=== PATIENT | male | born 1955 | race Caucasian/White ===

== ENCOUNTER 2020-04-01 09:21 | Outpatient (CLI) | payer MEDICARE, SELFPAY ==
--- NOTE | ~2020-04-01 | CT_ITS ---
EXAMINATION: CT chest wo con DATE: 04/01/2020 09:51 INDICATION: Emphysema TECHNIQUE: Computed tomography (CT) of the chest was performed without intravenous contrast. The dose -length product was 87.07 mGy-cm. Automated exposure control and iterative reconstruction technique w ere employed. COMPARISON: CT dated 02/18/2019 and chest dated 11/05/2019 FINDINGS: No thoracic lymphadenopathy. No pleural or pericardial effusion. Heart size is normal. Ther e is atherosclerosis of the aorta. There is a benign fat-containing lesion tail of the pancreas. Ther e is emphysema. There is right lower lobe infiltrates which may represent atelectasis, scarring and/o r developing pneumonia. There is an irregular shaped mass like soft tissue in the superior segment le ft lower lobe measuring 3.2 x 2.6 x 2.6 cm. There are calcified granulomas. Mild thoracic spondylosis . IMPRESSION: 1. Soft tissue mass superior segment left lower lobe measuring 3.2 x 2.6 x 2.6 cm. This may be infect ious, although neoplasm is not excluded. Recommend either PET/CT scan or percutaneous biopsy. 2: Right lower lobe infiltrates, most likely atelectasis/scarring versus pneumonia. 3: Emphysema. Reviewed, dictated and finalized at location A. IMPRESSION: 1. Soft tissue mass superior segment left lower lobe measuring 3.2 x 2.6 x 2.6 cm. This may be infectious, although neoplasm is not excluded. Recommend either PET/CT scan or percutaneous biopsy. 2: Right lower lobe infiltrates, most likely atelectasis/scarring versus pneumo malgorzata. 3: Emphysema.
== END 2020-04-01 09:22 | disposition home or self-care (01) ==
PROVIDERS: PCP Family Medicine; Visit Provider Family Medicine
DX: R91.8 Other nonspecific abnormal finding of lung field (principal); J43.9 Emphysema, unspecified
CPT/HCPCS: 71250

== ENCOUNTER 2020-04-07 10:28 | Outpatient (CLI) | payer MEDICARE, SELFPAY ==
--- NOTE | ~2020-04-07 | PE_ITS ---
EXAMINATION: PET skull to mid thigh DATE: 04/07/2020 12:24 INDICATION: Lung mass TECHNIQUE: 10.4 mCi of 18-fluorodeoxyglucose (18-FDG) was administered i.v. Low dose computed tomogra phy (CT) images were acquired from the base of the brain to the proximal thighs for attenuation corre ction and anatomic localization. Positron emission tomography (PET) images were acquired after inject ion. Images including fused PET/CT images were reconstructed in axial, coronal, and sagittal planes. Automatic exposure control is employed as a dose reduction technique. COMPARISON: CT dated 04/01/2020 FINDINGS: Head/neck: There is mucosal thickening of the maxillary sinuses. No cervical lymphadenopathy. No hypermetabolic activity in the neck. Chest: No thoracic lymphadenopathy. The mass in the superior segment left lower lobe has decreased in size c ompared with prior examination when it measured 2.6 cm transverse x2.8 cm AP x1.9 cm craniocaudal now measuring 2.5 cm transverse x2.2 cm AP x1.9 cm craniocaudal with increased air bronchograms internal ly. Maximum SUV is 1.9 No significant effusion. There is emphysema. There is right middle and lower l obe atelectasis. There is calcified granuloma right upper lobe. Focal infiltrates of the right lower and middle lobe are not significantly changed, likely atelectasis or scarring. Abdomen/pelvis/proximal thighs: The liver, spleen, pancreas, adrenal glands are unremarkable. There are low-density masses in both ki dneys, most likely cysts. There is atherosclerosis of the aorta. Chronic diverticulosis without diver ticulitis. Normal appendix. Gallbladder is present. Nonobstructive bowel gas pattern. There is a 1.5 x 0.9 cm right UVJ stone with minimal hydronephrosis. There is mild uptake throughout the colon witho ut discrete mass, likely physiologic. Bones/Soft tissues: No hypermetabolic activity is identified in the bones or soft tissues. IMPRESSION: 1. Decreased size of soft tissue nodule left upper lobe superior segment with increased internal bron chograms and maximum SUV of 1.9, most likely infectious/inflammatory rather than malignant. Recommend follow-up CT in 2-3 months to assess for interval change. 2: Emphysema. 3: Focal linear infiltrates of the right middle and lower lobe, atelectasis/scarring. 4: 1.5 cm right UVJ stone. Reviewed, dictated and finalized at location A. IMPRESSION: 1. Decreased size of soft tissue nodule left upper lobe superior segment with i ncreased internal bronchograms and maximum SUV of 1.9, most likely infectious/i nflammatory rather than malignant. Recommend follow-up CT in 2-3 months to asse ss for interval change. 2: Emphysema. 3: Focal linear infiltrates of the right middle and lower lobe, atelectasis/sc arring. 4: 1.5 cm right UVJ stone.
[2020-04-07 11:03] LABS: Glucose Point of Care 109 (65-105)
== END 2020-04-07 10:29 | disposition home or self-care (01) ==
LOC: ANHIMG 10:31
PROVIDERS: PCP Family Medicine; Visit Provider Family Medicine
DX: R91.8 Other nonspecific abnormal finding of lung field (principal); J43.9 Emphysema, unspecified; N20.1 Calculus of ureter
CPT/HCPCS: 78815; A9552

== ENCOUNTER 2020-06-07 10:26 | Outpatient (CLI) | payer MEDICARE, SELFPAY ==
--- NOTE | ~2020-06-07 | XR_ITS ---
XR abdomen/kub 1V DATE: 06/07/2020 10:41 INDICATION: Right ureteral stone TECHNIQUE: AP projection, 2 views COMPARISON: 04/07/[address] chest abdomen pelvis for PET/CT FINDINGS: The psoas shadows are intact. No visceromegaly is evident. No significant abnormal calcific ation is identified. No evidence of bowel obstruction. There is mild dextro scoliosis and degenerative change of the lower thoracic and lumbar spine. IMPRESSION: nonspecific abdomen Reviewed, dictated and finalized at Location A. Reviewed, dictated and finalized at location B. IMPRESSION: nonspecific abdomen
== END 2020-06-07 10:27 | disposition home or self-care (01) ==
LOC: ANHIMG 10:31
PROVIDERS: PCP Family Medicine; Visit Provider Urology
DX: N20.1 Calculus of ureter (principal)
CPT/HCPCS: 74018

== ENCOUNTER 2020-07-12 09:29 | Outpatient (CLI) | payer MEDICARE, SELFPAY ==
--- NOTE | ~2020-07-12 | CT_ITS ---
EXAMINATION: CT chest w con EXAM DATE: 07/12/2020 10:02 INDICATION: Abnormal findings in lungs. Emphysema. TECHNIQUE: Spiral CT of the chest following intravenous injection of 75 mL Omnipaque 350. Axial, cor onal and sagittal images were reviewed. Coronal maximum intensity pixel images of chest reviewed. Jacqui silverman dose-length product (DLP) for this examination was 171.99 mGy-cm. The exposure was tailored accor ding to patient size (auto mA exposure control), and iterative reconstruction (ASIR) was used as josselyn tional dose reduction technique. 04/01/2020 FINDINGS: Previously seen spiculated masslike opacity in the superior segment of the left lower lobe now has minimal scarring persistent, has essentially resolved. Several other regions of scarring are present. There is moderate emphysema. No suspicious pulmonary opacities. There are no pleural or pe ricardial effusions. Tracheobronchial tree is patent. There is no mediastinal, hilar or axillary lymphadenopathy. There is no pneumothorax. Heart normal in size. No evidence of coronary arteri al calcification. Upper abdomen is unremarkable. There is mild thoracic spondylosis without osteob lastic or osteolytic lesions identified. IMPRESSION: 1. Regions of scarring, essentially resolved left lower lobe masslike opacity. 2. Moderate emphysema. Reviewed, dictated and finalized at location A.
[2020-07-12 09:55] LABS: Estimated Glomerular Filt Rate > 60
== END 2020-07-12 09:30 | disposition home or self-care (01) ==
PROVIDERS: PCP Family Medicine; Visit Provider Physician Assistant
DX: R91.8 Other nonspecific abnormal finding of lung field (principal); J43.9 Emphysema, unspecified
CPT/HCPCS: 36415; 71260; Q9967

== ENCOUNTER 2021-07-13 10:06 | Outpatient (CLI) | payer MEDICARE, SELFPAY ==
--- NOTE | ~2021-07-13 | XR_ITS ---
EXAMINATION: XR chest 2V DATE: 07/13/2021 10:21 INDICATION: Cough TECHNIQUE: PA and lateral views of the chest are obtained. COMPARISON: 11/05/2019 FINDINGS: The lungs are free of acute opacities. There is no pleural effusion or pneumothorax. The ca rdiomediastinal silhouette is normal. There is moderate thoracic spondylosis. IMPRESSION: 1. No acute cardiopulmonary abnormality. Reviewed, dictated and finalized at location B.
== END 2021-07-13 10:07 | disposition home or self-care (01) ==
LOC: ANHIMG 10:12
PROVIDERS: PCP Family Medicine; Visit Provider Physician Assistant
DX: R05 Cough (principal)
CPT/HCPCS: 71046

== ENCOUNTER 2021-07-26 13:36 | Outpatient (CLI) | payer MEDICARE, SELFPAY ==
--- NOTE | ~2021-07-26 | CT_ITS ---
EXAMINATION: CT lung screening DATE: 07/26/2021 13:59 INDICATION: Personal hx of tobacco dependence TECHNIQUE: Computed tomography (CT) of the chest was performed without intravenous contrast. Addition al 3D reconstructions utilizing coronal maximum intensity projection (MIP) were performed. Automated exposure control and iterative reconstruction technique were employed. The dose-length product was 92 .64 mGy-cm. COMPARISON: Chest CT dated 07/12/2020 FINDINGS: Moderate to severe emphysema. Continued improvement of a small spiculated region of scarring at the s ite of an earlier masslike opacity in the superior segment of the left lower lobe. No interval change in multiple <5 mm scattered calcified and noncalcified pulmonary nodules. There are however multiple new <4 mm pulmonary nodules with tree-in-bud pattern in the posterior inferior right upper lobe as w ell as in the right middle and lower lobes consistent with endobronchial spread of disease including MARCOS or other atypical pneumonia. No pulmonary edema or pleural effusion. Heart size is normal. No per icardial effusion. Thoracic aorta is normal in caliber with mild scattered atherosclerotic calcificat ion. No pathologically enlarged thoracic lymphadenopathy. Couple low-attenuation right renal cysts, t he larger at the mid kidney measuring 3.0 cm. Moderate thoracic spondylosis. IMPRESSION: 1. Lung-RADS category 2: Benign appearance or behavior. Continue annual screening with noncontrast lo w-dose chest CT in 12 months. The small new nodules are clustered in regions of the mid to lower righ t lung with tree-in-bud pattern suggesting an infectious etiology with differential including MARCOS or other atypical pneumonia. 2. Moderate to severe emphysema. Reviewed, dictated and finalized at location B. IMPRESSION: 1. Lung-RADS category 2: Benign appearance or behavior. Continue annual screeni ng with noncontrast low-dose chest CT in 12 months. The small new nodules are c lustered in regions of the mid to lower right lung with tree-in-bud pattern sug gesting an infectious etiology with differential including MARCOS or other atypica l pneumonia. 2. Moderate to severe emphysema.
== END 2021-07-26 13:37 | disposition home or self-care (01) ==
LOC: ANHIMG 13:37
PROVIDERS: PCP Family Medicine; Visit Provider Family Medicine
DX: Z12.2 Encounter for screening for malignant neoplasm of respiratory organs (principal); Z87.891 Personal history of nicotine dependence; J43.9 Emphysema, unspecified
CPT/HCPCS: 71271

== ENCOUNTER 2021-10-18 08:35 | Outpatient (CLI) | payer MEDICARE, SELFPAY ==
--- NOTE | ~2021-10-18 | CT_ITS ---
EXAMINATION: CT diagnostic chest wo con EXAM DATE: 10/18/2021 09:00 INDICATION: J18.9 - Pneumonia, unspecified organism. TECHNIQUE: Spiral CT of the chest without contrast. Axial, coronal and sagittal images of the chest were reviewed. Coronal maximum intensity pixel images of chest reviewed. The dose-length product ( DLP) for this examination was 156.04 mGy-cm. The exposure was tailored according to patient size (au to mA exposure control), and iterative reconstruction (ASIR) was used as additional dose reduction te chnique. Comparison is made to prior examination from 07/26/2021. FINDINGS: Some linear right basilar scarring. Moderate emphysema. No suspicious lung opacities or in terval change. There are no pleural or pericardial effusions. Tracheobronchial tree is patent. T here is no mediastinal, hilar or axillary lymphadenopathy. There is no pneumothorax. Heart normal in size. There is minimal coronary arterial calcification, arterial sclerosis. Possible poorly ca lcified cholelithiasis. Right renal lesions most likely cysts. There is thoracic spondylosis without osteoblastic or osteolytic lesions identified. IMPRESSION: 1. Small amount of right basilar postinfectious residua. 2. Moderate emphysema. Reviewed, dictated and finalized at location B. NG LINE BALER
== END 2021-10-18 08:36 | disposition home or self-care (01) ==
PROVIDERS: PCP Family Medicine; Visit Provider Family Medicine
DX: J18.9 Pneumonia, unspecified organism (principal); J43.9 Emphysema, unspecified
CPT/HCPCS: 71250

== ENCOUNTER 2021-10-21 10:22 | Emergency (ER) | payer MEDICARE, SELFPAY ==
--- NOTE | ~2021-10-21 | CT_ITS ---
EXAMINATION: CT brain wo con EXAM DATE: 10/21/2021 11:45 INDICATION: Weakness, dizziness . Recent diagnosis of myeloma. TECHNIQUE: Spiral CT of the head was performed without contrast. Axial, coronal and sagittal images were reviewed. The dose-length product (DLP) for this examination was 605.33 mGy-cm. The exposure w as tailored according to patient size, and iterative reconstruction (ASIR) was used as additional dos e reduction technique. Comparison is made to prior examination from 01/26/2016. FINDINGS: There is no acute intraparenchymal hemorrhage. No evidence of intraparenchymal brain mass lesion. No evidence of acute infarction. Please note that initial head CT has limited sensitivity f or small or acute infarctions. There is moderate size old left frontal lobe region of encephalomalac ia. Some extension into the subinsular cortex. This is an the location of a previously seen hemorrhag ic, which has resolved. There is mild periventricular and subcortical hypodensity, nonspecific but pr obably related to small vessel ischemic disease. There is mild prominence of the sulci and ventricl es related to cerebral atrophy. There is intracranial carotid arteriosclerosis. There are no extra -axial collections. There is no mass effect or midline shift. The orbits are unremarkable. Soft ti ssue is unremarkable. Mild ethmoid, left sphenoid and mild to moderate left maxillary sinus mucoperiosteal thickening. Mast oid air cells demonstrate trace right mastoid effusion. IMPRESSION: 1. 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 2. Chronic age related findings. 3. Some mucoperiosteal thickening, trace right mastoid effusion. Reviewed, dictated and finalized at location A. E MARKER [employer] ARMS IMPRESSION: 1. Moderate size left frontal lobe encephalomalacia, old hemorrhagic infarctio n. 2. Chronic age related findings. 3. Some mucoperiosteal thickening, trace right mastoid effusion.
[2021-10-21 10:22] VITALS: BP 119/81; PULSE 83; RESP 20; TEMP 36.6; O2SAT 98
--- NOTE | 2021-10-21 10:28 | ECG_ITS ---
Measurements Intervals [place] Rate: 82 P: 60 AK: 155 QRS: -29 QRSD: 82 T: 42 QT: 363 QTc: 424 Interpretive Statements SINUS RHYTHM INCOMPLETE RIGHT BUNDLE BRANCH BLOCK LOW QRS VOLTAGE IN LIMB LEADS BORDERLINE T WAVE ABNORMALITY- INFERIOR LEADS BASELINE ARTIFACT- I, III, AVR, AVL, V1-V2 BORDERLINE ECG Electronically Signed On 10-21-2021 11:17:30 SALES PERFORMANCE MANAGER by Cornelio Butler D.O.
--- NOTE | 2021-10-21 11:03 | ED.GENADULT ---
HPI - General Adult General Chief complaint: Nausea/Vomiting/Diarrhea Stated complaint: weakness Time Seen by Provider: 10/21/21 10:45 Source: patient and family Mode of arrival: ambulatory Limitations: no limitations History of Present Illness HPI narrative: Patient is a 65-year-old male complaining of generalized weakness, lightheaded, nausea and intermittent diarrhea for the past 2 weeks. Patient states that he has been feeling well for the past 2 weeks. Patient states that he saw his primary care doctor for this, had a CT scan of his chest ordered outpatient, to rule out pneumonia because he is prone to it according to the , no pneumonia seen on the CT scan. Patient denies any headache, speech or visual disturbance, focal weakness or numbness, unsteady gait, chest pain, shortness of breath, abdominal pain, nausea, vomiting, fever or chills. Patient states that he was recently diagnosed with myeloma, not on chemo therapy at this time. Related Data Allergies Allergy/AdvReac Type Severity Reaction Status Date / Time propoxyphene Allergy Unknown Hives Verified 10/21/21 10:30 Review of Systems Review of Systems: All systems reviewed & are unremarkable except as noted in HPI and below Constitutional: Constitutional: Denies body ache(s), Denies chills, Denies excessive sweating, Denies fatigue, Denies fever(s), Denies headache(s), Denies lethargy, Denies malaise and Denies weight loss Eyes: Eyes: Denies blurry vision, Denies change in vision and Denies loss of vision ENT: Denies dizziness, Denies ear discharge, Denies headache(s), Denies lip swelling, Denies epistaxis, Denies nasal congestion, Denies neck pain, Denies throat swelling and Denies tongue swelling Cardiovascular: Cardiovascular: Denies chest pain, Denies chest pain at rest, Denies chest pain with activity, Denies diaphoresis, Denies rapid heart rate, Denies edema, Denies irregular heart rhythm, Denies lightheadedness, Denies palpitations, Denies dyspnea and Denies dyspnea on exertion Respiratory: Respiratory: Denies chest congestion, Denies cough, Denies hemoptysis, Denies dyspnea and Denies dyspnea on exertion Gastrointestinal: Gastrointestinal: Denies abdominal pain, Denies melena, Denies hematochezia, Denies nausea, Denies vomiting and Denies hematemesis Musculoskeletal: Musculoskeletal: Denies abnormal gait, Denies deformity, Denies joint swelling, Denies limited range of motion, Denies neck pain and Denies numbness Neurologic: Denies Abnormal speech present, Denies abnormal gait, Denies confusion, Denies headache(s), Denies focal weakness, Denies loss of vision, Denies numbness, Denies Other visual disturbances and Denies Sensory deficit (Neuro) Psychiatric: Psychiatric: Denies confusion, Denies depression, Denies auditory hallucinations, Denies homicidal ideation and Denies suicidal ideation Endocrine: Endocrine: Denies cold intolerance, Denies excessive sweating, Denies fatigue, Denies heat intolerance and Denies palpitations Hematologic/Lymphatic: Hematologic/Lymphatic: Denies easy bleeding and Denies easy bruising Allergic/Immunologic: Allergic/Immunologic: Denies lip swelling, Denies throat swelling and Denies tongue swelling PMFSH Past Medical History Medical History CVA (cerebral vascular accident) Encounter for screening colonoscopy Hypertension Family History Family History Mother Aneurysm Social History Social History Smoking packs per day: 2 Smoking cigarettes per day: 40.0 Years smoked: 26 Smoking pack-years: 52.00 Smoking status: Former smoker Tobacco type: cigarettes and cigars Second hand tobacco smoke exposure: No Smoking end date: 11/05/19 Alcohol intake: never Substance use: current Substance use type: marijuana Gender identity (if verbalized by the patien
[2021-10-21] MEDS: LACTATED RINGERS 1,000 ML 999 ML IV CONT (11:17)
[2021-10-21 11:35] LABS: Basophils Percent Auto 0.4 % (0.2-1.2); Eosinophils Percent Auto 0.4 % (0-4.4); Hematocrit 43.6 % (42.0-52.0); Hemoglobin 14.8 g/dL (14.0-18.0); Immature Granulocyte Absolute 0.01 K/mm3 (0.00-0.031); Immature Granulocyte Percent A 0.4 % (0-0.5); Immature Platelet Fraction Pct 3.4 % (0.9-11.2); Lymphocytes Absolute Auto 0.61 K/mm3 (0.9-3.2); Lymphocytes Percent Auto 22.5 % (18.3-44.2); Mean Corpuscular HGB Conc 33.9 g/dl (32-36); Mean Corpuscular Hemoglobin 30.5 pg (26-34); Mean Corpuscular Volume 89.7 fl (80-100); Mean Platelet Volume 9.8 fl (7.4-10.4); Monocytes Absolute Auto 0.3 K/mm3 (0.1-0.6); Monocytes Percent Auto 11.4 % (2.6-8.5); Neutrophils Absolute Auto 1.8 K/mm3 (1.3-6.7); Neutrophils Percent Auto 64.9 % (45.5-73.1); Platelet Count Result 141 k/mm3 (150-375); Red Blood Count 4.86 M/mm3 (4.6-6.20); White Blood Count 2.7 K/mm3 (4.5-10.0)
[2021-10-21 11:47] LABS: Alanine Aminotransferase 18 U/L (4-50); Albumin Level 3.8 g/dL (3.5-5.1); Alkaline Phosphatase 86 U/L (38-126); Anion Gap 10 mmol/L (8-16); Aspartate Amino Transferase 25 U/L (17-59); Bilirubin,Total 0.4 mg/dL (0.2-1.3); Blood Urea Nitrogen 10 mg/dL (9-20); Calcium 8.3 mg/dL (8.4-10.2); Carbon Dioxide 23 mmol/L (22-30); Chloride 103 mmol/L (98-107); Estimated CRCL calculation 68 ml/min; Estimated Glomerular Filt Rate > 60; Glucose 94 mg/dL (65-110); Sodium 136 mmol/L (137-145)
[2021-10-21 11:48] LABS: Lactic Acid Reflex 1.5 mmol/L (0.7-2.1)
[2021-10-21 11:58] LABS: Troponin I < 0.012 ng/mL (0.000-0.034)
[2021-10-21 12:31] LABS: Add Urine Microscopic? YES; Appearance Urine Clear (Clear); Bilirubin Urine Negative (Negative); Blood Urine Negative (Negative); Color Urine Straw (Yellow); Glucose Urine UA Negative (Negative); Ketones Urine 1+ mg/dL (Negative); Leukocyte Esterase Ur Negative LEU/UL (Negative); Mucus Urine Rare /lpf; Nitrate Urine Negative (Negative); Protein Urine Negative (Negative); RBC Urine 0-2 /hpf (0-2); Urobilinogen Urine Negative mg/dL (<2.0); WBC Urine 0-3 /hpf
[2021-10-21 12:32] LABS: Specific Grav Ur 1.004 (1.001-1.035)
[2021-10-21 12:36] VITALS: BP 115/89; PULSE 70; RESP 18; O2SAT 96
[2021-10-21 14:53] VITALS: BP 104/74; PULSE 76; RESP 18; O2SAT 96
[2021-10-21 15:52] VITALS: BP 117/81; PULSE 79; RESP 18; O2SAT 95
== END 2021-10-21 15:54 | disposition home or self-care (01) ==
PROVIDERS: Emergency Provider Emergency Medicine; PCP Family Medicine
DX: R53.1 Weakness (principal); R42 Dizziness and giddiness; R19.7 Diarrhea, unspecified; I10 Essential (primary) hypertension; Z86.73 Personal history of transient ischemic attack (TIA), and cerebral infarction without residual deficits; Z87.891 Personal history of nicotine dependence; I45.10 Unspecified right bundle-branch block; R94.31 Abnormal electrocardiogram [ECG] [EKG]
CPT/HCPCS: 36415; 70450; 80053; 81001; 83605; 84484; 85025; 85055; 93005; 96360; 99284; J7120

== ENCOUNTER 2021-12-11 08:44 | Emergency (ER) | payer MEDICARE, SELFPAY ==
--- NOTE | 2021-12-11 08:46 | ED.URI ---
HPI - URI/Sore Throat General Chief Complaint: Upper Respiratory Infection Stated Complaint: Sinus Pain/Ear Pain Time Seen by Provider: 12/11/21 08:46 Source: patient and RN notes reviewed History of Present Illness HPI Narrative: Patient is a 66-year-old male who presents the urgent care with complaints of right ear pain/clogged and sinus pain. Patient states has been ongoing for approximately 2 weeks and he has been unable to get into his doctor. Patient has a history of bronchitis, COPD and pneumonia. Patient denies of any recent fevers. States that he has a productive cough with intermittent shortness of breath. Denies of any chest pain. Patient has been taking all the medications [id number] without any improvement . Patient does not take daily inhalers for his COPD and has not been referred to a surveillance systems engineer. No other acute complaints. No acute distress noted. Patient and spouse aware of the plan of care. Some parts of this dictation were generated by voice recognition software and may contain typographical and/or grammatical inaccuracies. Related Data Allergies Allergy/AdvReac Type Severity Reaction Status Date / Time propoxyphene Allergy Unknown Hives Verified 12/11/21 08:53 STERIODS AdvReac Nervousness Uncoded 12/11/21 08:53 Review of Systems Review of Systems: CONSTITUTIONAL: Denies fever, chills, or sweats. EYES: Denies visual changes, redness, or discharge. ENT: Reports rhinorrhea, sinus congestion/pain, right otalgia CARDIOVASCULAR: Denies chest pain, palpitations, or edema. RESPIRATORY: Reports of cough with intermittent dyspnea GASTROINTESTINAL: Denies abdominal pain, nausea, vomiting, or diarrhea. GENITOURINARY: Denies dysuria or hematuria. SKIN: Denies rash or itching. MUSCULOSKELETAL: Denies back pain, joint pain, or myalgia. NEUROLOGIC: Denies headache, numbness, or weakness. All other systems reviewed are negative, except as documented in HPI. [facility] Past Medical History Medical History CVA (cerebral vascular accident) Encounter for screening colonoscopy Hypertension Family History Family History Mother Aneurysm Social History Social History Smoking packs per day: 2 Smoking cigarettes per day: 40.0 Years smoked: 26 Smoking pack-years: 52.00 Smoking status: Former smoker Tobacco type: cigarettes and cigars Second hand tobacco smoke exposure: No Smoking end date: 11/05/19 Alcohol intake: never Substance use: current Substance use type: marijuana Gender identity (if verbalized by the patient): Male Spiritual care concerns: No Agree to blood products: Yes Comments At the time of my signature, I reviewed and agree with the nursing past medical, surgical, social, and family history. There is no relevant family history pertinent to the patient complaint. Exam Narrative: GENERAL: This is a well-nourished, well-developed patient, in no apparent distress. HEAD: normocephalic, atraumatic. EYES: PERRL. Sclera clear/white. Vision is grossly intact. EARS: External ears normal, right auditory canal clear and without drainage, unable to visualize right TM due to cerumen impaction, left TM normal without perforation. Hearing grossly intact. NOSE: External nose normal with no obvious nasal discharge, nares without redness, no rhinorrhea. THROAT: Mucous membranes moist, posterior pharynx clear. Moderate postnasal drainage NECK: Neck supple CARDIOVASCULAR: Regular rate and rhythm RESPIRATORY: Crackles throughout, diminished to right lower lobe SKIN: warm, intact with no suspicious lesions or rash, good texture and turgor. NEURO: awake, alert, and oriented to person, place and time. There were no obvious focal neurologic abnormalities. EXTREMITIES: No clubbing, cyanosis, or edema. Course Course Level of Care: Ex
[2021-12-11 08:50] VITALS: BP 123/88; PULSE 81; RESP 20; TEMP 37.1; O2SAT 99
== END 2021-12-11 09:10 | disposition home or self-care (01) ==
PROVIDERS: Emergency Provider Nurse Practitioner Family; PCP Family Medicine
DX: J32.9 Chronic sinusitis, unspecified (principal); J40 Bronchitis, not specified as acute or chronic; Z87.891 Personal history of nicotine dependence; Z86.73 Personal history of transient ischemic attack (TIA), and cerebral infarction without residual deficits; I10 Essential (primary) hypertension; J44.9 Chronic obstructive pulmonary disease, unspecified
CPT/HCPCS: 99213; G0463

== ENCOUNTER 2022-04-18 08:48 | Outpatient (CLI) | payer MEDICARE, SELFPAY ==
--- NOTE | ~2022-04-18 | XR_ITS ---
EXAMINATION: XR thoracic spine 2V DATE: 04/18/2022 09:06 INDICATION: Back pain TECHNIQUE: AP, lateral and lateral swimmer's views of the thoracic spine were obtained. COMPARISON: CT, 07/26/2021 FINDINGS: There is no fracture. Vertebral body alignment is normal. There is moderate loss of interve rtebral disc space height at multiple levels in the thoracic spine. The vertebral body heights are ma intained. Small degenerative osteophytes project from the anterior endplates of multiple vertebral vladimir dies. There is severe lower cervical spondylosis IMPRESSION: 1. Moderate thoracic spondylosis without acute findings or significant interval change. Reviewed, dictated and finalized at location A.
== END 2022-04-18 08:49 | disposition home or self-care (01) ==
PROVIDERS: PCP Family Medicine; Visit Provider Family Medicine
DX: M47.894 Other spondylosis, thoracic region (principal)
CPT/HCPCS: 72070

== ENCOUNTER → 2022-06-19 12:38 | Outpatient (CLI) | payer MEDICARE, SELFPAY ==
--- NOTE | ~2022-06-19 | XR_ITS ---
XR chest 2V DATE: 06/19/2022 13:14 INDICATION: Malignant melanoma of skin of the chest TECHNIQUE: 2 views COMPARISON: 06/19/2022 CT chest abdomen pelvis 07/13/2021 2 view chest FINDINGS: Moderate hyperinflation consistent with COPD. No pulmonary infiltrate or consolidation, ple ural effusion or pulmonary vascular congestion or pulmonary mass lesion is evident. Normal heart size. There is aortic unfolding. No hilar or mediastinal enlargement is evident. Osteopenia. IMPRESSION: Bilateral hyperinflation consistent with COPD No active cardiopulmonary disease or significant change since 07/13/2021 Reviewed, dictated and finalized at location B.
--- NOTE | ~2022-06-19 | CT_ITS ---
EXAMINATION: CT chest abdomen pelvis w con DATE: 06/19/2022 13:14 INDICATION: Malignant melanoma of skin of the chest removed 6 months ago TECHNIQUE: Computed tomography (CT) of the chest, abdomen, and pelvis was performed with 100 CC Omnip aque 350 intravenous contrast. Automated exposure control and iterative reconstruction technique were employed. Exam dose: 692.32 mGy-cm total exam DLP. COMPARISON: 10/18/2021 CT chest 07/12/2020 CT chest 04/01/2020 CT chest 02/18/2019 CT lung cancer screening examination FINDINGS: CHEST CT: Moderately prominent emphysematous changes of the lungs. There is discoid atelectasis and/or scarring in the middle and right lower lobes. Stable focal stellate opacity in the superior segment of the left lower lobe since 10/18/2021, likely residual scarring from prominent area of consolidation in this region noted on 02/18/2019. No significant new or developing pulmonary mass density is noted. Normal size and homogeneous enhancement of the thyroid gland. Normal heart size. No pericardial effus ion. No thoracic aortic aneurysm or dissection. There is aortic calcification of the thoracic aorta. No hilar or mediastinal or axillary mass lesion or lymphadenopathy. ABDOMEN/PELVIS CT: There is mild prominence of the intrahepatic and extra hepatic bile ducts, common bile duct measuring up to 11 mm. The very distal common bile duct is not seen. Recommend correlation with serum bilirubi n level. Consider MRCP for further evaluation. Several hepatic cysts are suggested, the largest measuring approximately 1 cm. Normal splenic size. The pancreatic duct measures up to 2.6 mm approximate diameter. No pancreatic mass lesion or calcific ation is evident. Approximately 9 x 11.5 mm right adrenal mass and 9.3 x 13.5 mm left adrenal mass. Differential diagno sis includes small adrenal adenomas, less likely adrenal metastases. 2.4 x 3.4 cm and 1.7 x 1.8 cm right upper pole renal cysts. 1.5 cm exophytic lower pole left renal cy st. No urinary tract calculus or hydroureteronephrosis. There is very prominent prostate enlargement, prominently impressing the base of the urinary bladder. There is moderate diffuse bladder wall thickening. No urinary tract calculus or hydroureteronephrosi s. Approximately 1 cm fusiform infrarenal abdominal aortic aneurysm. No intraperitoneal or retroperitoneal or pelvic mass lesion or adenopathy or ascites. Diverticulosis of left colon; no CT evidence of diverticulitis. Normal appendix. No bowel obstruction, bowel wall thickening, pneumatosis or intraperitoneal free air is detected. Small fat-containing umbilical hernia Small bilateral fat-containing inguinal hernias. 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 Severe degenerative disc disease at L5-S1. There is moderate degenerative disc disease of the remaini ng lumbar spine, with associated mild retrolisthesis at L4-5. Severe degenerative disc disease of the lower cervical spine and degenerative spurring of the thoraci c spine. No suspicious osteolytic or osteoblastic lesions are noted. IMPRESSION: Emphysema Bilateral pulmonary scarring Nonspecific dilatation of the intrahepatic and extra hepatic biliary tree and borderline prominence o f the pancreatic duct; common bile duct measures up to approximately 11 mm. Recommend correlation wit h serum bilirubin level. Consider MRCP. Bilateral adrenal masses; differential diagnosis includes adenomas and less likely metastases. These appear stable since 04/01/2020 and 02/18/2019, favoring benign adenomas. Bilateral renal cysts Prominent prostate enlargement Diverticulosis of left colon; no evidence of diverticulitis Normal appendix Bilateral L5 pars interarticularis defects with grade 2 anterolisthesis and severe degenerative disea se at L5-S1 Degenerative changes of cervical, th
[2022-06-19 13:01] LABS: Estimated Glomerular Filt Rate > 60
== END ==
PROVIDERS: PCP Family Medicine; Visit Provider Surgery
DX: C79.2 Secondary malignant neoplasm of skin (principal); J43.9 Emphysema, unspecified; R91.8 Other nonspecific abnormal finding of lung field; D35.01 Benign neoplasm of right adrenal gland; D35.02 Benign neoplasm of left adrenal gland; N40.0 Benign prostatic hyperplasia without lower urinary tract symptoms; K57.30 Diverticulosis of large intestine without perforation or abscess without bleeding; M50.30 Other cervical disc degeneration, unspecified cervical region; M51.34 Other intervertebral disc degeneration, thoracic region; M51.36 Other intervertebral disc degeneration, lumbar region
CPT/HCPCS: 71046; 71260; 74177; Q9967

== ENCOUNTER 2022-11-28 13:08 | Outpatient (CLI) | payer MEDICARE, SELFPAY ==
--- NOTE | ~2022-11-28 | XR_ITS ---
Clinical Indication: Cough PA and lateral views of the chest: Comparison: 06/19/2022 Findings: The lungs are clear, without evidence of focal consolidation or pleural effusion. Cardiome diastinal silhouette is within normal limits. Bones and soft tissues are unremarkable. Impression: Normal chest. Reviewed, dictated and finalized at location . H TENDER Impression: Normal chest.
== END 2022-11-28 13:09 | disposition home or self-care (01) ==
PROVIDERS: PCP Family Medicine; Visit Provider Physician Assistant
DX: R05.9 Cough, unspecified (principal)
CPT/HCPCS: 71046

== ENCOUNTER 2022-12-12 06:35 | Outpatient (CLI) | payer MEDICARE, SELFPAY ==
--- NOTE | ~2022-12-12 | CT_ITS ---
EXAMINATION: CT chest abdomen pelvis w con DATE: 12/12/2022 07:18 INDICATION: Metastatic melanoma of the skin of the chest TECHNIQUE: Transaxial computed tomographic images of the chest, abdomen, and pelvis were obtained aft er the administration of 100 cc of Omnipaque 350 intravenous contrast. The dose-length product (DLP) was 405.56 mGy-cm. Automated exposure control and iterative reconstruction technique were employed. COMPARISON: 06/19/2022 FINDINGS: CHEST CT: There is moderate emphysema. Scattered stable pulmonary nodules are present which measure up to 5 mm. There is chronic mild elevation of the right hemidiaphragm. The lungs are free of acute opacities. N o pleural effusion or pneumothorax. Calcified pulmonary nodules are consistent with old granulomatous disease. There is a chronic nodular opacity of the superior segment of the left lower lobe without s ignificant change. No pathologically enlarged thoracic lymph nodes are identified. The heart size is normal. Calcified coronary artery atherosclerosis is noted. ABDOMEN/PELVIS CT: Cysts of the liver measure up to 10 mm in the left hepatic lobe. The spleen and gallbladder are maria eugenia l. There are chronic and unchanged small fat attenuation lesions of the pancreas. A stable 13 mm mass of the left adrenal gland is consistent with an adenoma. There is a stable 11 mm mass of the right a drenal gland, also consistent with an adenoma. Cysts of the kidneys measure up to 3.8 cm on the right . No pathologically enlarged abdominal or pelvic lymph nodes are identified. There is no free intrape ritoneal gas or evidence of bowel obstruction. The appendix is normal. Intramural thrombus is noted i n the infrarenal abdominal aorta. There are bilateral L5 pars defects with grade 1 anterolisthesis of L5 on S1. IMPRESSION: 1. No evidence of metastatic disease. Reviewed, dictated and finalized at location B. ET DISPENSER CHANGER
[2022-12-12 07:08] LABS: Estimated Glomerular Filt Rate 55
== END 2022-12-12 06:36 | disposition home or self-care (01) ==
PROVIDERS: PCP Family Medicine; Visit Provider Surgery
DX: C43.9 Malignant melanoma of skin, unspecified (principal); C43.59 Malignant melanoma of other part of trunk
CPT/HCPCS: 71260; 74177; Q9967

== ENCOUNTER 2023-06-18 06:32 | Outpatient (CLI) | payer MEDICARE, SELFPAY ==
--- NOTE | ~2023-06-18 | CT_ITS ---
Clinical Indication: Metastatic melanoma CT Scan of the Chest, Abdomen, and Pelvis with Contrast: Technique: Contiguous sections were acquired throughout the chest, abdomen, and pelvis after intraven ous administration of 100 cc of Omnipaque 350. Dose reduction technique was used on this scan by poornima hernandez automated exposure control and iterative reconstruction technique. The dose-length product (DL P) was 415.43 mGy-cm. COMPARISON: 12/12/2022 Findings: There is no evidence of any significant mediastinal, hilar or axillary lymphadenopathy. The mediastin al soft tissues and vascular structures appear normal. There is no evidence of pleural or pericardial effusion. Moderate to advanced emphysema present. Stable subcentimeter left lung pulmonary nodules (axial image s 65, 105). There is mild right basilar atelectatic change. Subcentimeter presumed hepatic cysts are stable from prior exam. The spleen, gallbladder, pancreas, a nd kidneys are within normal limits. Bilateral 1 cm adrenal nodules are stable from prior exam. Stabl e mural thrombus in the infrarenal abdominal aorta. No lymphadenopathy. No bowel obstruction or bowel wall thickening. There is no evidence to suggest acute appendicitis. Urinary bladder is unremarkable. Prostate gland is enlarged. No ascites. Bilateral L5 pars interartic ularis defects are present, with 8 mm anterolisthesis of L5 over S1. Impression: No evidence for active malignancy or metastatic disease. Moderate to advanced emphysema. Stable bilateral 1 cm adrenal nodules. Bilateral L5 pars interarticularis defects, as detailed above. Reviewed, dictated and finalized at [facility]. Impression: No evidence for active malignancy or metastatic disease. Moderate to advanced emphysema. Stable bilateral 1 cm adrenal nodules. Bilateral L5 pars interarticularis defects, as detailed above.
[2023-06-18 07:22] LABS: Estimated Glomerular Filt Rate 60
== END 2023-06-18 06:33 | disposition home or self-care (01) ==
PROVIDERS: PCP Family Medicine; Visit Provider Surgery
DX: C43.9 Malignant melanoma of skin, unspecified (principal); C43.59 Malignant melanoma of other part of trunk; D35.01 Benign neoplasm of right adrenal gland; D35.02 Benign neoplasm of left adrenal gland; J43.9 Emphysema, unspecified
CPT/HCPCS: 71260; 74177; Q9967

== ENCOUNTER 2023-07-05 03:42 | Day surgery (SDC) | payer MEDICARE, SELFPAY ==
[2023-07-01 08:34] VITALS: BMI 23.3
--- NOTE | 2023-07-04 18:17 | PM.HPGS ---
History of Present Illness History of Present Illness Consent: Risks, benefits, and alternatives have been discussed and questions answered. Patient agrees to proceed with procedure. Chief complaint: GERD, neoplasm screening Narrative: Clifford Velasquez is a 67 year old male With chronic gastroesophageal reflux disease. He had been doing all right on omeprazole 20 mg a day but because of increasing symptoms and had been increased recently to 20 mg twice a day. He denies dysphagia. Occasionally will have some regurgitation at night. He is due for colon cancer screening, his last colonoscopy was 10 years ago, at another institution. Review of Systems Review of Systems: All systems reviewed & are unremarkable except as noted in HPI and below PMFSH Past Medical History Medical History CVA (cerebral vascular accident) Encounter for screening colonoscopy GERD (gastroesophageal reflux disease) Hypertension Family History Family History Mother Aneurysm Social History Social History Smoking packs per day: 2 Smoking cigarettes per day: 40.0 Years smoked: 26 Smoking pack-years: 52.00 Smoking status: Former smoker Tobacco type: cigars Second hand tobacco smoke exposure: No Smoking end date: 11/05/19 Alcohol intake: never Substance use: current Substance use type: marijuana Living arrangements: with family Occupation/Education: retired Gender identity (if verbalized by the patient): Male Sexual Orientation (if Verbalized by the Patient): Straight or Heterosexual Spiritual care concerns: No Agree to blood products: Yes Meds Home Medications and Allergies Home Medications Medication Instructions Recorded Confirmed Type cimetidine 400 mg tablet See Rx Instructions .Route 12/11/22 07/05/23 Rx .COMPLEX #200 tabs albuterol sulfate 90 mcg/actuation 2 puff inhalation QID PRN 02/04/23 07/05/23 Rx aerosol inhaler shortness of breath or wheezing #8 grams metoprolol succinate 25 mg See Rx Instructions .Route 02/25/23 07/05/23 Rx tablet,extended release 24 hr .COMPLEX #100 tabs amlodipine 10 mg tablet See Rx Instructions .Route 03/12/23 07/05/23 Rx .COMPLEX #100 tabs gabapentin 100 mg capsule See Rx Instructions .Route 03/12/23 07/05/23 Rx .COMPLEX #600 caps lisinopril 20 mg tablet See Rx Instructions .Route 03/12/23 07/05/23 Rx .COMPLEX #100 tabs trazodone 50 mg tablet See Rx Instructions .Route 03/12/23 07/05/23 Rx .COMPLEX #100 tabs fluticasone fur. 100 mcg-umeclid 1 inh inhalation DAILY #90 ea 03/13/23 07/05/23 Rx 62.5 mcg-vilant 25 mcg inhalat.powder (Trelegy Ellipta) atorvastatin 10 mg tablet See Rx Instructions .Route 05/22/23 07/05/23 Rx .COMPLEX #100 tabs omeprazole 20 mg capsule,delayed 20 mg PO BID 1 month #60 caps 05/28/23 07/05/23 Rx release Allergies Allergy/AdvReac Type Severity Reaction Status Date / Time propoxyphene Allergy Unknown Hives Verified 07/05/23 09:42 STERIODS AdvReac Nervousness Uncoded 07/05/23 09:42 Exam Const: General: alert Orientation/consciousness: patient oriented x3 Resp: Auscultation: clear to auscultation bilaterally Cardio: Rhythm: regular rhythm GI: GI Palp: Yes Soft to palpation and No Tenderness to palpation present (GI) Neuro: General: patient oriented x3 Assessment and Plan Assessment and plan (1) GERD (gastroesophageal reflux disease): Code(s): K21.9 - Gastro-esophageal reflux disease without esophagitis Status: Acute Assessment and Plan: EGD with possible biopsy or dilatation or cautery. (2) Encounter for screening colonoscopy: Code(s): Z12.11 - Encounter for screening for malignant neoplasm of colon Status: Acute Assessment and Plan: Colonoscopy with possible biopsy or polypectomy
[2023-07-05 09:36] VITALS: BP 113/76; PULSE 98; RESP 16; TEMP 37.3; O2SAT 92
[2023-07-05] MEDS: LACTATED RINGERS 1,000 ML 150 ML IV CONT (09:52)
--- NOTE | 2023-07-05 10:06 | WPDANESEPPF ---
Anes - Initial Pre Proc Eval Procedure: Operation Date: 07/05/23 10:30 Proposed Procedures p Esophagogastroduodenoscopy & Screening Colonoscopy - Vladislav Miller MD Date/Time: 07/05/23 10:06 Surgeon: Vladislav Miller MD Pre Op Diagnosis: GERD, neoplasm screening Patient Data Age: 67 Gender: M Height: 1.65 m Weight: 65.5 kg Last Vital Signs Temp 99.1 F 07/05/23 09:36 Pulse 98 07/05/23 09:36 Resp 16 07/05/23 09:36 BP 113/76 07/05/23 09:36 Pulse Ox 92 07/05/23 09:36 O2 Del Method Room Air 07/05/23 09:36 Allergies Allergy/AdvReac Type Severity Reaction Status Date / Time propoxyphene Allergy Unknown Hives Verified 07/05/23 09:42 STERIODS AdvReac Nervousness Uncoded 07/05/23 09:42 Home Medications Medication Instructions Recorded Confirmed Type cimetidine 400 mg tablet See Rx Instructions .Route 12/11/22 07/05/23 Rx .COMPLEX #200 tabs albuterol sulfate 90 mcg/actuation 2 puff inhalation QID PRN 02/04/23 07/05/23 Rx aerosol inhaler shortness of breath or wheezing #8 grams metoprolol succinate 25 mg See Rx Instructions .Route 02/25/23 07/05/23 Rx tablet,extended release 24 hr .COMPLEX #100 tabs amlodipine 10 mg tablet See Rx Instructions .Route 03/12/23 07/05/23 Rx .COMPLEX #100 tabs gabapentin 100 mg capsule See Rx Instructions .Route 03/12/23 07/05/23 Rx .COMPLEX #600 caps lisinopril 20 mg tablet See Rx Instructions .Route 03/12/23 07/05/23 Rx .COMPLEX #100 tabs trazodone 50 mg tablet See Rx Instructions .Route 03/12/23 07/05/23 Rx .COMPLEX #100 tabs fluticasone fur. 100 mcg-umeclid 1 inh inhalation DAILY #90 ea 03/13/23 07/05/23 Rx 62.5 mcg-vilant 25 mcg inhalat.powder (Trelegy Ellipta) atorvastatin 10 mg tablet See Rx Instructions .Route 05/22/23 07/05/23 Rx .COMPLEX #100 tabs omeprazole 20 mg capsule,delayed 20 mg PO BID 1 month #60 caps 05/28/23 07/05/23 Rx release Patient hx anesthesia problems: none Family hx anesthesia problems: none Results Review: All pre-operative results and documents have been reviewed as part of the pre-operative evaluation. [facility] Past Medical History Medical History CVA (cerebral vascular accident) Encounter for screening colonoscopy GERD (gastroesophageal reflux disease) Hypertension Family History Family History Mother Aneurysm Social History Social History Smoking packs per day: 2 Smoking cigarettes per day: 40.0 Years smoked: 26 Smoking pack-years: 52.00 Smoking status: Former smoker Tobacco type: cigars Second hand tobacco smoke exposure: No Smoking end date: 11/05/19 Alcohol intake: never Substance use: current Substance use type: marijuana Living arrangements: with family Occupation/Education: retired Gender identity (if verbalized by the patient): Male Sexual Orientation (if Verbalized by the Patient): Straight or Heterosexual Spiritual care concerns: No Agree to blood products: Yes Anes - Eval Final PreProcedure Day of Procedure 07/05/23 10:06 Patient weight: normal Heart: regular rate and rhythm Lungs: clear to auscultation Airway: Mallampati scale class II Neurological: alert and oriented Last oral intake: >/= 8 hours ASA classification: III Emergent: no Anesthetic plan: proceed Anesthesia type and monitoring: general GIVS and standard monitoring Results Review: All pre-operative results and documents have been reviewed as part of the pre-operative evaluation. Informed Consent: The patient's anesthetic plan and its attendant risks and benefits were discussed with the patient/family/POA. Questions were solicited and answers provided to the satisfaction of the patient/family/POA.
--- NOTE | 2023-07-05 10:30 | SUR.OPER ---
EGD ended at 1023. Colonoscopy began at 1030.
[2023-07-05 10:43] VITALS: BP 97/66; PULSE 80; RESP 20; O2SAT 96
[2023-07-05 10:53] VITALS: BP 103/70; PULSE 88; RESP 20; O2SAT 99
== END 2023-07-05 11:08 | disposition home or self-care (01) ==
PROVIDERS: PCP Family Medicine; Visit Provider Internal Medicine Gastroenterology
PROC: 0DJ08ZZ Inspection of Upper Intestinal Tract, Via Natural or Artificial Opening Endoscopic (ICD-10-PCS; CPT 43235; principal; 2023-07-05 10:30)
DX: Z12.11 Encounter for screening for malignant neoplasm of colon (principal); K57.30 Diverticulosis of large intestine without perforation or abscess without bleeding; D12.5 Benign neoplasm of sigmoid colon; K22.2 Esophageal obstruction; K44.9 Diaphragmatic hernia without obstruction or gangrene; K21.9 Gastro-esophageal reflux disease without esophagitis; I10 Essential (primary) hypertension; Z86.73 Personal history of transient ischemic attack (TIA), and cerebral infarction without residual deficits; Z79.51 Long term (current) use of inhaled steroids; Z87.891 Personal history of nicotine dependence; F12.90 Cannabis use, unspecified, uncomplicated
CPT/HCPCS: 45385; 43239; 88305; J2704; J7120

== ENCOUNTER → 2024-01-02 08:06 | Outpatient (CLI) | payer OTHER, SELFPAY ==
--- NOTE | ~2024-01-02 | CT_ITS ---
EXAMINATION: CT chest abdomen pelvis w con DATE: 01/02/2024 08:38 INDICATION: Metastatic melanoma TECHNIQUE: Computed tomography (CT) of the chest, abdomen, and pelvis was performed with 100 CC Omnip aque 350 intravenous contrast. Automated exposure control and iterative reconstruction technique were employed. Exam dose: 622.68 mGy-cm total exam DLP. COMPARISON: 06/18/2023 CT chest abdomen pelvis FINDINGS: CHEST CT: No axillary, hilar or mediastinal mass lesion or lymphadenopathy. Normal heart size. There is atherosclerotic calcification of the thoracic aorta but no thoracic aortic aneurysm. Coronar y artery calcification. No pericardial effusion. Mild left gynecomastia. Moderately severe emphysematous changes of the lungs are noted. Stable vague 5 mm nodular density in the base of the left lower lobe. Discoid atelectasis or more likely discoid scarring at the middle lobe and right lower lobe, also pre sent on 06/18/2023. ABDOMEN/PELVIS CT: There are arm multiple small hypoattenuating hepatic lesions, the largest 1 cm, likely hepatic cysts. No gallbladder wall thickening or pericholecystic fluid or fat stranding. The common bile duct measur es up to 9 mm diameter. Recommend correlation with serum bilirubin level. Pancreatic duct measures up to approximately 2.8 mm diameter. No pancreatic space-occupying mass lesion or calcification. Normal splenic size. Stable bilateral small probable adrenal adenomas. Bilateral renal cysts, measuring up to 4 cm in the right, 1.5 cm on the left. No urinary tract calcul us or hydroureteronephrosis. There is prostatomegaly. Approximately 3.2 cm infrarenal abdominal aortic aneurysm. There is calcification and ectasia of the common iliac arteries. No intraperitoneal or retroperitoneal or pelvic mass lesion or adenopathy or ascites. Diverticulosis of the sigmoid colon; no CT evidence of diverticulitis. No bowel obstruction, bowel wa ll thickening, pneumatosis or intraperitoneal free air. Normal diameter appendix. There is a small appendicolith but no surrounding inflammatory change. Bilateral fat-containing inguinal hernias and small fat-containing umbilical hernia. No suspicious osteolytic or osteoblastic lesions. Bilateral L5 pars interarticularis defects with grade 2 anterolisthesis and moderately severe degener ative disc disease at L5-S1. IMPRESSION: No significant change since 06/18/2023; no interval new or enlarging mass lesion or lymph adenopathy Reviewed, dictated and finalized at [facility]. Reviewed, dictated and finalized at location L. BED PRESS OPERATOR IMPRESSION: No significant change since 06/18/2023; no interval new or enlargin g mass lesion or lymphadenopathy
[2024-01-02 08:29] LABS: Estimated Glomerular Filt Rate 50
== END ==
PROVIDERS: PCP Family Medicine; Visit Provider Surgery
DX: C43.9 Malignant melanoma of skin, unspecified (principal); C43.59 Malignant melanoma of other part of trunk; K57.30 Diverticulosis of large intestine without perforation or abscess without bleeding; K40.20 Bilateral inguinal hernia, without obstruction or gangrene, not specified as recurrent; N28.1 Cyst of kidney, acquired
CPT/HCPCS: 71260; 74177; Q9967

== ENCOUNTER 2024-04-07 08:04 | Emergency (ER) | payer OTHER, SELFPAY ==
[2024-04-07 08:12] VITALS: BP 116/65; PULSE 71; RESP 20; TEMP 36.6; O2SAT 98
[2024-04-07 08:19] VITALS: BP 116/65; PULSE 71; RESP 20; TEMP 36.6; O2SAT 98
--- NOTE | 2024-04-07 08:48 | ED.EAR ---
HPI - Ear Problem General Chief complaint: Ear Stated complaint: Right Earache Source: patient Mode of arrival: ambulatory Limitations: no limitations History of Present Illness HPI Narrative: Patient presents for evaluation of right-sided ear pain. Symptom onset 0300 this morning. He indicates he has a history of cerumen impactions but this feels different. He reports pressure in the ear and some muffled hearing. Denies drainage from the ear, tinnitus, sore throat, or other infectious symptoms. He has not tried any therapies to assist with the symptoms. Related Data Home Medications Medication Instructions Recorded Confirmed fluticasone fur. 100 mcg-umeclid 2 inh inhalation DAILY 04/07/24 04/07/24 62.5 mcg-vilant 25 mcg inhalat.powder (Trelegy Ellipta) Allergies Allergy/AdvReac Type Severity Reaction Status Date / Time propoxyphene Allergy Unknown Hives Verified 04/07/24 08:14 STERIODS AdvReac Nervousness Uncoded 04/07/24 08:14 Review of Systems Review of Systems: CONSTITUTIONAL: Denies fever, chills, or sweats. EYES: Denies visual changes, redness, or discharge. ENT: Reports right-sided ear pain, pressure in the right ear, and muffled hearing. Denies rhinorrhea, congestion, or sore throat CARDIOVASCULAR: Denies chest pain, palpitations, or edema. RESPIRATORY: Denies cough or dyspnea. GASTROINTESTINAL: Denies abdominal pain, nausea, vomiting, or diarrhea. GENITOURINARY: Denies dysuria or hematuria. SKIN: Denies rash or itching. MUSCULOSKELETAL: Denies back pain, joint pain, or myalgia. NEUROLOGIC: Denies headache, numbness, dizziness, or weakness. PSYCHIATRIC: Denies anxiety or depression. [facility] Past Medical History Medical History (Updated 04/07/24 @ 08:51 by AHMET Hensley, MELISSA) CVA (cerebral vascular accident) Encounter for screening colonoscopy GERD (gastroesophageal reflux disease) Hx of adenomatous colonic polyps Hypertension Surgical History Surgical History No pertinent past surgical history Family History Family History Mother Aneurysm Social History Social History Smoking packs per day: 2 Smoking cigarettes per day: 40.0 Years smoked: 26 Smoking pack-years: 52.00 Smoking status: Former smoker Tobacco type: cigars Second hand tobacco smoke exposure: No Smoking end date: 11/05/19 Alcohol intake: never Substance use: current Substance use type: marijuana Living arrangements: with family Occupation/Education: retired Gender identity (if verbalized by the patient): Male Sexual Orientation (if Verbalized by the Patient): Straight or Heterosexual Spiritual care concerns: No Agree to blood products: Yes Exam Narrative: GENERAL: Well-appearing, well-nourished, and in no acute distress. HEAD: Normocephalic, atraumatic. EYES: PERRLA and EOMI. ENT: Nares clear, no rhinorrhea or epistaxis. Mucous membranes moist. Oropharynx without tonsillar hypertrophy exudate or other lesions. Unable to visualize the right tympanic membrane due to cerumen impaction. NECK: Supple. No adenopathy or masses. No carotid bruits or JVD CHEST: Clear to auscultation. No respiratory distress. No wheezes rales or rhonchi HEART: Regular rate and rhythm. No murmur heard. Normal peripheral pulses. ABDOMEN: Soft, nontender, nondistended, normal active bowel sounds. EXTREMITIES: Normal range of motion. No edema. SKIN: Warm, dry, no rash. NEURO: No focal deficits. Alert and oriented x3. PSYCH: Normal mood and affect. Course Course Emergency Course: This is a 68-year-old male who presented for evaluation of right-sided ear pain. He had a cerumen impaction on exam. I irrigated his ear and he has evidence of otitis media on exam. His eardrum is bulging. There is a small amount of
== END 2024-04-07 08:50 | disposition home or self-care (01) ==
PROVIDERS: Emergency Provider Nurse Practitioner; PCP Family Medicine
DX: H61.21 Impacted cerumen, right ear (principal); H66.91 Otitis media, unspecified, right ear; K21.9 Gastro-esophageal reflux disease without esophagitis; I10 Essential (primary) hypertension; Z86.73 Personal history of transient ischemic attack (TIA), and cerebral infarction without residual deficits; Z87.891 Personal history of nicotine dependence
CPT/HCPCS: 69209; 99213; G0463

== ENCOUNTER 2024-07-16 06:44 | Outpatient (CLI) | payer OTHER, SELFPAY ==
--- NOTE | ~2024-07-16 | XR_ITS ---
XR chest 2V Ordering provider: Lloyd Tesfaye PA-C History: 68 years Male with . Reevaluate PNA . Comparison: November 28, 2022 FINDINGS: MEDIASTINUM: The cardiac silhouette is not enlarged. Slightly prominent [place] LUNGS: No infiltrates, effusions or pneumothorax. Emphysematous changes of the lungs. Slightly promin ent markings in the lower lobes. OTHER: No free air under the diaphragm. Degenerative changes of the spine. IMPRESSION: No definite acute cardiopulmonary pathology. Reviewed, dictated and finalized at location A.
== END 2024-07-16 06:45 | disposition home or self-care (01) ==
PROVIDERS: PCP Family Medicine; Visit Provider Physician Assistant
DX: J18.9 Pneumonia, unspecified organism (principal)
CPT/HCPCS: 71046

== ENCOUNTER 2024-08-23 05:53 | Emergency (ER) | payer OTHER, SELFPAY ==
[2024-08-23] VITALS (33 sets, daily range): BP systolic 97–113; BP diastolic 63–80; PULSE 85–109; RESP 12–26; TEMP 36.8–37.5; O2SAT 91–98
--- NOTE | ~2024-08-23 | XR_ITS ---
EXAMINATION: XR chest 1V portable DATE: 08/23/2024 06:53 INDICATION: Shortness of breath. TECHNIQUE: A single frontal view of the chest was obtained on 2 radiographs. COMPARISON: Chest 2 views 07/16/2024, chest CT 01/02/2024 FINDINGS: There are lucencies in the lungs, consistent with emphysema. There are airspace opacities i n right mid and lower lung zones and left lower lung zone. No pleural effusion or pneumothorax. The h eart size is normal. IMPRESSION: 1. Worsened airspace opacities in right mid and lower lung zones and left lower lung zone, consistent with pneumonia. 2. Severe emphysema. Reviewed, dictated and finalized at location A.
--- NOTE | 2024-08-23 05:58 | ECG_ITS ---
Test Date: 2024-08-23 06:00:44 Measurements Intervals [place] Rate: 103 P: 5 ME: 144 QRS: -32 QRSD: 88 T: 56 QT: 304 QTc: 399 Interpretive Statements SINUS TACHYCARDIA LEFT AXIS DEVIATION BORDERLINE ST-T WAVE ABNORMALITY- DIFFUSE LEADS BASELINE ARTIFACT- I, II, III, AVR, AVF, V1, V4 BORDERLINE ECG No previous ECG available for comparison Electronically Signed On 08-23-2024 07:24:31 CDT by Cornelio Butler D.O.
[2024-08-23 06:23] LABS: Basophils Absolute Auto 0.1 K/mm3 (0.0-0.1); Basophils Percent Auto 0.4 % (0.2-1.2); Eosinophils Percent Auto 0.1 % (0-4.4); Hematocrit 44.4 % (42.0-52.0); Hemoglobin 15.1 g/dL (14.0-18.0); Immature Granulocyte Absolute 0.03 K/mm3 (0.00-0.031); Immature Granulocyte Percent A 0.2 % (0-0.5); Lymphocytes Absolute Auto 0.46 K/mm3 (0.9-3.2); Lymphocytes Percent Auto 3.4 % (18.3-44.2); Mean Corpuscular Hemoglobin 31.3 pg (26-34); Mean Corpuscular Volume 92.1 fl (80-100); Mean Platelet Volume 9.5 fl (7.4-10.4); Monocytes Absolute Auto 0.5 K/mm3 (0.1-0.6); Monocytes Percent Auto 3.7 % (2.6-8.5); Neutrophils Absolute Auto 12.3 K/mm3 (1.3-6.7); Neutrophils Percent Auto 92.2 % (45.5-73.1); Platelet Count Result 197 k/mm3 (150-375); Red Blood Count 4.82 M/mm3 (4.6-6.20); Red Cell Distribution Width 13.1 % (11.5-14.5); White Blood Count 13.3 K/mm3 (4.5-10.0)
[2024-08-23 06:32] LABS: Alanine Aminotransferase 19 U/L (6-50); Albumin Level 4.1 g/dL (3.5-5.1); Alkaline Phosphatase 64 U/L (38-126); Anion Gap 9 mmol/L (4-12); Aspartate Amino Transferase 24 U/L (17-59); Bilirubin,Total 0.8 mg/dL (0.2-1.3); Blood Urea Nitrogen 18 mg/dL (9-20); Carbon Dioxide 23 mmol/L (22-30); Chloride 105 mmol/L (98-107); Estimated CRCL calculation 48 ml/min; Estimated Glomerular Filt Rate > 60; Glucose 116 mg/dL (65-110); Potassium 3.6 mmol/L (3.4-5.0); Sodium 137 mmol/L (137-145)
[2024-08-23] MEDS: IPRATROPIUM 0.5 MG/ALBUTEROL SULFATE 2.5 MG AMPUL.NEB 3 ML 12 ML INHALATION (08:04)
[2024-08-23] MEDS: SODIUM CHLORIDE 0.9% IV 2,000 ML 999 ML IV CONT (08:19)
[2024-08-23] MEDS: AZITHROMYCIN 500 MG/NS 250 ML 500 MG/250 ML BAG 250 MG IVPB (10:23)
--- NOTE | 2024-08-23 11:35 | ED.GENADULT ---
HPI - General Adult General Chief complaint: Shortness of Breath/Dyspnea Stated complaint: DIFFICULTY IN BREATHING Time Seen by Provider: 08/23/24 07:08 History of Present Illness HPI narrative: This is a 68-year-old male with history of COPD emphysema presenting with difficulty breathing. Patient felt well yesterday but overnight he developed fever and chills. He says this feels similar to when he had pneumonia past. Last bout of pneumonia was 2 months ago with full recovery. Patient is denying chest pain, abdominal pain, nausea vomiting or diarrhea. No lower extremity edema. Related Data Allergies Allergy/AdvReac Type Severity Reaction Status Date / Time STERIODS AdvReac Nervousness Uncoded 08/23/24 06:04 [facility] Past Medical History Medical History AAA (abdominal aortic aneurysm) CVA (cerebral vascular accident) Encounter for screening colonoscopy GERD (gastroesophageal reflux disease) Hx of adenomatous colonic polyps Hypertension Surgical History Surgical History No pertinent past surgical history Family History Family History Mother Aneurysm Social History Social History Smoking packs per day: 2 Smoking cigarettes per day: 40.0 Years smoked: 26 Smoking pack-years: 52.00 Smoking status: Former smoker Tobacco type: cigars Second hand tobacco smoke exposure: No Smoking end date: 11/05/19 Alcohol intake: never Substance use: current Substance use type: marijuana Living arrangements: with family Occupation/Education: retired Gender identity (if verbalized by the patient): Male Sexual Orientation (if Verbalized by the Patient): Straight or Heterosexual Spiritual care concerns: No Agree to blood products: Yes Exam Narrative: APPEARANCE: No apparent distress. Head: atraumatic. EYES: EOMI, NOSE: Atraumatic NECK: Trachea midline RESPIRATORY: Normal respiratory rate, scattered rhonchi in the right lung, 92% on room air CARDIOVASCULAR: RRR, no peripheral edema ABDOMINAL: Non-distended soft nontender MUSCULOSKELETAl: No obvious deformities NEURO: Alert. Moving 4/4 extremities SKIN:: Warm, dry. Normal color PSYCHIATRIC: Normal affect Course Vital Signs Vital signs: Vital Signs Temperature 99.5 F 09/22/24 05:52 Pulse Rate 103 H 08/23/24 05:52 Respiratory Rate 20 08/23/24 05:52 Blood Pressure 103/63 08/23/24 05:52 Pulse Oximetry 95 08/23/24 05:52 Oxygen Delivery Nasal Cannula 08/23/24 05:52 Oxygen Flow Rate 4 08/23/24 05:52 Temperature 98.2 F 08/23/24 10:58 Pulse Rate 94 08/23/24 10:58 Respiratory Rate 19 08/23/24 10:58 Blood Pressure 103/68 08/23/24 10:58 Pulse Oximetry 92 08/23/24 10:58 Oxygen Delivery Nasal Cannula 08/23/24 05:59 Oxygen Flow Rate 4 08/23/24 05:59 Medical Decision Making MDM Narrative Medical decision making narrative: -Course: 5-year-old male history pneumonia and COPD presenting with flu-like symptoms and difficulty breathing. Chest x-ray showed pneumonia. White count 13.3. Patient was given a dose of IV antibiotics and fluid resuscitation. Heart rate improved. Blood pressures were low although review of EMR shows that he is chronically in this range. I recommended admission to the patient his and they have declined. I explained to the patient that he is high risk to progress to sepsis which could lead to his . He has verbalized his understanding and does not want to be admitted to hospital regardless. We ambulated him around the emergency department and he was able to walk with steady gait and did not desaturate. Patient will be discharged with appropriate antibiotics and has been given strict return precautions if his condition is not steadily improving. Primary care
== END 2024-08-23 12:06 | disposition home or self-care (01) ==
PROVIDERS: Emergency Medicine; Emergency Provider Emergency Medicine; PCP Family Medicine
DX: J18.9 Pneumonia, unspecified organism (principal); J43.9 Emphysema, unspecified; I10 Essential (primary) hypertension; K21.9 Gastro-esophageal reflux disease without esophagitis; Z86.73 Personal history of transient ischemic attack (TIA), and cerebral infarction without residual deficits; Z86.010 Personal history of colon polyps; Z87.891 Personal history of nicotine dependence; Z79.899 Other long term (current) drug therapy
CPT/HCPCS: 36415; 71045; 80053; 85025; 93005; 94640; 96365; 96366; 96367; 99284; J0456; J0696; J7030

== ENCOUNTER 2024-09-15 06:41 | Outpatient (CLI) | payer OTHER, SELFPAY ==
--- NOTE | ~2024-09-15 | XR_ITS ---
Clinical Indication: Pneumonia PA and lateral views of the chest: Comparison: 08/23/2024 Findings: There is mild residual haziness of the right midlung. Left lung clear. Probable COPD.. Car diomediastinal silhouette is within normal limits. Bones and soft tissues are unremarkable. Impression: Mild residual hazy airspace disease right midlung, compatible with improving/residual pneumonia. COPD. Reviewed, dictated and finalized at location M. Impression: Mild residual hazy airspace disease right midlung, compatible with improving/re sidual pneumonia. COPD.
== END 2024-09-15 06:42 | disposition home or self-care (01) ==
LOC: ANHIMG 06:44
PROVIDERS: PCP Family Medicine; Visit Provider Family Medicine
DX: J18.9 Pneumonia, unspecified organism (principal); J44.9 Chronic obstructive pulmonary disease, unspecified
CPT/HCPCS: 71046

== ENCOUNTER 2024-09-27 21:31 | Emergency (ER) | payer OTHER, SELFPAY ==
--- NOTE | ~2024-09-27 | CT_ITS ---
Clinical Indication: Hemoptysis CT Scan of the Chest with Contrast: Technique: Contiguous sections were acquired throughout the chest after intravenous administration of 100 cc of Omnipaque 350. Dose reduction technique was used on this scan by utilizing automated expos ure control and iterative reconstruction technique. The dose-length product (DLP) was 283.18 mGy-cm. COMPARISON: 01/02/2024 Findings: There is no evidence of any significant mediastinal, hilar or axillary lymphadenopathy. There is no f illing defect in the pulmonary arterial tree to suggest pulmonary embolus. There is no evidence of ao rtic dissection or aneurysm. There is no evidence of pleural or pericardial effusion. There is somewhat masslike consolidation at the medial right upper lobe measuring 4.1 x 3.1 cm in ext ent (axial image 32 for example). There is an additional 1.8 cm mildly irregular right upper lobe pul monary nodule (axial image 55). There are several additional irregular pulmonary opacities in the rig ht lung, largest measuring 1.2 cm in the right upper lobe (axial image 44), with additional subcentim eter right lung nodule present (axial images 46, 58, 80, 85). Left lung essentially clear. Moderate t o advanced emphysema present. Images through the upper abdomen demonstrates stable small bilateral adrenal nodules. Impression: No evidence of pulmonary embolus, aortic dissection, or aortic aneurysm. 4.1 x 3.1 cm masslike lesion at the medial right upper lobe, suspicious for neoplasm/bronchogenic car cinoma. Additional smaller irregular nodules in the right lung, as detailed above, suspicious for metastatic disease. Moderate to advanced emphysema. Reviewed, dictated and finalized at location . Impression: No evidence of pulmonary embolus, aortic dissection, or aortic aneurysm. 4.1 x 3.1 cm masslike lesion at the medial right upper lobe, suspicious for miah plasm/bronchogenic carcinoma. Additional smaller irregular nodules in the right lung, as detailed above, susp icious for metastatic disease. Moderate to advanced emphysema.
--- NOTE | ~2024-09-27 | XR_ITS ---
Clinical Indication: Shortness of breath PA and lateral views of the chest: Comparison: 09/15/2024 Findings: Probable focal haziness right mid lung. Left lung clear. Possible minimal right pleural eff usion. Cardiomediastinal silhouette is within normal limits. Bones and soft tissues are unremarkable. Impression: Focal haziness right midlung. Focal pneumonia is a consideration. Probable minimal right pleural effusion. Reviewed, dictated and finalized at location M. Impression: Focal haziness right midlung. Focal pneumonia is a consideration. Probable minimal right pleural effusion.
--- NOTE | 2024-09-27 21:34 | ECG_ITS ---
Test Date: 2024-09-27 21:43:49 Measurements Intervals [place] Rate: 81 P: 180 ID: 137 QRS: 207 QRSD: 92 T: 167 QT: 344 QTc: 399 Interpretive Statements ECTOPIC ATRIAL RHYTHM POSSIBLE RIGHT VENTRICULAR HYPERTROPHY [SOME/ALL OF: PROMINENT R IN V1, LATE TRANSITION, RAD, EMMA, SSS] ARTIFACT IN LEAD(S) AND BASELINE WANDER IN Limb leads Compared to ECG 08/23/2024 06:00:44 Ectopic atrial rhythm now present Sinus tachycardia no longer present Left-axis deviation no longer present Electronically Signed On 09-28-2024 10:58:17 CDT by Jerome Acevedo M.D.
[2024-09-27 21:41] VITALS: BP 111/79; PULSE 87; RESP 15; TEMP 37.1; O2SAT 96
[2024-09-27 21:53] VITALS: O2SAT 95
[2024-09-27 22:00] LABS: Basophils Absolute Auto 0.1 K/mm3 (0.0-0.1); Basophils Percent Auto 0.5 % (0.2-1.2); Eosinophils Absolute Auto 0.1 K/mm3 (0-0.3); Eosinophils Percent Auto 0.9 % (0-4.4); Hematocrit 39.5 % (42.0-52.0); Hemoglobin 13.6 g/dL (14.0-18.0); Immature Granulocyte Absolute 0.05 K/mm3 (0.00-0.031); Immature Granulocyte Percent A 0.4 % (0-0.5); Lymphocytes Absolute Auto 1.36 K/mm3 (0.9-3.2); Mean Corpuscular HGB Conc 34.4 g/dl (32-36); Mean Corpuscular Hemoglobin 31.5 pg (26-34); Mean Corpuscular Volume 91.4 fl (80-100); Mean Platelet Volume 9.2 fl (7.4-10.4); Monocytes Absolute Auto 0.8 K/mm3 (0.1-0.6); Neutrophils Absolute Auto 11.2 K/mm3 (1.3-6.7); Neutrophils Percent Auto 82.2 % (45.5-73.1); Platelet Count Result 254 k/mm3 (150-375); Red Blood Count 4.32 M/mm3 (4.6-6.20); Red Cell Distribution Width 12.9 % (11.5-14.5); White Blood Count 13.6 K/mm3 (4.5-10.0)
[2024-09-27 22:10] LABS: Alanine Aminotransferase 16 U/L (6-50); Albumin Level 3.9 g/dL (3.5-5.1); Alkaline Phosphatase 88 U/L (38-126); Anion Gap 9 mmol/L (4-12); Aspartate Amino Transferase 16 U/L (17-59); Bilirubin,Total 0.6 mg/dL (0.2-1.3); Blood Urea Nitrogen 16 mg/dL (9-20); Calcium 8.8 mg/dL (8.4-10.2); Carbon Dioxide 23 mmol/L (22-30); Chloride 106 mmol/L (98-107); Estimated CRCL calculation 58 ml/min; Estimated Glomerular Filt Rate > 60; Glucose 112 mg/dL (65-110); Potassium 3.7 mmol/L (3.4-5.0); Sodium 138 mmol/L (137-145)
--- NOTE | 2024-09-27 22:45 | ED.SOB ---
HPI - SOB/Dyspnea General Chief Complaint: Shortness of Breath/Dyspnea Stated Complaint: coughing up blood for 3 hours Time Seen by Provider: 09/27/24 22:10 Source: patient and family Mode of arrival: ambulatory Limitations: no limitations History of Present Illness HPI Narrative: patient presents with report of hemoptysis starting 3 hours prior to arrival. He was initially blood tinged bright red bloody sputum. He has a history of COPD symptoms and had previously had hemoptysis with pneumonia. He is complaining right-sided chest pain particularly when he coughs. denies any fever. No prior DVT or PE. He is not on anticoagulation. Patient states he has a chronic due to his COPD there has been no change in the nature of this other than the sputum tonight. Not on home O2. 3 previous episodes of pneumonia. He has had increased fatigue. Related Data Allergies Allergy/AdvReac Type Severity Reaction Status Date / Time STERIODS AdvReac Nervousness Uncoded 09/28/24 11:22 [facility] Past Medical History Medical History (Updated 09/28/24 @ 13:33 by Lilia Pak MD) AAA (abdominal aortic aneurysm) CVA (cerebral vascular accident) Emphysema/COPD Encounter for screening colonoscopy GERD (gastroesophageal reflux disease) History of skin cancer Hx of adenomatous colonic polyps Hypertension Surgical History Surgical History No pertinent past surgical history Family History Family History Mother Aneurysm Social History Social History Smoking packs per day: 2 Smoking cigarettes per day: 40.0 Years smoked: 26 Smoking pack-years: 52.00 Smoking status: Former smoker Tobacco type: cigars Second hand tobacco smoke exposure: No Smoking end date: 11/05/19 Alcohol intake: never Substance use: current Substance use type: marijuana Living arrangements: with family Occupation/Education: retired Gender identity (if verbalized by the patient): Male Sexual Orientation (if Verbalized by the Patient): Straight or Heterosexual Spiritual care concerns: No Agree to blood products: Yes Exam Narrative: GENERAL: Well-appearing, well-nourished, and in no acute distress. HEAD: Normocephalic, atraumatic. EYES: Non injected, non icteric ENT: Nares clear, no rhinorrhea or epistaxis. NECK: Supple. CHEST: Speaking in full sentences. No respiratory distress. lungs clear to auscultation bilaterally without appreciable wheezes crackles, or focal consolidation HEART: Regular rate and rhythm. ABDOMEN: Soft, nondistended. EXTREMITIES: Normal range of motion. No lower extremity edema. SKIN: Warm, dry, no rash. NEURO: No focal deficits. Alert and oriented x3. PSYCH: Normal mood and affect. Course Vital Signs Vital signs: Vital Signs Temperature 98.7 F 09/27/24 21:41 Pulse Rate 87 09/27/24 21:41 Respiratory Rate 15 09/27/24 21:41 Blood Pressure 111/79 09/27/24 21:41 Pulse Oximetry 96 09/27/24 21:41 Oxygen Delivery Room Air 09/27/24 21:41 Temperature 98.1 F 09/28/24 01:28 Pulse Rate 71 09/28/24 01:28 Respiratory Rate 17 09/28/24 01:28 Blood Pressure 111/78 09/28/24 01:28 Pulse Oximetry 95 09/28/24 01:28 Oxygen Delivery Room Air 09/28/24 01:07 Oxygen Flow Rate 1 09/28/24 00:07 MDM - SOB/Dyspnea MDM Narrative Medical decision making narrative: Patient presents with occasional hemoptysis of 3 hours duration. In the emergency department they are afebrile with vital signs within normal limits. Leukocytosis and normocytic anemia. The anemia is new from previous. Patient did show me on tissue where he has some scant blood. While going to CT scan, the tech did notice that he had some bloody sputum which I did see. After that, no recurrence of hemoptysis. Patient was briefly hypoxic ranging from 91-94% on room air in for this he was placed on 1 L nasal cannula. He was then trialed off of this and maintain his saturations at 94%. Patient re-evaluated at bedside and lungs remain clear to auscultation. I did notify patient and his about the findings on the CT scan in regards to the lung mass that is concerning for lung cancer. They note that he had an x-ray a few weeks ago and there has been something mentioned but was felt that was related to a prior pneumonia. Patient states he has a follow-up appointment with Dr. Cintron his primary care physician in 2 weeks although his will call to see if there is possibility of an earlier appointment to further manage /monitor/work up the CT findings. 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 Differential Diagnosis Differential diagnosis: Likely acute exacerbation of chronic obstructive airways disease, community acquired pneumonia, pulmonary embolism and other ( bronchitis, coagulopathy, malignancy, ACS, pulmonary infarct) Lab Data Attestation: I reviewed the patient's lab results. 09/27/24 21:53 09/27/24 21:53 Labs: Lab Results 09/27/24 09/28/24 Range/Units 21:53 00:20 WBC 13.6 H (4.5-10.0) K/mm3 RBC 4.32 L (4.6-6.20) M/mm3 Hgb 13.6 L (14.0-18.0) g/dL Hct 39.5 L (42.0-52.0) % MCV 91.4 (80-100) fl MCH 31.5 (26-34) pg MCHC 34.4 (32-36) g/dl RDW 12.9 (11.5-14.5) % Plt Count 254 (150-375) k/mm3 MPV 9.2 (7.4-10.4) fl Immature Gran % (Auto) 0.4 (0-0.5) % Neut % (Auto) 82.2 H (45.5-73.1) % Lymph % (Auto) 10.0 L (18.3-44.2) % [place] % (Auto) 6.0 (2.6-8.5) % Eos % (Auto) 0.9 (0-4.4) % Baso % (Auto) 0.5 (0.2-1.2) % Lymph # (Auto) 1.36 (0.9-3.2) K/mm3 [place] # (Auto) 0.8 H (0.1-0.6) K/mm3 Eos # (Auto) 0.1 (0-0.3) K/mm3 Baso # (Auto) 0.1 (0.0-0.1) K/mm3 Abs Immat Gran (auto) 0.05 H (0.00-0.031) K/mm3 Absolute Neuts (auto) 11.2 H (1.3-6.7) K/mm3 Absolute Nucleated RBC 0.000 (0.0-0.012) K/mm3 Nucleated RBC % 0.0 (0.0-0.2) % PT 13.4 (11.1-14.7) Seconds INR 1.0 APTT 33.3 (22.3-36.8) Seconds Sodium 138 (137-145) mmol/L Potassium 3.7 (3.4-5.0) mmol/L Chloride 106 (98-107) mmol/L Carbon Dioxide 23 (22-30) mmol/L Anion Gap 9 (4-12) mmol/L BUN 16 (9-20) mg/dL Creatinine 0.90 (0.7-1.3) mg/dL Estim Creat Clear Calc 58 ml/min Estimated GFR > 60 (59 - ) Glucose 112 H (65-110) mg/dL Calcium 8.8 (8.4-10.2) mg/dL Total Bilirubin 0.6 (0.2-1.3) mg/dL AST 16 L (17-59) U/L ALT 16 (6-50) U/L Alkaline Phosphatase 88 (38-126) U/L Troponin I < 0.012 (0.000-0.034) ng/mL Total Protein 7.0 (6.3-8.2) g/dL Albumin 3.9 (3.5-5.1) g/dL Influenza A (RT-PCR) Negative (Negative) Influenza B (RT-PCR) Negative (Negative) RSV (RT-PCR) Negative (Negative) SARS-CoV-2 RNA (RT-PCR) Negative (Negative) Imaging Data Attestation: I personally reviewed and interpreted this imaging study as follows: My impression: Mild haziness at the periphery however no focal consolidation or loss of costophrenic angle on my independent interpretation of CXR. Radiologist's impression: Stat Rad CTA Chest: No pulmonary embolism. Severe centrilobular emphysema. right apical lung mass measures 4.0 x 2.7 cm, concerning for lung cancer. Additional spiculated nodules in the right upper lobe, measure 1.5 cm and 0.6 cm. These are concerning for metastasis. Hepatic steatosis. Right renal cyst measures 3.8 cm Impressions Chest X-Ray 09/28/24 06:03 Impression: Focal haziness right midlung. Focal pneumonia is a consideration. Probable minimal right pleural effusion. Chest CTA 09/28/24 06:04 Impression: No evidence of pulmonary embolus, aortic dissection, or aortic aneurysm. 4.1 x 3.1 cm masslike lesion at the medial right upper lobe, suspicious for neoplasm/bronchogenic carcinoma. Additional smaller irregular nodules in the right lung, as detailed above, suspicious for metastatic disease. Moderate to advanced emphysema. ECG Data EKG #1: Attestation: I personally reviewed and interpreted this ECG as follows: ECG completion date: 09/27/24 ECG completion time: 21:43 Prior ECG tracings: available for review (08/23/24 ) Interpretation: pre populated EKG algorithm suggests ectopic atrial rhythm however there are P-waves that precede QRS complexes and QRS complexes that follow P-waves thus this does appear to be a sinus rhythm at a ventricular rate of 81 beats per minute. [place] interval 137. QRS 92. QT/ QTC 344/381. Good R-wave progression across the precordial leads. Questionable T-wave inversion in lead 2 although the tracing is poor. otherwise upright in normal in contiguous leads 3 and AVF. Strange morphology of complex in V3 (new from previous). Discharge Plan Discharge Clinical Impression: Hemoptysis, Leukocytosis, Normocytic anemia, Mass of upper lobe of right lung, Hepatic steatosis, Renal cyst, right Patient Disposition: Home, Self-Care Condition: Stable Instructions: Antibiotic Form, Acute Bronchitis (ED), Coughing Up Blood (Hemoptysis) (ED), Leukocytosis (ED), Non-Alcoholic Fatty Liver Disease (ED), Anemia (ED), Pulmonary Nodules (ED), Kidney Cyst (ED) Additional Instructions: As we discussed, your CT scan showed : right apical lung mass measures 4.0 x 2.7 cm, concerning for lung cancer. Additional spiculated nodules in the right upper lobe, measure 1.5 cm and 0.6 cm. These are concerning for metastasis. Hepatic steatosis. Right renal cyst measures 3.8 cm Keep your follow up appointment with Dr Cintron (or see about earlier appointment) for continued work-up/management. return to the emergency department with any new or worsening symptoms. Prescriptions: No Action amoxicillin-pot clavulanate 875-125 mg tablet 1 tablet PO Q12H Qty: 20 0RF doxycycline hyclate 100 mg capsule 100 mg PO DAILY Qty: 20 0RF albuterol sulfate 90 mcg/actuation HFA aerosol inhaler 2 puff INHALATION QID PRN (Reason: shortness of breath or wheezing) Qty: 8 2RF omeprazole 20 mg capsule,delayed release(DR/EC) 20 mg PO BID 90 Days Qty: 180 3RF gabapentin 100 mg capsule See Rx Instructions .ROUTE .COMPLEX Qty: 600 2RF Dose Instruction: TAKE 2 CAPSULES BY MOUTH 3 TIMES DAILY Rx Instructions: TAKE 2 CAPSULES BY MOUTH 3 TIMES DAILY Trelegy Ellipta 100-62.5-25 mcg blister with device 1 inh inhalation DAILY Qty: 30 5RF metoprolol succinate 25 mg tablet extended release 24 hr See Rx Instructions .ROUTE .COMPLEX Qty: 100 2RF Dose Instruction: TAKE ONE-HALF TABLET BY MOUTH TWICE DAILY Rx Instructions: TAKE ONE-HALF TABLET BY MOUTH TWICE DAILY atorvastatin 10 mg tablet See Rx Instructions .ROUTE .COMPLEX Qty: 100 2RF Dose Instruction: TAKE 1 TABLET BY MOUTH AT BEDTIME Rx Instructions: TAKE 1 TABLET BY MOUTH AT BEDTIME trazodone 50 mg tablet See Rx Instructions .ROUTE .COMPLEX Qty: 100 2RF Dose Instruction: TAKE 1 TABLET BY MOUTH AT BEDTIME Rx Instructions: TAKE 1 TABLET BY MOUTH AT BEDTIME amlodipine 10 mg tablet See Rx Instructions .ROUTE .COMPLEX Qty: 100 2RF Dose Instruction: TAKE 1 TABLET BY MOUTH DAILY Rx Instructions: TAKE 1 TABLET BY MOUTH DAILY lisinopril 20 mg tablet See Rx Instructions .ROUTE .COMPLEX Qty: 100 2RF Dose Instruction: TAKE 1 TABLET BY MOUTH DAILY Rx Instructions: TAKE 1 TABLET BY MOUTH DAILY cimetidine 400 mg tablet See Rx Instructions .ROUTE .COMPLEX Qty: 200 2RF Dose Instruction: TAKE 1 TABLET BY MOUTH TWICE DAILY Rx Instructions: TAKE 1 TABLET BY MOUTH TWICE DAILY Follow-up/Referrals: Pritesh Cintron MD [Primary Care Provider] - Stand Alone Forms: Work/School Release IP Time of Disposition: 01:26
[2024-09-27 23:00] VITALS: BP 104/80; PULSE 80; RESP 18; TEMP 36.8; O2SAT 93
[2024-09-28 00:07] VITALS: O2SAT 91
[2024-09-28 00:10] LABS: Prothrombin Time 13.4 Seconds (11.1-14.7)
[2024-09-28 00:11] LABS: Partial Thromboplastin Time 33.3 Seconds (22.3-36.8)
[2024-09-28 00:16] LABS: Troponin I < 0.012 ng/mL (0.000-0.034)
[2024-09-28 01:04] LABS: Influenza A QL RT-PCR Negative (Negative); Influenza B QL RT-PCR Negative (Negative); RSV RNA, RT-PCR Negative (Negative); SARS-CoV-2 RNA PCR Negative (Negative)
--- NOTE | 2024-09-28 01:07 | PC.NURSE ---
Per Dr Pak, trial off O2
[2024-09-28 01:28] VITALS: BP 111/78; PULSE 71; RESP 17; TEMP 36.7; O2SAT 95
== END 2024-09-28 01:41 | disposition home or self-care (01) ==
PROVIDERS: Emergency Provider Student in an Organized Health Care Education/Training Program; PCP Family Medicine
DX: R04.2 Hemoptysis (principal); D72.829 Elevated white blood cell count, unspecified; D64.9 Anemia, unspecified; R91.8 Other nonspecific abnormal finding of lung field; K76.0 Fatty (change of) liver, not elsewhere classified; N28.1 Cyst of kidney, acquired; K21.9 Gastro-esophageal reflux disease without esophagitis; I10 Essential (primary) hypertension; Z87.891 Personal history of nicotine dependence; Z20.822 Contact with and (suspected) exposure to COVID-19
CPT/HCPCS: 36415; 71046; 71275; 80053; 84484; 85025; 85610; 85730; 87637; 93005; 99284; Q9967

== ENCOUNTER 2024-10-01 08:37 | Observation (INO) | payer OTHER, SELFPAY ==
[2024-10-01] VITALS (12 sets, daily range): BP systolic 100–120; BP diastolic 58–70; PULSE 90–105; RESP 18–27; TEMP 36.4–37.7; O2SAT 90–99; BMI 24.0
--- NOTE | ~2024-10-01 | XR_ITS ---
EXAMINATION: XR chest 2V DATE: 10/01/2024 09:53 INDICATION: Fever. Hemoptysis. TECHNIQUE: Frontal and lateral views of the chest were obtained. COMPARISON: Chest 2 views 09/27/2024, chest CT 09/27/2024, 01/02/2024 FINDINGS: There are lucencies in the lungs, consistent with emphysema. Again seen is eventration of r ight hemidiaphragm. There is mild atelectasis in right lower lung zone. Again seen are patchy airspac e opacities in right upper lobe. No pleural effusion or pneumothorax. The heart size is normal. IMPRESSION: 1. Worsened patchy airspace opacities in right lung upper lobe, consistent with pneumonia. 2. Emphysema. Reviewed, dictated and finalized at location []
--- NOTE | 2024-10-01 09:35 | PC.NURSE ---
Pt provided with urinal for urine sample.
[2024-10-01 09:38] LABS: Basophils Absolute Auto 0.1 K/mm3 (0.0-0.1); Basophils Percent Auto 0.3 % (0.2-1.2); Eosinophils Percent Auto 0.1 % (0-4.4); Hematocrit 37.9 % (42.0-52.0); Hemoglobin 12.8 g/dL (14.0-18.0); Immature Granulocyte Absolute 0.05 K/mm3 (0.00-0.031); Immature Granulocyte Percent A 0.3 % (0-0.5); Lymphocytes Absolute Auto 0.66 K/mm3 (0.9-3.2); Lymphocytes Percent Auto 4.5 % (18.3-44.2); Mean Corpuscular HGB Conc 33.8 g/dl (32-36); Mean Corpuscular Hemoglobin 31.1 pg (26-34); Mean Corpuscular Volume 92.2 fl (80-100); Mean Platelet Volume 9.2 fl (7.4-10.4); Monocytes Absolute Auto 1.2 K/mm3 (0.1-0.6); Monocytes Percent Auto 8.3 % (2.6-8.5); Neutrophils Absolute Auto 12.8 K/mm3 (1.3-6.7); Neutrophils Percent Auto 86.5 % (45.5-73.1); Platelet Count Result 327 k/mm3 (150-375); Red Blood Count 4.11 M/mm3 (4.6-6.20); Red Cell Distribution Width 13.2 % (11.5-14.5); White Blood Count 14.8 K/mm3 (4.5-10.0)
[2024-10-01 09:49] LABS: Alanine Aminotransferase 25 U/L (6-50); Albumin Level 3.5 g/dL (3.5-5.1); Alkaline Phosphatase 122 U/L (38-126); Anion Gap 6 mmol/L (4-12); Aspartate Amino Transferase 24 U/L (17-59); Blood Urea Nitrogen 20 mg/dL (9-20); Calcium 8.7 mg/dL (8.4-10.2); Carbon Dioxide 29 mmol/L (22-30); Chloride 104 mmol/L (98-107); Estimated CRCL calculation 58 ml/min; Estimated Glomerular Filt Rate > 60; Glucose 125 mg/dL (65-110); Potassium 3.7 mmol/L (3.4-5.0); Sodium 139 mmol/L (137-145)
[2024-10-01 09:50] LABS: Add Urine Microscopic? YES; Appearance Urine Clear (Clear); Bacteria Urine None Seen /hpf; Bilirubin Urine Negative (Negative); Blood Urine Negative (Negative); Color Urine Dark Yellow (Yellow); Glucose Urine UA Negative (Negative); Ketones Urine Trace mg/dL (Negative); Leukocyte Esterase Ur Trace LEU/UL (Negative); Nitrate Urine Negative (Negative); Non Pathogenic Casts 0-2; Protein Urine 2+ mg/dL (Negative); RBC Urine 0-2 /hpf (0-2); Specific Grav Ur 1.033 (1.001-1.035); Squamous Epithelial Cell Urine None Seen /hpf (Few); WBC Urine 0-5 /hpf (0-3); pH Urine 5.5 (5.0-9.0)
[2024-10-01 10:23] LABS: Influenza A QL RT-PCR Negative (Negative); Influenza B QL RT-PCR Negative (Negative); RSV RNA, RT-PCR Negative (Negative); SARS-CoV-2 RNA PCR Negative (Negative)
--- NOTE | 2024-10-01 10:23 | ED.FEVER ---
HPI - Fever General Chief Complaint: Fever <Kacey Baker PA-C - Last Filed: 10/02/24 09:50> Stated Complaint: BRONCHITIS,CHILLS,FEVER <LU Zavala Last Filed: 10/02/24 09:50> Time Seen by Provider: 10/01/24 09:11 <LU Zavala Last Filed: 10/02/24 09:50> Source: patient <LU Zavala Last Filed: 10/02/24 09:50> Mode of arrival: ambulatory <LU Zavala Last Filed: 10/02/24 09:50> Limitations: no limitations <LU Zavala Last Filed: 10/02/24 09:50> History of Present Illness HPI Narrative: This is a 68-year-old male that presents to the emergency department for fever. Reports he has been struggling with cold symptoms over the last week. Reporting cough, congestion, shortness of breath. He was evaluated in the ER. Found to have a new lung mass. He is getting scheduled for a biopsy of this. Today he spiked a fever to 101. Presents for further evaluation. Reports he has had blood tinged sputum. <LU Zavala Last Filed: 10/02/24 09:50> Related Data Home Medications: Home Medications Medication Instructions Recorded Confirmed amlodipine 10 mg tablet 10 mg PO 0600 10/01/24 10/01/24 atorvastatin 10 mg tablet 10 mg PO HS 10/01/24 10/01/24 cimetidine 400 mg tablet 400 mg PO 0600,1800 10/01/24 10/01/24 fluticasone fur. 100 mcg-umeclid 1 inh inhalation 1030 10/01/24 10/01/24 62.5 mcg-vilant 25 mcg inhalat.powder (Trelegy Ellipta) gabapentin 100 mg capsule 200 mg PO 06,1400,1800 10/01/24 10/01/24 lisinopril 20 mg tablet 20 mg PO 1800 10/01/24 10/01/24 metoprolol succinate 25 mg 12.5 mg PO 0600,1800 10/01/24 10/01/24 tablet,extended release 24 hr trazodone 50 mg tablet 50 mg PO HS 10/01/24 10/01/24 <Kacey Baker PA-C - Last Filed: 10/02/24 09:50> Allergies/Adverse Reactions: Allergies Allergy/AdvReac Type Severity Reaction Status Date / Time STERIODS AdvReac Nervousness Uncoded 10/01/24 13:12 <Kacey Baker PA-C - Last Filed: 10/02/24 09:50> Review of Systems Review of Systems: CONSTITUTIONAL: Reports fever ENT: Reports congestion CARDIOVASCULAR: Denies chest pain or edema. RESPIRATORY: Reports cough and dyspnea. <Kacey Baker PA-C - Last Filed: 10/02/24 09:50> All systems reviewed & are unremarkable except as noted in HPI and below <Kacey Baker PA-C - Last Filed: 10/02/24 09:50> [facility] Past Medical History Medical History: Medical History (Updated 10/02/24 @ 09:50 by Kacey Baker PA-C) AAA (abdominal aortic aneurysm) CVA (cerebral vascular accident) Emphysema/COPD Encounter for screening colonoscopy GERD (gastroesophageal reflux disease) History of skin cancer Hx of adenomatous colonic polyps Hypertension <Kacey Baker PA-C - Last Filed: 10/02/24 09:50> Surgical History Surgical History: Surgical History No pertinent past surgical history <Kacey Baker PA-C - Last Filed: 10/02/24 09:50> Family History Family History: Family History Mother Aneurysm <Kacey Baker PA-C - Last Filed: 10/02/24 09:50> Social History Social History: Social History Smoking packs per day: 2 Smoking cigarettes per day: 40.0 Years smoked: 26 Smoking pack-years: 52.00 Smoking status: Former smoker Tobacco type: cigarettes and cigars Second hand tobacco smoke exposure: No Smoking end date: 11/05/16 Alcohol intake: never Substance use: never Substance use type: marijuana Do You Feel Safe in your Home?: Yes Lack of Transportation: No Lack of Food: Never True Current Housing: I Have Housing Concerned About Future Housing: Decline to Answer Difficulty Paying Gas/Electric Bills: Decline to Answer Difficulty Paying for Meds: Decline to Answer Currently Unemployed: Decline to Answer Education: High School Diploma/GED Difficulty w/ Childcare or Family Care: Decline to Answer Living arrangements: with family Occupation/Education: retired Gender identity (if verbalized by the patient): Male Sexual Orientation (if Verbalized by the Patient): Straight or Heterosexual Spiritual care concerns: No Agree to blood products: Yes <Kacey Baker PA-C - Last Filed: 10/02/24 09:50> Exam Narrative: GENERAL: Elderly, well-nourished, and in no acute distress. HEAD: Normocephalic, atraumatic. EYES: EOMI. ENT: Nares clear, no rhinorrhea or epistaxis. Mucous membranes moist. Oropharynx without tonsillar hypertrophy exudate or other lesions. Bilateral TMs pearly joshi non-bulging NECK: Supple. No adenopathy or masses. CHEST: No respiratory distress. Rales in the right upper lobe. No wheezes or rhonchi HEART: Regular rate and rhythm. No murmur heard. Normal peripheral pulses. EXTREMITIES: Normal range of motion. No edema. SKIN: Warm, dry, no rash. NEURO: No focal deficits. Alert and oriented x3. PSYCH: Normal mood and affect <Kacey Baker PA-C - Last Filed: 10/02/24 09:50> Course SENIOR AIR DIRECTOR/PA Physician Supervision patient and family updated on his workup and recommendation for admission <LU Zavala Last Filed: 10/02/24 09:50> Consultations Consultation #1: Spoke with Dr. Duenas about patient and workup would like interventional radiology about patient getting a potential biopsy of mass while inpatient <Kacey Baker PA-C - Last Filed: 10/02/24 09:50> Date: 10/01/24 <LU Zavala Last Filed: 10/02/24 09:50> Consultation #2: Dr. Irene recommends treatment of pneumonia. Potential biopsy if the lesion is persistent after 2-4 weeks post pneumonia treatment <Kacey Baker PA-C - Last Filed: 10/02/24 09:50> Date: 10/01/24 <Kacey Baker PA-C - Last Filed: 10/02/24 09:50> Vital Signs Vital signs: Vital Signs Temperature 99.8 F H 10/01/24 08:47 Pulse Rate 103 H 10/01/24 08:47 Respiratory Rate 20 10/01/24 08:47 Blood Pressure 104/65 10/01/24 08:47 Pulse Oximetry 92 10/01/24 08:47 Oxygen Delivery Room Air 10/01/24 08:47 Temperature 97.7 F 10/03/24 08:00 Pulse Rate 91 10/03/24 08:00 Respiratory Rate 18 10/03/24 08:00 Blood Pressure 112/76 10/03/24 08:00 Pulse Oximetry 94 10/03/24 08:00 Oxygen Delivery Room Air 10/03/24 08:00 <Kacey Baker PA-C - Last Filed: 10/02/24 09:50> Vital Signs Temperature 99.8 F H 10/01/24 08:47 Pulse Rate 103 H 10/01/24 08:47 Respiratory Rate 20 10/01/24 08:47 Blood Pressure 104/65 10/01/24 08:47 Pulse Oximetry 92 10/01/24 08:47 Oxygen Delivery Room Air 10/01/24 08:47 Temperature 97.7 F 10/03/24 08:00 Pulse Rate 91 10/03/24 08:00 Respiratory Rate 18 10/03/24 08:00 Blood Pressure 112/76 10/03/24 08:00 Pulse Oximetry 94 10/03/24 08:00 Oxygen Delivery Room Air 10/03/24 08:00 <Abelino Hyatt MD - Last Filed: 10/04/24 17:52> MDM - Fever MDM Narrative Medical decision making narrative: patient presents the emergency department for a fever today. He is afebrile in the ER and nontoxic appearing. Oxygen saturation has remained stable in the low 90s. He does have history of COPD. CBC with leukocytosis to 14.8. Metabolic panel without concerning findings. Chest x-ray does have findings that are concerning for pneumonia. Patient recently had a lung mass discovered. Is awaiting further evaluation of this. Spoke with Dr. Duenas about patient and workup would like interventional radiology about patient getting a potential biopsy of mass while inpatient. Dr. Irene recommends treatment of pneumonia. Potential biopsy if the lesion is persistent after 2-4 weeks post pneumonia treatment <Kacey Baker PA-C - Last Filed: 10/02/24 09:50> Differential Diagnosis Differential diagnosis: Likely cellulitis, fever of unknown origin, gastroenteritis, community acquired pneumonia, viral infection, sepsis and influenza <Kacey Baker PA-C - Last Filed: 10/02/24 09:50> Medical Records Medical records narrative: For this patient encounter, I reviewed the SENIOR AIR DIRECTOR or PA documentation, treatment plan, and medical decision making; and I had [id number] time with this patient. <Abelino Hyatt MD - Last Filed: 10/04/24 17:52> Lab Data Attestation: I reviewed the patient's lab results. <Kacey Baker PA-C - Last Filed: 10/02/24 09:50> Result diagrams: 10/03/24 07:42 10/03/24 07:42 <Kacey Baker PA-C - Last Filed: 10/02/24 09:50> Labs: Lab Results 10/01/24 10/01/24 Range/Units 09:31 09:40 WBC 14.8 H (4.5-10.0) K/mm3 RBC 4.11 L (4.6-6.20) M/mm3 Hgb 12.8 L (14.0-18.0) g/dL Hct 37.9 L (42.0-52.0) % MCV 92.2 (80-100) fl MCH 31.1 (26-34) pg MCHC 33.8 (32-36) g/dl RDW 13.2 (11.5-14.5) % Plt Count 327 (150-375) k/mm3 MPV 9.2 (7.4-10.4) fl Immature Gran % (Auto) 0.3 (0-0.5) % Neut % (Auto) 86.5 H (45.5-73.1) % Lymph % (Auto) 4.5 L (18.3-44.2) % Wilson % (Auto) 8.3 (2.6-8.5) % Eos % (Auto) 0.1 (0-4.4) % Baso % (Auto) 0.3 (0.2-1.2) % Lymph # (Auto) 0.66 L (0.9-3.2) K/mm3 Wilson # (Auto) 1.2 H (0.1-0.6) K/mm3 Eos # (Auto) 0.0 (0-0.3) K/mm3 Baso # (Auto) 0.1 (0.0-0.1) K/mm3 Abs Immat Gran (auto) 0.05 H (0.00-0.031) K/mm3 Absolute Neuts (auto) 12.8 H (1.3-6.7) K/mm3 Absolute Nucleated RBC 0.000 (0.0-0.012) K/mm3 Nucleated RBC % 0.0 (0.0-0.2) % PT 14.8 H (11.1-14.7) Seconds INR 1.1 APTT 34.0 (22.3-36.8) Seconds Sodium 139 (137-145) mmol/L Potassium 3.7 (3.4-5.0) mmol/L Chloride 104 (98-107) mmol/L Carbon Dioxide 29 (22-30) mmol/L Anion Gap 6 (4-12) mmol/L BUN 20 (9-20) mg/dL Creatinine 0.90 (0.7-1.3) mg/dL Estim Creat Clear Calc 58 ml/min Estimated GFR > 60 (59 - ) Glucose 125 H (65-110) mg/dL Lactic Acid 1.0 (0.7-2.0) mmol/L Calcium 8.7 (8.4-10.2) mg/dL Total Bilirubin 1.0 (0.2-1.3) mg/dL AST 24 (17-59) U/L ALT 25 (6-50) U/L Alkaline Phosphatase 122 (38-126) U/L C-Reactive Protein 30.9 H (<1.0) mg/dL Total Protein 7.0 (6.3-8.2) g/dL Albumin 3.5 (3.5-5.1) g/dL Urine Color Dark yellow (Yellow) Urine Appearance Clear (Clear) Urine pH 5.5 (5.0-9.0) Ur Specific [place] 1.033 (1.001-1.035) Urine Protein 2+ H (Negative) mg/dL Urine Glucose (UA) Negative (Negative) mg/dL Urine Ketones Trace H (Negative) mg/dL Ur Blood (Man) Negative (Negative) Urine Nitrate Negative (Negative) Urine Bilirubin Negative (Negative) Urine Urobilinogen 1.0 (<2.0) mg/dL Leukocyte Esterase Rfl Trace H (Negative) REJI/UL Urine RBC 0-2 (0-2) /hpf Urine WBC 0-5 (0-3) /hpf Ur Squamous Epith Cells None seen (Few) /hpf Urine Bacteria None seen /hpf Urine Casts 0-2 Influenza A (RT-PCR) Negative (Negative) Influenza B (RT-PCR) Negative (Negative) RSV (RT-PCR) Negative (Negative) SARS-CoV-2 RNA (RT-PCR) Negative (Negative) <Kacey Baker PA-C - Last Filed: 10/02/24 09:50> Lab Results 10/01/24 10/01/24 Range/Units 09:31 09:40 WBC 14.8 H (4.5-10.0) K/mm3 RBC 4.11 L (4.6-6.20) M/mm3 Hgb 12.8 L (14.0-18.0) g/dL Hct 37.9 L (42.0-52.0) % MCV 92.2 (80-100) fl MCH 31.1 (26-34) pg MCHC 33.8 (32-36) g/dl RDW 13.2 (11.5-14.5) % Plt Count 327 (150-375) k/mm3 MPV 9.2 (7.4-10.4) fl Immature Gran % (Auto) 0.3 (0-0.5) % Neut % (Auto) 86.5 H (45.5-73.1) % Lymph % (Auto) 4.5 L (18.3-44.2) % Wilson % (Auto) 8.3 (2.6-8.5) % Eos % (Auto) 0.1 (0-4.4) % Baso % (Auto) 0.3 (0.2-1.2) % Lymph # (Auto) 0.66 L (0.9-3.2) K/mm3 Wilson # (Auto) 1.2 H (0.1-0.6) K/mm3 Eos # (Auto) 0.0 (0-0.3) K/mm3 Baso # (Auto) 0.1 (0.0-0.1) K/mm3 Abs Immat Gran (auto) 0.05 H (0.00-0.031) K/mm3 Absolute Neuts (auto) 12.8 H (1.3-6.7) K/mm3 Absolute Nucleated RBC 0.000 (0.0-0.012) K/mm3 Nucleated RBC % 0.0 (0.0-0.2) % PT 14.8 H (11.1-14.7) Seconds INR 1.1 APTT 34.0 (22.3-36.8) Seconds Sodium 139 (137-145) mmol/L Potassium 3.7 (3.4-5.0) mmol/L Chloride 104 (98-107) mmol/L Carbon Dioxide 29 (22-30) mmol/L Anion Gap 6 (4-12) mmol/L BUN 20 (9-20) mg/dL Creatinine 0.90 (0.7-1.3) mg/dL Estim Creat Clear Calc 58 ml/min Estimated GFR > 60 (59 - ) Glucose 125 H (65-110) mg/dL Lactic Acid 1.0 (0.7-2.0) mmol/L Calcium 8.7 (8.4-10.2) mg/dL Total Bilirubin 1.0 (0.2-1.3) mg/dL AST 24 (17-59) U/L ALT 25 (6-50) U/L Alkaline Phosphatase 122 (38-126) U/L C-Reactive Protein 30.9 H (<1.0) mg/dL Total Protein 7.0 (6.3-8.2) g/dL Albumin 3.5 (3.5-5.1) g/dL Urine Color Dark yellow (Yellow) Urine Appearance Clear (Clear) Urine pH 5.5 (5.0-9.0) Ur Specific [place] 1.033 (1.001-1.035) Urine Protein 2+ H (Negative) mg/dL Urine Glucose (UA) Negative (Negative) mg/dL Urine Ketones Trace H (Negative) mg/dL Ur Blood (Man) Negative (Negative) Urine Nitrate Negative (Negative) Urine Bilirubin Negative (Negative) Urine Urobilinogen 1.0 (<2.0) mg/dL Leukocyte Esterase Rfl Trace H (Negative) REJI/UL Urine RBC 0-2 (0-2) /hpf Urine WBC 0-5 (0-3) /hpf Ur Squamous Epith Cells None seen (Few) /hpf Urine Bacteria None seen /hpf Urine Casts 0-2 Influenza A (RT-PCR) Negative (Negative) Influenza B (RT-PCR) Negative (Negative) RSV (RT-PCR) Negative (Negative) SARS-CoV-2 RNA (RT-PCR) Negative (Negative) <Abelino Hyatt MD - Last Filed: 10/04/24 17:52> Imaging Data Radiologist's impression: ITS Impressions Chest X-Ray 10/01/24 10:12 IMPRESSION: 1. Worsened patchy airspace opacities in right lung upper lobe, consistent with pneumonia. 2. Emphysema. <Kacey Baker PA-C - Last Filed: 10/02/24 09:50> Critical Care Time Critical Care Time Critical Care Time: No <Kacey Baker PA-C - Last Filed: 10/02/24 09:50> Discharge Plan Discharge Clinical Impression: Pneumonia Qualifiers: Pneumonia type: due to unspecified organism Laterality: right Lung location: upper lobe of lung Qualified Code(s): J18.9 - Pneumonia, unspecified organism <Kacey Baker PA-C - Last Filed: 10/02/24 09:50> Patient Disposition: Still a Patient <Kacey Baker PA-C - Last Filed: 10/02/24 09:50> Condition: Improved <Kacey Baker PA-C - Last Filed: 10/02/24 09:50>
[2024-10-01 10:40] LABS: CRP 30.9 mg/dL (<1.0)
[2024-10-01] MEDS: ACETAMINOPHEN 500 MG TABLET 1000 MG PO (10:42)
[2024-10-01] MEDS: AZITHROMYCIN 500 MG/NS 250 ML 500 MG/250 ML BAG 250 MG IVPB (11:15)
[2024-10-01 12:13] LABS: INR 1.1; Prothrombin Time 14.8 Seconds (11.1-14.7)
--- NOTE | 2024-10-01 12:34 | PC.NURSE ---
pt declines Trelegy at this time
--- NOTE | 2024-10-01 12:50 | PC.NURSE ---
This patient, Clifford Velasquez, was admitted to 3 [facility] Surg Room 321-. Patient/family oriented to hospital policies and general routines including ID bracelet, bed and alarms, visiting hours, pain management, procedures, bathroom and other care routines, personal items, smoking policy, room service/diet, and visiting hours. Information on how to activate the Rapid Response Team has been discussed. Patient/Family are encouraged to report perceived risks to care and to ask questions if they do not understand what they are told or what they should do.
--- NOTE | 2024-10-01 14:16 | P.HP_ITS ---
H&P: HPI History of Present Illness Date/Time: 10/01/24 14:16 Chief Complaint: SOB and fever Narrative: 68-year-old male past medical history of hypertension, hyperlipidemia, cerebral aneurysm status post rupture with intracranial hemorrhage, infrarenal abdominal aortic aneurysm 3.2 cm, COPD, melanoma who presented to ED on account of confusion and shortness of breath. Patient reported he has a chronic shortness of breath from COPD, presented to the ER 5 days ago with worsening symptoms attending was evaluated and CT chest showed right upper lobe mass for the patient was scheduled for outpatient biopsy. However patient returned to the ER yesterday due to fever and the temperature was around 1.7, and right-sided chest pain that is worse with deep breath. Otherwise denies any vomiting no abdominal pain no diarrhea or dysuria no focal symptoms. Vital signs: Admission temperature 99.8?, pulse rate 103, respiratory 20.. Labs notable for WBC 14.8, flu RSV and COVID negative. Chest x-ray showed worsening patchy airspace opacities in the right lung upper lobe consistent with pneumonia. Review of Systems Review of Systems: All systems reviewed and negative except as noted in the history above. [facility] Past Medical History Medical History (Updated 09/29/24 @ 00:00 by Pierce Rosales) AAA (abdominal aortic aneurysm) CVA (cerebral vascular accident) Emphysema/COPD Encounter for screening colonoscopy GERD (gastroesophageal reflux disease) History of skin cancer Hx of adenomatous colonic polyps Hypertension Surgical History Surgical History No pertinent past surgical history Family History Family History Mother Aneurysm Social History Social History Smoking packs per day: 2 Smoking cigarettes per day: 40.0 Years smoked: 26 Smoking pack-years: 52.00 Smoking status: Former smoker Tobacco type: cigarettes and cigars Second hand tobacco smoke exposure: No Smoking end date: 11/05/16 Alcohol intake: never Substance use: never Substance use type: marijuana Do You Feel Safe in your Home?: Yes Lack of Transportation: No Lack of Food: Never True Current Housing: I Have Housing Concerned About Future Housing: Decline to Answer Difficulty Paying Gas/Electric Bills: Decline to Answer Difficulty Paying for Meds: Decline to Answer Currently Unemployed: Decline to Answer Education: High School Diploma/GED Difficulty w/ Childcare or Family Care: Decline to Answer Living arrangements: with family Occupation/Education: retired Gender identity (if verbalized by the patient): Male Sexual Orientation (if Verbalized by the Patient): Straight or Heterosexual Spiritual care concerns: No Agree to blood products: Yes Meds Home Medications and Allergies Home Medications Medication Instructions Recorded Confirmed Type albuterol sulfate 90 mcg/actuation 2 puff inhalation QID PRN 12/13/23 10/01/24 Rx aerosol inhaler shortness of breath or wheezing #8 grams omeprazole 20 mg capsule,delayed 20 mg PO BID 90 days #180 caps 01/13/24 10/01/24 Rx release amlodipine 10 mg tablet 10 mg PO 0600 10/01/24 10/01/24 History atorvastatin 10 mg tablet 10 mg PO HS 10/01/24 10/01/24 History cimetidine 400 mg tablet 400 mg PO 0600,1800 10/01/24 10/01/24 History fluticasone fur. 100 mcg-umeclid 1 inh inhalation 1030 10/01/24 10/01/24 History 62.5 mcg-vilant 25 mcg inhalat.powder (Trelegy Ellipta) gabapentin 100 mg capsule 200 mg PO 06,1400,1800 10/01/24 10/01/24 History lisinopril 20 mg tablet 20 mg PO 1800 10/01/24 10/01/24 History metoprolol succinate 25 mg 12.5 mg PO 0600,1800 10/01/24 10/01/24 History tablet,extended release 24 hr trazodone 50 mg tablet 50 mg PO HS 10/01/24 10/01/24 History Allergies Allergy/AdvReac Type Severity Reaction Status Date / Time STERIODS AdvReac Nervousness Uncoded 10/01/24 13:12 Vital Signs Vital Signs - 24 hr 10/01/24 08:47 10/01/24 09:34 10/01/24 10:46 Temperature 99.8 F H Pulse Rate 103 H 105 H 98 Respiratory Rate 20 20 20 Blood Pressure 104/65 100/70 120/68 Pulse Oximetry 92 94 95 Oxygen Delivery Room Air 10/01/24 10:47 10/01/24 11:12 10/01/24 11:12 Temperature 98.7 F 98.7 F Pulse Rate Respiratory Rate 20 Blood Pressure Pulse Oximetry 95 Oxygen Delivery 10/01/24 11:01 10/01/24 11:46 10/01/24 12:00 Temperature 97.6 F Pulse Rate 105 H 96 90 Respiratory Rate 27 H 26 H 18 Blood Pressure 114/67 107/64 109/59 L Pulse Oximetry 99 94 95 Oxygen Delivery Exam Narrative: General: alert and comfortable Eyes: EOMI, PERRLA ENNT External ears normal, Neck is supple, no masses, Respiratory systems: Clear to auscultation Cardiovascular S1, S2, normal rhythm, no murmur, rub, or gallop; no thrill or palpable murmurs on palpation. Gastrointestinal: soft, non-tender, and non-distended abdomen with no masses; BS present Skin: no rash, lesions, ulcerations, subcutaneous nodules or induration Musculoskeletal: no abnormality and no tenderness, normal ROM Neurologic: Alert and oriented x3, non focal Mental Status Exam: normal affect H&P: Results Labs Labs: Short CBC 10/01/24 Range/Units 09:31 WBC 14.8 H (4.5-10.0) K/mm3 Hgb 12.8 L (14.0-18.0) g/dL Hct 37.9 L (42.0-52.0) % Plt Count 327 (150-375) k/mm3 BMP 10/01/24 09:31 Sodium 139 Potassium 3.7 Chloride 104 Carbon Dioxide 29 BUN 20 Creatinine 0.90 Glucose 125 H Calcium 8.7 Liver Function 10/01/24 Range/Units 09:31 Total Bilirubin 1.0 (0.2-1.3) mg/dL AST 24 (17-59) U/L ALT 25 (6-50) U/L Alkaline Phosphatase 122 (38-126) U/L Albumin 3.5 (3.5-5.1) g/dL Urine 10/01/24 Range/Units 09:40 Urine Color Dark yellow (Yellow) Urine Appearance Clear (Clear) Urine pH 5.5 (5.0-9.0) Ur Specific [place] 1.033 (1.001-1.035) Urine Protein 2+ H (Negative) mg/dL Urine Glucose (UA) Negative (Negative) mg/dL Assessment and Plan Assessment and plan (1) Community acquired pneumonia: Qualifiers: Laterality: right Lung location: middle lobe of lung Qualified Code(s): J18.9 - Pneumonia, unspecified organism Code(s): J18.9 - Pneumonia, unspecified organism Status: Acute Assessment and Plan: Pneumonia, Gram-positive versus g negative Chest x-ray showed a worsening right upper lobe pneumonia. CT scan from 28 showed a masslike lesion right bundle. Blood culture pending continue Rocephin and doxycycline. Discussed with radiology and plan is to treat pneumonia 1st and then repeat imaging and following skin flaps persist patient will need biopsy of the time. Hypertension Titrate medication on clinical course. Hyperlipidemia Continue home medications. AAA Demadex 3.2 cm Monitor. History of melanoma. History of cerebral aneurysm status post rupture intracerebral. DVT prophylaxis subQ Lovenox Patient is DNR Surrogate decision maker is Marcia pete. Hospitalist [facility] Advance Care Plan I have confirmed that the patient's Advanced Care Plan is present, code status is documented, or surrogate decision maker is listed in patient medical record.: Yes Medication Reconciliation I have utilized all available resources to obtain, update and review the patients current medications (includes all prescriptions, OTC, herbals, cannabis, and nutritional supplements).: Yes
[2024-10-01] MEDS: cefTRIAXone 2 GM/NS 100 ML 2 GM/100 ML BAG IVPB (14:30)
[2024-10-01] MEDS: SODIUM CHLORIDE 0.9% IV 1,000 ML 75 ML IV CONT (14:30)
[2024-10-01] MEDS: DOXYCYCLINE 100 MG/NS 100 ML 100 MG/100 ML BAG IVPB (16:14)
[2024-10-01] MEDS: HYDROcodone/acetaminophen (*CRX) 5-325 MG TABLET 1 TAB PO (18:18)
[2024-10-01] MEDS: METOPROLOL SUCCINATE EXT REL 12.5 MG TABCR PO (21:04)
[2024-10-01] MEDS: ATORVASTATIN 10 MG TABLET PO (21:05)
[2024-10-01] MEDS: GABAPENTIN 100 MG CAPSULE 200 MG PO (21:05)
[2024-10-01] MEDS: traZODone HCL 50 MG TABLET PO (21:05)
[2024-10-01] MEDS: PANTOPRAZOLE 40 MG TABLET PO (21:05)
[2024-10-01] MEDS: FAMOTIDINE 20 MG TABLET PO (21:05)
[2024-10-02] VITALS (9 sets, daily range): BP systolic 96–112; BP diastolic 59–67; PULSE 80–103; RESP 15–26; TEMP 36.2–39.3; O2SAT 90–92
[2024-10-02] MEDS: ACETAMINOPHEN 325 MG TABLET 650 MG PO ×4 (02:55→23:15)
[2024-10-02] MEDS: DOXYCYCLINE 100 MG/NS 100 ML 100 MG/100 ML BAG IVPB ×2 (02:55→14:28)
[2024-10-02] MEDS: FAMOTIDINE 20 MG TABLET PO ×2 (06:09→16:55)
[2024-10-02] MEDS: METOPROLOL SUCCINATE EXT REL 12.5 MG TABCR PO ×2 (06:09→16:54)
[2024-10-02] MEDS: HYDROcodone/acetaminophen (*CRX) 5-325 MG TABLET 1 TAB PO (06:09)
[2024-10-02] MEDS: GABAPENTIN 100 MG CAPSULE 200 MG PO ×3 (06:09→16:54)
[2024-10-02 06:54] LABS: Basophils Absolute Auto 0.1 K/mm3 (0.0-0.1); Basophils Percent Auto 0.7 % (0.2-1.2); Eosinophils Percent Auto 0.4 % (0-4.4); Hematocrit 34.5 % (42.0-52.0); Hemoglobin 11.7 g/dL (14.0-18.0); Immature Granulocyte Absolute 0.08 K/mm3 (0.00-0.031); Immature Granulocyte Percent A 0.7 % (0-0.5); Lymphocytes Absolute Auto 1.19 K/mm3 (0.9-3.2); Lymphocytes Percent Auto 10.6 % (18.3-44.2); Mean Corpuscular HGB Conc 33.9 g/dl (32-36); Mean Corpuscular Hemoglobin 31.5 pg (26-34); Mean Platelet Volume 9.1 fl (7.4-10.4); Monocytes Absolute Auto 1.5 K/mm3 (0.1-0.6); Monocytes Percent Auto 13.1 % (2.6-8.5); Neutrophils Absolute Auto 8.3 K/mm3 (1.3-6.7); Neutrophils Percent Auto 74.5 % (45.5-73.1); Platelet Count Result 295 k/mm3 (150-375); Red Blood Count 3.71 M/mm3 (4.6-6.20); Red Cell Distribution Width 13.3 % (11.5-14.5); White Blood Count 11.2 K/mm3 (4.5-10.0)
[2024-10-02 07:13] LABS: Lactic Acid Reflex 0.7 mmol/L (0.7-2.0)
[2024-10-02 07:14] LABS: Alanine Aminotransferase 23 U/L (6-50); Albumin Level 2.8 g/dL (3.5-5.1); Alkaline Phosphatase 114 U/L (38-126); Anion Gap 7 mmol/L (4-12); Aspartate Amino Transferase 22 U/L (17-59); Bilirubin,Total 0.7 mg/dL (0.2-1.3); Blood Urea Nitrogen 18 mg/dL (9-20); Calcium 8.1 mg/dL (8.4-10.2); Carbon Dioxide 24 mmol/L (22-30); Chloride 105 mmol/L (98-107); Estimated CRCL calculation 58 ml/min; Estimated Glomerular Filt Rate > 60; Glucose 94 mg/dL (65-110); Potassium 3.6 mmol/L (3.4-5.0); Sodium 136 mmol/L (137-145)
[2024-10-02] MEDS: SODIUM CHLORIDE 0.9% IV 1,000 ML 75 ML IV CONT ×2 (07:51→23:15)
[2024-10-02] MEDS: PANTOPRAZOLE 40 MG TABLET PO ×2 (09:19→16:54)
[2024-10-02] MEDS: cefTRIAXone 2 GM/NS 100 ML 2 GM/100 ML BAG IVPB (11:19)
--- NOTE | 2024-10-02 16:32 | P.PNIM_ITS ---
Progress Note: A&P Assessment and Plan (1) Community acquired pneumonia: Qualifiers: Laterality: right Lung location: middle lobe of lung Qualified Code(s): J18.9 - Pneumonia, unspecified organism Code(s): J18.9 - Pneumonia, unspecified organism Status: Acute Assessment and Plan: Pneumonia, Gram-positive versus g negative Chest x-ray showed a worsening right upper lobe pneumonia. CT scan from showed a masslike lesion right bundle. Blood culture pending continue Rocephin and doxycycline. Discussed with radiology and plan is to treat pneumonia 1st and then repeat imaging and following skin flaps persist patient will need biopsy of the time. Monitor one more day Hypertension Titrate medication on clinical course. Hyperlipidemia Continue home medications. AAA Demadex 3.2 cm Monitor. History of melanoma. History of cerebral aneurysm status post rupture intracerebral. DVT prophylaxis subQ Lovenox Patient is DNR Surrogate decision maker is Marcia pete. Subjective Date/time seen: 10/02/24 16:32 Interval history: Comfortable at bedside monitor one more night Review of Systems Review of Systems: All systems reviewed and negative except as noted in the history above. Exam Narrative: General: alert and comfortable Eyes: EOMI, PERRLA ENNT External ears normal, Neck is supple, no masses, Respiratory systems: Clear to auscultation Cardiovascular S1, S2, normal rhythm, no murmur, rub, or gallop; no thrill or palpable murmurs on palpation. Gastrointestinal: soft, non-tender, and non-distended abdomen with no masses; BS present Skin: no rash, lesions, ulcerations, subcutaneous nodules or induration Musculoskeletal: no abnormality and no tenderness, normal ROM Neurologic: Alert and oriented x3, non focal Mental Status Exam: normal affect Objective Data Vital Signs Vital Signs: Vital Signs - 24 hr 10/01/24 20:00 10/01/24 21:04 10/02/24 00:00 Temperature 99.1 F 102.7 F H Pulse Rate 103 H 103 H 103 H Respiratory Rate 24 H 26 H Blood Pressure 111/65 111/61 Pulse Oximetry 90 90 Oxygen Delivery 10/02/24 06:09 10/02/24 04:00 10/02/24 08:00 Temperature 97.6 F 97.4 F L Pulse Rate 93 93 80 Respiratory Rate 24 H 15 Blood Pressure 103/59 L 104/67 Pulse Oximetry 91 90 Oxygen Delivery 10/02/24 08:00 10/02/24 12:00 10/02/24 16:00 Temperature 97.1 F L 99.5 F Pulse Rate 91 89 Respiratory Rate 15 16 Blood Pressure 96/65 L 102/61 Pulse Oximetry 92 91 Oxygen Delivery Room Air Intake/Output Intake/Output: Intake & Output 09/29/24 09/30/24 10/01/24 10/02/24 23:59 23:59 23:59 23:59 Intake Total 1240 2009 Output Total 500 Balance 1240 1510 Meds/Results Medications: Active Medications Generic Name Dose Route Start Last Admin Trade Name Freq PRN Reason Stop Dose Admin Acetaminophen 650 mg 10/02/24 00:15 10/02/24 09:19 Acetaminophen 325 Mg Tablet PO 650 mg Q6H PRN Administration Mild Pain (1-3) or Fever Hydrocodone Bitart/Acetaminophen 1 tab 10/01/24 17:49 10/02/24 06:09 Hydrocodone/Acetaminophen (*Crx) 5-325 Mg Tablet PO 1 tab Q6H PRN Administration Pain Rated 4-6 Albuterol 2 puff 10/01/24 20:02 Albuterol Sulfate (*Sp) Aerosol 1 Puff INHALATION QID PRN shortness of breath or wheezing Atorvastatin Calcium 10 mg 10/01/24 21:00 10/01/24 21:05 Atorvastatin 10 Mg Tablet PO 10 mg HS SIVA Administration Famotidine 20 mg 10/01/24 20:15 10/02/24 06:09 Famotidine 20 Mg Tablet PO 20 mg 0600,1800 SIVA Administration Fluticasone/Umeclidinium/Vilanterol 1 puff 10/01/24 10:15 10/02/24 09:13 Fluticasone/Umeclidin/Vilanter 100-62.5-25 Mcg Ellipta INHALATION Not Given DAILYRT SIVA Gabapentin 200 mg 10/01/24 20:15 10/02/24 14:27 Gabapentin 100 Mg Capsule PO 200 mg 0600,1400,1800 SIVA Administration Ceftriaxone Sodium 2 gm in 100 mls @ 200 mls/hr 10/01/24 11:00 10/02/24 11:19 Rocephin 2 Gm/Ns 100 Ml IVPB 200 mls/hr Q24H SIVA Administration Doxycycline Hyclate 100 mg in 100 mls @ 100 mls/hr 10/01/24 15:00 10/02/24 14:28 Vibramycin 100 Mg/Ns 100 Ml IVPB 100 mls/hr Q12H SIVA Administration Sodium Chloride 1,000 mls @ 75 mls/hr 10/01/24 14:20 10/02/24 07:51 Normal Saline Iv IV CONT 75 mls/hr .[id number] SIVA Administration Metoprolol Succinate 12.5 mg 10/01/24 20:15 10/02/24 06:09 Metoprolol Succinate Ext Rel 12.5 Mg Tabcr PO 12.5 mg 0600,1800 SIVA Administration Pantoprazole Sodium 40 mg 10/01/24 20:15 10/02/24 09:19 Pantoprazole 40 Mg Tablet PO 40 mg BID SIVA Administration Trazodone HCl 50 mg 10/01/24 21:00 10/01/24 21:05 Trazodone Hcl 50 Mg Tablet PO 50 mg HS SIVA Administration Radiology Results: ITS Impressions Chest X-Ray 10/01/24 10:12 IMPRESSION: 1. Worsened patchy airspace opacities in right lung upper lobe, consistent with pneumonia. 2. Emphysema. Labs Labs: Laboratory Results - last 24 hr 10/02/24 06:47 WBC 11.2 H RBC 3.71 L Hgb 11.7 L Hct 34.5 L MCV 93.0 MCH 31.5 MCHC 33.9 RDW 13.3 Plt Count 295 MPV 9.1 Immature Gran % (Auto) 0.7 H Neut % (Auto) 74.5 H Lymph % (Auto) 10.6 L Stephenson % (Auto) 13.1 H Eos % (Auto) 0.4 Baso % (Auto) 0.7 Lymph # (Auto) 1.19 Stephenson # (Auto) 1.5 H Eos # (Auto) 0.0 Baso # (Auto) 0.1 Abs Immat Gran (auto) 0.08 H Absolute Neuts (auto) 8.3 H Absolute Nucleated RBC 0.000 Nucleated RBC % 0.0 Sodium 136 L Potassium 3.6 Chloride 105 Carbon Dioxide 24 Anion Gap 7 BUN 18 Creatinine 0.90 Estim Creat Clear Calc 58 Estimated GFR > 60 Glucose 94 Lactic Acid 0.7 Calcium 8.1 L Magnesium 2.0 Total Bilirubin 0.7 AST 22 ALT 23 Alkaline Phosphatase 114 Total Protein 6.0 L Albumin 2.8 L
--- NOTE | 2024-10-02 16:47 | PCRCNOTE ---
Window of time for administration has passed. See next scheduled administration.
[2024-10-02] MEDS: ATORVASTATIN 10 MG TABLET PO (20:47)
[2024-10-02] MEDS: traZODone HCL 50 MG TABLET PO (20:48)
[2024-10-03] MEDS: DOXYCYCLINE 100 MG/NS 100 ML 100 MG/100 ML BAG IVPB (03:00)
[2024-10-03 06:00] VITALS: BP 126/75; PULSE 89; RESP 20; TEMP 36.6; O2SAT 95
[2024-10-03 06:23] VITALS: PULSE 87
[2024-10-03] MEDS: GABAPENTIN 100 MG CAPSULE 200 MG PO (06:23)
[2024-10-03] MEDS: FAMOTIDINE 20 MG TABLET PO (06:23)
[2024-10-03] MEDS: METOPROLOL SUCCINATE EXT REL 12.5 MG TABCR PO (06:23)
[2024-10-03 08:00] VITALS: BP 112/76; PULSE 91; RESP 18; TEMP 36.5; O2SAT 94
[2024-10-03 08:13] LABS: Basophils Percent Auto 0.4 % (0.2-1.2); Eosinophils Absolute Auto 0.1 K/mm3 (0-0.3); Hematocrit 37.3 % (42.0-52.0); Hemoglobin 12.5 g/dL (14.0-18.0); Immature Granulocyte Absolute 0.09 K/mm3 (0.00-0.031); Immature Granulocyte Percent A 0.9 % (0-0.5); Lymphocytes Absolute Auto 0.87 K/mm3 (0.9-3.2); Lymphocytes Percent Auto 8.9 % (18.3-44.2); Mean Corpuscular HGB Conc 33.5 g/dl (32-36); Mean Corpuscular Hemoglobin 31.3 pg (26-34); Mean Corpuscular Volume 93.3 fl (80-100); Mean Platelet Volume 9.4 fl (7.4-10.4); Monocytes Percent Auto 9.8 % (2.6-8.5); Neutrophils Absolute Auto 7.7 K/mm3 (1.3-6.7); Platelet Count Result 369 k/mm3 (150-375); Red Cell Distribution Width 13.3 % (11.5-14.5); White Blood Count 9.8 K/mm3 (4.5-10.0)
[2024-10-03 08:26] LABS: Alanine Aminotransferase 29 U/L (6-50); Albumin Level 3.1 g/dL (3.5-5.1); Alkaline Phosphatase 148 U/L (38-126); Anion Gap 11 mmol/L (4-12); Aspartate Amino Transferase 26 U/L (17-59); Bilirubin,Total 0.6 mg/dL (0.2-1.3); Blood Urea Nitrogen 13 mg/dL (9-20); Calcium 8.6 mg/dL (8.4-10.2); Carbon Dioxide 24 mmol/L (22-30); Chloride 105 mmol/L (98-107); Estimated CRCL calculation 74 ml/min; Estimated Glomerular Filt Rate > 60; Glucose 100 mg/dL (65-110); Potassium 3.7 mmol/L (3.4-5.0); Sodium 140 mmol/L (137-145)
[2024-10-03] MEDS: PANTOPRAZOLE 40 MG TABLET PO (09:00)
[2024-10-03] MEDS: FLUTICASONE/UMECLIDIN/VILANTER 100-62.5-25 MCG ELLIPTA 1 PUFF INHALATION (10:06)
--- NOTE | 2024-10-03 10:50 | PM.DS ---
DS: Admitting Diagnosis Discharge Date 10/03/24 Admitting Diagnosis FEver and SOB DS: Discharge Diagnosis Discharge Diagnosis (1) Pneumonia: Qualifiers: Laterality: right Lung location: upper lobe of lung Pneumonia type: due to unspecified organism Qualified Code(s): J18.9 - Pneumonia, unspecified organism Code(s): J18.9 - Pneumonia, unspecified organism Status: Acute DS: Summary Hospital Course Hospital Course: 68-year-old male past medical history of hypertension, hyperlipidemia, cerebral aneurysm status post rupture with intracranial hemorrhage, infrarenal abdominal aortic aneurysm 3.2 cm, COPD, melanoma who presented to ED on account of confusion and shortness of breath. Patient reported he has a chronic shortness of breath from COPD, presented to the ER 5 days ago with worsening symptoms attending was evaluated and CT chest showed right upper lobe mass for the patient was scheduled for outpatient biopsy. However patient returned to the ER yesterday due to fever and the temperature was around 1.7, and right-sided chest pain that is worse with deep breath. Otherwise denies any vomiting no abdominal pain no diarrhea or dysuria no focal symptoms. Vital signs: Admission temperature 99.8?, pulse rate 103, respiratory 20.. Labs notable for WBC 14.8, flu RSV and COVID negative. Chest x-ray showed worsening patchy airspace opacities in the right lung upper lobe consistent with pneumonia. Patient completed 3 days of Rocephin and Doxycycline, no fever since the day of admission, leukocytosis resolved and patient has markedly improved. cultures still negative. Discharged on one more week of Cefdinir and Doxycycline. Discussed wtih patient to follow up with PCP in 3-5 days and also in 2-4 weeks, and if Lung is persistnet at the time then biopsy will be obtained. Assessment and Plan (1) Community acquired pneumonia: Qualifiers: Laterality: right Lung location: middle lobe of lung Qualified Code(s): J18.9 - Pneumonia, unspecified organism Code(s): J18.9 - Pneumonia, unspecified organism Status: Acute Assessment and Plan: Pneumonia, Gram-positive versus g negative Chest x-ray showed a worsening right upper lobe pneumonia. CT scan from 28 showed a masslike lesion right bundle. Blood culture pending continue Rocephin and doxycycline. Discussed with radiology and plan is to treat pneumonia 1st and then repeat imaging and following skin flaps persist patient will need biopsy of the time. Monitor one more day Hypertension Titrate medication on clinical course. Hyperlipidemia Continue home medications. AAA Demadex 3.2 cm Monitor. History of melanoma. History of cerebral aneurysm status post rupture intracerebral. Time Spent with Patient Time attestation: Total time spent providing and/or coordinating discharge services: DS: Data Data Completed and Pending Labs on day of discharge: Labs from last 24 hours 10/03/24 07:42 WBC 9.8 RBC 4.00 L Hgb 12.5 L Hct 37.3 L MCV 93.3 MCH 31.3 MCHC 33.5 RDW 13.3 Plt Count 369 MPV 9.4 Immature Gran % (Auto) 0.9 H Neut % (Auto) 79.0 H Lymph % (Auto) 8.9 L [place] % (Auto) 9.8 H Eos % (Auto) 1.0 Baso % (Auto) 0.4 Lymph # (Auto) 0.87 L [place] # (Auto) 1.0 H Eos # (Auto) 0.1 Baso # (Auto) 0.0 Abs Immat Gran (auto) 0.09 H Absolute Neuts (auto) 7.7 H Absolute Nucleated RBC 0.000 Nucleated RBC % 0.0 Sodium 140 Potassium 3.7 Chloride 105 Carbon Dioxide 24 Anion Gap 11 BUN 13 D Creatinine 0.70 Estim Creat Clear Calc 74 Estimated GFR > 60 Glucose 100 Calcium 8.6 Magnesium 2.0 Total Bilirubin 0.6 AST 26 ALT 29 Alkaline Phosphatase 148 H Total Protein 6.0 L Albumin 3.1 L Preliminary micro results at discharge 10/01/24 10:37 Blood Culture - Preliminary Blood 10/01/24 10:44 Blood Culture - Preliminary Blood Discharge Plan Discharge Attending physician on discharge: Stephan Duenas Discharging Clinician: Stephan Duenas Anticipated Discharge Date/Time: 10/03/24 10:47 Patient Disposition: Home, Self-Care Activity: as tolerated Diet: as tolerated Patient Instructions: Antibiotic Form Stand Alone Forms: General Discharge Information Follow-up/Referrals: Pritesh Cintron MD [Primary Care Provider] - (F/u with PCP in 3-5 days ) Discharge Medications: New doxycycline hyclate 100 mg capsule 100 mg PO BID 8 Days Qty: 16 0RF cefdinir 300 mg capsule 300 mg PO Q12H 8 Days Qty: 16 0RF Continued trazodone 50 mg tablet 50 mg PO HS atorvastatin 10 mg tablet 10 mg PO HS cimetidine 400 mg tablet 400 mg PO 0600,1800 lisinopril 20 mg tablet 20 mg PO 1800 amlodipine 10 mg tablet 10 mg PO 0600 gabapentin 100 mg capsule 200 mg PO 06,1400,1800 metoprolol succinate 25 mg tablet extended release 24 hr 12.5 mg PO 0600,1800 Trelegy Ellipta 100-62.5-25 mcg blister with device 1 inh inhalation 1030 albuterol sulfate 90 mcg/actuation HFA aerosol inhaler 2 puff INHALATION QID PRN (Reason: shortness of breath or wheezing) Qty: 8 2RF omeprazole 20 mg capsule,delayed release(DR/EC) 20 mg PO BID 90 Days Qty: 180 3RF Date of admission: 10/01/24 11:48 Primary Care Provider: Pritesh Cintron Admitting Provider: Stephan Duenas Attending physician on admission: Stephan Duenas Condition: Improved
== END 2024-10-03 11:55 | disposition home or self-care (01) ==
LOC: ANHED 09:48 → ANH3MEDSUR 12:28
PROVIDERS: Admitting Provider Internal Medicine; Emergency Provider Physician Assistant; PCP Family Medicine; Visit Provider Internal Medicine
DX: J18.9 Pneumonia, unspecified organism (principal); J44.0 Chronic obstructive pulmonary disease with (acute) lower respiratory infection; J43.9 Emphysema, unspecified; R91.8 Other nonspecific abnormal finding of lung field; K21.9 Gastro-esophageal reflux disease without esophagitis; I10 Essential (primary) hypertension; E78.5 Hyperlipidemia, unspecified; I71.43 Infrarenal abdominal aortic aneurysm, without rupture; Z20.822 Contact with and (suspected) exposure to COVID-19; Z79.51 Long term (current) use of inhaled steroids; Z79.899 Other long term (current) drug therapy; Z85.820 Personal history of malignant melanoma of skin; Z86.0101 Personal history of adenomatous and serrated colon polyps; Z87.891 Personal history of nicotine dependence; Z86.73 Personal history of transient ischemic attack (TIA), and cerebral infarction without residual deficits; Z86.79 Personal history of other diseases of the circulatory system
CPT/HCPCS: 36415; 71046; 80053; 81001; 83605; 83735; 85025; 85610; 85730; 86140; 87040; 87637; 94640; 96361; 96365; 96366; 96367; 96376; 99285; A9270; G0378; J0456; J0696; J7030

== ENCOUNTER 2024-11-30 12:29 | Outpatient (CLI) | payer OTHER, SELFPAY ==
--- NOTE | ~2024-11-30 | CT_ITS ---
Clinical Indication: Nonspecific abnormal finding of lung field CT Scan of the Chest with Contrast: Technique: Contiguous sections were acquired throughout the chest after intravenous administration of 100 cc of Omnipaque 350. Dose reduction technique was used on this scan by utilizing automated expos ure control and iterative reconstruction technique. The dose-length product (DLP) was 323.65 mGy-cm. COMPARISON: 09/27/2024 Findings: There is no evidence of any significant mediastinal, hilar or axillary lymphadenopathy. There is no f illing defect in the pulmonary arterial tree to suggest pulmonary embolus. There is no evidence of ao rtic dissection or aneurysm. There is no evidence of pleural or pericardial effusion. There is advanced emphysema. Associated medial right upper lobe/apical pulmonary nodule/mass is signi ficantly decreased and less confluent, but there is more extensive surrounding groundglass and patchy consolidation the right upper lobe. Findings suggest postradiation change with significant response to therapy. Additional nodules seen previously, largest measuring 1.2 cm, are also markedly improved, and probably included in the radiation field. There is patchy consolidation at the right lower lobe, increased from prior exam, suggestive of atelectasis and/or pneumonia. Left lung remains essentially clear. Images through the upper abdomen reveal stable bilateral adrenal nodules. Impression: Findings compatible with marked interval response to therapy, with associated postradiation change in the right upper lobe. The 2 dominant pulmonary nodules from prior exam are markedly improved, and ad ditional subcentimeter nodules seen on prior exam are also essentially resolved. Increased patchy consolidation right lower lobe, suggestive of atelectasis and/or pneumonia. Follow-u p exam advised. Emphysema. Stable small bilateral adrenal nodules. Reviewed, dictated and finalized at location . 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 The 2 dominant pulmonary nodules f rom prior exam are markedly improved, and additional subcentimeter nodules seen on prior exam are also essentially resolved. Increased patchy consolidation right lower lobe, suggestive of atelectasis and/ or pneumonia. Follow-up exam advised. Emphysema. Stable small bilateral adrenal nodules.
[2024-11-30 12:54] LABS: Estimated Glomerular Filt Rate 50
== END 2024-11-30 12:30 | disposition home or self-care (01) ==
PROVIDERS: PCP Family Medicine; Visit Provider Family Medicine
DX: R91.8 Other nonspecific abnormal finding of lung field (principal); J43.9 Emphysema, unspecified; E27.8 Other specified disorders of adrenal gland
CPT/HCPCS: 71275; Q9967

== ENCOUNTER 2025-01-19 08:04 | Emergency (ER) | payer OTHER, SELFPAY ==
--- OUTSIDE RECORDS SUMMARY | 2025-01-19 08:08 | XMS_ITS | Patient Health Summary ---
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,non-owned Affiliates and Associated Physician Practices is amultiple site organization consisting of ambulatory clinics and hospital sitesin [place], [place], [place] and [place]. This disclosure is being madepursuant to the Care Everywhere program and may not contain all information available regarding this patient. Last updated 18.[facility] Allergies * Propoxyphene N-Apap(hives) * Tramadol(Other) -Low Criticality Medications * Be aware that medications may not be up to date on this document. Alwaysverify current medications with the patient. * amLODIPine (NORVASC) 10 MG tablet(Started 07/28/2021) * atorvastatin (LIPITOR) 10 MG tablet(Started 09/29/2021) Take 2 (two) tablets by mouth at bedtime * gabapentin (NEURONTIN) 100 MG capsule(Started 07/28/2021) Take 1 (one) capsule by mouth 3 times daily * lisinopril (PRINIVIL; ZESTRIL) 20 MG tablet(Started 07/28/2021) Take 1 (one) tablet by mouth at bedtime * omeprazole (PRILOSEC) 20 MG capsule(Started 10/13/2021) * traZODone (DESYREL) 50 MG tablet(Started 07/28/2021) * metoprolol succinate XL 24hr (TOPROL XL) 25 MG tablet(Started 07/28/2021) * Trelegy Ellipta 100-62.5-25 MCG/ACT(Started 05/21/2023) * albuterol HFA (Proventil; Ventolin; Proair) 108 (90 Base) MCG/ACT inhaler (Started 02/04/2023) INHALE 2 PUFFS 4 TIMES DAILY NEEDED FOR SHORTNESS OF BREATH OR WHEEZING Active Problems Problem Noted Date Diagnosed Date Malignant melanoma of skin of chest 10/30/2021 Cancer Staging:Clinical:Stage Unknown(cTX, cN0, cM0) - Unsigned Pathologic stage from 05/24/2022:Stage Unknown(pTX, pN0, cM0) - Signed by Jose Car MD on 05/24/2022 Immunizations * INFLUENZA VACCINE, TRIV. (AFLURIA, FLUZONE TRIVALENT; 6MO+) (IIV3)(Given 10/25/2009) * Covid Pfizer primary monovalent 12+ yr 0.3mL Purple cap(Given 11/06/2021, 02/20/2021, 01/30/2021) * INFLUENZA A C6P9-22 VACCINE(Given 10/25/2009) * INFLUENZA VACCINE(Given 09/01/2022, 09/01/2021) Social History Tobacco Use Types Packs/Day Years Used Date Smoking Tobacco: Former Cigarettes S tarted: 01/2016 Smokeless Tobacco: Never Tobacco Cessation:Counseling Given: Not Answered Comments:smoke cigars Alcohol Use Standard Drinks/Week Comments No 0 (1 standard drink = 0.6 oz pur e alcohol) AUDIT-C Answer Date Recorded Q1: How often do you have a drink containing alc ohol? Never 2021 Q2: How many drinks containi ng alcohol do you have on a typical day when you are drinking? 1 or 2 2021 Q3: How often do you have six or more drinks on one occasion? Never 2021 Sex and Gender Information Value Date Recorded Sex Assigned at Not on file Gender Identity Not on file Sexual Orientation Not on file Last Filed Vital Signs Vital Sign Reading Time Taken Comments Blood Pressure 97/63 01/06/2025 9:58 AM PATTERN STAMPER Pulse 70 01/06/2025 9:58 AM PATTERN STAMPER Temperature 36.6 C (97.8 F) 01/06/2025 9:58 AM PATTERN STAMPER Respiratory Rate 18 01/06/2025 9:58 AM PATTERN STAMPER Oxygen Saturation 92% 01/06/2025 9:58 AM PATTERN STAMPER Inhaled Oxygen Concentration - - Weight 68 kg (150 lb) 01/06/2025 9:58 AM PATTERN STAMPER Height 165.1 cm (5' 5 ) 01/06/2025 9:58 AM PATTERN STAMPER Body Mass Index 24.96 01/06/2025 9:58 AM PATTERN STAMPER Procedures * LAB RESULTS ORDER(Performed 01/02/2024) * DERMATOPATHOLOGY(Performed 05/14/2023) * LAB RESULTS ORDER(Performed 12/12/2022) * DERMATOPATHOLOGY(Performed 11/13/2022) * IMAGING/RADIOLOGY/XRAY RESULTS ORDER(Performed 06/20/2022) * CARDIAC EKG ORDER(Performed 02/26/2022) * PATHOLOGY TISSUE(Performed 2021) Performed for Malignant melanoma of skin of chest (HCC) * LARYNGEAL MASK AIRWAY(Performed 2021) * EXCISION MASS OR TUMOR CHEST(Performed 2021) Performed for Malignant melanoma of skin of chest (HCC) * [place] SENTINEL LYMPH NODE BX PROC PERFORM(Performed 2021) Performed for Malignant melanoma of skin of chest (HCC) * NM LYMPHOSCINTIGRAPHY(Performed 2021) Performed for Metastatic melanoma (HCC), Malignant melanoma of skin of chest (HCC) * PET CT WHOLE BODY(Performed 11/09/2021) Performed for Metastatic melanoma (HCC), Malignant melanoma of skin of chest (HCC) * EKG 12-LEAD(Performed 11/09/2021) Performed for Metastatic melanoma (HCC), Malignant melanoma of skin of chest (HCC) * XR CHEST 2VW(Performed 11/09/2021) Performed for Metastatic melanoma (HCC), Malignant melanoma of skin of chest (HCC) * COMPREHENSIVE METABOLIC PANEL(Performed 11/09/2021) Performed for Metastatic melanoma (HCC), Malignant melanoma of skin of chest (HCC) * CBC W AUTO DIFFERENTIAL(Performed 11/09/2021) Performed for Metastatic melanoma (HCC), Malignant melanoma of skin of chest (HCC) * GLUCOSE SCREEN - POCT (IP) SLH(Performed 11/09/2021) * DERMATOPATHOLOGY(Performed 10/09/2021) * ECHO LONG TRANSESOPHAGEAL(Performed 11/02/2014) * COMPREHENSIVE METABOLIC PANEL(Performed 10/26/2014) * ERYTHROCYTE SEDIMENTATION RATE(Performed 10/26/2014) * RPR(Performed 10/26/2014) * HEPATITIS SCREEN ACUTE(Performed 10/26/2014) * HIV-1 HIV-2 ANTIGEN/ANTIBODY(Performed 10/26/2014) * C-REACTIVE PROTEIN(Performed 10/26/2014) * PTT [facility](Performed 10/26/2014) * PT-INR SLH(Performed 10/26/2014) * URINALYSIS W/MICROSCOPIC NO CULTURE(Performed 10/26/2014) * CBC W AUTO DIFFERENTIAL(Performed 10/26/2014) * CULTURE BLOOD(Performed 10/26/2014) * CBC W AUTO DIFFERENTIAL(Performed 10/26/2014) * IR CAROTID CEREBRAL ANGIOGRAM(Performed 10/06/2014) * IR CAROTID CEREBRAL ANGIOGRAM(Performed 10/06/2014) * COMPREHENSIVE METABOLIC PANEL(Performed 10/06/2014) * PTT SL[facility](Performed 10/06/2014) * PT-INR [facility](Performed 10/06/2014) * CBC W AUTO DIFFERENTIAL(Performed 10/06/2014) * CBC W AUTO DIFFERENTIAL(Performed 10/06/2014) * PROSTATE SPECIFIC ANTIGEN SCREEN(Performed 10/25/2009) Performed for Onychomycosis, Hypercholesteremia, Costochondritis, Prostate Disease * LIPID PROFILE W TCHOL/HDL(Performed 10/25/2009) Performed for Onychomycosis, Hypercholesteremia, Costochondritis, Prostate Disease * COMPREHENSIVE METABOLIC PANEL(Performed 10/25/2009) Performed for Onychomycosis, Hypercholesteremia, Costochondritis, Prostate Disease * CBC W AUTO DIFFERENTIAL(Performed 10/25/2009) Performed for Onychomycosis, Hypercholesteremia, Costochondritis, Prostate Disease Results * LAB RESULTS ORDER (01/02/2024) Only the most recent of2 resultswithin the time period is included. 01/02/2024 Narrative 01/02/2024 Ordered by an unspecified provider. Scanned Document LAB - THERAPEUTIC DR DALEY MONITORING ORDERABLES * DERMATOPATHOLOGY (05/14/2023 12:00 AM CDT) Only the most recent of3 resultswithin the time period is included. Case Report Dermatopathology Report Case: [id number] Authorizing Provider: Lee Kovacs MD Collected: 05/14/2023 12:00 AM Ordering Location: [facility] Derm[facility] Lab Received: 05/14/2023 03:43 PM Pathologist: Jaqueline Hinds MD Specimen: Skin, right mid castrejon 1:00 PM CDT DERMATOPATHOLOGY LABORATORY Final Diagnosis Specimen A. SKIN, right mid castrejon: DERMATOFIBROMA (D23.9) 1:00 PM CDT DERMATOPATHOLOGY LABORATORY Clinical History [facility] Path#[id number] 1:00 PM CDT DERMATOPATHOLOGY LABORATORY Gross Description Specimen A: Received is one formalin filled container labeled with the patient's name and designated right mid castrejon. The specimen consists of a shave biopsy measuring 5x4x1 mm. Jar 0. 1:00 PM CDT DERMATOPATHOLOGY LABORATORY Microscopic Description Specimen A. SKIN, right mid castrejon: There is epidermal hyperplasia. Within the dermis, there are fibrohistiocytic cells in haphazard array among coarse collagen bundles. 1:00 PM CDT DERMATOPATHOLOGY LABORATORY Disclaimer An external and internal positive and negative controls are appropriate for the histochemical, immunohistochemical and immunofluorescence stain(s) in this case (if any), except where stated explicitly. The performance characteristics of the stain(s) cited in this report were developed and its performance characteristic determined by the Dermatopathology Laboratory at [facility], directed by Dr. Yandel Soriano. These tests need not be, and therefore are not, approved by the [place] Food and Drug Administration. The tests are used for clinical purposes. Billing Codes Specimen Charges Stain Charges 99882 1 1:00 PM CDT DERMATOPATHOLOGY LABORATORY Embedded Images 1:00 PM CDT DERMATOPATHOLOGY LABORATORY Pathology/Cytolog y TISSUE SPECIMEN FROM SKIN / Unknown 05/14/2023 05/14/2023 3:43 PM CDT Lee Kovacs MD LAB - PATHOLOGY/CYTO LOGY ORDERABLES DERMATOPATHOLOGY LABORATORY [facility] - Department of Dermatology [place] [id number] [facility], [address]rd Floor [address] [phone] * IMAGING RADIOLOGY XRAY RESULTS ORDER (06/20/2022) Anatomical Region Laterality Modality Other 06/20/2022 Narrative 06/20/2022 Ordered by an unspecified provider. Scanned Document IMAGING * CARDIAC EKG ORDER (02/26/2022 2:13 PM CDT) Narrative 02/26/2022 2:13 PM CDT Ordered by an unspecified provider. Scanned Document CARDIAC SERVICES ORD ERABLES * PATHOLOGY TISSUE (2021 10:40 AM PATTERN STAMPER) Case Report Surgical Pathology Report Case: [id number] Authorizing Provider: Jose Car MD Collected: 2021 10:40 AM Ordering Location: [facility] Received: 2021 01:13 PM Pathologist: Marcia Simmons MD Specimens: A) - Saxon Lymph Node, right axilla sentinel lymph node, stitch in hot spot B) - Skin, Mid chest melanoma, stitch 12 o'clock C) - Margin, Mid chest melanoma, medial margin D) - Margin, Mid chest melanoma, lateral margin 11/16/2021 4:00 PM PATTERN STAMPER [facility] PATHOLOGY LAB Final Diagnosis Skin, mid chest, melanoma, stitch at 12:00, oriented wide re-excision (B): - Scar; negative for residual melanoma - Full thickness actinic keratosis 0.2 mm from 9:00 margin Skin, mid chest, melanoma, medial margin, excision (C): - No pathologic diagnosis Skin, mid chest, melanoma, lateral margin, excision (D): - No pathologic diagnosis Lymph node, right axilla, sentinel, stitch in hot spot, biopsy (A): - No pathologic diagnosis (one node) 11/16/2021 4:00 PM PATTERN STAMPER [facility] PATHOLOGY LAB Microscopic Description and Comment The mid chest stitch at 12:00 oriented re-excision is free of melanoma and has a scar. Full-thickness epidermal atypia is seen 0.2 mm from the 9:00 margin (B8); this is shown to be squamous in origin (actinic keratosis) by positive high molecular weight keratin stain and negative MART1/Melan-A and HMB-45 stains. Controls stained appropriately. The right axillary sentinel lymph node is free of melanoma on the 3 H and E levels and the MART1/Melan-A and HMB-45 stains per block (A1-A4, H and E levels; A1-A3, immunostains). Controls stained appropriately. 11/16/2021 4:00 PM [facility]3] PATHOLOGY LAB Clinical History 66 year old man, no prior biopsy-confirmed melanoma, had a mid-chest pigmented lesion present for years, previously treated by cryoablation. It recurred and increased in size, and a biopsy ([id number], 10/09/2021) showed malignant melanoma, presumed metastatic due to the lack of epidermal involvement; its Breslow thickness was 1 mm. 11/16/2021 4:00 PM [facility]3] PATHOLOGY LAB Gross Description The requisition and specimens are identified with patient's name and date of . Received in formalin, specimen A right axillary sentine+l lymph node, stitch in hot spot consists of a single fragment of yellow-woods, lobulated soft tissue measuring 3.0 x 2.5 x 0.5 cm. One possible lymph node measuring 2.0 x 1.5 x 0.4 cm is identified, trisected and entirely submitted in cassettes A1-A3, remaining soft tissue submitted in cassette A4. Received in formalin, specimen B mid chest melanoma,+ stitch at 12:00 consists of a single, oriented, ovoid, blue tattooed skin with stitch at 12:00, measuring 2.4 x 2.4, excised to a depth of 1.0 cm. The specimen is inked as follows: 12-3-6: Blue; 6-9-12 o'clock: Green and deep margin: Black The specimen is entirely submitted as follows: B1: 12:00 tip B2: 6:00 tip B3-B8: Specimen sequentially submitted from 12-6 o'clock Received in formalin, specimen C mid chest melanoma, +medial margin consists of a single triangular fragment of light woods skin measuring 2.0 x 1.2 cm, excised to a depth of 1.0 cm. Functional Director section is submitted in cassette C1. Received in formalin, specimen D mid chest melanoma,+lateral margin consists of a single triangular fragment of light woods skin measuring 3.5 x 1.5, excised to a depth of 0.5 cm. Functional Director section is submitted in cassette D1. AR 11/16/2021 4:00 PM [facility]3] PATHOLOGY LAB Disclaimer The performance characteristics of all immunohistochemical and indirect immunofluorescence stains (if any) cited in this report were determined by the Histopathology Laboratory of [facility]. Some of these tests were developed by our own laboratory and have not been cleared or approved by the [place] Food and Drug Administration. The FDA does not require this test to go through premarket FDA review. These tests are used for clinical purposes. They should not be regarded as investigational or for research. This laboratory is certified under the Clinical Laboratory Improvement Amendments (CLIA) as qualified to perform high complexity clinical laboratory testing. This case has been personally reviewed and interpreted by the attending (teaching) pathologist. 11/16/2021 4:00 PM [facility]3] PATHOLOGY LAB Embedded Images 11/16/2021 4:00 PM [facility]3] PATHOLOGY LAB Lymph Node Dissection SPECIMEN FROM SENTINEL LYMPH NODE / Unknown 2021 10:40 AM PATTERN STAMPER 2021 1:13 PM PATTERN STAMPER Comment:Pre-op diagnosis: METASTATIC MELANOMA OF RIGHT MID CHEST Biopsy, Excision TISSUE SPECIMEN FROM SKIN / Unknown 2021 11:03 AM PATTERN STAMPER 2021 1:13 PM PATTERN STAMPER Comment:Pre-op diagnosis: METASTATIC MELANOMA OF RIGHT MID CHEST Biopsy, Excision (Margin) 2021 11:03 AM PATTERN STAMPER 2021 1:13 PM PATTERN STAMPER Comment:Pre-op diagnosis: METASTATIC MELANOMA OF RIGHT MID CHEST Biopsy, Excision (Margin) 2021 11:03 AM PATTERN STAMPER 2021 1:13 PM PATTERN STAMPER Comment:Pre-op diagnosis: METASTATIC MELANOMA OF RIGHT MID CHEST Jose Car MD LAB - PATHOLOGY/CYTO LOGY ORDERABLES [facility] PATHOLOGY LAB [address] [place] [id number] [place] [address] * LARYNGEAL MASK AIRWAY (2021 10:38 AM PATTERN STAMPER) Narrative Avni Duggan MD - 2021 10:38 AM PATTERN STAMPER Avni Duggan MD 2021 10:39 AM LMA Placement Procedure/LDA Note: Patient Location: OR. LMA Insertion Date/Time: 2021 10:21 AM Procedure: LMA. Pretreatment: 100% O2 Induction: standard IV Patient position: sniffing. Mask Ventilation: easy Type: LMA Size: 4 Number of Attempts: 1. Placement verified by: bilateral breath sounds, chest auscultation and CO2 monitor Dentition unchanged? Yes Procedure Start Time: 2021 10:21 AM. Staff Section Anesthesia Provider: Masha Mayo DO Provider #1: Avni Duggan MD, Performed the procedure. Masha Mayo DO GENERAL ANESTHESIA ORDERABLES * NM LYMPHOSCINTIGRAPHY (2021 8:53 AM PATTERN STAMPER) Anatomical Region Laterality Modality Nuclear Medicine 2021 8:42 AM PATTERN STAMPER Impressions 2021 2:21 PM PATTERN STAMPER IMPRESSION: Saxon lymph node identification and marking in the right axilla. This report was approved by Lev Wiggins on 2021 11:48 AM . I, Dr. THAIS EGAN M.D. have personally reviewed and interpreted this examination/study. This report was electronically signed by THAIS EGAN M.D. on 2021 2:21 PM . Narrative 2021 2:21 PM PATTERN STAMPER PROCEDURE: Lymphoscintigraphy - Saxon lymph node detection. HISTORY: 66-year-old male with recently diagnosed metastatic melanoma, first found as a dermal lesion in the right mid chest. COMPARISON: No similar prior. Correlation is made with PET/CT from 11/09/2021. TECHNIQUE: A total dose of 0.995 mCi Tc-99m tilmanocept (Lymph[employer] Data) injected intradermally in the right chest. Planar dynamic images of chest/pelvis were obtained. Patient's BMI 23.11 kg/m2. FINDINGS: A total dose of 0.995 mCi Tc 99-m tilmanocept (Lymphoseek) was given by 4 separate intradermal injections around the original lesion by Jose Terrell MD. Dr. Egan was there for the nesbitt portion of the procedure. Planar dynamic images of chest initially shows a faint trail of activity leading towards right axilla. Subsequently, a sentinel node is localized in the region of the right axilla. No evidence of sentinel lymph node contralaterally. The sentinel lymph node was marked on the skin based on anterior and posterior projection. Procedure Note Thais Egan MD - 2021 PROCEDURE: Lymphoscintigraphy - Saxon lymph node detection. HISTORY: 66-year-old male with recently diagnosed metastatic melanoma, first found as a dermal lesion in the right mid chest. COMPARISON: No similar prior. Correlation is made with PET/CT from 11/09/2021. TECHNIQUE: A total dose of 0.995 mCi Tc-99m tilmanocept (Lymphoseek) injected intradermally in the right chest. Planar dynamic images of chest/pelvis were obtained. Patient's BMI 23.11 kg/m2. FINDINGS: A total dose of 0.995 mCi Tc 99-m tilmanocept (Lymphoseek) was given by4 separate intradermal injections around the original lesion by Jose Terrell MD. Dr. Egan was there for the nesbitt portion of the procedure. Planar dynamic images of chest initially shows a faint trail of activity leading towards right axilla. Subsequently, a sentinel node islocalized in the region of the right axilla. No evidence of sentinel lymph node contralaterally. The sentinel lymph node was marked on the skin based on anterior and posterior projection. IMPRESSION: Saxon lymph node identification and marking in the right axilla. This report was approved by Lev Wiggins on 2021 11:48 AM . I, Dr. THAIS EGAN M.D. have personally reviewed and interpreted this examination/study. This report was electronically signed by THAIS EGAN M.D. on2021 2:21 PM . Jose Car MD NM ORDERABLES * PET CT WHOLE BODY (11/09/2021 8:44 AM PATTERN STAMPER) Anatomical Region Laterality Modality Positron Emissio n Tomography (PET) 11/09/2021 9:41 AM PATTERN STAMPER Addenda Addendum by Sade Hart DO on 2021 3:01 PM PATTERN STAMPER ORIGINAL REPORT Procedure: PET/CT Study. Referring Physician: Jose Car MD. HISTORY: 65-year-old male with recently diagnosed metastatic melanoma, first found as a dermal lesion in the right mid chest. Evaluate for initial treatment strategy. Patient's BMI 23.18 kg/m2. TECHNIQUE: 6.33 mCi of F-18 FDG was injected intravenously in the right antecubital fossa. PET/CT images were acquired from top of the head to the feet after approximately 60 minutes post-injection with the CT being low-dose, non-contrast. No separate report for the CT was generated as it was of non-diagnostic quality and was used for anatomic localization and attenuation correction only. Blood glucose level at the time of injection was 104 mg/dL. COMPARISON: No prior study is available for comparison. FINDINGS: For reference, SUV max of liver is 2.5. Head and neck: A hypodense and hypometabolic lesion in the left frontal lobe is a sequela of prior injury. There is otherwise physiological FDG activity throughout the brain parenchyma. No hypermetabolic or enlarged cervical lymph node is identified. Mucosal polyps is seen in both maxillary sinuses. A right thyroid nodule has an SUV max of 5.1. Chest: The heart size is normal. No pericardial effusion is present. There is atherosclerosis of the coronary arteries and aorta. Emphysematous changes are noted in the lungs. Multiple subcentimeter pulmonary nodules are seen throughout the right lung, too small to characterize. A groundglass nodule in the left lower lung measures 9 mm and has an SUV max of 0.71, likely benign. Atelectasis is noted in the right lower lobe. The lungs are otherwise clear focal consolidation. There is no pleural effusion or pneumothorax. No suspicious hypermetabolic pulmonary nodule is identified. A left subpectoral lymph node measures 1.1 cm in short axis and has an SUV max of 3.1. A left axillary lymph node measures 0.6 cm in short axis and has an SUV max of 3.1. Multiple smaller, hypermetabolic left axillary lymph nodes are present. No hypermetabolic or enlarged mediastinal or supraclavicular lymphadenopathy is seen. Abdomen and pelvis: A right adrenal nodule measures 1.2 cm and has an SUV max of 3.5. There is also a left adrenal nodule with an SUV max of 2.6, likely benign. Cysts are seen in both kidneys. Within the limitations of a noncontrast examination, the liver, gallbladder, spleen, and pancreas are unremarkable. A small splenule is noted adjacent to the spleen. There is normal FDG activity throughout the small and large bowel. No free air or free fluid is identified within the abdomen. The abdominal aorta and major branches are atherosclerotic. There is no hypermetabolic or enlarged abdominal or pelvic lymphadenopathy. A right hydrocele is present. Musculoskeletal: No suspicious lytic or blastic lesions are identified. No abnormal FDG uptake is seen within the osseous structures. Multilevel degenerative changes throughout the spinal column are identified. IMPRESSION: 1.Multiple hypermetabolic left axillary and left subpectoral lymph nodes, suspicious for metastatic disease. 2.A 1.2 cm moderately FDG avid right adrenal nodule is concerning for metastatic disease. 3.FDG avid right thyroid nodule can be followed up with thyroid ultrasound. Dictated by Triny Morris MD (resident caregiver). This report was approved by Triny Morris on 11/09/2021 3:38 PM . I, Dr. SADE HART D.O. have personally reviewed and interpreted this examination/study. This report was electronically signed by SADE HART D.O. on 11/09/2021 4:13 PM . ADDENDUM #1 Addendum was made based on confirming left-sided shoulder injection for Covid vaccination at 11/06/2021 prior to PET/CT on 11/09/2021. IMPRESSION: FDG activity activity within left axillary/subpectoral lymph nodes differential diagnosis can be related to recent Covid vaccination or metastatic disease. This report was approved by Lev Wiggins on 2021 2:[address] SADE Alexandra D.O. have personally reviewed and interpreted this examination/study. This report was electronically signed by SADE HART D.O. on 2021 2:57 PM . Impressions 11/09/2021 4:13 PM PATTERN STAMPER IMPRESSION: 1.Multiple hypermetabolic left axillary and left subpectoral lymph nodes, suspicious for metastatic disease. 2.A 1.2 cm moderately FDG avid right adrenal nodule is concerning for metastatic disease. 3.FDG avid right thyroid nodule can be followed up with thyroid ultrasound. Dictated by Triny Morris MD (resident caregiver). This report was approved by Triny Morris on 11/09/2021 3:[address] SADE Alexandra D.O. have personally reviewed and interpreted this examination/study. This report was electronically signed by SADE HART D.O. on 11/09/2021 4:13 PM . Narrative 11/09/2021 4:13 PM PATTERN STAMPER Procedure: PET/CT Study. Referring Physician: Jose Car MD. HISTORY: 65-year-old male with recently diagnosed metastatic melanoma, first found as a dermal lesion in the right mid chest. Evaluate for initial treatment strategy. Patient's BMI 23.18 kg/m2. TECHNIQUE: 6.33 mCi of F-18 FDG was injected intravenously in the right antecubital fossa. PET/CT images were acquired from top of the head to the feet after approximately 60 minutes post-injection with the CT being low-dose, non-contrast. No separate report for the CT was generated as it was of non-diagnostic quality and was used for anatomic localization and attenuation correction only. Blood glucose level at the time of injection was 104 mg/dL. COMPARISON: No prior study is available for comparison. FINDINGS: For reference, SUV max of liver is 2.5. Head and neck: A hypodense and hypometabolic lesion in the left frontal lobe is a sequela of prior injury. There is otherwise physiological FDG activity throughout the brain parenchyma. No hypermetabolic or enlarged cervical lymph node is identified. Mucosal polyps is seen in both maxillary sinuses. A right thyroid nodule has an SUV max of 5.1. Chest: The heart size is normal. No pericardial effusion is present. There is atherosclerosis of the coronary arteries and aorta. Emphysematous changes are noted in the lungs. Multiple subcentimeter pulmonary nodules are seen throughout the right lung, too small to characterize. A groundglass nodule in the left lower lung measures 9 mm and has an SUV max of 0.71, likely benign. Atelectasis is noted in the right lower lobe. The lungs are otherwise clear focal consolidation. There is no pleural effusion or pneumothorax. No suspicious hypermetabolic pulmonary nodule is identified. A left subpectoral lymph node measures 1.1 cm in short axis and has an SUV max of 3.1. A left axillary lymph node measures 0.6 cm in short axis and has an SUV max of 3.1. Multiple smaller, hypermetabolic left axillary lymph nodes are present. No hypermetabolic or enlarged mediastinal or supraclavicular lymphadenopathy is seen. Abdomen and pelvis: A right adrenal nodule measures 1.2 cm and has an SUV max of 3.5. There is also a left adrenal nodule with an SUV max of 2.6, likely benign. Cysts are seen in both kidneys. Within the limitations of a noncontrast examination, the liver, gallbladder, spleen, and pancreas are unremarkable. A small splenule is noted adjacent to the spleen. There is normal FDG activity throughout the small and large bowel. No free air or free fluid is identified within the abdomen. The abdominal aorta and major branches are atherosclerotic. There is no hypermetabolic or enlarged abdominal or pelvic lymphadenopathy. A right hydrocele is present. Musculoskeletal: No suspicious lytic or blastic lesions are identified. No abnormal FDG uptake is seen within the osseous structures. Multilevel degenerative changes throughout the spinal column are identified. Procedure Note Sade Hart, DO - 11/09/2021 Procedure: PET/CT Study. Referring Physician: Jose Car MD. HISTORY: 65-year-old male with recently diagnosed metastatic melanoma, first found as a dermal lesion in the right mid chest. Evaluate for initial treatment strategy. Patient's BMI 23.18 kg/m2. TECHNIQUE: 6.33 mCi of F-18 FDG was injected intravenously in the right antecubital fossa. PET/CT images were acquired from top of the head tothe feet after approximately 60 minutes post-injection with the CT being low-dose, non-contrast. No separate report for the CT was generated asit was of non-diagnostic quality and was used for anatomic localization and attenuation correction only. Blood glucose level at the time ofinjection was 104 mg/dL. COMPARISON: No prior study is available for comparison. FINDINGS: For reference, SUV max of liver is 2.5. Head and neck: A hypodense and hypometabolic lesion in the left frontal lobe is asequela of prior injury. There is otherwise physiological FDG activitythroughout the brain parenchyma. No hypermetabolic or enlarged cervical lymph node is identified. Mucosal polyps is seen in both maxillary sinuses. A right thyroid nodule has an SUV max of 5.1. Chest: The heart size is normal. No pericardial effusion is present. There is atherosclerosis of the coronary arteries and aorta. Emphysematous changes are noted in the lungs. Multiple subcentimeter pulmonary nodules are seen throughout the right lung, too small to characterize. A groundglass nodule in the left lower lung measures 9 mm and has an SUV max of 0.71, likely benign. Atelectasis is noted in the right lower lobe. The lungs are otherwise clear focal consolidation. There is no pleural effusion or pneumothorax. No suspicious hypermetabolic pulmonary nodule is identified. A left subpectoral lymph node measures 1.1 cm in short axis and has anSUV max of 3.1. A left axillary lymph node measures 0.6 cm in short axis and has an SUV max of 3.1. Multiple smaller, hypermetabolic left axillary lymph nodes are present. No hypermetabolic or enlarged mediastinal or supraclavicular lymphadenopathy is seen. Abdomen and pelvis: A right adrenal nodule measures 1.2 cm and has an SUV max of 3.5. There is also a left adrenal nodule with an SUV max of 2.6, likelybenign. Cysts are seen in both kidneys. Within the limitations of a noncontrast examination, the liver, gallbladder, spleen, and pancreas are unremarkable. A small splenule is noted adjacent to the spleen. There is normal FDG activity throughout the small and large bowel. No free air or free fluid is identified within the abdomen. Theabdominal aorta and major branches are atherosclerotic. There is no hypermetabolic or enlarged abdominal or pelvic lymphadenopathy. A right hydrocele is present. Musculoskeletal: No suspicious lytic or blastic lesions are identified. No abnormal FDG uptake is seen within the osseous structures. Multilevel degenerative changes throughout the spinal column are identified. IMPRESSION: 1.Multiple hypermetabolic left axillary and left subpectoral lymphnodes, suspicious for metastatic disease. 2.A 1.2 cm moderately FDG avid right adrenal nodule is concerning for metastatic disease. 3.FDG avid right thyroid nodule can be followed up with thyroidultrasound. Dictated by Triny Morris MD (resident caregiver). This report was approved by Triny Morris on 11/09/2021 3:38 PM . I, Dr. SADE HART D.O. have personally reviewed and interpreted this examination/study. This report was electronically signed by SADE HART D.O. on11/09/2021 4:13 PM . Jose Car MD NM ORDERABLES * EKG 12-LEAD (11/09/2021 8:32 AM PATTERN STAMPER) Ventricular Rate 64 BPM [facility] Atrial Rate 64 BPM [facility] P-R Interval 124 ms [facility] QRS Duration ms 78 ms [facility] Q-T Interval ms 402 ms [facility] QTC Calculation (Bezet) 414 ms [facility] Calculated P [place] 84 degrees [facility] Calculated R [place] -15 degrees [facility] Calculated T [place] 44 degrees [facility] Interpretation EKG NORMAL SINUS RHYTHM LOW VOLTAGE QRS CANNOT RULE OUT ANTERIOR INFARCT , AGE UNDETERMINED ABNORMAL ECG NO PREVIOUS ECGS AVAILABLE Confirmed by Satish Ibarra ([id number]) on 2021 8:05:16 AM [facility] MUSE 11/09/2021 8:32 AM PATTERN STAMPER 2021 8:05 AM PATTERN STAMPER Jose Car MD ECG ORDERABLES [facility] MUSE * XR CHEST 2VW (11/09/2021 8:30 AM PATTERN STAMPER) Anatomical Region Laterality Modality Chest Radiographic Ana ging 11/09/2021 9:14 AM PATTERN STAMPER Impressions 11/09/2021 5:03 PM PATTERN STAMPER IMPRESSION: No acute pulmonary process. Report drafted by Quincy Villegas MD (Tack Puller Machine). Dr. Madison Alexandra M.D. have personally reviewed and interpreted this examination/study. This report was electronically signed by Madison GARCIA M.D. on 11/09/2021 5:03 PM . Narrative 11/09/2021 5:03 PM PATTERN STAMPER EXAMINATION: XR CHEST 2VW, 11/09/2021 8:30 AM HISTORY: C79.9: Metastatic melanoma C43.59: Malignant melanoma of skin of chest COMPARISON: Same day PET/CT FINDINGS: There is no focal consolidation, pleural effusion, or pneumothorax. The cardiomediastinal silhouette is normal. The visible bony thorax is intact. Procedure Note Juliane Garcia MD - 11/10/2021 EXAMINATION: XR CHEST 2VW, 11/09/2021 8:30 AM HISTORY: C79.9: Metastatic melanoma C43.59: Malignant melanoma of skin of chest COMPARISON: Same day PET/CT FINDINGS: There is no focal consolidation, pleural effusion, or pneumothorax. The cardiomediastinal silhouette is normal. The visible bony thorax isintact. IMPRESSION: No acute pulmonary process. Report drafted by Quincy Villegas MD (Tack Puller Machine). Dr. Madison Alexandra M.D. have personally reviewed and interpretedthis examination/study. This report was electronically signed by Madison GARCIA M.D. on 11/09/2021 5:03 PM . Jose Car MD DIAGNOSTIC IMAGING O RDERABLES * CBC WITH DIFFERENTIAL (11/09/2021 7:10 AM PATTERN STAMPER) Only the most recent of6 resultswithin the time period is included. WBC 5.5 3.5 - 10.5 10 3/uL 11/09/2021 7:34 AM [facility] RBC 4.57 4.30 - 5.70 10 6/uL 11/09/2021 7:34 AM PATTERN STAMPER [facility] Hemoglobin 13.7 12.0 - 17.6 g/dL 11/09/2021 7:34 AM [facility] Hematocrit 41.1 35.2 - 51.7 % 11/09/2021 7:34 AM [facility] MCV 89.9 80.7 - 98.3 fL 11/09/2021 7:34 AM [facility] MCH 30.0 26.7 - 34.0 pg 11/09/2021 7:34 AM [facility] MCHC 33.3 30.8 - 35.9 g/dL 11/09/2021 7:34 AM [facility] Platelet Count 229 150 - 400 10 3/uL 11/09/2021 7:34 AM [facility] RDW-SD 44.9 36.0 - 50.0 fL 11/09/2021 7:34 AM [facility] RDW-CV 13.6 11.2 - 14.8 % 11/09/2021 7:34 AM [facility] MPV 9.5 9.4 - 12.9 fL 11/09/2021 7:34 AM [facility] nRBC Absolute 0.00 0 10 3/uL 11/09/2021 7:34 AM [facility] nRBC Auto 0.0 0 /100 WBC 11/09/2021 7:34 AM [facility] Neutrophils % 57.6 35.0 - 70.0 % 11/09/2021 7:34 AM [facility] Lymphocytes % 24.4 20.0 - 43.0 % 11/09/2021 7:34 AM [facility] Monocytes % 12.1 5.0 - 13.0 % 11/09/2021 7:34 AM [facility] Eosinophils % 4.3 0.0 - 6.0 % 11/09/2021 7:34 AM [facility] Basophil % 0.9 0.0 - 2.0 % 11/09/2021 7:34 AM [facility] Neutrophils Absolute 3.2 1.6 - 7.0 10 3/uL 11/09/2021 7:34 AM [facility] Lymphocyte Absolute 1.4 1.1 - 3.9 10 3/uL 11/09/2021 7:34 AM [facility] Monocytes Absolute 0.67 0.26 - 1.07 10 3/uL 11/09/2021 7:34 AM [facility] Eosinophils Absolute 0.24 0.00 - 0.47 10 3/uL 11/09/2021 7:34 AM [facility] Basophils Absolute 0.05 0.00 - 0.08 10 3/uL 11/09/2021 7:34 AM [facility] Immature Granulocytes % 0.7 0.0 - 1.0 % 11/09/2021 7:34 AM [facility] Immature Granulocytes Absolute 0.04 11/09/2021 7:34 AM [facility] Blood BLOOD SPECIMEN / Unknown Lab Venipuncture / Unknown 11/09/2021 7:10 AM PATTERN STAMPER 11/09/2021 7:20 AM [facility] Jose Car MD LAB - HEMATOLOGY ORD ERABLES [facility] [address] [place] [address], [facility] [phone] * (ABNORMAL) COMPREHENSIVE METABOLIC PANEL (11/09/2021 7:10 AM [facility]) Only the most recent of4 resultswithin the time period is included. BUN 14 7 - 26 mg/dL 11/09/2021 7:44 AM [facility] Creatinine 1.17(H) 0.71 - 1.16 mg/dL 11/09/2021 7:44 AM [facility] Sodium 141 136 - 145 mmol/L 11/09/2021 7:44 AM [facility] Potassium 3.6 3.5 - 4.5 mmol/L 11/09/2021 7:44 AM [facility] Chloride 108(H) 98 - 107 mmol/L 11/09/2021 7:44 AM [facility] CO2 25 22 - 29 mmol/L 11/09/2021 7:44 AM [facility] Glucose 96 70 - 115 mg/dL 11/09/2021 7:44 AM [facility] Calcium 9.0 8.4 - 10.2 mg/dL 11/09/2021 7:44 AM [facility] Protein Total 6.1 6.0 - 8.3 g/dL 11/09/2021 7:44 AM [facility] Albumin 3.5 3.4 - 5.0 g/dL 11/09/2021 7:44 AM [facility] Bilirubin Total 0.5 0.2 - 1.2 mg/dL 11/09/2021 7:44 AM [facility] Alkaline Phosphatase 73 40 - 150 U/L 11/09/2021 7:44 AM [facility] ALT 23 5 - 55 U/L 11/09/2021 7:44 AM [facility] AST 18 5 - 34 U/L 11/09/2021 7:44 AM [facility] Anion Gap 12 8 - 18 11/09/2021 7:44 AM [facility] BUN/Creatinine Ratio 12 7 - 23 11/09/2021 7:44 AM [facility] Osmolality Calculated 292 270 - 300 mOsm/kg 11/09/2021 7:44 AM [facility] Albumin/Globulin Ratio 1.3 1.1 - 2.3 11/09/2021 7:44 AM [facility] eGFR by CKD-EPI 64(L) >=90 mL/min/1.7 3 m2 11/09/2021 7:44 AM [facility] Blood BLOOD SPECIMEN / Unknown Lab Venipuncture / Unknown 11/09/2021 7:10 AM PATTERN STAMPER 11/09/2021 7:21 AM PATTERN STAMPER Jose Car MD LAB - CHEMISTRY ORDE KAMILAH [facility] [address] [place] [address], [facility] [phone] * GLUCOSE SCREEN - POCT (IP) [facility] (11/09/2021 7:06 AM PATTERN STAMPER) Glucose WB/POC 104 70 - 115 mg/dL [facility] POCT TESTING Blood BLOOD SPECIMEN / Unknown 11/09/2021 7:06 AM PATTERN STAMPER Jose Car MD LAB - POINT OF CARE ORDERABLES [facility] POCT TESTING [address] [place] [address], [facility] [phone] * ECHO LONG TRANSESOPHAGEAL (11/02/2014 12:00 AM PATTERN STAMPER) Anatomical Region Laterality Modality Other 11/02/2014 Steven Cheek MD ECHOCARDIOGRAPHY RAD IANT * PTT [facility] (10/26/2014 10:47 AM PATTERN STAMPER) Only the most recent of2 resultswithin the time period is included. APTT 30.4 23.0 - 38.4 Seconds [facility] Comment:Suggested therapeuti c range for full dose I.V. heparin therapy for venous thromboembolism is 66.0-91.0 seconds. Blood specimen (specimen) BLOOD SPECIMEN / Unknown 10/26/2014 10:47 AM PATTERN STAMPER 10/26/2014 11:50 AM PATTERN STAMPER Narrative [facility] - 10/26/2014 12:50 PM PATTERN STAMPER Is patient on Heparin, Argatroban or Dabigatran?->N Steven Cheek MD LAB - COAGULATION OR DERABLES [facility] [address] [place] [address] * (ABNORMAL) PT-INR [facility] (10/26/2014 10:47 AM PATTERN STAMPER) Only the most recent of2 resultswithin the time period is included. PT 11.7(L) 12.1 - 14.8 Seconds [facility] INR 0.9 See Comment [facility] Comment: Suggested therapeutic range for low-intensity coumadin therapy for venous thromboembolism prophylaxis is an INR of 2.0-3.0. For high risk patients (Mitral Valve Prosthesis, Atrial Fibrillation, history of TIA/stroke), suggested prophylactic therapeutic range is an INR of 2.5-3.5. Blood specimen (specimen) BLOOD SPECIMEN / Unknown 10/26/2014 10:47 AM PATTERN STAMPER 10/26/2014 11:50 AM PATTERN STAMPER Narrative [facility] - 10/26/2014 12:50 PM PATTERN STAMPER Is patient on Heparin, Argatroban or Dabigatran?->N Steven Cheek MD LAB - COAGULATION OR DERABLES [address] [phone] * HIV-1 HIV-2 ANTIGEN/ANTIBODY (10/26/2014 10:47 AM PATTERN STAMPER) HIV Antigen/Antibod y 1 & 2 Non-reacti ve Non-react chance [facility] Comment: Neither HIV-1 p24 Antigen nor HIV-1/HIV-2 Antibodies are detected. Blood specimen (specimen) BLOOD SPECIMEN / Unknown 10/26/2014 10:47 AM PATTERN STAMPER 10/26/2014 11:50 AM PATTERN STAMPER Steven Cheek MD LAB - HEMATOLOGY ORD ERABLES Performing Organization Address [facility] Co de Phone Number [address] [phone] * (ABNORMAL) URINALYSIS W/MICROSCOPIC NO CULTURE (10/26/2014 10:47 AM PATTERN STAMPER) Color UA Yellow Straw, Yellow, Colorless, Light Yellow [facility] Clarity UA Clear Clear [facility] Specific Friend UA 1.015 1.001 - 1.030 [facility] pH UA 7.0 5.0 - 8.0 [facility] Protein UA Negative <=20 mg/dL [facility] Glucose UA Negative Negative mg/dL [facility] Ketone UA Negative Negative mg/dL [facility] Bilirubin UA Negative Negative mg/dL [facility] Blood UA Negative Negative [facility] Nitrite UA Negative Negative [facility] Leukocyte Esterase Negative Negative [facility] Urobilinogen UA <2.0 <2.0 mg/dL [facility] RBC UA 3 0 - 8 /HPF [facility] WBC UA <1 0 - 2 /HPF [facility] Mucus UA Rare(A) None /LPF [facility] Urine specimen (specimen) URINE SPECIMEN OBTAINED BY CLEAN CATCH PROCEDURE / Unknown 10/26/2014 10:47 AM PATTERN STAMPER 10/26/2014 11:50 AM PATTERN STAMPER Steven Cheek MD LAB - URINALYSIS ORD ERABLES Performing Organization Address [facility] Co de Phone Number [address] [phone] * RPR (10/26/2014 10:47 AM PATTERN STAMPER) RPR Non-reacti ve Non-reacti ve [facility] Blood specimen (specimen) BLOOD SPECIMEN / Unknown 10/26/2014 10:47 AM PATTERN STAMPER 10/26/2014 11:50 AM PATTERN STAMPER Steven Cheek MD LAB - CHEMISTRY ORDPham TRIANA Performing Organization Address [facility] Phone Number [address] [phone] * C-REACTIVE PROTEIN (10/26/2014 10:47 AM PATTERN STAMPER) C-Reactive Protein <0.5 <=0.5 mg/dL [facility] Blood specimen (specimen) BLOOD SPECIMEN / Unknown 10/26/2014 10:47 AM PATTERN STAMPER 10/26/2014 11:50 AM PATTERN STAMPER Steven Cheek MD LAB - CHEMISTRY ANIVAL TRIANA Performing Organization Address [facility] Co de Phone Number [address] [phone] * CULTURE BLOOD (10/26/2014 10:47 AM PATTERN STAMPER) Culture Blood No Growth at 5 days [facility] Blood specimen (specimen) BLOOD SPECIMEN / Unknown 10/26/2014 10:47 AM PATTERN STAMPER 10/26/2014 11:50 AM PATTERN STAMPER Narrative [facility] - 10/31/2014 12:00 PM PATTERN STAMPER Specimen Type->Blood Steven Cheek MD LAB - MICROBIOLOGY O RDERABLES Performing Organization Address [facility]/ZIP Co de Phone Number [address] [phone] * ERYTHROCYTE SEDIMENTATION RATE (10/26/2014 10:47 AM PATTERN STAMPER) Erythrocyte Sedimentation Rate Westergren 0 0 - 10 MM/HR [facility] Blood specimen (specimen) BLOOD SPECIMEN / Unknown 10/26/2014 10:47 AM PATTERN STAMPER 10/26/2014 11:50 AM PATTERN STAMPER Steven Cheek MD LAB - HEMATOLOGY ORD ERABLES Performing Organization Address City/State/[facility] Co de Phone Number [address] [phone] * HEPATITIS SCREEN ACUTE (10/26/2014 10:47 AM PATTERN STAMPER) Pathologist [facility] Hepatitis A Virus Antibody IgM Non-react [facility] Hepatitis B Virus Surface Antigen Non-react [facility] Hepatitis B Core Virus Antibody IgM Non-react [facility] Hepatitis C Antibody Non-react [facility] Comment: Hepatitis C Antibody screen indicates no serologic evidence of past or current infection with Hepatitis C Virus. Patients with unexplained liver disease who are immunocompromised or suspected of having acute Hepatitis C infection may benefit from Nucleic Acid Test (TUTU) for Hepatitis C Viral RNA to confirm Hepatitis C status. Blood specimen (specimen) BLOOD SPECIMEN / Unknown 10/26/2014 10:47 AM PATTERN STAMPER 10/26/2014 11:50 AM PATTERN STAMPER Steven Cheek MD LAB - CHEMISTRY ORDE KAMILAH Performing Organization Address City/State/[facility] Co de Phone Number [address] [phone] * IR CAROTID CEREBRAL ANGIOGRAM (10/06/2014 8:35 AM PATTERN STAMPER) Only the most recent of2 resultswithin the time period is included. 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 This report was electronically signed by MICHEL REESE M.D. on 10/06/2014 10:03 AM . Narrative 10/06/2014 10:03 AM PATTERN STAMPER Procedure: Cerebral angiogram 10/06/2014 Comparison study: None History: The patient is a 58-year-old man with a history of aneurysms in the family and recent worsening headache. He underwent an MRI scan that revealed possible cranial aneurysms and is here for further evaluation of these abnormalities. Stud Driver: Twyla Reese Vessels: Bilateral internal carotid artery angiograms: Cerebral Bilateral common carotid artery angiograms: Cervical Left vertebral artery angiogram: Cerebral 3-D angiogram of the left internal carotid artery with reconstruction separate workstation Right femoral artery angiogram 6 Gambian Angio-Seal deployment within the right femoral artery Anesthesia: Local anesthesia with conscious sedation Procedural detail: The risks, benefits, alternatives of procedure discussed in detail the patient's family. After this discussion written consent was provided. The patient brought to the biplane angiography suite where he underwent prep and drape procedures. A 6 Gambian sheath was placed in the right femoral artery and a 5 [place]ian [employer] 2 catheter was navigated into the aortic arch. The catheter was used to select the left subclavian artery followed by the left vertebral artery and a cerebral angiograms obtained. The catheter was returned to the arch used to select the left common carotid artery and a cervical angiogram was obtained. The catheter was advanced into the left internal carotid artery and a cerebral angiograms obtained. 3-D angiograms obtained and post processed at a separate workstation. The catheter was returned to the arch and used to select the brachiocephalic artery followed by the right common carotid artery and a cervical angiograms obtained. The catheter was advanced into the right internal carotid artery and a cerebral echograms obtained. The right femoral artery angiograms obtained through the sheath. All catheters and sheaths removed from the arterial system. Hemostasis was achieved using a 6 [place]ian Angio-Seal closure device. No stasis was immediate in the closure procedure. The right dorsalis pedis pulse was palpable in the closure procedure. The patient tolerated procedure without immediate complications. He was returned to the recovery area and hemodynamically stable condition neurologically unchanged. Estimated blood loss was less than 20 mL. A total of 90 mL of Omnipaque 300 contrast and 7.9 minutes of fluoroscopic time were utilized the study. Findings: There is good arterial, capillary, and venous opacification of all angiographic runs. The left vertebral artery angiogram reveals a V3, V4, and vertebrobasilar junction that are normal in course and caliber. The basilar artery itself is ectatic. The major vessels cerebellum and posterior cerebral arteries are normal in course and caliber. The left common carotid artery angiogram reveals a carotid bifurcation is free of hemodynamically significant stenosis or atherosclerotic disease. The left internal carotid artery angiogram reveals a normal course and caliber the intracranial internal carotid artery and anterior cerebral artery. The left middle cerebral artery gives rise to an M3 segment fusiform aneurysm. This 6.2 x 4.7 mm. The right common carotid artery angiogram reveals a carotid bifurcation is hemodynamically significant atherosclerotic disease or muscular dysplasia. Right internal carotid artery angiogram reveals intracranial internal carotid artery with a infundibulum arising from posterior carotid wall. There is a mild fusiform dilation of the supraclinoid segment. The middle cerebral artery and anterior cerebral arteries are normal in course and caliber. The right femoral artery angiogram reveals a puncture site above the femoral artery bifurcation. Procedure Note Michel Reese MD - 03/01/2018 Procedure: Cerebral angiogram 10/06/2014 Comparison study: None History: The patient is a 58-year-old man with a history of aneurysms inthe family and recent worsening headache. He underwent an MRI scan thatrevealed possible cranial aneurysms and is here for further evaluation ofthese abnormalities. Stud Driver: Twyla Reese Vessels: Bilateral internal carotid artery angiograms: Cerebral Bilateral common carotid artery angiograms: Cervical Left vertebral artery angiogram: Cerebral 3-D angiogram of the left internal carotid artery with reconstructionseparate workstation Right femoral artery angiogram 6 [place]ian Angio-Seal deployment within the right femoral artery Anesthesia: Local anesthesia with conscious sedation Procedural detail: The risks, benefits, alternatives of procedurediscussed in detail the patient's family. After this discussion writtenconsent was provided. The patient brought to the biplane angiography suitewhere he underwent prep and drape procedures. A 6 Gambian sheath was placed in the right femoral artery and a5 Gambian Crocker 2 catheter was navigated into the aortic arch. Thecatheter was used to select the left subclavian artery followed by theleft vertebral artery and a cerebral angiograms obtained. The catheter was returned to the arch used to selectthe left common carotid artery and a cervical angiogram was obtained. Thecatheter was advanced into the left internal carotid artery and a cerebralangiograms obtained. 3-D angiograms obtained and post processed at a separate workstation. Thecatheter was returned to the arch and used to select the brachiocephalicartery followed by the right common carotid artery and a cervicalangiograms obtained. The catheter was advanced into the right internal carotid artery and a cerebral echogramsobtained. The right femoral artery angiograms obtained through theea. All catheters and sheaths removed from the arterial system. Hemostasis wasachieved using a 6 Gambian Angio-Seal closure device. No stasis wasimmediate in the closure procedure. The right dorsalis pedis pulse waspalpable in the closure procedure. The patient tolerated procedure without immediate complications. He wasreturned to the recovery area and hemodynamically stable conditionneurologically unchanged. Estimated blood loss was less than 20 mL. A total of 90 mL of Omnipaque 300 contrast and 7.9 minutes of fluoroscopictime were utilized the study. Findings: There is good arterial, capillary, and venous opacification of allangiographic runs. The left vertebral artery angiogram reveals a V3, V4, and vertebrobasilarjunction that are normal in course and caliber. The basilar artery itselfis ectatic. The major vessels cerebellum and posterior cerebral arteriesare normal in course and caliber. The left common carotid artery angiogram reveals a carotid bifurcation isfree of hemodynamically significant stenosis or atherosclerotic disease. The left internal carotid artery angiogram reveals a normal course andcaliber the intracranial internal carotid artery and anterior cerebralartery. The left middle cerebral artery gives rise to an M3 segmentfusiform aneurysm. This 6.2 x 4.7 mm. The right common carotid artery angiogram reveals a carotid bifurcation ishemodynamically significant atherosclerotic disease or musculardysplasia. Right internal carotid artery angiogram reveals intracranial internalcarotid artery with a infundibulum arising from posterior carotid wall.There is a mild fusiform dilation of the supraclinoid segment. The middlecerebral artery and anterior cerebral arteries are normal in course and caliber. The right femoral artery angiogram reveals a puncture site above thefemoral artery bifurcation. 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 This report was electronically signed by MICHEL REESE M.D. on10/06/2014 10:03 AM . Historical Provider MD ROTHMAN ORDERABLES * (ABNORMAL) LIPID PROFILE W TCHOL/HDL (PO REF LAB) (10/25/2009 3:03 PM PATTERN STAMPER) Cholesterol 156 100 - 199 mg/dL [facility] ACCOUNT BILL Triglycerides 190(H) 0 - 149 mg/dL [facility] ACCOUNT BILL HDL Cholesterol 31(L) >39 mg/dL [facility] ACCOUNT BILL Comment: According to ATP-III Guidelines, HDL-C >59 mg/dL is considered a negative risk factor for CHD. VLDL Calculated 38 5 - 40 mg/dL [facility] ACCOUNT BILL LDL Calculated 87 0 - 99 mg/dL [facility] ACCOUNT BILL Cholesterol/HDL Ratio 5.0 0.0 - 5.0 ratio units [facility] ACCOUNT BILL BLOOD SPECIMEN / Unknown 10/25/2009 3:03 PM PATTERN STAMPER 10/25/2009 9:27 PM PATTERN STAMPER Narrative Resulting Agency [facility] [address] [facility] [phone] Avni Montez DO LAB - CHEMISTRY ORD ERABLES [facility] ACCOUNT BILL * PROSTATE SPECIFIC ANTIGEN SCREEN (10/25/2009 3:03 PM PATTERN STAMPER) PSA 0.3 0.0 - 4.0 ng/mL [facility] ACCOUNT BILL Comment: Adi ECLIA methodology. . According to the [place] [employer], Serum PSA should decrease and remain at undetectable levels after radical prostatectomy. The AUA defines biochemical recurrence as an initial PSA value 0.2 ng/mL or greater followed by a subsequent confirmatory PSA value 0.2 ng/mL or greater. Values obtained with different assay methods or kits cannot be used interchangeably. Results cannot be interpreted as absolute evidence of the presence or absence of malignant disease. BLOOD SPECIMEN / Unknown 10/25/2009 3:03 PM PATTERN STAMPER 10/25/2009 9:27 PM PATTERN STAMPER Narrative Resulting Agency [facility] [address] [facility] [phone] Avni A Montez DO LAB - CHEMISTRY ORD ERABLES [facility] ACCOUNT BILL Care Teams Semiconductor Wafers Saw Operator Relationship Specialty Start Date End Date Pritesh Cintron MD [address] [place] [address] PCP - General 06/16/19
--- OUTSIDE RECORDS SUMMARY | 2025-01-19 08:08 | XMS_ITS | Clinical Summary ---
Author Organization [email or web address] Address [address] [place] [address] Care Team Providers Care Pediatric Sports Medicine Specialist Name Role Phone Pritesh Cintron MD Primary Care Provider [phone] Source Comments [email or web address],non-owned Affiliates and Associated Physician Practices is amultiple site organization consisting of ambulatory clinics and hospital sitesin [place], [place], [place] and [place]. This disclosure is being madepursuant to the Care Everywhere program and may not contain all information available regarding this patient. Last updated 18.[email or web address] Allergies Active Allergy Reactions Criticality Noted Date Comments Propoxyphene N-Apap 10/25/2009 hives Tramadol Other Low 08/31/2014 sweats Medications * Be aware that medications may not be up to date on this document. Alwaysverify current medications with the patient. Medication Sig Dispensed Refills Start Date End Date Status amLODIPine (NORVASC) 10 MG tablet 07/28/2021 Active atorvastatin (LIPITOR) 10 MG tablet Take 2 (two) tablets by mouth at bedtime 09/29/2021 Active gabapentin (NEURONTIN) 100 MG capsule Take 1 (one) capsule by mouth 3 times daily 07/28/2021 Active lisinopril (PRINIVIL; ZESTRIL) 20 MG tablet Take 1 (one) tablet by mouth at bedtime 07/28/2021 Active omeprazole (PRILOSEC) 20 MG capsule 10/13/2021 Active traZODone (DESYREL) 50 MG tablet 07/28/2021 Active metoprolol succinate XL 24hr (TOPROL XL) 25 MG tablet 07/28/2021 Active Trelegy Ellipta 100-62.5-25 MCG/ACT 05/21/2023 Activ e albuterol HFA (Proventil; Ventolin; Proair) 108 (90 Base) MCG/ACT inhaler INHALE 2 PUFFS 4 TIMES DAILY NEEDED FOR SHORTNESS OF BREATH OR WHEEZING 02/04/2023 Active Active Problems Problem Noted Date Diagnosed Date Malignant melanoma of skin of chest 10/30/2021 Cancer Staging:Clinical:Stage Unknown(cTX, cN0, cM0) - Unsigned Pathologic stage from 05/24/2022:Stage Unknown(pTX, pN0, cM0) - Signed by Jose Car MD on 05/24/2022 Encounters Date Type Department Care Team Description 01/06/2025 10:00 AM AUTOBODY TECHNICIAN Office Visit [facility] - General Surgery [address] [place] [phone] Jose Car MD Metastatic melanoma (HCC) (Primary Dx); Malignant melanoma of skin of chest (HCC) 01/06/2025 Travel from Last 3 Months Immunizations Name Administration Dates Next Due INFLUENZA VACCINE, TRIV. (AF LURIA, FLUZONE TRIVALENT; 6MO+) (IIV3) 10/25/2009 Covid Ravel Law primary monoval ent 12+ yr 0.3mL Purple cap 11/06/2021,02/20/2021,01/30/2021 INFLUENZA A L1I6-60 VACCINE 10/25/2009 INFLUENZA VACCINE 09/01/2022,09/01/2021 Social History Tobacco Use Types Packs/Day Years [...] Comments Blood Pressure 97/63 01/06/2025 9:58 AM AUTOBODY TECHNICIAN Pulse 70 01/06/2025 9:58 AM AUTOBODY TECHNICIAN Temperature 36.6 C (97.8 F) 01/06/2025 9:58 AM AUTOBODY TECHNICIAN Respiratory Rate 18 01/06/2025 9:58 AM AUTOBODY TECHNICIAN Oxygen Saturation 92% 01/06/2025 9:58 AM AUTOBODY TECHNICIAN Inhaled Oxygen Concentration - - Weight 68 kg (150 lb) 01/06/2025 9:58 AM AUTOBODY TECHNICIAN Height 165.1 cm (5' 5 ) 01/06/2025 9:58 AM AUTOBODY TECHNICIAN Body Mass Index 24.96 01/06/2025 9:58 AM AUTOBODY TECHNICIAN Plan of Treatment Upcoming Encounters Date Type Department Care Team (Late st Contact Info) Description 01/12/2026 9:30 AM AUTOBODY TECHNICIAN Office Visit [facility] - General Surgery [address] [place] [phone] Jose Car MD [address] [facility] [address] [place] [address] Health Maintenance Due Date Last Done Comments COLOGUARD (AGES 45-75) - COLON CA SCREENING 1955 COLON MONITORING 1955 COLONOSCOPY - COLON CA SCREENING 1955 CT COLONOGRAPHY - COLON CA SCREENING 1955 Colorectal Cancer Screening 1955 FIT - COLON CA SCREENING 1955 FLEX SIG - COLON CA SCREENING 1955 DTAP/TDAP/TD VACCINES (1 - Tdap) 1972 PNEUMOCOCCAL VACCINE 50+ (1 of 1 - PCV) 2003 ZOSTER VACCINE (1 of 2) 2003 AAA SCREENING 2018 COVID-19 VACCINE ( - season) 2024 11/06/2021, 02/20/2021, 01/30/2021 INFLUENZA VACCINE (#1) 2024 , 09/01/2021, 10/02/2016, Additional history exists DEPRESSION SCREENING 12/02/2024 MEDICARE AWV CALENDAR YEAR 2024 Respiratory Syncytial Virus (RSV) Vaccine Pt: or over 60 yrs (1 - 1-dose 75+ series) 2028 HEPATITIS C SCREENING Completed 10/26/2014 HEPATITIS B VACCINE Aged Out No longe r eligible based on patient's age to complete this topic HIB VACCINE Aged Out No longer eligi ble based on patient's age to complete this topic HPV VACCINE Aged Out No longer eligi ble based on patient's age to complete this topic MENINGOCOCCAL (Group B) VACCINE Aged Out No longer eligible based on patient's age to complete this topic MENINGOCOCCAL VACCINE Aged Out No arturo fletcher eligible based on patient's age to complete this topic Procedures Procedure Name Priority Date/Time Associated Diagnosis Comments HEPATITIS SCREEN ACUTE Routine 10/26/2014 10:47 AM AUTOBODY TECHNICIAN from Last 3 Months or Most Recently Relevant to Health Maintenance Results * HEPATITIS SCREEN ACUTE (10/26/2014 10:47 AM AUTOBODY TECHNICIAN) Hepatitis A Virus Antibody IgM Non-react [facility] Hepatitis B Virus Surface Antigen Non-react [facility] Hepatitis B Core Virus Antibody IgM Non-react [facility] Hepatitis C Antibody Non-react [facility] Comment: Hepatitis C Antibody screen indicates no serologic evidence of past or current infection with Hepatitis C Virus. Patients with unexplained liver disease who are immunocompromised or suspected of having acute Hepatitis C infection may benefit from Nucleic Acid Test (TUTU) for Hepatitis C Viral RNA to confirm Hepatitis C status. Blood specimen (specimen) BLOOD SPECIMEN / Unknown 10/26/2014 10:47 AM AUTOBODY TECHNICIAN 10/26/2014 11:50 AM AUTOBODY TECHNICIAN Steven Cheek MD LAB - CHEMISTRY ANIVAL Cooney Organization Address City/State/ZIP Co de Phone Number [facility] [address] [phone] from Last 3 Months or Most Recently Relevant to Health Maintenance Care Teams Pediatric Sports Medicine Specialist Relationship Specialty Start Date End Date Pritesh Cintron MD [address] [place], [place] [phone] PCP - General 06/16/19
--- OUTSIDE RECORDS SUMMARY | 2025-01-19 08:08 | XMS_ITS ---
Author Organization [facility] Address [address] [facility] [address] [place] [address] Care Team Providers Care Food Service Specialist Name Role Phone Pritesh Cintron MD Primary Care Provider [phone] Active Problems Problem Noted Date Diagnosed Date Malignant melanoma of skin of chest 10/30/2021 Cancer Staging:Clinical:Stage Unknown(cTX, cN0, cM0) - Unsigned Pathologic stage from 05/24/2022:Stage Unknown(pTX, pN0, cM0) - Signed by Jose Car MD on 05/24/2022 Current Oncology Plans No current plan information found. Past Plans No past plan information found. Radiation Treatments * No radiation treatments are documented for this patient in [facility]. Treatments may have been administered in another system. Lifetime Dose Tracking * Chemical Lifetime Dose Automatic Entry Manual Entr y Dose Length Product 509.4 mGy-cm 509.4 mGy-cm 0 mGy-cm
--- OUTSIDE RECORDS SUMMARY | 2025-01-19 08:08 | XMS_ITS | Referral Summary ---
Author Organization [facility] Address [address] [place] [address] Care Team Providers Care Instructor Nurse Name Role Phone Pritesh Cintron MD Primary Care Provider [phone] Source Comments [facility],non-owned Affiliates and Associated Physician Practices is amultiple site organization consisting of ambulatory clinics and hospital sitesin [place], [place], [place] and [place]. This disclosure is being madepursuant to the Care Everywhere program and may not contain all information available regarding this patient. Last updated 18.[facility] Encounters Date Type Department Care Team Description 01/06/2025 Travel 01/06/2025 10:00 AM SPORTS ANNOUNCER Office Visit [facility] - General Surgery [address] [place] [phone] Jose Car MD Metastatic melanoma (HCC) (Primary Dx); Malignant melanoma of skin of chest (HCC) from Last 3 Months Allergies Active Allergy Reactions Criticality Noted Date [...] by Jose Car MD on 05/24/2022 Immunizations Name Administration Dates Next Due INFLUENZA VACCINE, TRIV. (AF LURIA, FLUZONE TRIVALENT; 6MO+) (IIV3) 10/25/2009 CovQianrui Clothes primary monoval ent 12+ yr 0.3mL Purple cap 11/06/2021,02/20/2021,01/30/2021 INFLUENZA A H3V0-69 VACCINE 10/25/2009 INFLUENZA VACCINE 09/01/2022,09/01/2021 Social History [...] Comments Blood Pressure 97/63 01/06/2025 9:58 AM SPORTS ANNOUNCER Pulse 70 01/06/2025 9:58 AM SPORTS ANNOUNCER Temperature 36.6 C (97.8 F) 01/06/2025 9:58 AM SPORTS ANNOUNCER Respiratory Rate 18 01/06/2025 9:58 AM SPORTS ANNOUNCER Oxygen Saturation 92% 01/06/2025 9:58 AM SPORTS ANNOUNCER Inhaled Oxygen Concentration - - Weight 68 kg (150 lb) 01/06/2025 9:58 AM SPORTS ANNOUNCER Height 165.1 cm (5' 5 ) 01/06/2025 9:58 AM SPORTS ANNOUNCER Body Mass Index 24.96 01/06/2025 9:58 AM SPORTS ANNOUNCER Functional Status Functional Status Response Date of Assess ment Is person deaf or have serious hearing difficult y? No 2021 Is person blind or have serious difficulty seein g? No 2021 Does person have serious dif ficulty walking/climbing stairs? No 2021 Does person have difficulty dressing/bathing? No 2021 Does person have difficulty doing errands alone? No 2021 Cognitive Status Response Date of Assessm ent Does person have difficulty concentrating/remembering/making decisions? No 2021 Plan of Treatment Upcoming Encounters Date Type Department Care Team (Late st Contact Info) Description 01/12/2026 9:30 AM SPORTS ANNOUNCER Office Visit [facility] - General Surgery [address] [place] [phone] Jose Car MD [address] [facility] [address] [place] [id number] Procedures Procedure Name Priority Date/Time Associated Diagnosis Comments HEPATITIS SCREEN ACUTE Routine 10/26/2014 10:47 AM SPORTS ANNOUNCER from Last 3 Months or Most Recently Relevant to Health Maintenance Results * HEPATITIS SCREEN ACUTE (10/26/2014 10:47 AM SPORTS ANNOUNCER) [facility]atitis [facility] Antibody [facility][note 2] Hepatitis B Virus Surface Antigen Non-react [facility] Hepatitis B Core Virus Antibody IgM Non-react chance [facility] Comment: Hepatitis C Antibody screen indicates no serologic evidence of past or current infection with Hepatitis C Virus. Patients with unexplained liver disease who are immunocompromised or suspected of having acute Hepatitis C infection may benefit from Nucleic Acid Test (TUTU) for Hepatitis C Viral RNA to confirm Hepatitis C status. Blood specimen (specimen) BLOOD SPECIMEN / Unknown 10/26/2014 10:47 AM SPORTS ANNOUNCER 10/26/2014 11:50 AM SPORTS ANNOUNCER Steven Cheek MD LAB - CHEMISTRY ANIVAL TRIANA [address] [phone] from Last 3 Months or Most Recently Relevant to Health Maintenance Care Teams Instructor Nurse Relationship Specialty Start Date End Date Pritesh Cintron MD [address] [place] [address] PCP - General 06/16/19
--- OUTSIDE RECORDS SUMMARY | 2025-01-19 08:08 | XMS_ITS ---
Author Organization [facility] Address [address] [facility] [address] [place], [place] [phone] Care Team Providers Care Placement Officer Name Role Phone Angelo Montez Primary Care Provider Billy Farnsworth Unavailable [phone] Jose Arellano Unavailable Unavailable Migration, Provider Unavailable Unavailable Allergies Allergen (clinical drug ingredient) Drug/Non Drug Allergy documented on EMR Reaction Allergy Type Onset Date Status DARVOCET (uncoded) hives Allergy A ctive REASON FOR VISIT Multum To Medispan Conversion Encounter Encounters Encounter Location Date Provider Diagnosis [facility] [address] [facility] [address] [place], [place] [phone] 2024 Provider Migration Plan Of Treatment No Information Progress Notes * Clifford JENKINS EDOB:[birth year] (69 yo M)Acc No.[id number] Patient: Clifford KAMARA Provider: Yonas Fregoso :1955 A ge:69 Y S ex:Male Date:2024 Address:[address] [place], [place] [phone] Pcp:Angelo Montez Subjective: * Chief Complaints: * 1 . Multum To Medispan Conversion Encounter. * Medical History: * Allergies: D ARVOCET: hives. Objective: * Vitals: * Physical Examination: Assessment: Plan: * Treatment: * * Electronic signature of Prov ider Migration on 01/19/2025 at 08:08 AM TECHNICAL ILLUSTRATOR Sign off status: Pending * Provider: Yonas Fregoso Date: 01/15/2024 Generated for Ghada frederick/Ashlyn/Cyndyitting on: 0 01/19/2025 08:08 AM TECHNICAL ILLUSTRATOR
--- OUTSIDE RECORDS SUMMARY | 2025-01-19 08:08 | XMS_ITS | Encounter Summary ---
Author Organization [facility] Address [address] [place] [place] [address] Care Team Providers Care Harmonica Maker Name Role Phone Pritesh Cintron MD Primary Care Provider [phone] Encounter Details Date Type Department Care Team (Late st Contact Info) Description 2022 Lab Requisition [facility] Care DermPath Lab [address] [facility] [place] [address] Lee Kovacs MD [address] [place] [address] Social History Tobacco Use Types Packs/Day Years Used Date Smoking Tobacco: Former Cigarettes S tarted: 01/2016 Smokeless Tobacco: Never Comments:smoke cigars Alcohol Use Standard Drinks/Week Comments [...] on file Sexual Orientation Not on file documented as of this encounter Functional Status Functional Status Response Date of [...] person have difficulty concentrating/remembering/making decisions? No 2021 documented as of this encounter Plan of Treatment Upcoming Encounters Date Type Department Care Team (Late st Contact Info) Description 01/12/2026 9:30 AM SPECIAL EDUCATION SUPERINTENDENT Office Visit [facility] - General Surgery [address] [place] [phone] Jose Car MD [address] [facility] [address] [place] [phone] documented as of this encounter Procedures Procedure Name Priority Date/Time Associated Diagnosis Comments DERMATOPATHOLOGY Routine 11/13/2022 12:0 0 AM SPECIAL EDUCATION SUPERINTENDENT documented in this encounter Results * DERMATOPATHOLOGY (11/13/2022 12:00 AM SPECIAL EDUCATION SUPERINTENDENT) Case Report Dermatopathology Report Case: [id number] Authorizing Provider: Lee Kovacs MD Collected: 11/13/2022 12:00 AM Ordering Location: [facility] Lab Received: 2022 06:17 AM Pathologist: Jaqueline Hinds MD Specimen: Skin, right chest 2 3:14 PM SPECIAL EDUCATION SUPERINTENDENT DERMATOPATHOLOGY LABORATORY Final Diagnosis Specimen A. SKIN, right chest: BENIGN VERRUCOUS KERATOSIS, INFLAMED (L82.1) POST-INFLAMMATORY PIGMENT ALTERATION (L81.9) 2 3:14 PM SPECIAL EDUCATION SUPERINTENDENT DERMATOPATHOLOGY LABORATORY Clinical History SK vs. MM vs. Scar Path: [id number] 2 3:14 PM SPECIAL EDUCATION SUPERINTENDENT DERMATOPATHOLOGY LABORATORY Gross Description Specimen A: Received is one formalin filled container labeled with the patient's name and designated right chest. The specimen consists of a shave biopsy measuring 5x4x4 mm. Jar 0. 2 3:14 PM SPECIAL EDUCATION SUPERINTENDENT DERMATOPATHOLOGY LABORATORY Microscopic Description Specimen A. SKIN, right chest: Sections show hyperkeratosis, papillomatosis, hypergranulosis, and acanthosis. Inflammatory cells are present within the dermis. These histological findings can be seen in a verruca vulgaris or a seborrheic keratosis. Sections show abundant melanin within melanophages around the superficial vascular plexus. 2 3:14 PM SPECIAL EDUCATION SUPERINTENDENT DERMATOPATHOLOGY LABORATORY Disclaimer An external and internal positive and negative controls are appropriate for the histochemical, immunohistochemical and immunofluorescence stain(s) in this case (if any), except where stated explicitly. The performance characteristics of the stain(s) cited in this report were developed and its performance characteristic determined by the Dermatopathology Laboratory at [facility], directed by Dr. Yandel Soriano. These tests need not be, and therefore are not, approved by the [place] Food and Drug Administration. The tests are used for clinical purposes. Billing Codes Specimen Charges Stain Charges 05647 1 2 3:14 PM SPECIAL EDUCATION SUPERINTENDENT DERMATOPATHOLOGY LABORATORY Embedded Images 2 3:14 PM SPECIAL EDUCATION SUPERINTENDENT DERMATOPATHOLOGY LABORATORY Pathology/Cytolog y TISSUE SPECIMEN FROM SKIN / Unknown 11/13/2022 2022 6:17 AM SPECIAL EDUCATION SUPERINTENDENT Lee Kovacs MD LAB - PATHOLOGY/CYTO LOGY ORDERABLES DERMATOPATHOLOGY LABORATORY [facility] - Department of Dermatology [facility] Medicine [address] [place] [address], [address] [phone] documented in this encounter Visit Diagnoses Not on filedocumented in this encounter Care Teams Harmonica Maker Relationship Specialty Start Date End Date Pritesh Cintron MD [address] [place] [address] PCP - General 06/16/19 documented as of this encounter
--- OUTSIDE RECORDS SUMMARY | 2025-01-19 08:08 | XMS_ITS | Encounter Summary ---
Author Organization [facility] Address [address] [place] [address] Care Team Providers Care Engineering Drafter Name Role Phone Pritesh Cintron MD Primary Care Provider [phone] Reason for Referral * Radiology Services (Urgent) - Open Specialty Diagnoses / Procedures Referred By Contac t Referred To Contact Diagnoses Malignant melanoma of skin of chest (HCC) Metastatic melanoma (HCC) Procedures CT Abdomen Pelvis W Contrast Jose Car MD [address] [place] [address] Referral ID Status Reason Start Date Expiration Date Visits Re quested Visits Authorized [id number] Open 01/18/2025 01/18/2026 1 1 CTION PSYCHIATRIST Reason for Visit * Reason Comments Establish Care * Consult, Test & Treat (Routine) - Authorized Specialty Diagnoses / Procedures Referred By Contac t Referred To Contact General Surgery / Surgery-General Diagnoses Secondary malignant neoplasm of unspecified site (HCC) Procedures LA UNLISTED E/M SERVICE Pritesh Cintron MD [address] [address] [address] [place] [address] Jose aCr MD [address] [facility] [address] [place] [address] Referral ID Status Reason Start Date Expiration Date V isits Requested Visits Authorized [id number] Authorized 12/03/2024 03/03/2025 3 3 Encounter Details Date Type Department Care Team (Late st Contact Info) Description 01/06/2025 10:00 AM ADDICTION PSYCHIATRIST Office Visit [facility] - General Surgery [address] [place] [address] Jose Car MD [address] [facility] [address] [place] [address] Metastatic melanoma (HCC) (Primary Dx); Malignant melanoma of skin of chest (HCC) Social History Tobacco Use Types Packs/Day Years [...] on file documented as of this encounter Last Filed Vital Signs Vital Sign Reading Time Taken Comments Blood Pressure 97/63 01/06/2025 9:58 AM ADDICTION PSYCHIATRIST Pulse 70 01/06/2025 9:58 AM ADDICTION PSYCHIATRIST Temperature 36.6 C (97.8 F) 01/06/2025 9:58 AM ADDICTION PSYCHIATRIST Respiratory Rate 18 01/06/2025 9:58 AM ADDICTION PSYCHIATRIST Oxygen Saturation 92% 01/06/2025 9:58 AM ADDICTION PSYCHIATRIST Inhaled Oxygen Concentration - - Weight 68 kg (150 lb) 01/06/2025 9:58 AM ADDICTION PSYCHIATRIST Height 165.1 cm (5' 5 ) 01/06/2025 9:58 AM ADDICTION PSYCHIATRIST Body Mass Index 24.96 01/06/2025 9:58 AM ADDICTION PSYCHIATRIST documented in this encounter Functional Status Functional Status Response [...] No 2021 documented as of this encounter Progress Notes * Jose Car MD - 01/06/2025 10:56 AM CST Stage IV melanoma of mid chest for 36 months Complaint: Patient here for surveillance follow up of stage IV melanoma. No new cancer-related constitutional complaint since last visit. History of Present Illness: Patient underwent wide excision and sentinel node dissection for right mid melanoma from unknown primary 36 months ago. Patient denied any complaints or hospitalizations since last visit. No new lesion noted on self exam. Recent evaluation with cleaning matron revealed no major malignant lesion. Medication: Reviewed. Current Outpatient Medications on File Prior to Visit Medication Sig Dispense Refill albuterol HFA (Proventil; Ventolin; Proair) 108 (90 Base) MCG/ACT inhaler INHALE 2 PUFFS 4 TIMES DAILY NEEDED FOR SHORTNESS OF BREATH OR WHEEZING amLODIPine (NORVASC) 10 MG tablet atorvastatin (LIPITOR) 10 MG tablet Take 2 (two) tablets by mouth at bedtime gabapentin (NEURONTIN) 100 MG capsule Take 1 (one) capsule by mouth 3 times daily lisinopril (PRINIVIL; ZESTRIL) 20 MG tablet Take 1 (one) tablet by mouth at bedtime metoprolol succinate XL 24hr (TOPROL XL) 25 MG tablet omeprazole (PRILOSEC) 20 MG capsule traZODone (DESYREL) 50 MG tablet Trelegy Ellipta 100-62.5-25 MCG/ACT No current facility-administered medications on file prior to visit. REVIEW OF SYSTEMS: Skin: negative with no recent rashes Eyes: negative with no complaints of dry irritated eyes Ears/Nose/Throat: negative with no mouth dryness or sores Respiratory: negative without cough, dyspnea, or pleuritic pain Cardiovascular: negative without exertional chest pain, palpitations, or edema Gastrointestinal: negative without ulcers, bleeding, or frequent reflux Genitourinary: negative without dysuria, frequency, or nocturia Musculoskeletal: negative, without swollen painful joints, myalgias or weakness Neurologic: negative, with a stable gait and no numbness or tingling of the hands or feet Psychiatric: negative Hematologic/Lymphatic/Immunologic: negative, with no history of anemia or DVT Endocrine: negative with no hypothyroid symptoms Physical Exam: Blood pressure 97/63, pulse 70, temperature 97.8 ??F (36.6 ??C), temperature source Temporal, resp.rate 18, height 1.651 m (5' 5 ), weight 68 kg (150 lb), SpO2 92%. HEENT: Head is normocephalic and atraumatic. Pupils are equal, round, and reactive to light and accommodation. Extraocular movements are intact. No intraoral lesions are noted. Neck: Supple. Trachea is midline. No thyromegaly noted. Lungs: Clear to auscultation and percussion. Heart: Regular rate and rhythm. Abdomen: Soft, nontender, and nondistended. No organomegaly noted. Extremities: Full range of motion in all four extremities. Lymph Nodes: No apparent adenopathy noted at bilateral cervical, supraclavicular, axillary, inguinal or popliteal region. Skin: No suspicious lesions noted. Impression: No Clinical Evidence of Melanoma Recurrence Plan: 1. CT of abdomen and pelvis 2. Encourage close skin surveillance with Dermatology 3. Return in 12 months CTION PSYCHIATRIST documented in this encounter Miscellaneous Notes * Addendum Note - Cari Cook RN - 01/18/2025 10:11 AM CSTAddended by: CARI COOK on: 01/18/2025 10:11 AM Modules accepted: Orders CTION PSYCHIATRIST documented in this encounter Plan of Treatment Upcoming Encounters Date Type Department Care Team (Late st Contact Info) Description 01/12/2026 9:30 AM ADDICTION PSYCHIATRIST Office Visit [facility] - General Surgery [address] [place] [phone] Jose Car MD [facility] [address] Scheduled Orders Name Type Priority Associated Diagnoses Orde r Schedule CT Abdomen Pelvis W Contrast [facility] [place] Malignant melanoma of skin of chest (HCC) Metastatic melanoma (HCC) 1 Occurrences starting 01/18/2025 until 01/18/2026 documented as of this encounter Visit Diagnoses Diagnosis Metastatic melanoma (HCC)- Primary Melanoma of skin, site unspecified Malignant melanoma of skin of chest (HCC) documented in this encounter Care Teams Engineering Drafter Relationship Specialty Start Date End Date Pritesh Cintron MD [address] [place] [address] PCP - General 06/16/19 documented as of this encounter
--- OUTSIDE RECORDS SUMMARY | 2025-01-19 08:08 | XMS_ITS | Encounter Summary ---
Author Organization [facility] Address [address] [facility] [place] [address] Care Team Providers Care Weeder Name Role Phone Pritesh Cintron MD Primary Care Provider [phone] Encounter Details Date Type Department Care Team ([facility] Contact Info) Description 10/11/[address] [facility] Care DermPath Lab [address] [facility] [place] [phone] Lee Kovacs MD [address] [place] [address] Social History Tobacco Use Types Packs/Day Years Used Date Smoking Tobacco: Every Day Comments:smoke cigars Alcohol Use Standard Drinks/Week Comments No 0 (1 standard drink = 0.6 oz pur e alcohol) Sex and Gender Information Value Date Recorded Sex Assigned at Not on file Gender Identity Not on file Sexual Orientation Not on file documented as of this encounter Plan of Treatment Upcoming Encounters Date Type Department Care Team (Late Contact Info) Description 01/12/2026 9:30 AM CERTIFIED PROSTHETIST/ORTHOTIST Office Visit [facility] - General Surgery [address] [place] [phone] Jose Car MD [address] [facility] [address] [place] [address] documented as of this encounter Procedures Procedure Name Priority Date/Time Associated Diagnosis Comments DERMATOPATHOLOGY Routine 10/09/2021 3:33 AM CERTIFIED PROSTHETIST/ORTHOTIST documented in this encounter Results * DERMATOPATHOLOGY (10/09/2021 3:33 AM [facility]) Case Report Dermatopathology Report Case: [id number] Authorizing Provider: Lee Kovacs MD Collected: 10/09/2021 03:33 AM Ordering Location: [facility] DermPath Lab Received: 10/11/2021 06:42 AM Pathologist: Ben Soriano MD Specimen: Skin, right mid chest 4:27 PM [facility] DERMATOPATHOLOGY LABORATORY Final Diagnosis Specimen A. SKIN, right mid chest: MALIGNANT MELANOMA, METASTATIC (C80.0) (see microscopic description and comment) 4:27 PM [facility] DERMATOPATHOLOGY LABORATORY Clinical History Nevus vs BCCA. Path# [id number] 4:27 PM [facility] DERMATOPATHOLOGY LABORATORY Gross Description Specimen A: Received is one formalin filled container labeled with the patient's name and designated right mid chest. The specimen consists of a shave biopsy measuring [id number]. Jar 0. 4:27 PM [facility] DERMATOPATHOLOGY LABORATORY Microscopic Description Specimen A. SKIN, right mid chest: In the dermis there is a nodule of tumor cells with large epithelioid and spindled cytology, hyperchromatic nuclei and rare mitoses. There are focal areas where the tumor cells are forming nests. There is no connection to the overlying epidermis in the sections examined. The tumor cells are reactive with MART-1/Melan A and non reactive with CD68. COMMENT: The lack of epidermal connection favors a metastatic melanoma. However, if this is a primary lesion that ulcerated and reepithelialized the Breslow thickness would be 1mm. This nodule is broadly present at the base of the specimen. 4:27 PM [facility] DERMATOPATHOLOGY LABORATORY Disclaimer An external and internal positive and negative controls are appropriate for the histochemical, immunohistochemical and immunofluorescence stain(s) in this case (if any), except where stated explicitly. The performance characteristics of the stain(s) cited in this report were developed and its performance characteristic determined by the Dermatopathology Laboratory at [facility], directed by Dr. Yandel Soriano. These tests need not be, and therefore are not, approved by the [place] Food and Drug Administration. The tests are used for clinical purposes. Billing Codes Specimen Charges Stain Charges 29128 1 27742 12779 1 1 1 4:27 PM CERTIFIED PROSTHETIST/ORTHOTIST DERMATOPATHOLOGY LABORATORY Embedded Images 1 4:27 PM CERTIFIED PROSTHETIST/ORTHOTIST DERMATOPATHOLOGY LABORATORY Pathology/Cytolo gy TISSUE SPECIMEN FROM SKIN / Unknown 10/09/2021 3:33 AM CERTIFIED PROSTHETIST/ORTHOTIST 10/11/2021 6:42 AM CERTIFIED PROSTHETIST/ORTHOTIST Lee Kovacs MD LAB - PATHOLOGY/CYTO LOGY ORDERABLES DERMATOPATHOLOGY LABORATORY [facility] - Department of Dermatology [facility] [address] [place] [address], [address] [phone] documented in this encounter Visit Diagnoses Not on filedocumented in this encounter Care Teams Weeder Relationship Specialty Start Date End Date Pritesh Cintron MD [address] [place] [address] PCP - General 06/16/19 documented as of this encounter
--- OUTSIDE RECORDS SUMMARY | 2025-01-19 08:08 | XMS_ITS | Patient Health Record ---
Author Organization [facility] Address [address] [facility] [address] [place], [place] [phone] Care Team Providers Care Manager Business Information Name Role Phone Angelo Montez Primary Care Provider Billy Farnsworth Unavailable [phone] Jose Arellano Unavailable Unavailable Migration, Provider Unavailable Unavailable Allergies Allergen (clinical drug ingredient) Drug/Non Drug Allergy documented on EMR Reaction Allergy Type Onset Date Status DARVOCET (uncoded) hives Allergy A ctive Reason For Referral No Information Problems Problem Type SNOMED Code ICD Code Onset Dates Problem Status W/U Status Risk Notes Problem Vasomotor rhinitis (0942943) 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 Problem Tobacco use (468867145) TOBACCO USE DISORDER (305.1) Active confirmed Problem Neoplasm of digestive system (097955685) 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 Encounters Encounter Location Date Provider Diagnosis [facility] [address] [facility] [address] [place], [place] [phone] 2024 Provider Migration Plan Of Treatment No Information Insurance Providers Payer Name Payer Address Payer Phone Subscriber Number Group Number Insured Name Patient Relationship to Insured Coverage Start Date Coverage End Date [facility] [address] [address] [place] [address] [id number] Clifford Velasquez Self - patient is the insured Medical (General) History Medical History History ICD Code Pertinent Medical History:: Vision changes, Nose problems, Migraine headaches, Surgical History Surgery Date(Month/Year) lasix surgery deviated septum excision lesion palate
--- OUTSIDE RECORDS SUMMARY | 2025-01-19 08:08 | XMS_ITS | Clinical Summary ---
Author Organization [facility] Address [address] [place] [address] Phone Care Team Providers Care Composite Technician Name Role Phone Pritesh Cintron MD Primary Care Provider Allergies Active Allergy Reactions Criticality Noted Date Comments Propoxyphene Rash Medium 06/01/2019 Medications amLODIPine (NORVASC) 10 MG Tablet Take 10 mg by mouth daily. 9 Active metoprolol Succinate (TOPROL-XL) 25 MG TABLET SR 24 HR Take 12.5 mg by mouth 2 times daily. 9 Active gabapentin (NEURONTIN) 100 MG Capsule Take 100 mg by mouth 3 times daily. 9 Active atorvastatin (LIPITOR) 10 MG Tablet Take 10 mg by mouth daily. 9 Active lisinopril (PRINIVIL, ZESTRIL) 20 MG Tablet Take 20 mg by mouth daily. 9 Active traZODone (DESYREL) 50 MG Tablet Take 50 mg by mouth nightly. 9 Active Bismuth 262 MG Chewable Tablet Take 3 tablets four times a day for 10 days 120 Tab 9 Active metroNIDAZOLE (FLAGYL) 250 MG Tablet Take 1.5 tablets four times a day for 10 days 60 Tab 9 Active Additional Information Patient not taking.Reported on 07/02/2019 doxycycline hyclate (VIBRAMYCIN) 100 MG Capsule Take 1 tablet 2 times a day for 10 days 20 Cap 9 Active Additional Information Patient not taking.Reported on 07/28/2019 famotidine (PEPCID) 20 MG Tablet Take 20 mg by mouth 2 times daily. Active omeprazole (PRILOSEC) 20 MG CAPSULE DELAYED RELEASE Take 1 Cap by mouth every morning (before breakfast). 60 Cap 6 0 Active Family History Medical History Relation Name Comments No Known Problems Father Aneurysm Mother brain Asthma Mother Chronic Obstructive Pulmonary Disease Mother Relation Name Status Comments Father Mother Social History Tobacco Use Types Packs/Day Years Used Date Smoking Tobacco: Former Cigarettes 0 06/01/1981 - 06/01/2016 Cigars Smokeless Tobacco: Never Comments:cigarettes and ciga rs--8-10 cigars a day for 10 years; cigarettes 2ppd for 30 years Alcohol Use Standard Drinks/Week Comments Never 0 (1 standard drink = 0.6 oz pur e alcohol) AUDIT-C Answer Date Recorded Frequency of Alcohol Consumption Never 06/01/2019 Average Number of Drinks Not on file 019 Frequency of Binge Drinking Not on file 12/2018 PHQ-2 Answer Date Recorded PHQ-2 Score 0 07/29/2019 Sex and Gender Information Value Date Recorded Sex Assigned at Not on file Legal Sex Male 12:25 AM CDT Gender Identity Not on file Sexual Orientation Not on file 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 Industry 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 Start Date Job End 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 Not on file Not on file Last Filed Vital Signs Vital Sign Reading Time Taken Comments Blood Pressure 108/79 07/28/2019 9:24 AM CDT Pulse 60 07/28/2019 9:24 AM CDT Temperature 36 C (96.8 F) 07/28/2019 9:24 AM CDT Respiratory Rate 18 07/28/2019 9:24 AM CDT Oxygen Saturation 94% 07/28/2019 9:24 AM CDT Inhaled Oxygen Concentration - - Weight 63.5 kg (140 lb) 07/02/2019 3:00 PM CDT Height 165.1 cm (5' 5 ) 07/02/2019 3:00 PM CDT Body Mass Index 23.3 07/02/2019 3:00 PM CDT Plan of Treatment Health Maintenance Due Date Last Done Comments Hepatitis C Virus (HCV) Screening 1955 Colonoscopy 1998 Colorectal Cancer Screening 1998 Cologuard 2003 Immunochemical Fecal Occult Blood 2003 Zoster Immunization (2 of 3) 02/09/2014 12/15/2013 Pneumococcal Immunization (50+ years) (2 of 2 - PCV) 03/06/2020 03/06/2019, 04/01/2013 Influenza Immunization (#1) 08/02/202408/04, 09/15/2017, 10/01/2016, Additional history exists SARS-COV-2 Immunization ( season) 2024 11/06/2021, 02/20/2021, 01/30/2021 Respiratory Syncytial Virus (RSV) Immunization (Adult) (1 - 1-dose 75+ series) 2028 DTaP/Tdap/Td Immunization Discontinued 04/01/2013 TdaP Immunization Completed 04/01/2013 Pneumococcal Immunization Combined Discontinued 03/06/2019, 04/01/2013 Hepatitis B Immunization Aged Out No longer eligible based on patient's age to complete this topic Meningococcal Immunization (ACWY) Aged Out No longer eligible based on patient's age to complete this topic Rotavirus Immunization Aged Out No lo nger eligible based on patient's age to complete this topic Insurance MEDICARE C HU[employer] Care Teams Composite Technician Relationship Specialty Start Date End Date Pritesh Cintron MD [address] [place] [address] PCP - General Family Medicine 02/20/16
--- OUTSIDE RECORDS SUMMARY | 2025-01-19 08:09 | XMS_ITS | Encounter Summary ---
Author Organization [facility] Address [address] [place] [address] Care Team Providers Care Gi Tech Name Role Phone Pritesh Cintron MD Primary Care Provider Encounter Details Date Type Department Care Team (Late st Contact Info) Description 05/14/2023 Lab Requisition [facility] - DermPath Lab [address] [facility] [place] [place] [address] Lee Kovacs MD [address] [place] [place] [address] Social History Tobacco Use Types Packs/Day Years [...] st Contact Info) Description 01/12/2026 9:30 AM ELECTRICAL ELECTRONICS ENGINEERS Office Visit [facility] - General Surgery [address] [place] [phone] Jose Car MD [address] [facility] [address] [place] [address] documented as of this encounter Procedures Procedure Name Priority Date/Time Associated Diagnosis Comments DERMATOPATHOLOGY Routine 05/14/2023 12:0 0 AM CDT documented in this encounter Results * DERMATOPATHOLOGY (05/14/2023 12:00 AM CDT) Case Report Dermatopathology Report Case: [id number] Authorizing Provider: Lee Kovacs MD Collected: 05/14/2023 12:00 AM Ordering Location: [facility] DermPath Lab Received: 05/14/2023 03:43 PM Pathologist: Jaqueline Hinds MD Specimen: Skin, right mid castrejon 1:00 PM CDT DERMATOPATHOLOGY LABORATORY Final Diagnosis Specimen A. SKIN, right mid castrejon: DERMATOFIBROMA (D23.9) 3 1:00 PM CDT DERMATOPATHOLOGY LABORATORY [id number] 3 1:00 PM CDT DERMATOPATHOLOGY LABORATORY Gross Description [...] in haphazard array among coarse collagen bundles. 3 1:00 PM CDT DERMATOPATHOLOGY LABORATORY Disclaimer An external and internal positive and negative controls are appropriate for the histochemical, immunohistochemical and immunofluorescence stain(s) in this case (if any), except where stated explicitly. The performance characteristics of the stain(s) cited in this report were developed and its performance characteristic determined by the Dermatopathology Laboratory at [facility], directed by Dr. Yandel Soriano. These tests need not be, and therefore are not, approved by the [place] Food and Drug Administration. The tests are used for clinical purposes. Billing Codes Specimen Charges Stain Charges 39064 1 3 1:00 PM CDT DERMATOPATHOLOGY LABORATORY Embedded Images 3 1:00 PM CDT DERMATOPATHOLOGY LABORATORY Pathology/Cytolog y TISSUE SPECIMEN FROM SKIN / Unknown 05/14/2023 05/14/2023 3:43 PM CDT Lee Kovacs MD LAB - PATHOLOGY/CYTO LOGY ORDERABLES DERMATOPATHOLOGY LABORATORY [facility] - Department of Dermatology [address], [address] [phone] documented in this encounter Visit Diagnoses Not on filedocumented in this encounter Care Teams Gi Tech Relationship Specialty Start Date End Date Pritesh Cintron MD [address] [place] [address] PCP - General 06/16/19 documented as of this encounter
[2025-01-19 08:10] VITALS: BP 110/72; PULSE 65; RESP 20; TEMP 36.6; O2SAT 98
--- NOTE | 2025-01-19 08:10 | ED_ITS ---
HPI - General Adult General Chief complaint: Chest Pain Stated complaint: Right side rib pain Time Seen by Provider: 01/19/25 08:15 Source: patient, RN notes reviewed and old records reviewed Mode of arrival: ambulatory Limitations: no limitations History of Present Illness HPI narrative: 69-year-old male presents to the [facility] with right intermittent lateral rib/abdominal pain since Saturday, 4 days. States that he moved a refrigerator looking for a pill he dropped and shortly after the pain started. Pain is not constant. States he had pain last night took some ibuprofen and the pain went away. Patient denies any pain currently, Unable to reproduce pain with palpation Onset (ago): day(s) (4) Treatments prior to arrival: NSAID and other (Tylenol) Related Data Home Medications ?Medication ?Instructions ?Recorded ?Confirmed ?Last Taken ?Type amlodipine 10 mg tablet 10 mg PO 0600 10/01/24 11/02/24 10/01/24 08:00 History atorvastatin 10 mg tablet 10 mg PO HS 10/01/24 11/02/24 09/30/24 21:00 History gabapentin 100 mg capsule 200 mg PO 06,1400,1800 10/01/24 11/02/24 10/01/24 06:0 0 History lisinopril 20 mg tablet 20 mg PO 1800 10/01/24 11/02/24 09/30/24 18:00 History metoprolol succinate 25 mg 12.5 mg PO 0600,1800 10/01/24 11/02/24 10/01/24 06:00 History tablet,extended release 24 hr trazodone 50 mg tablet 50 mg PO HS 10/01/24 11/02/24 09/30/24 21:00 History Allergies Allergy/AdvReac Type Severity Reaction Status Date / Time No Known Allergies Allergy Verified 01/19/25 08:17 Review of Systems Review of Systems: All systems reviewed & are unremarkable except as noted in HPI and below Constitutional: Constitutional: Reports no additional constitutional complaints ENT: Reports system reviewed and no additional complaints, except as documented Cardiovascular: Cardiovascular: Reports no additional cardiovascular c omplaints, Denies chest pain and Denies dyspnea Respiratory: Respiratory: Reports no additional respiratory complaints, Denies chest congestion, Denies cough and Denies dyspnea Musculoskeletal: Musculoskeletal: Reports as per HPI Integumentary/Breasts: Skin/Breast: Reports system reviewed and no additional complaints, except as docu [facility] Past Medical History Medical History Emphysema/COPD History of skin cancer AAA (abdominal aortic aneurysm) Hx of adenomatous colonic polyps GERD (gastroesophageal reflux disease) Encounter for screening colonoscopy CVA (cerebral vascular accident) Hypertension Surgical History Surgical History No pertinent past surgical history Family History Family History Mother Aneurysm Social History Social History Smoking packs per day: 2 Smoking cigarettes per day: 40.0 Years smoked: 26 Smoking pack-years: 52.00 Smoking status: Former smoker Tobacco type: cigarettes and cigars Second hand tobacco smoke exposure: No Smoking end date: 11/05/16 Alcohol intake: never Substance use: never Substance use type: marijuana Do You Feel Safe in your Home?: Yes Lack of Transportation: No Lack of Food: Never True Current Housing: I Have Housing Concerned About Future Housing: Decline to Answer Difficulty Paying Gas/Electric Bills: Decline to Answer Difficulty Paying for Meds: Decline to Answer Currently Unemployed: Decline to Answer Education: High School Diploma/GED Difficulty w/ Childcare or Family Care: Decline to Answer Living arrangements: with family Occupation/Education: retired Gender identity (if verbalized by the patient): Male Sexual Orientation (if Verbalized by the Patient): Straight or Heterosexual Spiritual care concerns: No Agree to blood products: Yes Comments At the time of my signature, I reviewed and agree with the nursing past medical, surgical, social, and family history. There is no relevant family history pertinent to the patient complaint. Exam Const: General: cooperative, healthy appearing, comfortable, no acute distress, well developed, alert and well nourished Nutritional Appearance: well nourished Orientation/consciousness: patient oriented x3 Limitations: no limitations HENMT: Head: normal to inspection Eyes: General: appearance normal, both eyes and all related structures Alignment and Position: alignment normal Neck: Neck: normal visual inspection, full ROM, no lymphadenopathy and no meningeal signs Chest: Chest palpation & inspection: normal inspection of the chest Resp: Effort & Inspection: normal respiratory effort and able to speak in complete sentences Auscultation: clear to auscultation bilaterally, no pararescue craftsman ckles, no rales, no rhonchi, no wheezes and diminished lung sounds bilateral in the lower lung painting Cardio: Rate: regular rate GI: Inspection: normal to inspection, no abdominal wall ecchymosis, distended, no incisions, obesity, no scars and no visible herniation GI Palp: No abdominal tenderness, No Tenderness to palpation present (GI) and No Guarding due to palpation present (GI) : General: Yes no CVA tenderness Back/Spine/Pelvis: Back: No back tenderness Skin: General skin exam: normal color and no rashes or lesions noted Neuro: General: patient oriented x3, gait normal, moves all extremities and no meningeal signs Cognition (Neuro): normal cognition Speech: normal speech Gait exam (Neuro): Normal gait present Extrem: General: normal to inspection, full ROM, capillary refill normal and normal gait Psych: Appearance: grossly normal and well kempt Mental Status: mental status grossly normal Speech and movement: Normal speech and movement present and Clear speech present Affect: normal affect Attitude: cooperative Course Course Level of Care: Express Care Visit Vital Signs Vital signs: Vital Signs Temperature 97.8 F 01/19/25 08:10 Pulse Rate 65 01/19/25 08:10 Respiratory Rate 20 01/19/25 08:10 Blood Pressure 110/72 01/19/25 08:10 Pulse Oximetry 98 01/19/25 08:10 Oxygen Delivery Room Air 01/19/25 08:10 Temperature 97.8 F 01/19/25 08:10 Pulse Rate 65 01/19/25 08:10 Respiratory Rate 20 01/19/25 08:10 Blood Pressure 110/72 01/19/25 08:10 Pulse Oximetry 98 01/19/25 08:10 Oxygen Delivery Room Air 01/19/25 08:10 Reviewed Medical Decision Making MDM Narrative Medical decision making narrative: Patient sitting in exam room. Nontoxic, vitals stable. Patient in no acute distress Patient presents for for days of intermittent lower lateral right rib pain, radiating into the abdomen at times. Currently no pain. Patient had requested x-ray, Discussed that xrays can see broken bones. Patient reports that he is supposed to be scheduled for CT scan by his primary both of the chest abdomen and pelvis. States he has not had 1 yet. Discussed that we are unable to order a CT scan.\ Again patient with no current pain, unable to reproduce pain with palpation. Encouraged patient to continue treatment, suspect possible muscle strain. Discharge instructions reviewed with patient, as well as provided in writing per nursing staff. The instructions also include specific and strict return/GO TO THE ER as well as f/u information. All questions have been answered, and the patient deny any further questions with discharge and discharge plan. Some parts of this dictation were generated by voice recognition software and may contain typographical and/or grammatical inaccuracies. Differential Diagnosis Differential Diagnosis: Muscle strain, acute abdomen Medical Records Medical records reviewed: Yes I reviewed the external patient's medical records. Vital Signs Vital Signs: Vital Signs Temperature 97.8 F 01/19/25 08:10 Pulse Rate 65 01/19/25 08:10 Respiratory Rate 20 01/19/25 08:10 Blood Pressure 110/72 01/19/25 08:10 Pulse Oximetry 98 01/19/25 08:10 Oxygen Delivery Room Air 01/19/25 08:10 Temperature 97.8 F 01/19/25 08:10 Pulse Rate 65 01/19/25 08:10 Respiratory Rate 20 01/19/25 08:10 Blood Pressure 110/72 01/19/25 08:10 Pulse Oximetry 98 01/19/25 08:10 Oxygen Delivery Room Air 01/19/25 08:10 Reviewed Lab Data Lab results reviewed: Yes I reviewed the patient's lab results. Labs: Reviewed Critical Care Time Critical Care Time Critical Care Time: No Discharge Plan Discharge Clinical Impression: Muscle strain Patient Disposition: Home, Self-Care Condition: Stable Instructions: Antibiotic Form, Muscle Strain (ED) Additional Instructions: Continue taking Motrin and Tylenol as needed. Continue using warm moist heat as needed Follow-up with primary care provider For new or worsening symptoms go directly to the emergency room Patient Language: Tongan Prescriptions: No Action trazodone 50 mg tablet 50 mg PO HS atorvastatin 10 mg tablet 10 mg PO HS lisinopril 20 mg tablet 20 mg PO 1800 amlodipine 10 mg tablet 10 mg PO 0600 gabapentin 100 mg capsule 200 mg PO 06,1400,1800 metoprolol succinate 25 mg tablet extended release 24 hr 12.5 mg PO 0600,1800 albuterol sulfate 90 mcg/actuation HFA aerosol inhaler 2 puff INHALATION QID PRN (Reason: shortness of breath or wheezing) Qty: 8 2RF Trelegy Ellipta 100-62.5-25 mcg blister with device 1 inh inhalation ONCE Qty: 180 2RF omeprazole 20 mg capsule,delayed release(DR/EC) 20 mg PO BID 90 Days Qty: 180 2RF cimetidine 400 mg tablet 400 mg PO BID 90 Days Qty: 180 2RF Follow-up/Referrals: Pritesh Cintron MD [Primary Care Provider] - 1 Week ([facility] care follow up ) Time of Disposition: 08:28
== END 2025-01-19 08:30 | disposition home or self-care (01) ==
PROVIDERS: Emergency Provider Nurse Practitioner; PCP Family Medicine
DX: S29.011A Strain of muscle and tendon of front wall of thorax, initial encounter (principal); S39.011A Strain of muscle, fascia and tendon of abdomen, initial encounter; X50.0XXA Overexertion from strenuous movement or load, initial encounter; Z87.891 Personal history of nicotine dependence; J44.9 Chronic obstructive pulmonary disease, unspecified; K21.9 Gastro-esophageal reflux disease without esophagitis; I10 Essential (primary) hypertension; Z86.73 Personal history of transient ischemic attack (TIA), and cerebral infarction without residual deficits; Z85.828 Personal history of other malignant neoplasm of skin
CPT/HCPCS: 99212; G0463

== ENCOUNTER 2025-01-20 13:37 | Outpatient (CLI) | payer OTHER, SELFPAY ==
--- NOTE | ~2025-01-20 | CT_ITS ---
EXAMINATION: CT abdomen pelvis w con DATE: 01/20/2025 14:07 INDICATION: Malignant melanoma of skin. TECHNIQUE: Computed tomography (CT) of the abdomen and pelvis was performed with 100 mL Omnipaque 350 intravenous contrast. Automated exposure control and iterative reconstruction technique were employe d. The dose-length product was 423.25 mGy-cm. COMPARISON: CT abdomen and pelvis 01/02/2024, 06/19/22, chest CT 11/30/2024 FINDINGS: The visualized portions of the lung bases demonstrate emphysema and mild bronchiectasis. Th ere are groundglass opacities in right middle lobe and right lower lobe and airspace opacities in rig ht lower lobe. There is a stable 6 mm nodule in left lower lobe, likely benign. No pleural effusion. The heart size is normal. No pericardial effusion. There are cysts in the liver measuring up to 9 mm. The gallbladder, spleen, and pancreas are normal. There are masses in the adrenal glands measuring u p to 14 mm on the left without change from 06/19/22, likely adenomas. There are cysts in the kidneys m easuring up to 4.7 cm on the right. There is a 3.5 cm fusiform infrarenal aortic aneurysm. The prosta te is moderately enlarged. There are bilateral inguinal hernias containing fat. There are no dilated loops of bowel. The appendix is normal. There are no pathologically enlarged lymph nodes. There is no free intraperitoneal fluid. There are chronic bilateral L5 pars defects. There is 7 mm anterolisthes is of L5 on S1. There is severe lumbar spondylosis. IMPRESSION: 1. No evidence of metastatic disease. 2. Right middle lobe and right lower lobe lung disease, consistent with mild pneumonia with improveme nt from 11/30/2024. Reviewed, dictated and finalized at location A. TATION OPERATOR APPRENTICE IMPRESSION: 1. No evidence of metastatic disease. 2. Right middle lobe and right lower lobe lung disease, consistent with mild pn eumonia with improvement from 11/30/2024.
--- OUTSIDE RECORDS SUMMARY | 2025-01-20 13:44 | XMS_ITS | Referral Summary ---
Author Organization [facility] Address [address] [place] [address] Care Team Providers Care Roundhouse Worker Name Role Phone Pritesh Cintron MD Primary Care Provider [phone] Source Comments [facility],non-owned Affiliates and Associated Physician Practices is amultiple site organization consisting of ambulatory clinics and hospital sitesin [place], [place], [place] and [place]. This disclosure is being madepursuant to the Care Everywhere program and may not contain all information available regarding this patient. Last updated 18.[facility] Encounters Date Type Department Care Team Description 01/06/2025 Travel 01/06/2025 10:00 AM SENIOR CLIMATE ADVISOR Office Visit [facility] - General Surgery [address] [place] [phone] Jose Car MD Metastatic melanoma (HCC) (Primary [...] (AF LURIA, FLUZONE TRIVALENT; 6MO+) (IIV3) 10/25/2009 CovNovalere FP primary monoval ent 12+ yr 0.3mL Purple cap 11/06/2021,02/20/2021,01/30/2021 INFLUENZA A [id number] VACCINE 10/25/2009 INFLUENZA VACCINE 09/01/2022,09/01/2021 Social History [...] Comments Blood Pressure 97/63 01/06/2025 9:58 AM SENIOR CLIMATE ADVISOR Pulse 70 01/06/2025 9:58 AM SENIOR CLIMATE ADVISOR Temperature 36.6 C (97.8 F) 01/06/2025 9:58 AM SENIOR CLIMATE ADVISOR Respiratory Rate 18 01/06/2025 9:58 AM SENIOR CLIMATE ADVISOR Oxygen Saturation 92% 01/06/2025 9:58 AM SENIOR CLIMATE ADVISOR Inhaled Oxygen Concentration - - Weight 68 kg (150 lb) 01/06/2025 9:58 AM SENIOR CLIMATE ADVISOR Height 165.1 cm (5' 5 ) 01/06/2025 9:58 AM SENIOR CLIMATE ADVISOR Body Mass Index 24.96 01/06/2025 9:58 AM SENIOR CLIMATE ADVISOR Functional Status Functional Status Response Date of [...] st Contact Info) Description 01/12/2026 9:30 AM SENIOR CLIMATE ADVISOR Office Visit [facility] - General Surgery [address] [place] [phone] Jose Car MD [address] [facility] [address] [place] [id number] Procedures Procedure Name Priority Date/Time Associated Diagnosis Comments HEPATITIS SCREEN ACUTE Routine 10/26/2014 10:47 AM SENIOR CLIMATE ADVISOR from Last 3 Months or Most Recently Relevant to Health Maintenance Results * HEPATITIS SCREEN ACUTE (10/26/2014 10:47 AM SENIOR CLIMATE ADVISOR) Hepatitis A Virus Antibody IgM [facility] Hepatitis B Virus Surface Antigen Non-react [facility] Hepatitis B Core Virus Antibody IgM Non-react chance [facility] Hepatitis C Antibody [facility] Comment: Hepatitis C Antibody screen indicates no serologic evidence of past or current infection with Hepatitis C Virus. Patients with unexplained liver disease who are immunocompromised or suspected of having acute Hepatitis C infection may benefit from Nucleic Acid Test (TUTU) for Hepatitis C Viral RNA to confirm Hepatitis C status. Blood specimen (specimen) BLOOD SPECIMEN / Unknown 10/26/2014 10:47 AM SENIOR CLIMATE ADVISOR 10/26/2014 11:50 AM SENIOR CLIMATE ADVISOR Steven Cheek MD LAB - CHEMISTRY [facility] [address] [phone] from Last 3 Months or Most Recently Relevant to Health Maintenance Care Teams Roundhouse Worker Relationship Specialty Start Date End Date Pritesh Cintron MD [address] [place] [address] PCP - General 06/16/19
--- OUTSIDE RECORDS SUMMARY | 2025-01-20 13:45 | XMS_ITS ---
Author Organization [facility] Address [address] [facility] [place] [address] Care Team Providers Care Air Tester Name Role Phone Pritesh Cintron MD Primary Care Provider [phone] Active Problems Problem Noted Date Diagnosed Date Malignant melanoma of skin of chest 10/30/2021 Cancer Staging:Clinical:Stage Unknown(cTX, cN0, cM0) - Unsigned Pathologic stage from 05/24/2022:Stage Unknown(pTX, pN0, cM0) - Signed by Jose Car MD on 05/24/2022 Current Oncology Plans No current plan information found. Past Plans No past plan information found. Radiation Treatments * No radiation treatments are documented for this patient in [facility]. Treatments may have been administered in another system. Lifetime Dose Tracking * Chemical Lifetime Dose Automatic Entry Manual Entr y Dose Length Product 509.4 mGy-cm 509.4 mGy-cm 0 mGy-cm
--- OUTSIDE RECORDS SUMMARY | 2025-01-20 13:45 | XMS_ITS | Encounter Summary ---
Author Organization [facility] Address [address] [place] [address] Care Team Providers Care Occupational Therapy Manager Name Role Phone Pritesh Cintron MD Primary Care Provider Encounter Details Date Type Department Care Team (Late st Contact Info) Description 2022 Lab Requisition [facility] Care DermPath Lab [address] [facility], [place] [address] Lee Kovacs MD [address] [place] [address] Social History Tobacco Use Types Packs/Day Years [...] st Contact Info) Description 01/12/2026 9:30 AM MERCHANDISE BUYER Office Visit [facility] - General Surgery [address] [place] [phone] Jose Car MD [address] [facility] [address] [place] [phone] documented as of this encounter Procedures Procedure Name Priority Date/Time Associated Diagnosis Comments DERMATOPATHOLOGY Routine 11/13/2022 12:0 0 AM MERCHANDISE BUYER documented in this encounter Results * DERMATOPATHOLOGY (11/13/2022 12:00 AM MERCHANDISE BUYER) Case Report Dermatopathology Report Case: [id number] Authorizing Provider: Lee Kovacs MD Collected: 11/13/2022 12:00 AM Ordering Location: [facility] DermPath Lab Received: 2022 06:17 AM Pathologist: Jaqueline Hinds MD Specimen: Skin, right chest 2 3:14 PM MERCHANDISE BUYER DERMATOPATHOLOGY LABORATORY Final Diagnosis Specimen A. SKIN, right chest: BENIGN VERRUCOUS KERATOSIS, INFLAMED (L82.1) POST-INFLAMMATORY PIGMENT ALTERATION (L81.9) 2 3:14 PM MERCHANDISE BUYER DERMATOPATHOLOGY LABORATORY Clinical History SK vs. MM vs. Scar Path: [id number] 2 3:14 PM MERCHANDISE BUYER DERMATOPATHOLOGY LABORATORY Gross Description Specimen A: Received is one formalin filled container labeled with the patient's name and designated right chest. The specimen consists of a shave biopsy measuring 5x4x4 mm. Jar 0. 2 3:14 PM MERCHANDISE BUYER DERMATOPATHOLOGY LABORATORY Microscopic Description Specimen A. SKIN, right chest: Sections show hyperkeratosis, papillomatosis, hypergranulosis, and acanthosis. Inflammatory cells are present within the dermis. These histological findings can be seen in a verruca vulgaris or a seborrheic keratosis. Sections show abundant melanin within melanophages around the superficial vascular plexus. 2 3:14 PM MERCHANDISE BUYER DERMATOPATHOLOGY LABORATORY Disclaimer An external and internal positive and negative controls are appropriate for the histochemical, immunohistochemical and immunofluorescence stain(s) in this case (if any), except where stated explicitly. The performance characteristics of the stain(s) cited in this report were developed and its performance characteristic determined by the Dermatopathology Laboratory at [facility], directed by Dr. Yandel Soriano. These tests need not be, and therefore are not, approved by the [place] Food and Drug Administration. The tests are used for clinical purposes. Billing Codes Specimen Charges Stain Charges 70912 1 2 3:14 PM MERCHANDISE BUYER DERMATOPATHOLOGY LABORATORY Embedded Images 2 3:14 PM MERCHANDISE BUYER DERMATOPATHOLOGY LABORATORY Pathology/Cytolog y TISSUE SPECIMEN FROM SKIN / Unknown 11/13/2022 2022 6:17 AM MERCHANDISE BUYER Lee Kovacs MD LAB - PATHOLOGY/CYTO LOGY ORDERABLES DERMATOPATHOLOGY LABORATORY [facility] - Department of Dermatology [facility] Medicine [address] [place] [address], [address] [phone] documented in this encounter Visit Diagnoses Not on filedocumented in this encounter Care Teams Occupational Therapy Manager Relationship Specialty Start Date End Date Pritesh Cintron MD [address] [place] [address] PCP - General 06/16/19 documented as of this encounter
--- OUTSIDE RECORDS SUMMARY | 2025-01-20 13:45 | XMS_ITS | Encounter Summary ---
Author Organization [facility] Address [address] [facility] [place] [address] Care Team Providers Care Audio Visual Equipment Rental Clerk Name Role Phone Pritesh Cintron MD Primary Care Provider [phone] Encounter Details Date Type Department Care Team (Late st Contact Info) Description 05/14/2023 Lab Requisition [facility] - DermPath Lab [address] [facility] [place] [address] Lee Kovacs MD [address] [place] [address] Social History Tobacco Use Types Packs/Day Years [...] st Contact Info) Description 01/12/2026 9:30 AM ASSOCIATE PROFESSOR OF SOCIOLOGY Office Visit [facility] - General Surgery [address] [place] [phone] Jose Car MD [address] [facility] [address] [place] [address] documented as of this encounter Procedures Procedure Name Priority Date/Time Associated Diagnosis Comments DERMATOPATHOLOGY Routine 05/14/2023 12:0 0 AM CDT documented in this encounter Results * DERMATOPATHOLOGY (05/14/2023 12:00 AM CDT) Case Report Dermatopathology Report Case: [id number] Authorizing Provider: Lee Kovacs MD Collected: 05/14/2023 12:00 AM Ordering Location: [facility] DermPath Lab Received: 05/14/2023 03:43 PM Pathologist: Jaqueline Hinds MD Specimen: Skin, right mid castrejon 1:00 PM CDT DERMATOPATHOLOGY LABORATORY Final Diagnosis Specimen A. SKIN, right mid castrejon: DERMATOFIBROMA (D23.9) 3 1:00 PM CDT DERMATOPATHOLOGY LABORATORY [id number] 3 1:00 PM CDT DERMATOPATHOLOGY LABORATORY Gross [...] characteristic determined by the Dermatopathology Laboratory at [facility], directed by Dr. Yandel Soriano. These tests need not be, and therefore are not, approved by the [place] Food and Drug Administration. The tests are used for clinical purposes. Billing Codes Specimen Charges Stain Charges 41470 1 3 1:00 PM CDT DERMATOPATHOLOGY LABORATORY Embedded Images 3 1:00 PM CDT DERMATOPATHOLOGY LABORATORY Pathology/Cytolog y TISSUE SPECIMEN FROM SKIN / Unknown 05/14/2023 05/14/2023 3:43 PM CDT Lee Kovacs MD LAB - PATHOLOGY/CYTO LOGY ORDERABLES DERMATOPATHOLOGY LABORATORY [facility] - Department of Dermatology [address], [address] [phone] documented in this encounter Visit Diagnoses Not on filedocumented in this encounter Care Teams Audio Visual Equipment Rental Clerk Relationship Specialty Start Date End Date Pritesh Cintron MD [address] [place] [address] PCP - General 06/16/19 documented as of this encounter
--- OUTSIDE RECORDS SUMMARY | 2025-01-20 13:45 | XMS_ITS | Patient Health Summary ---
Author Organization [facility] Address [address] [place] [address] Care Team Providers Care Diamond Sizer [employer] Sorter Name Role Phone Pritesh Cintron MD Primary Care Provider [phone] Note from [facility] [place]non-owned Affiliates and Associated Physician Practices is amultiple site organization consisting of ambulatory clinics and hospital sitesin [place], [place], [place] and [place]. This disclosure is being madepursuant to the Care Everywhere program and may not contain all information available regarding this patient. Last updated 18.[facility] Allergies * Propoxyphene N-Apap(hives) * [...] cap(Given 11/06/2021, 02/20/2021, 01/30/2021) * INFLUENZA A N1P9-24 VACCINE(Given 10/25/2009) * INFLUENZA VACCINE(Given 09/01/2022, 09/01/2021) [...] Comments Blood Pressure 97/63 01/06/2025 9:58 AM ELECTRICIAN APPRENTICE Pulse 70 01/06/2025 9:58 AM ELECTRICIAN APPRENTICE Temperature 36.6 C (97.8 F) 01/06/2025 9:58 AM ELECTRICIAN APPRENTICE Respiratory Rate 18 01/06/2025 9:58 AM ELECTRICIAN APPRENTICE Oxygen Saturation 92% 01/06/2025 9:58 AM ELECTRICIAN APPRENTICE Inhaled Oxygen Concentration - - Weight 68 kg (150 lb) 01/06/2025 9:58 AM ELECTRICIAN APPRENTICE Height 165.1 cm (5' 5 ) 01/06/2025 9:58 AM ELECTRICIAN APPRENTICE Body Mass Index 24.96 01/06/2025 9:58 AM ELECTRICIAN APPRENTICE Procedures * LAB RESULTS ORDER(Performed 01/02/2024) * DERMATOPATHOLOGY(Performed 05/14/2023) * LAB RESULTS ORDER(Performed 12/12/2022) * DERMATOPATHOLOGY(Performed 11/13/2022) * IMAGING/RADIOLOGY/XRAY RESULTS ORDER(Performed 06/20/2022) * CARDIAC EKG ORDER(Performed 02/26/2022) * PATHOLOGY TISSUE(Performed 2021) Performed for Malignant melanoma of skin of chest (HCC) * LARYNGEAL MASK AIRWAY(Performed 2021) * EXCISION MASS OR TUMOR CHEST(Performed 2021) Performed for Malignant melanoma of skin of chest (HCC) * CT SENTINEL LYMPH NODE BX PROC PERFORM(Performed 2021) [...] is included. Case Report Dermatopathology Report Case: [id number] Authorizing Provider: Lee Kovacs MD Collected: 05/14/2023 12:00 AM Ordering Location: [facility] DermPath Lab Received: 05/14/2023 03:43 PM Pathologist: Jaqueline Hinds MD Specimen: Skin, right mid castrejon 1:00 PM CDT DERMATOPATHOLOGY LABORATORY Final Diagnosis Specimen A. SKIN, right mid castrejon: DERMATOFIBROMA (D23.9) 1:00 PM CDT DERMATOPATHOLOGY LABORATORY Clinical History [facility] Path#[id number] 1:00 PM CDT DERMATOPATHOLOGY LABORATORY Gross Description [...] characteristic determined by the Dermatopathology Laboratory at [facility], directed by Dr. Yandel Soriano. These tests need not be, and therefore are not, approved by the [place] Food and Drug Administration. The tests are used for clinical purposes. Billing Codes Specimen Charges Stain Charges 47919 1 1:00 PM CDT DERMATOPATHOLOGY LABORATORY Embedded Images 1:00 PM CDT DERMATOPATHOLOGY LABORATORY Pathology/Cytolog y TISSUE SPECIMEN FROM SKIN / Unknown 05/14/2023 05/14/2023 3:43 PM CDT Lee Kovacs MD LAB - PATHOLOGY/CYTO LOGY ORDERABLES DERMATOPATHOLOGY LABORATORY [facility] - Department of Dermatology [place] [address] [facility], [address]rd Floor [address] [phone] * IMAGING RADIOLOGY XRAY RESULTS ORDER (06/20/2022) Anatomical Region Laterality Modality Other 06/20/2022 Narrative 06/20/2022 Ordered by an unspecified provider. Scanned Document IMAGING * CARDIAC EKG ORDER (02/26/2022 2:13 PM CDT) Narrative 02/26/2022 2:13 PM CDT Ordered by an unspecified provider. Scanned Document CARDIAC SERVICES ORD ERABLES * PATHOLOGY TISSUE (2021 10:40 AM ELECTRICIAN APPRENTICE) Case Report Surgical Pathology Report Case: [id number] Authorizing Provider: Jose Car MD Collected: 2021 10:40 AM Ordering Location: [facility] OP Received: 2021 01:13 PM Pathologist: Marcia Simmons MD Specimens: A) - Clinton Lymph Node, right axilla sentinel lymph node, stitch in hot spot B) - Skin, Mid chest melanoma, stitch 12 o'clock C) - Margin, Mid chest melanoma, medial margin D) - Margin, Mid chest melanoma, lateral margin 11/16/2021 4:00 PM ELECTRICIAN APPRENTICE [facility] PATH[facility] Final Diagnosis Skin, mid chest, [...] pathologic diagnosis (one node) 11/16/2021 4:00 PM ELECTRICIAN APPRENTICE [facility] Microscopic Description and Comment The [...] immunostains). Controls stained appropriately. 11/16/2021 4:00 PM [facility] PATH[facility] Clinical History 66 year old man, no prior biopsy-confirmed melanoma, had a mid-chest pigmented lesion present for years, previously treated by cryoablation. It recurred and increased in size, and a biopsy ([id number], 10/09/2021) showed malignant melanoma, presumed metastatic due to the lack of epidermal involvement; its Breslow thickness was 1 mm. 11/16/2021 4:00 PM [facility] PATH[facility] Gross Description The requisition and [...] excised to a depth of 1.0 cm. Drivers License Examiner section is submitted in cassette C1. Received in formalin, specimen D mid chest melanoma,+lateral margin consists of a single triangular fragment of light woods skin measuring 3.5 x 1.5, excised to a depth of 0.5 cm. Drivers License Examiner section is submitted in cassette D1. AR 11/16/2021 4:00 PM [facility] PATH[facility] LAB Disclaimer The performance characteristics of all immunohistochemical and indirect immunofluorescence stains (if any) cited in this report were determined by the Histopathology Laboratory of [facility]. Some of these tests were developed by [...] the attending (teaching) pathologist. 11/16/2021 4:00 PM [facility] PATH[facility] LAB Embedded Images 11/16/2021 4:00 PM [facility] PATH[facility] Lymph Node Dissection SPECIMEN FROM SENTINEL LYMPH NODE / Unknown 2021 10:40 AM ELECTRICIAN APPRENTICE 2021 1:13 PM ELECTRICIAN APPRENTICE Comment:Pre-op diagnosis: METASTATIC MELANOMA OF RIGHT MID CHEST Biopsy, Excision TISSUE SPECIMEN FROM SKIN / Unknown 2021 11:03 AM ELECTRICIAN APPRENTICE 2021 1:13 PM ELECTRICIAN APPRENTICE Comment:Pre-op diagnosis: METASTATIC MELANOMA OF RIGHT MID CHEST Biopsy, Excision (Margin) 2021 11:03 AM ELECTRICIAN APPRENTICE 2021 1:13 PM ELECTRICIAN APPRENTICE Comment:Pre-op diagnosis: METASTATIC MELANOMA OF RIGHT MID CHEST Biopsy, Excision (Margin) 2021 11:03 AM ELECTRICIAN APPRENTICE 2021 1:13 PM ELECTRICIAN APPRENTICE Comment:Pre-op diagnosis: METASTATIC MELANOMA OF RIGHT MID CHEST Jose Car MD LAB - PATHOLOGY/CYTO LOGY ORDERABLES [facility] [address] [place] [id number] [place] [address] * LARYNGEAL MASK AIRWAY (2021 10:38 AM ELECTRICIAN APPRENTICE) Narrative Avni Duggan MD - 2021 10:38 AM ELECTRICIAN APPRENTICE Avni Duggan MD 2021 10:39 AM LMA [...] ORDERABLES * NM LYMPHOSCINTIGRAPHY (2021 8:53 AM ELECTRICIAN APPRENTICE) Anatomical Region Laterality Modality Nuclear Medicine 2021 8:42 AM ELECTRICIAN APPRENTICE Impressions 2021 2:21 PM ELECTRICIAN APPRENTICE IMPRESSION: Clinton lymph node identification and marking in the right axilla. This report was approved by Lev Wiggins on 2021 11:48 AM . I, Dr. THAIS EGAN M.D. have personally reviewed and interpreted this examination/study. This report was electronically signed by THAIS EGAN M.D. on 2021 2:21 PM . Narrative 2021 2:21 PM ELECTRICIAN APPRENTICE PROCEDURE: Lymphoscintigraphy - Clinton lymph node detection. HISTORY: 66-year-old male with recently diagnosed metastatic melanoma, first found as a dermal lesion in the right mid chest. COMPARISON: No similar prior. Correlation is made with PET/CT from 11/09/2021. TECHNIQUE: A total dose of 0.995 mCi Tc-99m tilmanocept (LymphCima Nano[employer]) injected intradermally in the right chest. Planar [...] Egan MD - 2021 PROCEDURE: Lymphoscintigraphy - Clinton lymph node detection. HISTORY: 66-year-old male with [...] based on anterior and posterior projection. IMPRESSION: Clinton lymph node identification and marking in the right axilla. This report was approved by Lev Wiggins on 2021 11:48 AM . I, Dr. THAIS EGAN M.D. have personally reviewed and interpreted this examination/study. This report was electronically signed by THAIS EGAN M.D. on2021 2:21 PM . Jose Car MD NM ORDERABLES * PET CT WHOLE BODY (11/09/2021 8:44 AM ELECTRICIAN APPRENTICE) Anatomical Region Laterality Modality Positron Emissio n Tomography (PET) 11/09/2021 9:41 AM ELECTRICIAN APPRENTICE Addenda Addendum by Sade Hart DO on 2021 3:01 PM ELECTRICIAN APPRENTICE ORIGINAL REPORT Procedure: PET/CT Study. Referring Physician: [...] thyroid ultrasound. Dictated by Triny Morris MD (senior vice president and chief information officer). This report was approved by Triny Morris [...] 2:57 PM . Impressions 11/09/2021 4:13 PM ELECTRICIAN APPRENTICE IMPRESSION: 1.Multiple hypermetabolic left axillary and left subpectoral lymph nodes, suspicious for metastatic disease. 2.A 1.2 cm moderately FDG avid right adrenal nodule is concerning for metastatic disease. 3.FDG avid right thyroid nodule can be followed up with thyroid ultrasound. Dictated by Triny Morris MD (senior vice president and chief information officer). This report was approved by Triny Morris on 11/09/2021 3:[address] SADE Alexandra D.O. have personally reviewed and interpreted this examination/study. This report was electronically signed by SADE HART D.O. on 11/09/2021 4:13 PM . Narrative 11/09/2021 4:13 PM ELECTRICIAN APPRENTICE Procedure: PET/CT Study. Referring Physician: Jose Car [...] with thyroidultrasound. Dictated by Triny Morris MD (senior vice president and chief information officer). This report was approved by Triny Morris on 11/09/2021 3:38 PM . I, Dr. SADE HART D.O. have personally reviewed and interpreted this examination/study. This report was electronically signed by SADE HART D.O. on11/09/2021 4:13 PM . Jose Car MD NM ORDERABLES * EKG 12-LEAD (11/09/2021 8:32 AM ELECTRICIAN APPRENTICE) Ventricular Rate 64 BPM [facility] Atrial Rate 64 BPM [facility] P-R Interval 124 ms [facility] QRS Duration ms 78 ms [facility] Q-T Interval ms 402 ms [facility] QTC Calculation (Bezet) 414 ms [facility] MUSE Calculated P Vista 84 degrees [facility] MUSE Calculated R Vista -15 degrees [facility] Calculated T Vista 44 degrees [facility] MUSE Interpretation EKG NORMAL SINUS RHYTHM LOW VOLTAGE QRS CANNOT RULE OUT ANTERIOR INFARCT , AGE UNDETERMINED ABNORMAL ECG NO PREVIOUS ECGS AVAILABLE Confirmed by Satish Ibarra ([id number]) on 2021 8:05:16 AM [facility] MUSE 11/09/2021 8:32 AM ELECTRICIAN APPRENTICE 2021 8:05 AM ELECTRICIAN APPRENTICE Jose Car MD ECG ORDERABLES [facility] MUSE * XR CHEST 2VW (11/09/2021 8:30 AM ELECTRICIAN APPRENTICE) Anatomical Region Laterality Modality Chest Radiographic Ana ging 11/09/2021 9:14 AM ELECTRICIAN APPRENTICE Impressions 11/09/2021 5:03 PM ELECTRICIAN APPRENTICE IMPRESSION: No acute pulmonary process. Report drafted by Quincy Villegas MD (Combat Control Manager). Dr. [place] Alexandra M.D. have personally reviewed and interpreted this examination/study. This report was electronically signed by Madison GARCIA M.D. on 11/09/2021 5:03 PM . Narrative 11/09/2021 5:03 PM ELECTRICIAN APPRENTICE EXAMINATION: XR CHEST 2VW, 11/09/2021 8:30 AM [...] process. Report drafted by Quincy Villegas MD (Combat Control Manager). Dr. Madison Alexandra M.D. have personally reviewed and interpretedthis examination/study. This report was electronically signed by Madison GARCIA M.D. on 11/09/2021 5:03 PM . Jose Car MD DIAGNOSTIC IMAGING O RDERABLES * CBC WITH DIFFERENTIAL (11/09/2021 7:10 AM ELECTRICIAN APPRENTICE) Only the most recent of6 resultswithin the time period is included. WBC 5.5 3.5 - 10.5 10 3/uL 11/09/2021 7:34 AM [facility] RBC 4.57 4.30 - 5.70 10 6/uL 11/09/2021 7:34 AM ELECTRICIAN APPRENTICE [facility] Hemoglobin 13.7 12.0 - 17.6 g/dL 11/09/2021 7:34 AM ELECTRICIAN APPRENTICE [facility] Hemat[facility]rit 41.1 35.2 - 51.7 % 11/09/2021 7:34 AM [facility] MCV 89.9 80.7 - 98.3 fL 11/09/2021 7:34 AM [facility] MCH 30.0 26.7 - 34.0 pg 11/09/2021 7:34 AM [facility] MCHC 33.3 30.8 - 35.9 g/dL 11/09/2021 7:34 AM [facility] Platelet Count 229 150 - 400 10 3/uL 11/09/2021 7:34 AM [facility] RDW-SD 44.9 36.0 - 50.0 fL 11/09/2021 7:34 AM [facility] RDW-CV 13.6 11.2 - 14.8 % 11/09/2021 7:34 AM [facility] MPV 9.5 9.4 - 12.9 fL 11/09/2021 7:34 AM [facility] nRBC Absolute 0.00 0 10 3/uL 11/09/2021 7:34 AM [facility] nRBC Auto 0.0 0 /100 WBC 11/09/2021 7:34 AM [facility] Neutrophils % 57.6 35.0 - 70.0 % 11/09/2021 7:34 AM [facility] Lymphocytes % 24.4 20.0 - 43.0 % 11/09/2021 7:34 AM [facility] Monocytes % 12.1 5.0 - 13.0 % 11/09/2021 7:34 AM [facility] Eosinophils % 4.3 0.0 - 6.0 % 11/09/2021 7:34 AM [facility] Basophil % 0.9 0.0 - 2.0 % 11/09/2021 7:34 AM [facility] Neutrophils Absolute 3.2 1.6 - 7.0 10 3/uL 11/09/2021 7:34 AM [facility] Lymphocyte Absolute 1.4 1.1 - 3.9 10 3/uL 11/09/2021 7:34 AM [facility] Monocytes Absolute 0.67 0.26 - 1.07 10 3/uL 11/09/2021 7:34 AM [facility] Eosinophils Absolute 0.24 0.00 - 0.47 10 3/uL 11/09/2021 7:34 AM [facility] Basophils Absolute 0.05 0.00 - 0.08 10 3/uL 11/09/2021 7:34 AM [facility] Immature Granulocytes % 0.7 0.0 - 1.0 % 11/09/2021 7:34 AM [facility] Immature Granulocytes Absolute 0.04 11/09/2021 7:34 AM [facility] Blood BLOOD SPECIMEN / Unknown Lab Venipuncture / Unknown 11/09/2021 7:10 AM ELECTRICIAN APPRENTICE 11/09/2021 7:20 AM [facility] Jose Car MD LAB - HEMATOLOGY ORD ERABLES [facility] [address] [place] [address], [facility] [phone] * (ABNORMAL) COMPREHENSIVE METABOLIC PANEL (11/09/2021 7:10 AM [facility]) Only the most recent of4 resultswithin the time period is included. BUN 14 7 - 26 mg/dL 11/09/2021 7:44 AM [facility] Creatinine 1.17(H) 0.71 - 1.16 mg/dL 11/09/2021 7:44 AM [facility] Sodium 141 136 - 145 mmol/L 11/09/2021 7:44 AM [facility] Potassium 3.6 3.5 - 4.5 mmol/L 11/09/2021 7:44 AM [facility] Chloride 108(H) 98 - 107 mmol/L 11/09/2021 7:44 AM [facility] CO2 25 22 - 29 mmol/L 11/09/2021 7:44 AM [facility] Glucose 96 70 - 115 mg/dL 11/09/2021 7:44 AM [facility] Calcium 9.0 8.4 - 10.2 mg/dL 11/09/2021 7:44 AM [facility] Protein Total 6.1 6.0 - 8.3 g/dL 11/09/2021 7:44 AM [facility] Albumin 3.5 3.4 - 5.0 g/dL 11/09/2021 7:44 AM [facility] Bilirubin Total 0.5 0.2 - 1.2 mg/dL 11/09/2021 7:44 AM [facility] Alkaline Phosphatase 73 40 - 150 U/L 11/09/2021 7:44 AM [facility] ALT 23 5 - 55 U/L 11/09/2021 7:44 AM [facility] AST 18 5 - 34 U/L 11/09/2021 7:44 AM [facility] Anion Gap 12 8 - 18 11/09/2021 7:44 AM [facility] BUN/Creatinine Ratio 12 7 - 23 11/09/2021 7:44 AM [facility] Osmolality Calculated 292 270 - 300 mOsm/kg 11/09/2021 7:44 AM [facility] Albumin/Globulin Ratio 1.3 1.1 - 2.3 11/09/2021 7:44 AM [facility] eGFR by CKD-EPI 64(L) >=90 mL/min/1.7 3 m2 11/09/2021 7:44 AM [facility] Blood BLOOD SPECIMEN / Unknown Lab Venipuncture / Unknown 11/09/2021 7:10 AM ELECTRICIAN APPRENTICE 11/09/2021 7:21 AM ELECTRICIAN APPRENTICE Jose Car MD LAB - CHEMISTRY ORDE KAMILAH [facility] [address] [place] [address], [facility] [phone] * GLUCOSE SCREEN - POCT (IP) [facility] (11/09/2021 7:06 AM ELECTRICIAN APPRENTICE) Glucose WB/POC 104 70 - 115 mg/dL [facility] POCT TESTING Blood BLOOD SPECIMEN / Unknown 11/09/2021 7:06 AM ELECTRICIAN APPRENTICE Jose Car MD LAB - POINT OF CARE ORDERABLES [facility] POCT TESTING [address] [place] [address], [facility] [phone] * ECHO LONG TRANSESOPHAGEAL (11/02/2014 12:00 AM ELECTRICIAN APPRENTICE) Anatomical Region Laterality Modality Other 11/02/2014 Steven Cheek MD ECHOCARDIOGRAPHY RAD IANT * PTT [facility] (10/26/2014 10:47 AM ELECTRICIAN APPRENTICE) Only the most recent of2 resultswithin the time period is included. APTT 30.4 23.0 - 38.4 Seconds [facility] Comment:Suggested therapeuti c range for full dose I.V. heparin therapy for venous thromboembolism is 66.0-91.0 seconds. Blood specimen (specimen) BLOOD SPECIMEN / Unknown 10/26/2014 10:47 AM ELECTRICIAN APPRENTICE 10/26/2014 11:50 AM ELECTRICIAN APPRENTICE Narrative [facility] - 10/26/2014 12:50 PM ELECTRICIAN APPRENTICE Is patient on Heparin, Argatroban or Dabigatran?->N Steven Cheek MD LAB - COAGULATION OR DERABLES [facility] [address] [place] [address] * (ABNORMAL) PT-INR [facility] (10/26/2014 10:47 AM ELECTRICIAN APPRENTICE) Only the most recent of2 resultswithin the time period is included. PT 11.7(L) 12.1 - 14.8 Seconds [facility] INR 0.9 See Comment [facility] Comment: Suggested therapeutic range for low-intensity coumadin therapy for venous thromboembolism prophylaxis is an INR of 2.0-3.0. For high risk patients (Mitral Valve Prosthesis, Atrial Fibrillation, history of TIA/stroke), suggested prophylactic therapeutic range is an INR of 2.5-3.5. Blood specimen (specimen) BLOOD SPECIMEN / Unknown 10/26/2014 10:47 AM ELECTRICIAN APPRENTICE 10/26/2014 11:50 AM ELECTRICIAN APPRENTICE Narrative [facility] - 10/26/2014 12:50 PM ELECTRICIAN APPRENTICE Is patient on Heparin, Argatroban or Dabigatran?->N Steven Cheek MD LAB - COAGULATION OR DERABLES [address] [phone] * HIV-1 HIV-2 ANTIGEN/ANTIBODY (10/26/2014 10:47 AM ELECTRICIAN APPRENTICE) HIV Antigen/Antibod y 1 & 2 Non-reacti ve Non-react chance [facility] Comment: Neither HIV-1 p24 Antigen nor HIV-1/HIV-2 Antibodies are detected. Blood specimen (specimen) BLOOD SPECIMEN / Unknown 10/26/2014 10:47 AM ELECTRICIAN APPRENTICE 10/26/2014 11:50 AM ELECTRICIAN APPRENTICE Steven Cheek MD LAB - HEMATOLOGY ORD ERABLES Performing Organization Address [facility] Co de Phone Number [address] [phone] * (ABNORMAL) URINALYSIS W/MICROSCOPIC NO CULTURE (10/26/2014 10:47 AM ELECTRICIAN APPRENTICE) Color UA Yellow Straw, Yellow, Colorless, Light Yellow [facility] Clarity UA Clear Clear [facility] Specific Rheems UA 1.015 1.001 - 1.030 [facility] pH UA 7.0 5.0 - 8.0 [facility] Protein UA Negative <=20 mg/dL [facility] Glucose UA Negative Negative mg/dL [facility] Ketone UA Negative Negative mg/dL [facility] Bilirubin UA Negative Negative mg/dL [facility] Blood UA Negative Negative [facility] Nitrite UA Negative Negative [facility] Leukocyte Esterase Negative Negative [facility] Urobilinogen UA <2.0 <2.0 mg/dL [facility] RBC UA 3 0 - 8 /HPF [facility] WBC UA <1 0 - 2 /HPF [facility] Mucus UA Rare(A) None /LPF [facility] Urine specimen (specimen) URINE SPECIMEN OBTAINED BY CLEAN CATCH PROCEDURE / Unknown 10/26/2014 10:47 AM ELECTRICIAN APPRENTICE 10/26/2014 11:50 AM ELECTRICIAN APPRENTICE Steven Cheek MD LAB - URINALYSIS ORD ERABLES Performing Organization Address [facility] Co de Phone Number [address] [phone] * RPR (10/26/2014 10:47 AM ELECTRICIAN APPRENTICE) RPR Non-reacti ve Non-reacti ve [facility] Blood specimen (specimen) BLOOD SPECIMEN / Unknown 10/26/2014 10:47 AM ELECTRICIAN APPRENTICE 10/26/2014 11:50 AM ELECTRICIAN APPRENTICE Steven Cheek MD LAB - CHEMISTRY ORDPham TRIANA Performing Organization Address [facility] Phone Number [address] [phone] * C-REACTIVE PROTEIN (10/26/2014 10:47 AM ELECTRICIAN APPRENTICE) C-Reactive Protein <0.5 <=0.5 mg/dL [facility] Blood specimen (specimen) BLOOD SPECIMEN / Unknown 10/26/2014 10:47 AM ELECTRICIAN APPRENTICE 10/26/2014 11:50 AM ELECTRICIAN APPRENTICE Steven Cheek MD LAB - CHEMISTRY ANIVAL TRIANA Performing Organization Address [facility] Co de Phone Number [address] [phone] * CULTURE BLOOD (10/26/2014 10:47 AM ELECTRICIAN APPRENTICE) Culture Blood No Growth at 5 days [facility] Blood specimen (specimen) BLOOD SPECIMEN / Unknown 10/26/2014 10:47 AM ELECTRICIAN APPRENTICE 10/26/2014 11:50 AM ELECTRICIAN APPRENTICE Narrative [facility] - 10/31/2014 12:00 PM ELECTRICIAN APPRENTICE Specimen Type->Blood Steven Cheek MD LAB - MICROBIOLOGY O RDERABLES Performing Organization Address [facility]/ZIP Co de Phone Number [address] [phone] * ERYTHROCYTE SEDIMENTATION RATE (10/26/2014 10:47 AM ELECTRICIAN APPRENTICE) Erythrocyte Sedimentation Rate Westergren 0 0 - 10 MM/HR [facility] Blood specimen (specimen) BLOOD SPECIMEN / Unknown 10/26/2014 10:47 AM ELECTRICIAN APPRENTICE 10/26/2014 11:50 AM ELECTRICIAN APPRENTICE Steven Cheek MD LAB - HEMATOLOGY ORD ERABLES Performing Organization Address City/State/[facility] Co de Phone Number [address] [phone] * HEPATITIS SCREEN ACUTE (10/26/2014 10:47 AM ELECTRICIAN APPRENTICE) Pathologist [facility] Hepatitis A Virus Antibody IgM Non-react [facility] Hepatitis B Virus Surface Antigen Non-react [facility] Hepatitis B Core Virus Antibody IgM Non-react [facility] Hepatitis C Antibody Non-react [facility] Comment: Hepatitis C Antibody screen indicates no serologic evidence of past or current infection with Hepatitis C Virus. Patients with unexplained liver disease who are immunocompromised or suspected of having acute Hepatitis C infection may benefit from Nucleic Acid Test (TUTU) for Hepatitis C Viral RNA to confirm Hepatitis C status. Blood specimen (specimen) BLOOD SPECIMEN / Unknown 10/26/2014 10:47 AM ELECTRICIAN APPRENTICE 10/26/2014 11:50 AM ELECTRICIAN APPRENTICE Steven Cheek MD LAB - CHEMISTRY ORDE KAMILAH Performing Organization Address City/State/[facility] Co de Phone Number [address] [phone] * IR CAROTID CEREBRAL ANGIOGRAM (10/06/2014 8:35 AM ELECTRICIAN APPRENTICE) Only the most recent of2 resultswithin the time period is included. 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 This report was electronically signed by MICHEL REESE M.D. on 10/06/2014 10:03 AM . Narrative 10/06/2014 10:03 AM ELECTRICIAN APPRENTICE Procedure: Cerebral angiogram 10/06/2014 Comparison study: None History: The patient is a 58-year-old man with a history of aneurysms in the family and recent worsening headache. He underwent an MRI scan that revealed possible cranial aneurysms and is here for further evaluation of these abnormalities. Certified Medical Transcriptionist: Twyla Reese Vessels: Bilateral internal carotid artery angiograms: Cerebral Bilateral common carotid artery angiograms: Cervical Left vertebral artery angiogram: Cerebral 3-D angiogram of the left internal carotid artery with reconstruction separate workstation Right femoral artery angiogram 6 Somali Angio-Seal deployment within the right femoral artery Anesthesia: Local anesthesia with conscious sedation Procedural detail: The risks, benefits, alternatives of procedure discussed in detail the patient's family. After this discussion written consent was provided. The patient brought to the biplane angiography suite where he underwent prep and drape procedures. A 6 Somali sheath was placed in the right femoral artery and a 5 Somali Definicare 2 catheter was navigated into the aortic [...] system. Hemostasis was achieved using a 6 Somali Angio-Seal closure device. No stasis was immediate [...] is here for further evaluation ofthese abnormalities. Certified Medical Transcriptionist: Twyla Reese Vessels: Bilateral internal carotid artery angiograms: Cerebral Bilateral common carotid artery angiograms: Cervical Left vertebral artery angiogram: Cerebral 3-D angiogram of the left internal carotid artery with reconstructionseparate workstation Right femoral artery angiogram 6 Somali Angio-Seal deployment within the right femoral artery Anesthesia: Local anesthesia with conscious sedation Procedural detail: The risks, benefits, alternatives of procedurediscussed in detail the patient's family. After this discussion writtenconsent was provided. The patient brought to the biplane angiography suitewhere he underwent prep and drape procedures. A 6 Somali sheath was placed in the right femoral artery and a5 Somali Crocker 2 catheter was navigated into the [...] arterial system. Hemostasis wasachieved using a 6 Somali Angio-Seal closure device. No stasis wasimmediate in [...] TCHOL/HDL (PO REF LAB) (10/25/2009 3:03 PM ELECTRICIAN APPRENTICE) Cholesterol 156 100 - 199 mg/dL [facility] [...] BLOOD SPECIMEN / Unknown 10/25/2009 3:03 PM ELECTRICIAN APPRENTICE 10/25/2009 9:27 PM ELECTRICIAN APPRENTICE Narrative Resulting Agency [facility] [address] [facility] [phone] Avni Montez DO LAB - CHEMISTRY ORD ERABLES [facility] ACCOUNT BILL * PROSTATE SPECIFIC ANTIGEN SCREEN (10/25/2009 3:03 PM ELECTRICIAN APPRENTICE) PSA 0.3 0.0 - 4.0 ng/mL [facility] ACCOUNT BILL Comment: Adi ECLIA methodology. . According to the [place] [employer], Serum PSA should decrease and [...] BLOOD SPECIMEN / Unknown 10/25/2009 3:03 PM ELECTRICIAN APPRENTICE 10/25/2009 9:27 PM ELECTRICIAN APPRENTICE Narrative Resulting Agency [facility] [address] [facility] [phone] Avni A Montez DO LAB - CHEMISTRY ORD ERABLES [facility] ACCOUNT BILL Care Teams Diamond Sizer And Sorter Relationship Specialty Start Date End Date Pritesh Cintron MD [address] [place] [address] PCP - General 06/16/19
--- OUTSIDE RECORDS SUMMARY | 2025-01-20 13:45 | XMS_ITS | Encounter Summary ---
Author Organization [facility] Address [address] [place] [address] Care Team Providers Care Teradata Architect Name Role Phone Pritesh Cintron MD Primary Care Provider [phone] Encounter Details Date Type Department Care Team ([facility] Contact Info) Description 10/11/2021 Lab Requisition [facility] Care DermPath Lab [address] [place] [phone] Lee Kovacs MD [address] [place] [address] Social History Tobacco Use Types Packs/Day Years [...] (Late Contact Info) Description 01/12/2026 9:30 AM BAKERY WORKER CONVEYOR LINE Office Visit [facility] Surgery [address] [place] [phone] Jose Car MD [address] [facility] [address] [place] [address] documented as of this encounter Procedures Procedure Name Priority Date/Time Associated Diagnosis Comments DERMATOPATHOLOGY Routine 10/09/2021 3:33 AM BAKERY WORKER CONVEYOR LINE documented in this encounter Results * DERMATOPATHOLOGY (10/09/2021 3:33 AM [facility]) Case Report Dermatopathology Report Case: [id number] Authorizing Provider: Lee Kovacs MD Collected: 10/09/2021 03:33 AM Ordering Location: [facility] DermPath Lab Received: 10/11/2021 06:42 AM Pathologist: Ben Soriano MD Specimen: Skin, right mid chest 4:27 PM [facility] DERMATOPATHOLOGY LABORATORY Final Diagnosis Specimen A. SKIN, right mid chest: MALIGNANT MELANOMA, METASTATIC (C80.0) (see microscopic description and comment) 4:27 PM [facility] DERMATOPATHOLOGY LABORATORY Clinical History Nevus vs BCCA. Path# [id number] 4:27 PM [facility] DERMATOPATHOLOGY LABORATORY Gross Description Specimen A: Received is one formalin filled container labeled with the patient's name and designated right mid chest. The specimen consists of a shave biopsy measuring [id number]. Jar 0. 4:27 PM [facility] DERMATOPATHOLOGY LABORATORY Microscopic Description Specimen A. SKIN, [...] the base of the specimen. 4:27 PM [facility] DERMATOPATHOLOGY LABORATORY Disclaimer An external and internal positive and negative controls are appropriate for the histochemical, immunohistochemical and immunofluorescence stain(s) in this case (if any), except where stated explicitly. The performance characteristics of the stain(s) cited in this report were developed and its performance characteristic determined by the Dermatopathology Laboratory at [facility], directed by Dr. Yandel Soriano. These tests need not be, and therefore are not, approved by the [place] Food and Drug Administration. The tests are used for clinical purposes. Billing Codes Specimen Charges Stain Charges 95223 1 79998 95111 1 1 1 4:27 PM BAKERY WORKER CONVEYOR LINE DERMATOPATHOLOGY LABORATORY Embedded Images 1 4:27 PM BAKERY WORKER CONVEYOR LINE DERMATOPATHOLOGY LABORATORY Pathology/Cytolo gy TISSUE SPECIMEN FROM SKIN / Unknown 10/09/2021 3:33 AM BAKERY WORKER CONVEYOR LINE 10/11/2021 6:42 AM BAKERY WORKER CONVEYOR LINE Lee Kovacs MD LAB - PATHOLOGY/CYTO LOGY ORDERABLES DERMATOPATHOLOGY LABORATORY [facility] - Department of Dermatology [facility] Medicine [address] [place] [address], [address] [phone] documented in this encounter Visit Diagnoses Not on filedocumented in this encounter Care Teams Teradata Architect Relationship Specialty Start Date End Date Pritesh Cintron MD [address] [place] [address] PCP - General 06/16/19 documented as of this encounter
--- OUTSIDE RECORDS SUMMARY | 2025-01-20 13:45 | XMS_ITS | Clinical Summary ---
Author Organization [facility] Address [address] [place] [address] Care Team Providers Care Diamond Powder Mixer Name Role Phone Pritesh Cintron MD Primary Care Provider [phone] Source Comments [facility],non-owned Affiliates and Associated Physician Practices is amultiple site organization consisting of ambulatory clinics and hospital sitesin [place], [place], [place] and [place]. This disclosure is being madepursuant to the Care Everywhere program and may not contain all information available regarding this patient. Last updated 18.[facility] Allergies Active Allergy Reactions Criticality Noted Date [...] Department Care Team Description 01/06/2025 10:00 AM PRODUCT SUPPORT TECHNICIAN Office Visit [facility] - General Surgery [address] [place] [phone] Jose Car MD Metastatic melanoma (HCC) (Primary Dx); Malignant melanoma of skin of chest (HCC) 01/06/2025 Travel from Last 3 Months Immunizations Name Administration Dates Next Due INFLUENZA VACCINE, TRIV. (AF LURIA, FLUZONE TRIVALENT; 6MO+) (IIV3) 10/25/2009 Covid Sgnam primary monoval ent 12+ yr 0.3mL Purple cap 11/06/2021,02/20/2021,01/30/2021 INFLUENZA A [id number] VACCINE 10/25/2009 INFLUENZA VACCINE 09/01/2022,09/01/2021 Social History [...] Comments Blood Pressure 97/63 01/06/2025 9:58 AM PRODUCT SUPPORT TECHNICIAN Pulse 70 01/06/2025 9:58 AM PRODUCT SUPPORT TECHNICIAN Temperature 36.6 C (97.8 F) 01/06/2025 9:58 AM PRODUCT SUPPORT TECHNICIAN Respiratory Rate 18 01/06/2025 9:58 AM PRODUCT SUPPORT TECHNICIAN Oxygen Saturation 92% 01/06/2025 9:58 AM PRODUCT SUPPORT TECHNICIAN Inhaled Oxygen Concentration - - Weight 68 kg (150 lb) 01/06/2025 9:58 AM PRODUCT SUPPORT TECHNICIAN Height 165.1 cm (5' 5 ) 01/06/2025 9:58 AM PRODUCT SUPPORT TECHNICIAN Body Mass Index 24.96 01/06/2025 9:58 AM PRODUCT SUPPORT TECHNICIAN Plan of Treatment Upcoming Encounters Date Type Department Care Team (Late st Contact Info) Description 01/12/2026 9:30 AM PRODUCT SUPPORT TECHNICIAN Office Visit [facility] - General Surgery [address] [place] [phone] Jose Car MD [address] [facility] [address] [place] [address] Health Maintenance Due Date Last Done Comments [...] HEPATITIS SCREEN ACUTE Routine 10/26/2014 10:47 AM PRODUCT SUPPORT TECHNICIAN from Last 3 Months or Most Recently Relevant to Health Maintenance Results * HEPATITIS SCREEN ACUTE (10/26/2014 10:47 AM PRODUCT SUPPORT TECHNICIAN) Hepatitis A Virus Antibody IgM Non-react [facility] Hepatitis B Virus Surface Antigen Non-react [facility] Hepatitis B Core Virus Antibody IgM Non-react [facility] Hepatitis C Antibody Non-react [facility] Comment: Hepatitis C Antibody screen indicates no serologic evidence of past or current infection with Hepatitis C Virus. Patients with unexplained liver disease who are immunocompromised or suspected of having acute Hepatitis C infection may benefit from Nucleic Acid Test (TUTU) for Hepatitis C Viral RNA to confirm Hepatitis C status. Blood specimen (specimen) BLOOD SPECIMEN / Unknown 10/26/2014 10:47 AM PRODUCT SUPPORT TECHNICIAN 10/26/2014 11:50 AM PRODUCT SUPPORT TECHNICIAN Steven Cheek MD LAB - CHEMISTRY ANIVAL Cooney Organization Address City/State/ZIP Co de Phone Number [facility] [address] [phone] from Last 3 Months or Most Recently Relevant to Health Maintenance Care Teams Diamond Powder Mixer Relationship Specialty Start Date End Date Pritesh Cintron MD [address] [place], [place] [phone] PCP - General 06/16/19
--- OUTSIDE RECORDS SUMMARY | 2025-01-20 13:45 | XMS_ITS | Clinical Summary ---
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
[2025-01-20 14:00] LABS: Estimated Glomerular Filt Rate 54
== END 2025-01-20 13:38 | disposition home or self-care (01) ==
LOC: ANHIMG 13:41
PROVIDERS: PCP Family Medicine; Visit Provider Surgery
DX: C43.59 Malignant melanoma of other part of trunk (principal); C43.9 Malignant melanoma of skin, unspecified; J94.8 Other specified pleural conditions
CPT/HCPCS: 74177; Q9967

== ENCOUNTER 2025-07-17 04:02 | Inpatient (IN) | payer OTHER, SELFPAY ==
[2025-07-17] VITALS (26 sets, daily range): BP systolic 97–120; BP diastolic 55–64; PULSE 63–110; RESP 17–29; TEMP 36.6–38.9; O2SAT 90–96; BMI 26.4
--- NOTE | ~2025-07-17 | XR_ITS ---
EXAMINATION: XR chest 2V DATE: 07/17/2025 04:52 INDICATION: Pneumonia TECHNIQUE: frontal view of the chest was obtained. COMPARISON: Chest radiograph dated 10/01/[address] dated 11/30/2024 FINDINGS: Eventration of the right hemidiaphragm. Increased lucency in the upper lungs consistent with emphysem a better appreciated on prior CT. Airspace opacities throughout the right lung, decreased activity pa ramediastinal upper lung zone and lateral midlung zone consistent with improvement of chronic pneumon ia. There are new patchy right middle lobar airspace opacities in the anterior right lower lung zone which could represent more acute pneumonia or atelectasis. No pulmonary edema or pleural effusion. He art size is normal. IMPRESSION: 1. New right middle lobar opacities which could represent atelectasis or pneumonia. 2. Significant decrease in mild residual opacities in the right upper and right mid lung zones consis tent with resolving sequela of chronic pneumonia. Reviewed, dictated and finalized at location A. IMPRESSION: 1. New right middle lobar opacities which could represent atelectasis or pneumo malgorzata. 2. Significant decrease in mild residual opacities in the right upper and right mid lung zones consistent with resolving sequela of chronic pneumonia.
--- OUTSIDE RECORDS SUMMARY | 2025-07-17 04:04 | XMS_ITS | Encounter Summary ---
Author Organization [facility] Address [address] [facility] [place] [address] Care Team Providers Care Bulker Name Role Phone Pritesh Cintron MD Primary Care Provider [phone] Encounter Details Date Type Department Care Team (Late Contact Info) Description 10/11/2021 Lab Requisition [facility] Care DermPath Lab [address] [place] [phone] Lee Kovacs MD [address] [place] [address] Social History Tobacco Use Types Packs/Day Years Used Date Smoking Tobacco: Every Day Comments:smoke cigars Alcohol Use Standard Drinks/Week Comments No 0 (1 standard drink = 0.6 oz pur e alcohol) Sex and Gender Information Value Date Recorded Sex Assigned at Not on file Legal Sex Male 4:28 AM DAY CARE PROVIDER Gender Identity Not on file Sexual Orientation Not on file documented as of this encounter Plan of Treatment Upcoming Encounters Date Type Department Care Team (Late Contact Info) Description 01/12/2026 9:30 AM DAY CARE PROVIDER Office Visit [facility] - General Surgery [address] [place] [address] Jose Car MD [address] [facility] [address] [place] [address] documented as of this encounter Procedures Procedure Name Priority Date/Time Associated Diagnosis Comments DERMATOPATHOLOGY Routine 10/09/2021 3:33 AM DAY CARE PROVIDER documented in this encounter Results * DERMATOPATHOLOGY (10/09/2021 3:33 AM DAY CARE PROVIDER) Case Report Dermatopathology Report Case: [id number] Authorizing Provider: Lee Kovacs MD Collected: 10/09/2021 03:33 AM Ordering Location: [facility] DermPath Lab Received: 10/11/2021 06:42 AM Pathologist: Ben Soriano MD Specimen: Skin, right mid chest 4:27 PM [facility] DERMATOPATHOLOGY LABORATORY Final Diagnosis Specimen A. SKIN, right mid chest: MALIGNANT MELANOMA, METASTATIC (C80.0) (see microscopic description and comment) 4:27 PM [facility] DERMATOPATHOLOGY LABORATORY at [address]27 DAY CARE PROVIDER Clinical History Nevus vs BCCA. Path# [id number] 4:27 PM [facility] DERMATOPATHOLOGY LABORATORY Gross Description Specimen A: Received is one formalin filled container labeled with the patient's name and designated right mid chest. The specimen consists of a shave biopsy measuring [id number]. Jar 0. 4:27 PM [facility] DERMATOPATHOLOGY LABORATORY Microscopic Description Specimen [...] the base of the specimen. 4:27 PM [facility] DERMATOPATHOLOGY LABORATORY Disclaimer An external and internal positive and negative controls are appropriate for the histochemical, immunohistochemical and immunofluorescence stain(s) in this case (if any), except where stated explicitly. The performance characteristics of the stain(s) cited in this report were developed and its performance characteristic determined by the Dermatopathology Laboratory at [facility], directed by Dr. Yandel Soriano. These tests need not be, and therefore are not, approved by the [place] Food and Drug Administration. The tests are used for clinical purposes. Billing Codes Specimen Charges Stain Charges 89343 1 [id number] [id number] 1 1 1 4:27 PM DAY CARE PROVIDER DERMATOPATHOLOGY LABORATORY Embedded Images 4:27 PM DAY CARE PROVIDER DERMATOPATHOLOGY LABORATORY Pathology/Cytolo gy TISSUE SPECIMEN FROM SKIN / Unknown 10/09/2021 3:33 AM DAY CARE PROVIDER 10/11/2021 6:42 AM DAY CARE PROVIDER us Lee Kovacs MD LAB - PATHOLOGY/CYTOLOGY ORDER JUSTO Final Result DERMATOPATHOLOGY LABORATORY [facility] - Department of Dermatology [facility] Medicine [address] [place] [address], [address] [phone] documented in this encounter Visit Diagnoses Not on filedocumented in this encounter Care Teams Bulker Relationship Specialty Start Date End Date Pritesh Cintron MD [address] [place] [address] PCP - General 06/16/19 documented as of this encounter
--- OUTSIDE RECORDS SUMMARY | 2025-07-17 04:04 | XMS_ITS | Clinical Summary ---
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 Not on [...] 3:00 PM CDT Height 165.1 cm (5' 5) 07/02/2019 3:00 PM CDT Body Mass Index 23.3 07/02/2019 3:00 PM CDT Plan of Treatment Health Maintenance Due Date Last Done Comments Hepatitis C Virus (HCV) Screening 1955 Cologuard 1998 Colonoscopy 1998 Colorectal Cancer Screening 1998 Immunochemical Fecal Occult Blood 1998 Zoster Immunization (2 of 3) 02/09/2014 12/15/2013 Pneumococcal Immunization (50+ years) (2 of 2 - PCV) 03/06/2020 03/06/2019, 04/01/2013 SARS-COV-2 Immunization (4 - season) 2024 11/06/2021, 02/20/2021, 01/30/2021 Influenza Immunization (#1) 08/02/202508/04, 09/15/2017, 10/01/2016, Additional history exists Respiratory Syncytial Virus (RSV) Immunization (Adult) (1 - 1-dose 75+ series) 2028 DTaP/Tdap/Td Immunization Discontinued 04/01/2013 TdaP Immunization Completed 04/01/2013 Pneumococcal Immunization Combined Discontinued 03/06/2019, 04/01/2013 Hepatitis B Immunization Aged Out No longer eligible based on patient's age to complete this topic Human Papillomavirus (HPV) Immunization Aged Out No longer eligible based on patient's age to complete this topic Meningococcal Immunization (ACWY) Aged Out No longer eligible based on patient's age to complete this topic Rotavirus Immunization Aged Out No lo nger eligible based on patient's age to complete this topic Insurance MEDICARE C HUMANA Care Teams Supervisor Cereal Relationship Specialty Start Date End Date Pritesh Cintron MD [address] [place] [address] PCP - General Family Medicine 02/20/16
--- OUTSIDE RECORDS SUMMARY | 2025-07-17 04:04 | XMS_ITS | Clinical Summary ---
Author Organization [facility] Address [address] [place] [address] Care Team Providers Care Milieu Therapist Name Role Phone Pritesh Cintron MD Primary Care Provider [phone] Source Comments [facility],non-owned Affiliates and Associated Physician Practices is amultiple site organization consisting of ambulatory clinics and hospital sitesin [place], [place], [place] and [place]. This disclosure is being madepursuant to the Care Everywhere program and may not contain all information available regarding this patient. Last updated 18.[facility] Allergies Active Allergy Reactions Criticality Noted Date Comments Propoxyphene N-Apap 10/25/2009 hives Tramadol Other Low 08/31/2014 sweats Medications * Be aware that medications may not be up to date on this document. Alwaysverify current medications with the patient. amLODIPine (NORVASC) 10 MG tablet 1 Active atorvastatin (LIPITOR) 10 MG tablet Take 2 (two) tablets by mouth at bedtime 1 Active gabapentin (NEURONTIN) 100 MG capsule Take 1 (one) capsule by mouth 3 times daily 1 Active lisinopril (PRINIVIL; ZESTRIL) 20 MG tablet Take 1 (one) tablet by mouth at bedtime 1 Active omeprazole (PRILOSEC) 20 MG capsule 1 Active traZODone (DESYREL) 50 MG tablet 1 Active metoprolol succinate XL 24hr (TOPROL XL) 25 MG tablet 1 Active Trelegy Ellipta 100-62.5-25 MCG/ACT 3 Active albuterol HFA (Proventil; Ventolin; Proair) 108 (90 Base) MCG/ACT inhaler INHALE 2 PUFFS 4 TIMES DAILY NEEDED FOR SHORTNESS OF BREATH OR WHEEZING 3 Active Active Problems Problem Noted Date Diagnosed Date Malignant melanoma of skin of chest 10/30/2021 Cancer Staging:Clinical:Stage Unknown(cTX, cN0, cM0) - Unsigned Pathologic stage from 05/24/2022:Stage Unknown(pTX, pN0, cM0) - Signed by Jose Car MD on 05/24/2022 Immunizations Immunization Administration Dates Next Due INFLUENZA VACCINE, TRIV. (AF LURIA, FLUZONE TRIVALENT; 6MO+) (IIV3) 10/25/2009 Covid viVood primary monoval ent 12+ yr 0.3mL Purple cap 11/06/2021,02/20/2021,01/30/2021 INFLUENZA A I7P6-53 VACCINE 10/25/2009 INFLUENZA VACCINE 09/01/2022,09/01/2021 Social History [...] on file Legal Sex Male 4:28 AM SCHEDULING MANAGER Gender Identity Not on file Sexual Orientation Not on file Last Filed Vital Signs Vital Sign Reading Time Taken Comments Blood Pressure 97/63 01/06/2025 9:58 AM SCHEDULING MANAGER Pulse 70 01/06/2025 9:58 AM SCHEDULING MANAGER Temperature 36.6 C (97.8 F) 01/06/2025 9:58 AM SCHEDULING MANAGER Respiratory Rate 18 01/06/2025 9:58 AM SCHEDULING MANAGER Oxygen Saturation 92% 01/06/2025 9:58 AM SCHEDULING MANAGER Inhaled Oxygen Concentration - - Weight 68 kg (150 lb) 01/06/2025 9:58 AM SCHEDULING MANAGER Height 165.1 cm (5' 5) 01/06/2025 9:58 AM SCHEDULING MANAGER Body Mass Index 24.96 01/06/2025 9:58 AM SCHEDULING MANAGER Plan of Treatment Upcoming Encounters Date Type Department Care Team (Late st Contact Info) Description 01/12/2026 9:30 AM SCHEDULING MANAGER Office Visit [facility] - General Surgery [address] [place] [phone] Jose Car MD [address] [facility] [address] [place] [address] Health Maintenance Due Date Last Done Comments COLOGUARD (AGES 45-75) - COLON CA SCREENING 1955 COLON MONITORING 1953 COLONOSCOPY - COLON CA SCREENING 1953 CT COLONOGRAPHY - COLON CA SCREENING 1953 Colorectal Cancer Screening 1953 FIT - COLON CA SCREENING 1953 FLEX SIG - COLON CA SCREENING 1953 MEDICARE AWV 12 MONTHS 1953 DTAP/TDAP/TD VACCINES (1 - Tdap) 1972 PNEUMOCOCCAL VACCINE 50+ (1 of 1 - PCV) 2003 ZOSTER VACCINE (1 of 2) 2003 AAA SCREENING 2018 COVID-19 VACCINE ( season) 2024 11/06/2021, 02/20/2021, 01/30/2021 DEPRESSION SCREENING 12/02/2024 INFLUENZA VACCINE (#1) 2025 2, 09/01/2021, 10/02/2016, Additional history exists Respiratory Syncytial Virus (RSV) Vaccine Pt: or [...] complete this topic MENINGOCOCCAL (Group B) VACCINE SHARED DECISION-MAKING Aged Out No longer eligible based on patient's age to complete this topic MENINGOCOCCAL GROUPS A/C/Y/W VACCINE Aged Out No longer eligible based on patient's age to complete this topic Procedures Procedure Name Priority Date/Time Associated Diagnosis Comments HEPATITIS SCREEN ACUTE Routine 10/26/2014 10:47 AM SCHEDULING MANAGER from Last 3 Months or Most Recently Relevant to Health Maintenance Results * HEPATITIS SCREEN ACUTE (10/26/2014 10:47 AM SCHEDULING MANAGER) Hepatitis A Virus Antibody IgM Non-react [facility] Hepatitis B Virus Surface Antigen Non-react [facility] Hepatitis B Core Virus Antibody IgM Non-react [facility] Hepatitis C Antibody Non-react [facility] Comment: Hepatitis C Antibody screen indicates no serologic evidence of past or current infection with Hepatitis C Virus. Patients with unexplained liver disease who are immunocompromised or suspected of having acute Hepatitis C infection may benefit from Nucleic Acid Test (TUTU) for Hepatitis C Viral RNA to confirm Hepatitis C status. Blood specimen (specimen) BLOOD SPECIMEN / Unknown 10/26/2014 10:47 AM SCHEDULING MANAGER 10/26/2014 11:50 AM SCHEDULING MANAGER Steven Cheek MD LAB - CHEMISTRY ORDERABLES F inal Result [address] [phone] from Last 3 Months or Most Recently Relevant to Health Maintenance Insurance [facility] [employer] * Guarantor: CLIFFORD JENKINS Account Type Relation to Patient Date of Phone Billing Address Personal/Family [address] [place] [phone] * Guarantor: CLIFFORD JENKINS Account Type Relation to Patient Date of Phone Billing Address Personal/Family [address] [place] [phone] Care Teams Milieu Therapist Relationship Specialty Start Date End Date Pritesh Cintron MD [address] [place] [address] PCP - General 06/16/19
--- OUTSIDE RECORDS SUMMARY | 2025-07-17 04:04 | XMS_ITS | Encounter Summary ---
Author Organization [facility] Address [address] [facility] [place] [address] Care Team Providers Care Engraver Apprentice Decorative Name Role Phone Pritesh Cintron MD Primary Care Provider [phone] Encounter Details Date Type Department Care Team (Late st Contact Info) Description 2022 Lab Requisition [facility] Care DermPath Lab [address] [facility] [place] [address] Lee Kovacs MD [address] [place] [address] Social History Tobacco Use Types Packs/Day Years [...] on file Legal Sex Male 4:28 AM TELEMARKETING AGENT Gender Identity Not on file Sexual Orientation Not on file documented as of this encounter Functional Status * Is person deaf or have serious hearing difficulty? Answer Date of Assessment Author No 2021 12:57 PM TELEMARKETING AGENT Ann Yang RN * Is person blind or have serious difficulty seeing? Answer Date of Assessment Author No 2021 12:57 PM Ann Mosqueda RN * Does person have serious difficulty walking/climbing stairs? Answer Date of Assessment Author No 2021 12:57 PM Ann Mosqueda RN * Does person have difficulty dressing/bathing? Answer Date of Assessment Author No 2021 12:57 PM Ann Mosqueda RN * Does person have difficulty doing errands alone? Answer Date of Assessment Author No 2021 12:57 PM Ann Mosqueda RN documented as of this encounter Mental Status * Does person have difficulty concentrating/remembering/making decisions? Answer Entry Date Author No 2021 12:57 PM Ann Mosqueda RN documented in this encounter Plan of Treatment Upcoming Encounters Date Type Department Care Team (Late st Contact Info) Description 01/12/2026 9:30 AM TELEMARKETING AGENT Office Visit [facility] - General Surgery [address] [place] [phone] Jose Car MD [address] [facility] [address] [place] [address] documented as of this encounter Procedures Procedure Name Priority Date/Time Associated Diagnosis Comments DERMATOPATHOLOGY Routine 11/13/2022 12:0 0 AM TELEMARKETING AGENT documented in this encounter Results * DERMATOPATHOLOGY (11/13/2022 12:00 AM TELEMARKETING AGENT) Case Report Dermatopathology Report Case: [id number] Authorizing Provider: Lee Kovacs MD Collected: 11/13/2022 12:00 AM Ordering Location: [facility] DermPath Lab Received: 2022 06:17 AM Pathologist: Jaqueline Hinds MD Specimen: Skin, right chest 2 3:14 PM TELEMARKETING AGENT DERMATOPATHOLOGY LABORATORY Final Diagnosis Specimen A. SKIN, right chest: BENIGN VERRUCOUS KERATOSIS, INFLAMED (L82.1) POST-INFLAMMATORY PIGMENT ALTERATION (L81.9) 2 3:14 PM TELEMARKETING AGENT DERMATOPATHOLOGY LABORATORY at [address] [facility] Clinical History SK vs. MM vs. Scar Path: [id number] 2 3:14 PM [facility] DERMATOPATHOLOGY LABORATORY Gross Description Specimen A: Received is one formalin filled container labeled with the patient's name and designated right chest. The specimen consists of a shave biopsy measuring 5x4x4 mm. Jar 0. 2 3:14 PM [facility] DERMATOPATHOLOGY LABORATORY Microscopic Description Specimen A. SKIN, right chest: Sections show hyperkeratosis, papillomatosis, hypergranulosis, and acanthosis. Inflammatory cells are present within the dermis. These histological findings can be seen in a verruca vulgaris or a seborrheic keratosis. Sections show abundant melanin within melanophages around the superficial vascular plexus. 2 3:14 PM [facility] DERMATOPATHOLOGY LABORATORY Disclaimer An external and internal positive and negative controls are appropriate for the histochemical, immunohistochemical and immunofluorescence stain(s) in this case (if any), except where stated explicitly. The performance characteristics of the stain(s) cited in this report were developed and its performance characteristic determined by the Dermatopathology Laboratory at [facility], directed by Dr. Yandel Soriano. These tests need not be, and therefore are not, approved by the [place] Food and Drug Administration. The tests are used for clinical purposes. Billing Codes Specimen Charges Stain Charges 45433 1 2 3:14 PM [facility] DERMATOPATHOLOGY LABORATORY Embedded Images 2 3:14 PM [facility] DERMATOPATHOLOGY LABORATORY Pathology/Cytolog y TISSUE SPECIMEN FROM SKIN / Unknown 11/13/2022 2022 6:17 AM [facility] us Lee Kovacs MD LAB - PATHOLOGY/CYTOLOGY ORDER JUSTO Final Result DERMATOPATHOLOGY LABORATORY [facility] - Department of Dermatology [address] [place] [address], [facility] [phone] documented in this encounter Visit Diagnoses Not on filedocumented in this encounter Care Teams Engraver Apprentice Decorative Relationship Specialty Start Date End Date Pritesh Cintron MD [address] [place] [address] PCP - General 06/16/19 documented as of this encounter
--- OUTSIDE RECORDS SUMMARY | 2025-07-17 04:04 | XMS_ITS ---
Author Organization [facility] Address [address] [facility] [place] [address] Care Team Providers Care Design Sales Consultant Name Role Phone Pritesh Cintron MD Primary Care Provider [phone] Active Problems Problem Noted Date Diagnosed Date Malignant melanoma of skin of chest 10/30/2021 Cancer Staging:Clinical:Stage Unknown(cTX, cN0, cM0) - Unsigned Pathologic stage from 05/24/2022:Stage Unknown(pTX, pN0, cM0) - Signed by Jose Car MD on 05/24/2022 Current Treatment and Therapy Plans No current plan information found. Past Treatment and Therapy Plans No past plan information found. Lifetime Dose Tracking * Chemical Lifetime Dose Automatic Entry Manual Entr y Dose Length Product 509.4 mGy-cm 509.4 mGy-cm 0 mGy-cm
--- OUTSIDE RECORDS SUMMARY | 2025-07-17 04:04 | XMS_ITS | Encounter Summary ---
Author Organization [facility] Address [address] [place] [address] Care Team Providers Care Sluice Tender Name Role Phone Pritesh Cintron MD Primary Care Provider [phone] Encounter Details Date Type Department Care Team (Late st Contact Info) Description 05/14/2023 Lab Requisition [facility] - DermPath Lab [address] [facility] [address] Lee Kovacs MD [address] [place] [address] Social History Tobacco Use Types Packs/Day Years [...] on file Legal Sex Male 4:28 AM FLOW TRADER Gender Identity Not on file Sexual Orientation Not on file documented as of this encounter Functional Status * Is person deaf or have serious hearing difficulty? Answer Date of Assessment Author No 2021 12:57 PM FLOW TRADER Ann Yang RN * Is person blind [...] st Contact Info) Description 01/12/2026 9:30 AM FLOW TRADER Office Visit [facility] - General Surgery [address] [place] [phone] Jose Car MD [address] [facility] [address] [place] [address] documented as of this encounter Procedures Procedure Name Priority Date/Time Associated Diagnosis Comments DERMATOPATHOLOGY Routine 05/14/2023 12:0 0 AM CDT documented in this encounter Results * DERMATOPATHOLOGY (05/14/2023 12:00 AM CDT) Case Report Dermatopathology Report Case: [id number] Authorizing Provider: Lee Kovacs MD Collected: 05/14/2023 12:00 AM Ordering Location: [facility] DermPath Lab Received: 05/14/2023 03:43 PM Pathologist: Jaqueline Hinds MD Specimen: Skin, right mid castrejon 3 1:00 PM CDT DERMATOPATHOLOGY LABORATORY Final Diagnosis Specimen A. SKIN, right mid castrejon: DERMATOFIBROMA (D23.9) 3 1:00 PM CDT DERMATOPATHOLOGY LABORATORY at 1300 CDT Clinical History [facility] Path#[id number] 3 1:00 PM CDT DERMATOPATHOLOGY LABORATORY Gross Description Specimen A: Received is one formalin filled container labeled with the patient's name and designated right mid castrejon. The specimen consists of a shave biopsy measuring 5x4x1 mm. Jar 0. 3 1:00 PM CDT DERMATOPATHOLOGY LABORATORY Microscopic Description [...] characteristic determined by the Dermatopathology Laboratory at [facility], directed by Dr. Yandel Soriano. These tests need not be, and therefore are not, approved by the [place] Food and Drug Administration. The tests are used for clinical purposes. Billing Codes Specimen Charges Stain Charges 24555 1 3 1:00 PM CDT DERMATOPATHOLOGY LABORATORY Embedded Images 3 1:00 PM CDT DERMATOPATHOLOGY LABORATORY Pathology/Cytolog y TISSUE SPECIMEN FROM SKIN / Unknown 05/14/2023 05/14/2023 3:43 PM CDT us Lee Kovacs MD LAB - PATHOLOGY/CYTOLOGY ORDER JUSTO Final Result DERMATOPATHOLOGY LABORATORY [facility] - Department of Dermatology [facility] [address] [place] [address], [address] [phone] documented in this encounter Visit Diagnoses Not on filedocumented in this encounter Care Teams Sluice Tender Relationship Specialty Start Date End Date Pritesh Cintron MD [address] [place] [address] PCP - General 06/16/19 documented as of this encounter
[2025-07-17 04:41] LABS: Hematocrit 41.8 % (42.0-52.0); Hemoglobin 13.6 g/dL (14.0-18.0); Immature Granulocyte Percent A 0.4 % (0-0.5); Lymphocytes Absolute Auto 0.97 K/mm3 (0.9-3.2); Mean Corpuscular HGB Conc 32.5 g/dl (32-36); Mean Corpuscular Hemoglobin 29.9 pg (26-34); Mean Corpuscular Volume 91.9 fl (80-100); Nucleated Red Blood Cells Absolute Auto 0.000 K/mm3 (0.0-0.012); Nucleated Red Blood Cells Perc 0.0 % (0.0-0.2); Platelet Count Result 220 k/mm3 (150-375); Red Blood Count 4.55 M/mm3 (4.6-6.20); White Blood Count 12.9 K/mm3 (4.5-10.0)
[2025-07-17 04:53] LABS: INR 0.9; Prothrombin Time 12.6 Seconds (11.1-14.7)
[2025-07-17 04:54] LABS: Partial Thromboplastin Time 25.5 Seconds (22.3-36.8)
[2025-07-17 05:02] LABS: Alanine Aminotransferase 24 U/L (6-50); Albumin Level 3.9 g/dL (3.5-5.1); Alkaline Phosphatase 77 U/L (38-126); Anion Gap 8 mmol/L (4-12); Aspartate Amino Transferase 26 U/L (17-59); Bilirubin,Total 0.5 mg/dL (0.2-1.3); Blood Urea Nitrogen 16 mg/dL (9-20); CRP 0.6 mg/dL (<1.0); Calcium 9.0 mg/dL (8.4-10.2); Carbon Dioxide 26 mmol/L (22-30); Chloride 109 mmol/L (98-107); Estimated CRCL calculation 51 ml/min; Estimated Glomerular Filt Rate > 60; Glucose 120 mg/dL (65-110); Potassium 4.0 mmol/L (3.4-5.0); Sodium 143 mmol/L (137-145); Total Protein 6.6 g/dL (6.3-8.2)
--- OUTSIDE RECORDS SUMMARY | 2025-07-17 06:11 | XMS_ITS | Encounter Summary ---
Author Organization [facility] Address [address] [facility] [place] [address] Care Team Providers Care Medical Equipment Technician Name Role Phone Pritesh Cintron MD Primary Care Provider Encounter Details Date Type Department Care Team (Late st Contact Info) Description 2022 Lab Requisition [facility] Care DermPath Lab [address] [facility] [place] [address] Lee Kovacs MD [address] [place] [address] Social History Tobacco Use Types Packs/Day Years [...] on file Legal Sex Male 4:28 AM SIGHTER Gender Identity Not on file Sexual Orientation Not on file documented as of this encounter Functional Status * Is person deaf or have serious hearing difficulty? Answer Date of Assessment Author No 2021 12:57 PM SIGHTER Ann Yang RN * Is person blind [...] st Contact Info) Description 01/12/2026 9:30 AM SIGHTER Office Visit [facility] - General Surgery [address] [place] [phone] Jose Car MD [address] [facility] [address] [place] [address] documented as of this encounter Procedures Procedure Name Priority Date/Time Associated Diagnosis Comments DERMATOPATHOLOGY Routine 11/13/2022 12:0 0 AM SIGHTER documented in this encounter Results * DERMATOPATHOLOGY (11/13/2022 12:00 AM SIGHTER) Case Report Dermatopathology Report Case: [id number] Authorizing Provider: Lee Kovacs MD Collected: 11/13/2022 12:00 AM Ordering Location: [facility] DermPath Lab Received: 2022 06:17 AM Pathologist: Jaqueline Hinds MD Specimen: Skin, right chest 2 3:14 PM SIGHTER DERMATOPATHOLOGY LABORATORY Final Diagnosis Specimen A. SKIN, right chest: BENIGN VERRUCOUS KERATOSIS, INFLAMED (L82.1) POST-INFLAMMATORY PIGMENT ALTERATION (L81.9) 2 3:14 PM SIGHTER DERMATOPATHOLOGY LABORATORY at [address] [facility] Clinical History SK vs. MM vs. Scar Path: [id number] 2 3:[address] [facility] DERMATOPATHOLOGY LABORATORY Gross Description Specimen A: Received is one formalin filled container labeled with the patient's name and designated right chest. The specimen consists of a shave biopsy measuring 5x4x4 mm. Jar 0. 2 3:[address] [facility] DERMATOPATHOLOGY LABORATORY Microscopic Description Specimen A. SKIN, right chest: Sections show hyperkeratosis, papillomatosis, hypergranulosis, and acanthosis. Inflammatory cells are present within the dermis. These histological findings can be seen in a verruca vulgaris or a seborrheic keratosis. Sections show abundant melanin within melanophages around the superficial vascular plexus. 2 3:[address] [facility] DERMATOPATHOLOGY LABORATORY Disclaimer An external and internal positive and negative controls are appropriate for the histochemical, immunohistochemical and immunofluorescence stain(s) in this case (if any), except where stated explicitly. The performance characteristics of the stain(s) cited in this report were developed and its performance characteristic determined by the Dermatopathology Laboratory at [facility], directed by Dr. Yandel Soriano. These tests need not be, and therefore are not, approved by the [place] Food and Drug Administration. The tests are used for clinical purposes. Billing Codes Specimen Charges Stain Charges 84791 1 2 3:[address] [facility] DERMATOPATHOLOGY LABORATORY Embedded Images 2 3:[address] [facility] DERMATOPATHOLOGY LABORATORY Pathology/Cytolog y TISSUE SPECIMEN FROM SKIN / Unknown 11/13/2022 2022 6:[address] [facility] us Lee Kovacs MD LAB - PATHOLOGY/CYTOLOGY ORDER JUSTO Final Result DERMATOPATHOLOGY LABORATORY [facility] - Department of Dermatology [address] [place] [address], [facility] [phone] documented in this encounter Visit Diagnoses Not on filedocumented in this encounter Care Teams Medical Equipment Technician Relationship Specialty Start Date End Date Pritesh Cintron MD [address] [place] [address] PCP - General 06/16/19 documented as of this encounter
--- OUTSIDE RECORDS SUMMARY | 2025-07-17 06:11 | XMS_ITS | Clinical Summary ---
Author Organization [facility] Address [address] [place] [address] Care Team Providers Care Farm Technician Name Role Phone Pritesh Cintron MD Primary Care Provider [phone] Source Comments [facility],non-owned Affiliates and Associated Physician Practices is amultiple site organization consisting of ambulatory clinics and hospital sitesin [place], [place], [place] and [place]. This disclosure is being madepursuant to the Care Everywhere program and may not contain all information available regarding this patient. Last updated 18.[facility] Allergies Active Allergy Reactions Criticality Noted Date [...] LURIA, FLUZONE TRIVALENT; 6MO+) (IIV3) 10/25/2009 Covid L'Idealist primary monoval ent 12+ yr 0.3mL Purple cap 11/06/2021,02/20/2021,01/30/2021 INFLUENZA A O6P0-31 VACCINE 10/25/2009 INFLUENZA VACCINE 09/01/2022,09/01/2021 Social History [...] on file Legal Sex Male 4:28 AM LABORATORY DIRECTOR Gender Identity Not on file Sexual Orientation Not on file Last Filed Vital Signs Vital Sign Reading Time Taken Comments Blood Pressure 97/63 01/06/2025 9:58 AM LABORATORY DIRECTOR Pulse 70 01/06/2025 9:58 AM LABORATORY DIRECTOR Temperature 36.6 C (97.8 F) 01/06/2025 9:58 AM LABORATORY DIRECTOR Respiratory Rate 18 01/06/2025 9:58 AM LABORATORY DIRECTOR Oxygen Saturation 92% 01/06/2025 9:58 AM LABORATORY DIRECTOR Inhaled Oxygen Concentration - - Weight 68 kg (150 lb) 01/06/2025 9:58 AM LABORATORY DIRECTOR Height 165.1 cm (5' 5) 01/06/2025 9:58 AM LABORATORY DIRECTOR Body Mass Index 24.96 01/06/2025 9:58 AM LABORATORY DIRECTOR Plan of Treatment Upcoming Encounters Date Type Department Care Team (Late st Contact Info) Description 01/12/2026 9:30 AM LABORATORY DIRECTOR Office Visit [facility] - General Surgery [address] [place] [phone] Jose Car MD [address] [facility] [address] [place] [address] Health Maintenance Due Date Last Done [...] HEPATITIS SCREEN ACUTE Routine 10/26/2014 10:47 AM LABORATORY DIRECTOR from Last 3 Months or Most Recently Relevant to Health Maintenance Results * HEPATITIS SCREEN ACUTE (10/26/2014 10:47 AM LABORATORY DIRECTOR) Hepatitis A Virus Antibody IgM Non-react [facility] Hepatitis B Virus Surface Antigen Non-react [facility] Hepatitis B Core Virus Antibody IgM Non-react [facility] Hepatitis C Antibody Non-react [facility] Comment: Hepatitis C Antibody screen indicates no serologic evidence of past or current infection with Hepatitis C Virus. Patients with unexplained liver disease who are immunocompromised or suspected of having acute Hepatitis C infection may benefit from Nucleic Acid Test (TUTU) for Hepatitis C Viral RNA to confirm Hepatitis C status. Blood specimen (specimen) BLOOD SPECIMEN / Unknown 10/26/2014 10:47 AM LABORATORY DIRECTOR 10/26/2014 11:50 AM LABORATORY DIRECTOR Steven Cheek MD LAB - CHEMISTRY ORDERABLES F inal Result [address] [phone] from Last 3 Months or Most Recently Relevant to Health Maintenance Insurance [facility] * Guarantor: CLIFFORD JENKINS Account Type Relation to Patient Date of Phone Billing Address Personal/Family [address] [place] [phone] * Guarantor: CLIFFORD JENKINS Account Type Relation to Patient Date of Phone Billing Address Personal/Family [address] [place] [phone] Care Teams Farm Technician Relationship Specialty Start Date End Date Pritesh Cintron MD [address] [place] [address] PCP - General 06/16/19
--- OUTSIDE RECORDS SUMMARY | 2025-07-17 06:11 | XMS_ITS ---
Author Organization [facility] Address [address] [id number] Care Team Providers Care Sole Blacker Name Role Phone Angelo Montez Primary Care Provider Billy Farnsworth Unavailable [phone] Jose Arellano Unavailable Unavailable Migration, Provider Unavailable Unavailable Allergies Allergen (clinical drug ingredient) Drug/Non Drug Allergy documented on EMR Reaction Allergy Type Onset Date Status DARVOCET (uncoded) hives Allergy A ctive REASON FOR VISIT Multum To Medispan Conversion Encounter Encounters Encounter Location Date Provider Diagnosis [facility] [address] [id number] 2024 Provider Migration Plan Of Treatment No Information Progress Notes * Clifford JENKINS EDOB:[birth year] (69 yo M)Acc No.[id number] Patient: Clifford KAMARA Provider: Yonas pereira Migration :1955 A ge:69 Y S ex:Male Date:2024 Address:[address] [place], [place] [id number] Pcp:Angelo Montez Subjective: * Chief Complaints: * 1 . Multum To Medispan Conversion Encounter. * Medical History: * Allergies: D ARVOCET: hives. Objective: * Vitals: * Physical Examination: Assessment: Plan: * Treatment: * Images: * Electronic signature of Prov ider Migration on 07/17/2025 at 06:10 AM CDT Sign off status: Pending * Provider: P rovider Migration Date: 1 01/15/2024 Generated for Ghada frederick/Ashlyn/Cyndyitting on: 0 07/17/2025 06:10 AM CDT
--- OUTSIDE RECORDS SUMMARY | 2025-07-17 06:11 | XMS_ITS | Clinical Summary ---
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
--- OUTSIDE RECORDS SUMMARY | 2025-07-17 06:11 | XMS_ITS | Patient Health Record ---
Author Organization [facility] Address [address] [facility] [address] [place], [place] [phone] Care Team Providers Care Waist Cutter Name Role Phone Angelo Montez Primary Care Provider Billy Farnsworth Unavailable [phone] Jose Arellano Unavailable Unavailable Migration, Provider Unavailable Unavailable Allergies Allergen (clinical drug ingredient) Drug/Non Drug Allergy documented on EMR Reaction Allergy Type Onset Date Status DARVOCET (uncoded) hives Allergy A ctive Reason For Referral No Information Problems Problem Type SNOMED Code ICD Code Onset Dates Problem Status W/U Status Risk Notes Problem Vasomotor rhinitis (7751966) 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 Problem Tobacco use (676034056) TOBACCO USE DISORDER (305.1) Active confirmed Problem Neoplasm of digestive system (115429988) 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 Encounters Encounter Location Date Provider Diagnosis [facility] [address] [facility] [address] [place], [place] [phone] 2024 Provider Migration Plan Of Treatment No Information Insurance Providers Payer Name Payer Address Payer Phone Subscriber Number Group Number Insured Name Patient Relationship to Insured Coverage Start Date Coverage End Date [facility] [address] [address] [place] [address] [phone] [id number] Clifford Velasquez Self - patient is the insured Medical (General) History Medical History History ICD Code Pertinent Medical History:: Vision changes, Nose problems, Migraine headaches, Surgical History Surgery Date(Month/Year) lasix surgery deviated septum excision lesion palate
--- OUTSIDE RECORDS SUMMARY | 2025-07-17 06:11 | XMS_ITS | Encounter Summary ---
Author Organization [facility] Address [address] [facility] [place] [address] Care Team Providers Care Inspector Tool Name Role Phone Pritesh Cintron MD Primary Care Provider [phone] Encounter Details Date Type Department Care Team (Late Contact Info) Description 10/11/2021 Lab Requisition [facility] Care DermPath Lab [address] [place] [phone] Lee Kovacs MD [address] [place] [address] Social History Tobacco Use Types Packs/Day Years Used Date Smoking Tobacco: Every Day Comments:smoke cigars Alcohol Use Standard Drinks/Week Comments No 0 (1 standard drink = 0.6 oz pur e alcohol) Sex and Gender Information Value Date Recorded Sex Assigned at Not on file Legal Sex Male 4:28 AM PROVIDER RELATIONS REPRESENTATIVE Gender Identity Not on file Sexual Orientation Not on file documented as of this encounter Plan of Treatment Upcoming Encounters Date Type Department Care Team (Late Contact Info) Description 01/12/2026 9:30 AM PROVIDER RELATIONS REPRESENTATIVE Office Visit [facility] - General Surgery [address] [place] [address] Jose Car MD [address] [facility] [address] [place] [address] documented as of this encounter Procedures Procedure Name Priority Date/Time Associated Diagnosis Comments DERMATOPATHOLOGY Routine 10/09/2021 3:33 AM PROVIDER RELATIONS REPRESENTATIVE documented in this encounter Results * DERMATOPATHOLOGY (10/09/2021 3:33 AM PROVIDER RELATIONS REPRESENTATIVE) Case Report Dermatopathology Report Case: [id number] Authorizing Provider: Lee Kovacs MD Collected: 10/09/2021 03:33 AM Ordering Location: [facility] DermPath Lab Received: 10/11/2021 06:42 AM Pathologist: Ben Soriano MD Specimen: Skin, right mid chest 4:27 PM [facility] DERMATOPATHOLOGY LABORATORY Final Diagnosis Specimen A. SKIN, right mid chest: MALIGNANT MELANOMA, METASTATIC (C80.0) (see microscopic description and comment) 4:27 PM [facility] DERMATOPATHOLOGY LABORATORY at 1627 PROVIDER RELATIONS REPRESENTATIVE Clinical History Nevus vs BCCA. Path# [id number] 4:27 PM [facility] DERMATOPATHOLOGY LABORATORY Gross Description Specimen A: Received is one formalin filled container labeled with the patient's name and designated right mid chest. The specimen consists of a shave biopsy measuring [id number]. Jar 0. 4:27 PM [facility] DERMATOPATHOLOGY LABORATORY Microscopic Description Specimen A. [...] the base of the specimen. 4:27 PM [facility] DERMATOPATHOLOGY LABORATORY Disclaimer An external and internal positive and negative controls are appropriate for the histochemical, immunohistochemical and immunofluorescence stain(s) in this case (if any), except where stated explicitly. The performance characteristics of the stain(s) cited in this report were developed and its performance characteristic determined by the Dermatopathology Laboratory at [facility], directed by Dr. Yandel Soriano. These tests need not be, and therefore are not, approved by the [place] Food and Drug Administration. The tests are used for clinical purposes. Billing Codes Specimen Charges Stain Charges 62719 1 31988 31002 1 1 1 4:27 PM PROVIDER RELATIONS REPRESENTATIVE DERMATOPATHOLOGY LABORATORY Embedded Images 4:27 PM PROVIDER RELATIONS REPRESENTATIVE DERMATOPATHOLOGY LABORATORY Pathology/Cytolo gy TISSUE SPECIMEN FROM SKIN / Unknown 10/09/2021 3:33 AM PROVIDER RELATIONS REPRESENTATIVE 10/11/2021 6:42 AM PROVIDER RELATIONS REPRESENTATIVE us Lee Kovacs MD LAB - PATHOLOGY/CYTOLOGY ORDER JUSTO Final Result DERMATOPATHOLOGY LABORATORY [facility] - Department of Dermatology [facility] Medicine [address] [place] [address], [address] [phone] documented in this encounter Visit Diagnoses Not on filedocumented in this encounter Care Teams Inspector Tool Relationship Specialty Start Date End Date Pritesh Cintron MD [address] [place] [address] PCP - General 06/16/19 documented as of this encounter
--- OUTSIDE RECORDS SUMMARY | 2025-07-17 06:11 | XMS_ITS ---
Author Organization [facility] Address [address] [facility] [place] [address] Care Team Providers Care Hotel Houseman Name Role Phone Pritesh Cintron MD Primary Care Provider [phone] Active Problems Problem Noted Date Diagnosed Date [...]
--- OUTSIDE RECORDS SUMMARY | 2025-07-17 06:11 | XMS_ITS | Encounter Summary ---
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 Answer Date of Assessment Author No 2021 12:57 PM TRAINING AND DEVELOPMENT MANAGER Ann Yang RN * Is person blind [...] st Contact Info) Description 01/12/2026 9:30 AM TRAINING AND DEVELOPMENT MANAGER Office Visit [facility] - General Surgery [address] [place] [phone] Jose Car MD [address] [facility] [address] [place] [address] documented as of this encounter Procedures Procedure Name Priority Date/Time Associated Diagnosis Comments DERMATOPATHOLOGY Routine 05/14/2023 12:0 0 AM CDT documented in this encounter Results * DERMATOPATHOLOGY (05/14/2023 12:00 AM CDT) Case Report Dermatopathology Report Case: [id number] Authorizing Provider: Lee Kovacs MD Collected: 05/14/2023 12:00 AM Ordering Location: [facility] DermPath Lab Received: 05/14/2023 03:43 PM Pathologist: Jaqueline Hinds MD Specimen: Skin, right mid castrejon 3 1:00 PM CDT DERMATOPATHOLOGY LABORATORY Final Diagnosis Specimen A. SKIN, right mid castrejon: DERMATOFIBROMA (D23.9) 3 1:00 PM CDT DERMATOPATHOLOGY LABORATORY at 1300 CDT Clinical History BCCA Path#[id number] 3 1:00 PM CDT DERMATOPATHOLOGY LABORATORY Gross [...] determined by the Dermatopathology Laboratory at [facility], directed by Dr. Yandel Soriano. These tests need not be, and therefore are not, approved by the [place] Food and Drug Administration. The tests are used for clinical purposes. Billing Codes Specimen Charges Stain Charges 21394 1 3 1:00 PM CDT DERMATOPATHOLOGY LABORATORY Embedded Images 3 1:00 PM CDT DERMATOPATHOLOGY LABORATORY Pathology/Cytolog y TISSUE SPECIMEN FROM SKIN / Unknown 05/14/2023 05/14/2023 3:43 PM CDT us Lee Kovacs MD LAB - PATHOLOGY/CYTOLOGY ORDER JUSTO Final Result DERMATOPATHOLOGY LABORATORY [facility] - Department of Dermatology [facility] Medicine [address] [place] [address], [address] [phone] documented in this encounter Visit Diagnoses Not on filedocumented in this encounter Care Teams Cable Tester Relationship Specialty Start Date End Date Pritesh Cintron MD [address] [place] [address] PCP - General 06/16/19 documented as of this encounter
[2025-07-17 06:13] LABS: Add Urine Microscopic? NO; Appearance Urine Clear (Clear); Glucose Urine UA Negative (Negative); Leukocyte Esterase Ur Negative LEU/UL (Negative); Nitrate Urine Negative (Negative); Specific Grav Ur 1.017 (1.001-1.035)
--- NOTE | 2025-07-17 06:28 | ED.FEVER ---
HPI - Fever General Chief Complaint: Fever Stated Complaint: dyspnea and fever Time Seen by Provider: 07/17/25 05:42 History of Present Illness HPI Narrative: 69-year-old male with history of CVA, hypertension, GERD, previous cerebral aneurysm. Patient presents to the emergency department with fever, chills, coughing up phlegm and productive sputum as well as shortness of breath. Symptoms ongoing since last night. Has coughed up numerous times throughout the night and felt short of breath. Feels like the same time he had a pneumonia in the past. Denies any chest pain or pressure. No wheezing. No headache, vision changes, nausea, vomiting, abdominal pain, dysuria. No traumatic injuries. No recent antibiotics. Related Data Home Medications ?Medication ?Instructions ?Recorded ?Confirmed ?Last Taken ?Type amlodipine 10 mg tablet 10 mg PO 0600 10/01/24 04/20/25 10/01/24 08:00 History atorvastatin 10 mg tablet 10 mg PO HS 10/01/24 04/20/25 09/30/24 21:00 History lisinopril 20 mg tablet 20 mg PO 1800 10/01/24 04/20/25 09/30/24 18:00 History metoprolol succinate 25 mg 12.5 mg PO 0600,1800 10/01/24 04/20/25 10/01/24 06:00 History tablet,extended release 24 hr trazodone 50 mg tablet 50 mg PO 10/01/24 04/20/25 09/30/24 21:00 History Allergies Allergy/AdvReac Type Severity Reaction Status Date / Time No Known Allergies Allergy Verified 04/20/25 08:47 Review of Systems Review of Systems: As [facility] Past Medical History Medical History History of melanoma Emphysema/COPD History of skin cancer AAA (abdominal aortic aneurysm) Hx of adenomatous colonic polyps GERD (gastroesophageal reflux disease) Encounter for screening colonoscopy CVA (cerebral vascular accident) Hypertension Surgical History Surgical History No pertinent past surgical history Family History Family History Mother Aneurysm Social History Social History Smoking packs per day: 2 Smoking cigarettes per day: 40.0 Years smoked: 26 Smoking pack-years: 52.00 Smoking status: Former smoker Tobacco type: cigarettes and cigars Second hand tobacco smoke exposure: No Smoking end date: 11/05/16 Alcohol intake: never Substance use: never Substance use type: marijuana Do You Feel Safe in your Home?: Yes Lack of Transportation: No Lack of Food: Never True Current Housing: I Have Housing Concerned About Future Housing: Decline to Answer Difficulty Paying Gas/Electric Bills: Decline to Answer Difficulty Paying for Meds: Decline to Answer Currently Unemployed: Decline to Answer Education: High School Diploma/GED Difficulty w/ Childcare or Family Care: Decline to Answer Living arrangements: with family Occupation/Education: retired Gender identity (if verbalized by the patient): Male Sexual Orientation (if Verbalized by the Patient): Straight or Heterosexual Spiritual care concerns: No Agree to blood products: Yes Exam Narrative: GENERAL: [Well-appearing, well-nourished, and in no acute distress.] HEAD: [Normocephalic, atraumatic.] EYES: [PERRLA and EOMI.] ENT: Nares clear, no rhinorrhea or epistaxis. Mucous membranes dry. NECK: Supple. CHEST: Coarse asymmetric breath sounds right worse than left, no respiratory distress aside from mild tachypnea without any retractions. Mildly conversationally dyspneic but no wheezing appreciated. HEART: [Regular rate and rhythm]. No murmur heard. [Normal peripheral pulses.] ABDOMEN: [Soft, nondistended], [nontender], [No rigidity or guarding] EXTREMITIES: Normal range of motion. [No edema.] SKIN: Warm, dry, no rash. NEURO: [No focal deficits]. Alert and oriented [x3.] PSYCH: [Normal mood and affect.] Course Vital Signs Vital signs: Vital Signs Temperature 37.5 C 07/17/25 04:07 Pulse Rate 106 H 07/17/25 04:07 Respiratory Rate 21 H 07/17/25 04:07 Blood Pressure 120/64 07/17/25 04:07 Pulse Oximetry 92 07/17/25 04:07 Oxygen Delivery Room Air 07/17/25 04:07 Temperature 37.5 C 07/17/25 04:07 Pulse Rate 106 H 07/17/25 04:07 Respiratory Rate 24 H 07/17/25 04:07 Blood Pressure 120/64 07/17/25 04:07 Pulse Oximetry 92 07/17/25 04:07 Oxygen Delivery Room Air 07/17/25 04:07 MDM - Fever MDM Narrative Medical decision making narrative: 69-year-old male with history of CVA, hypertension, GERD, previous cerebral aneurysm. Patient presents to the emergency department with fever, chills, coughing up phlegm and productive sputum as well as shortness of breath. Symptoms ongoing since last night. Has coughed up numerous times throughout the night and felt short of breath. Feels like the same time he had a pneumonia in the past. Denies any chest pain or pressure. No wheezing. No headache, vision changes, nausea, vomiting, abdominal pain, dysuria. No traumatic injuries. No recent antibiotics. Coarse asymmetric breath sounds right worse than left, no respiratory distress aside from mild tachypnea without any retractions. Mildly conversationally dyspneic but no wheezing appreciated. Patient is mildly tachypneic and tachycardic with a pulse of 106 but normal blood pressure. Afebrile 37.5 but very warm to the touch. Saturating 92% on room air. He is coughing infrequently and did cough up some mucus with red streaked phlegm here in the emergency department. Concern for pneumonia versus other infectious process. Given his tachycardia and subjective fever septic bundle was initiated with antibiotics including Rocephin and azithromycin for community-acquired antibiotic coverage. He was given 30 cc/kg bolus. Appears very dehydrated examination. Laboratory studies obtained which show white count but no lactic acidosis. He does have x-ray findings consistent with multifocal pneumonia with patchy opacities bilaterally. Treated for community-acquired pneumonia and will be admitted to the hospital for IV continued treatment. Spoke to the hospitalist mid-level provider who accepted the patient to the hospital on a telemetry monitored bed at this time. Medical Records Attestation: I reviewed the patient's medical records. Lab Data Attestation: I reviewed the patient's lab results. 07/17/25 04:30 07/17/25 04:30 Labs: Lab Results 07/17/25 07/17/25 Range/Units 04:30 05:58 WBC 12.9 H (4.5-10.0) K/mm3 RBC 4.55 L (4.6-6.20) M/mm3 Hgb 13.6 L (14.0-18.0) g/dL Hct 41.8 L (42.0-52.0) % MCV 91.9 (80-100) fl MCH 29.9 (26-34) pg MCHC 32.5 (32-36) g/dl RDW 13.5 (11.5-14.5) % Plt Count 220 (150-375) k/mm3 MPV 9.5 (7.4-10.4) fl Immature Gran % (Auto) 0.4 (0-0.5) % Neut % (Auto) 87.5 H (45.5-73.1) % Lymph % (Auto) 7.5 L (18.3-44.2) % [place] % (Auto) 3.1 (2.6-8.5) % Eos % (Auto) 0.9 (0-4.4) % Baso % (Auto) 0.6 (0.2-1.2) % Lymph # (Auto) 0.97 (0.9-3.2) K/mm3 [place] # (Auto) 0.4 (0.1-0.6) K/mm3 Eos # (Auto) 0.1 (0-0.3) K/mm3 Baso # (Auto) 0.1 (0.0-0.1) K/mm3 Abs Immat Gran (auto) 0.05 H (0.00-0.031) K/mm3 Absolute Neuts (auto) 11.3 H (1.3-6.7) K/mm3 Absolute Nucleated RBC 0.000 (0.0-0.012) K/mm3 Nucleated RBC % 0.0 (0.0-0.2) % PT 12.6 (11.1-14.7) Seconds INR 0.9 APTT 25.5 (22.3-36.8) Seconds Sodium 143 (137-145) mmol/L Potassium 4.0 (3.4-5.0) mmol/L Chloride 109 H (98-107) mmol/L Carbon Dioxide 26 (22-30) mmol/L Anion Gap 8 (4-12) mmol/L BUN 16 (9-20) mg/dL Creatinine 1.03 (0.7-1.3) mg/dL Estim Creat Clear Calc 51 ml/min Estimated GFR > 60 (59 - ) Glucose 120 H (65-110) mg/dL Lactic Acid 1.9 1.0 (0.7-2.0) mmol/L Calcium 9.0 (8.4-10.2) mg/dL Total Bilirubin 0.5 (0.2-1.3) mg/dL AST 26 (17-59) U/L ALT 24 (6-50) U/L Alkaline Phosphatase 77 (38-126) U/L C-Reactive Protein 0.6 (<1.0) mg/dL Total Protein 6.6 (6.3-8.2) g/dL Albumin 3.9 (3.5-5.1) g/dL Urine Color Yellow (Yellow) Urine Appearance Clear (Clear) Urine pH 7.5 (5.0-9.0) Ur Specific [place] 1.017 (1.001-1.035) Urine Protein Negative (Negative) mg/dL Urine Glucose (UA) Negative (Negative) mg/dL Urine Ketones Negative (Negative) mg/dL Ur Blood (Man) Negative (Negative) Urine Nitrate Negative (Negative) Urine Bilirubin Negative (Negative) Urine Urobilinogen 1.0 (<2.0) mg/dL Leukocyte Esterase Rfl Negative (Negative) REJI/UL Imaging Data My impression: Multifocal opacities consistent with pneumonia Critical Care Time Critical Care Time Critical Care Time: Yes Total Critical Care Time: 35 Discharge Plan Discharge Clinical Impression: Sepsis, Community acquired bacterial pneumonia Patient Disposition: Still a Patient Condition: Stable Patient Language: Togolese Prescriptions: No Action omeprazole 20 mg capsule,delayed release(DR/EC) 20 mg PO BID 90 Days Qty: 180 3RF trazodone 50 mg tablet 50 mg PO HS atorvastatin 10 mg tablet 10 mg PO HS lisinopril 20 mg tablet 20 mg PO 1800 amlodipine 10 mg tablet 10 mg PO 0600 metoprolol succinate 25 mg tablet extended release 24 hr 12.5 mg PO 0600,1800 albuterol sulfate 90 mcg/actuation HFA aerosol inhaler 2 puff INHALATION QID PRN (Reason: shortness of breath or wheezing) Qty: 8 2RF Trelegy Ellipta 100-62.5-25 mcg blister with device 1 inh inhalation ONCE Qty: 180 2RF cimetidine 400 mg tablet 400 mg PO BID 90 Days Qty: 180 2RF gabapentin 100 mg capsule 200 mg PO 06,1400,1800 Qty: 600 2RF nystatin [Klayesta] 100,000 unit/gram powder See Rx Instructions .ROUTE .COMPLEX Qty: 60 0RF Dose Instruction: APPLY TOPICALLY 2 OR 3 TIMES DAILY DIRECTED Rx Instructions: APPLY TOPICALLY 2 OR 3 TIMES DAILY DIRECTED Follow-up/Referrals: Pritesh Cintron MD [Primary Care Provider] - Time of Disposition: 06:36
[2025-07-17] MEDS: SODIUM CHLORIDE 0.9% IV 1,000 ML 999 ML IV CONT ×2 (06:31→06:32)
[2025-07-17] MEDS: cefTRIAXone 1 GM in SODIUM CHLORIDE 0.9% IV 50 ML 100 ML IVPB (06:31)
[2025-07-17] MEDS: IBUPROFEN IV 800 MG/200 ML 800 MG/200 ML BAG 400 MG IVPB (06:46)
[2025-07-17] MEDS: AZITHROMYCIN IV 500 MG in SODIUM CHLORIDE 0.9% IV 250 ML IVPB (07:01)
[2025-07-17] MEDS: LACTATED RINGERS 1,000 ML 999 ML IV CONT (07:01)
[2025-07-17] MEDS: ACETAMINOPHEN 500 MG TABLET 1000 MG PO (07:19)
--- NOTE | 2025-07-17 07:24 | PM.IMHP ---
H&P: HPI History of Present Illness Date/Time: 07/17/25 07:24 Chief Complaint: Cough and fever Narrative: 69-year-old male with history of CVA, hypertension, GERD, previous cerebral aneurysm. Patient presents to the emergency department with fever, chills, coughing up phlegm and productive sputum as well as shortness of breath. Patient reports of cough but denies no wheezing,headache,or urinary symptoms. He is coughing infrequently and did cough up some mucus with red streaked phlegm here in the emergency department.In the ED 30cc/kg bolus.X-ray findings consistent with multifocal pneumonia with patchy opacities bilaterally.Pertinent ED labs: WBC 12.9,HgB 13.6,HCT 41.8,PLT 220,Na 143,K 4,Cl 109,AG 8, Glucose 120, Lactic acid 1.UA: LE neg,Nitrate -ve Patient is admitted in the setting of PNA. Patient will be started on Ceftriaxone and Doxycyline. Of note patient has AAA which is managed by PCP with serial imaging.Patient was examined along with his . Patient is independent and do not use oxygen at home. Patient has a history of CVA 2016. Patient was a previous smoker and reports a has a history of COPD and emphysema. Patient today woke up around 2:00 a.m. had cough and fever. 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 Review of Systems Review of Systems: As reviewed above in HPI [facility] Past Medical History Medical History History of melanoma Emphysema/COPD History of skin cancer AAA (abdominal aortic aneurysm) Hx of adenomatous colonic polyps GERD (gastroesophageal reflux disease) Encounter for screening colonoscopy CVA (cerebral vascular accident) Hypertension Surgical History Surgical History No pertinent past surgical history Family History Family History Mother Aneurysm Social History Social History Smoking packs per day: 2 Smoking cigarettes per day: 40.0 Years smoked: 26 Smoking pack-years: 52.00 Smoking status: Former smoker Second hand tobacco smoke exposure: No Alcohol intake: never Substance use: never Substance use type: marijuana Do You Feel Safe in your Home?: Yes Lack of Transportation: No Lack of Food: Never True Current Housing: I Have Housing Concerned About Future Housing: Decline to Answer Difficulty Paying Gas/Electric Bills: Decline to Answer Difficulty Paying for Meds: Decline to Answer Currently Unemployed: Decline to Answer Education: High School Diploma/GED Difficulty w/ Childcare or Family Care: Decline to Answer Living arrangements: with family Occupation/Education: retired Gender identity (if verbalized by the patient): Male Sexual Orientation (if Verbalized by the Patient): Straight or Heterosexual Spiritual care concerns: No Agree to blood products: Yes Meds Home Medications and Allergies Home Medications ?Medication ?Instructions ?Recorded ?Confirmed ?Type amlodipine 10 mg tablet 10 mg PO 0600 10/01/24 07/17/25 History atorvastatin 10 mg tablet 10 mg PO HS 10/01/24 07/17/25 History lisinopril 20 mg tablet 20 mg PO 1800 10/01/24 07/17/25 History metoprolol succinate 25 mg 12.5 mg PO 0600,1800 10/01/24 07/17/25 History tablet,extended release 24 hr trazodone 50 mg tablet 50 mg PO HS 10/01/24 07/17/25 History Trelegy Ellipta 100 mcg-62.5 1 inh inhalation ONCE #180 ea 12/17/24 07/17/25 Rx mcg-25 mcg powder for inhalation (ctgqrvmevep-gtysrqwzw-azunbntv) cimetidine 400 mg tablet 400 mg PO 06,18 07/17/25 07/17/25 History gabapentin 100 mg capsule 200 mg PO 06,14,22 07/17/25 07/17/25 History Allergies Allergy/AdvReac Type Severity Reaction Status Date / Time steroids AdvReac Intermediate Agitated Uncoded 07/17/25 09:42 Vital Signs Vital Signs - 24 hr 07/17/25 04:07 07/17/25 04:07 07/17/25 05:13 Temperature 99.5 F Pulse Rate 106 H 95 Respiratory Rate 21 H 24 H 19 Blood Pressure 120/64 Pulse Oximetry 92 Oxygen Delivery Room Air 07/17/25 05:15 07/17/25 05:30 07/17/25 05:45 Temperature Pulse Rate 96 97 110 H Respiratory Rate 21 H 22 H 29 H Blood Pressure Pulse Oximetry Oxygen Delivery 07/17/25 06:00 07/17/25 06:15 07/17/25 06:30 Temperature Pulse Rate 98 99 96 Respiratory Rate 23 H 27 H 22 H Blood Pressure Pulse Oximetry Oxygen Delivery 07/17/25 06:45 07/17/25 06:46 07/17/25 06:53 Temperature 99.5 F Pulse Rate 87 96 Respiratory Rate 26 H 17 Blood Pressure 103/61 Pulse Oximetry 92 90 Oxygen Delivery 07/17/25 07:00 07/17/25 07:08 Temperature 102.1 F H Pulse Rate 88 Respiratory Rate 23 H Blood Pressure Pulse Oximetry Oxygen Delivery Exam Narrative: GENERAL: [Well-appearing, well-nourished, and in no acute distress.] HEAD: [Normocephalic, atraumatic.] EYES: [PERRLA and EOMI.] ENT: Nares clear, no rhinorrhea or epistaxis. Mucous membranes dry. NECK: Supple. CHEST: Coarse asymmetric breath sounds right worse than left, no respiratory distress aside from mild tachypnea without any retractions. Mildly conversationally dyspneic but no wheezing appreciated. HEART: [Regular rate and rhythm]. No murmur heard. [Normal peripheral pulses.] ABDOMEN: [Soft, nondistended], [nontender], [No rigidity or guarding] EXTREMITIES: Normal range of motion. [No edema.] SKIN: Warm, dry, no rash. NEURO: [No focal deficits]. Alert and oriented [x3.] PSYCH: [Normal mood and affect.] H&P: Results Labs Labs: Short CBC 07/17/25 Range/Units 04:30 WBC 12.9 H (4.5-10.0) K/mm3 Hgb 13.6 L (14.0-18.0) g/dL Hct 41.8 L (42.0-52.0) % Plt Count 220 (150-375) k/mm3 BMP 07/17/25 04:30 Sodium 143 Potassium 4.0 Chloride 109 H Carbon Dioxide 26 BUN 16 Creatinine 1.03 Glucose 120 H Calcium 9.0 Liver Function 07/17/25 Range/Units 04:30 Total Bilirubin 0.5 (0.2-1.3) mg/dL AST 26 (17-59) U/L ALT 24 (6-50) U/L Alkaline Phosphatase 77 (38-126) U/L Albumin 3.9 (3.5-5.1) g/dL Urine 07/17/25 Range/Units 05:58 Urine Color Yellow (Yellow) Urine Appearance Clear (Clear) Urine pH 7.5 (5.0-9.0) Ur Specific Kinsey 1.017 (1.001-1.035) Urine Protein Negative (Negative) mg/dL Urine Glucose (UA) Negative (Negative) mg/dL Assessment and Plan Assessment and plan (1) Pneumonia: Qualifiers: Laterality: right Lung location: upper lobe of lung Pneumonia type: due to unspecified organism Qualified Code(s): J18.9 - Pneumonia, unspecified organism Code(s): J18.9 - Pneumonia, unspecified organism Status: Acute Assessment and Plan: Vital signs improved and stable CXR reviewed RSV COVID flu pending Started on Cefriaxone and azithromycin monitor cultures MRSA pending Chlamydia and Mycoplasma PCR pending Continue bronchodilators History of steroid-induced psychosis-avoid steroids encourage oral intake (2) Hypertension: Code(s): I10 - Essential (primary) hypertension Status: Acute Assessment and Plan: Hold Amlodipine,Lisinopril and Metoprolol Succinate (3) AAA (abdominal aortic aneurysm): Code(s): I71.40 - Abdominal aortic aneurysm, without rupture, unspecified Status: Acute Assessment and Plan: Slight increase in size from prior year. Control BP. Cont statin. Pt no longer smoking. Recheck w/ imaging 01/2026 (4) HLD (hyperlipidemia): Code(s): E78.5 - Hyperlipidemia, unspecified Status: Acute Assessment and Plan: Cont Atorvastatin 10 mg PO HS (5) GERD (gastroesophageal reflux disease): Code(s): K21.9 - Gastro-esophageal reflux disease without esophagitis Status: Acute (6) Metastatic melanoma: Code(s): C79.9 - Secondary malignant neoplasm of unspecified site Status: Acute Assessment and Plan: Stable. Plan Code status: Full code DVT prophylaxis: SCD. PMHx Intracranial Hemorrhage Hospitalist [facility] Advance Care Plan I have confirmed that the patient's Advanced Care Plan is present, code status is documented, or surrogate decision maker is listed in patient medical record.: Yes Medication Reconciliation I have utilized all available resources to obtain, update and review the patients current medications (includes all prescriptions, OTC, herbals, cannabis, and nutritional supplements).: Yes
[2025-07-17] MEDS: SODIUM CHLORIDE 0.9% IV 200 ML 999 ML IV CONT (08:08)
[2025-07-17 08:55] LABS: Influenza A QL RT-PCR Negative (Negative); Influenza B QL RT-PCR Negative (Negative); RSV RNA, RT-PCR Negative (Negative); SARS-CoV-2 RNA PCR Negative (Negative)
[2025-07-17 09:32] LABS: MRSA (PCR) NOT DETECTED (NOT DETECTE)
--- NOTE | 2025-07-17 09:35 | ADMGEN ---
This patient, Clifford Velasquez, was admitted to Medical Room 349-01. Patient/family oriented to hospital policies and general routines including ID bracelet, bed and alarms, visiting hours, pain management, procedures, bathroom and other care routines, personal items, smoking policy, room service/diet, and visiting hours. Information on how to activate the Rapid Response Team has been discussed. Patient/Family are encouraged to report perceived risks to care and to ask questions if they do not understand what they are told or what they should do.
--- OUTSIDE RECORDS SUMMARY | 2025-07-17 11:21 | XMS_ITS | Clinical Summary ---
Author Organization [facility] [employer] Address [address] [place] [address] Care Team Providers Care Waterproofer Name Role Phone Pritesh Cintron MD Primary Care Provider Source Comments [facility] [employer],non-owned Affiliates and Associated Physician Practices is amultiple site organization consisting of ambulatory clinics and hospital sitesin [place], [place], [place] and [place]. This disclosure is being madepursuant to the Care Everywhere program and may not contain all information available regarding this patient. 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 Gender Identity Not on file Sexual Orientation Not on file Last Filed Vital Signs Vital Sign Reading Time Taken Comments Blood Pressure 97/63 01/06/2025 9:58 AM CODING COMPLIANCE AUDITOR Pulse 70 01/06/2025 9:58 AM CODING COMPLIANCE AUDITOR Temperature 36.6 C (97.8 F) 01/06/2025 9:58 AM CODING COMPLIANCE AUDITOR Respiratory Rate 18 01/06/2025 9:58 AM CODING COMPLIANCE AUDITOR Oxygen Saturation 92% 01/06/2025 9:58 AM CODING COMPLIANCE AUDITOR Inhaled Oxygen Concentration - - Weight 68 kg (150 lb) 01/06/2025 9:58 AM CODING COMPLIANCE AUDITOR Height 165.1 cm (5' 5) 01/06/2025 9:58 AM CODING COMPLIANCE AUDITOR Body Mass Index 24.96 01/06/2025 9:58 AM CODING COMPLIANCE AUDITOR Plan of Treatment Upcoming Encounters Date Type Department Care Team (Late st Contact Info) Description 01/12/2026 9:30 AM CODING COMPLIANCE AUDITOR Office Visit [facility] - General Surgery [address] [place] [phone] Jose Car MD [address] [facility] [address] [place] [address] Health Maintenance Due Date Last Done [...] HEPATITIS SCREEN ACUTE Routine 10/26/2014 10:47 AM CODING COMPLIANCE AUDITOR from Last 3 Months or Most Recently Relevant to Health Maintenance Results * HEPATITIS SCREEN ACUTE (10/26/2014 10:47 AM CODING COMPLIANCE AUDITOR) Hepatitis A Virus Antibody IgM Non-react [facility] Hepatitis B Virus Surface Antigen Non-react [facility] Hepatitis B Core Virus Antibody IgM Non-react [facility] Hepatitis C Antibody Non-react [facility] Comment: Hepatitis C Antibody screen indicates no serologic evidence of past or current infection with Hepatitis C Virus. Patients with unexplained liver disease who are immunocompromised or suspected of having acute Hepatitis C infection may benefit from Nucleic Acid Test (TUTU) for Hepatitis C Viral RNA to confirm Hepatitis C status. Blood specimen (specimen) BLOOD SPECIMEN / Unknown 10/26/2014 10:47 AM CODING COMPLIANCE AUDITOR 10/26/2014 11:50 AM CODING COMPLIANCE AUDITOR Steven Cheek MD LAB - CHEMISTRY ORDERABLES F inal Result [address] [phone] from Last 3 Months or Most Recently Relevant to Health Maintenance Insurance [facility] MEDICARE * Guarantor: CLIFFORD JENKINS Account Type Relation to Patient Date of Phone Billing Address Personal/Family [address] [place] [phone] * Guarantor: CLIFFORD JENKINS Account Type Relation to Patient Date of Phone Billing Address Personal/Family [address] [place] [phone] Care Teams Waterproofer Relationship Specialty Start Date End Date Pritesh Cintron MD [address] [place] [address] PCP - General 06/16/19
--- OUTSIDE RECORDS SUMMARY | 2025-07-17 11:21 | XMS_ITS | Encounter Summary ---
Author Organization [facility] Address [address] [facility] [place] [address] Care Team Providers Care Plant Breeder Name Role Phone Pritesh Cintron MD Primary Care Provider [phone] Encounter Details Date Type Department Care Team (Late Contact Info) Description 10/11/2021 Lab Requisition [facility] Care DermPath Lab [address] [place] [phone] Lee Kovacs MD [address] [place] [address] Social History Tobacco Use Types Packs/Day Years Used Date Smoking Tobacco: Every Day Comments:smoke cigars Alcohol Use Standard Drinks/Week Comments No 0 (1 standard drink = 0.6 oz pur e alcohol) Sex and Gender Information Value Date Recorded Sex Assigned at Not on file Legal Sex Male 4:28 AM AP PROCESSOR Gender Identity Not on file Sexual Orientation Not on file documented as of this encounter Plan of Treatment Upcoming Encounters Date Type Department Care Team (Late Contact Info) Description 01/12/2026 9:30 AM AP PROCESSOR Office Visit [facility] - General Surgery [address] [place] [address] Jose Car MD [address] [facility] [address] [place] [address] documented as of this encounter Procedures Procedure Name Priority Date/Time Associated Diagnosis Comments DERMATOPATHOLOGY Routine 10/09/2021 3:33 AM AP PROCESSOR documented in this encounter Results * DERMATOPATHOLOGY (10/09/2021 3:33 AM AP PROCESSOR) Case Report Dermatopathology Report Case: [id number] Authorizing Provider: Lee Kovacs MD Collected: 10/09/2021 03:33 AM Ordering Location: [facility] DermPath Lab Received: 10/11/2021 06:42 AM Pathologist: Ben Soriano MD Specimen: Skin, right mid chest 4:27 PM [facility] DERMATOPATHOLOGY LABORATORY Final Diagnosis Specimen A. SKIN, right mid chest: MALIGNANT MELANOMA, METASTATIC (C80.0) (see microscopic description and comment) 4:27 PM [facility] DERMATOPATHOLOGY LABORATORY at 1627 AP PROCESSOR Clinical History Nevus vs BCCA. Path# [id number] 4:27 PM [facility] DERMATOPATHOLOGY LABORATORY Gross Description Specimen A: Received is one formalin filled container labeled with the patient's name and designated right mid chest. The specimen consists of a shave biopsy measuring 6u0e3bl. Jar 0. 4:27 PM [facility] DERMATOPATHOLOGY LABORATORY Microscopic Description Specimen A. [...] the base of the specimen. 4:27 PM [facility] DERMATOPATHOLOGY LABORATORY Disclaimer An external and internal positive and negative controls are appropriate for the histochemical, immunohistochemical and immunofluorescence stain(s) in this case (if any), except where stated explicitly. The performance characteristics of the stain(s) cited in this report were developed and its performance characteristic determined by the Dermatopathology Laboratory at [facility], directed by Dr. Yandel Soriano. These tests need not be, and therefore are not, approved by the [place] Food and Drug Administration. The tests are used for clinical purposes. Billing Codes Specimen Charges Stain Charges 04705 1 57960 05389 1 1 1 4:27 PM AP PROCESSOR DERMATOPATHOLOGY LABORATORY Embedded Images 4:27 PM AP PROCESSOR DERMATOPATHOLOGY LABORATORY Pathology/Cytolo gy TISSUE SPECIMEN FROM SKIN / Unknown 10/09/2021 3:33 AM AP PROCESSOR 10/11/2021 6:42 AM AP PROCESSOR us Lee Kovacs MD LAB - PATHOLOGY/CYTOLOGY ORDER JUSTO Final Result DERMATOPATHOLOGY LABORATORY [facility] - Department of Dermatology [facility] Medicine [address] [place] [address], [address] [phone] documented in this encounter Visit Diagnoses Not on filedocumented in this encounter Care Teams Plant Breeder Relationship Specialty Start Date End Date Pritesh Cintron MD [address] [place] [address] PCP - General 06/16/19 documented as of this encounter
--- OUTSIDE RECORDS SUMMARY | 2025-07-17 11:21 | XMS_ITS | Encounter Summary ---
Author Organization [facility] Address [address] [place] [address] Care Team Providers Care Geophysical E Logger Name Role Phone Pritesh Cintron MD Primary Care Provider [phone] Encounter Details Date Type Department Care Team (Late st Contact Info) Description 2022 Lab Requisition [facility] Care DermPath Lab [address] [facility] [place] [address] Lee Kovacs MD [address] [place] [address] Social History Tobacco Use Types Packs/Day Years [...] on file Legal Sex Male 4:28 AM INVENTORY ANALYST Gender Identity Not on file Sexual Orientation Not on file documented as of this encounter Functional Status * Is person deaf or have serious hearing difficulty? Answer Date of Assessment Author No 2021 12:57 PM INVENTORY ANALYST Ann Yang RN * Is person blind [...] st Contact Info) Description 01/12/2026 9:30 AM INVENTORY ANALYST Office Visit [facility] - General Surgery [address] [place] [phone] Jose Car MD [address] [facility] [address] [place] [address] documented as of this encounter Procedures Procedure Name Priority Date/Time Associated Diagnosis Comments DERMATOPATHOLOGY Routine 11/13/2022 12:0 0 AM INVENTORY ANALYST documented in this encounter Results * DERMATOPATHOLOGY (11/13/2022 12:00 AM INVENTORY ANALYST) Case Report Dermatopathology Report Case: [id number] Authorizing Provider: Lee Kovacs MD Collected: 11/13/2022 12:00 AM Ordering Location: [facility] DermPath Lab Received: 2022 06:17 AM Pathologist: Jaqueline Hinds MD Specimen: Skin, right chest 2 3:14 PM INVENTORY ANALYST DERMATOPATHOLOGY LABORATORY Final Diagnosis Specimen A. SKIN, right chest: BENIGN VERRUCOUS KERATOSIS, INFLAMED (L82.1) POST-INFLAMMATORY PIGMENT ALTERATION (L81.9) 2 3:14 PM INVENTORY ANALYST DERMATOPATHOLOGY LABORATORY at [address] [facility] Clinical History SK vs. MM vs. Scar Path: [id number] 2 3:14 PM [facility] DERMATOPATHOLOGY LABORATORY Gross Description Specimen A: Received is one formalin filled container labeled with the patient's name and designated right chest. The specimen consists of a shave biopsy measuring 5x4x4 mm. Jar 0. 2 3:14 PM [facility] DERMATOPATHOLOGY LABORATORY Microscopic Description Specimen A. SKIN, right chest: Sections show hyperkeratosis, papillomatosis, hypergranulosis, and acanthosis. Inflammatory cells are present within the dermis. These histological findings can be seen in a verruca vulgaris or a seborrheic keratosis. Sections show abundant melanin within melanophages around the superficial vascular plexus. 2 3:14 PM [facility] DERMATOPATHOLOGY LABORATORY Disclaimer An external and internal positive and negative controls are appropriate for the histochemical, immunohistochemical and immunofluorescence stain(s) in this case (if any), except where stated explicitly. The performance characteristics of the stain(s) cited in this report were developed and its performance characteristic determined by the Dermatopathology Laboratory at [facility], directed by Dr. Yandel Soriano. These tests need not be, and therefore are not, approved by the [place] Food and Drug Administration. The tests are used for clinical purposes. Billing Codes Specimen Charges Stain Charges 74236 1 2 3:14 PM [facility] DERMATOPATHOLOGY LABORATORY Embedded Images 2 3:14 PM [facility] DERMATOPATHOLOGY LABORATORY Pathology/Cytolog y TISSUE SPECIMEN FROM SKIN / Unknown 11/13/2022 2022 6:17 AM [facility] us Lee Kovacs MD LAB - PATHOLOGY/CYTOLOGY ORDER JUSTO Final Result DERMATOPATHOLOGY LABORATORY [facility] - Department of Dermatology [address] [place] [address], [facility] [phone] documented in this encounter Visit Diagnoses Not on filedocumented in this encounter Care Teams Geophysical E Logger Relationship Specialty Start Date End Date Pritesh Cintron MD [address] [place] [address] PCP - General 06/16/19 documented as of this encounter
--- OUTSIDE RECORDS SUMMARY | 2025-07-17 11:21 | XMS_ITS ---
Author Organization [facility] Address [address] [facility] [place] [address] Care Team Providers Care Events Manager Name Role Phone Pritesh Cintron MD Primary Care Provider [phone] Active Problems Problem Noted Date Diagnosed Date [...]
--- OUTSIDE RECORDS SUMMARY | 2025-07-17 11:21 | XMS_ITS | Clinical Summary ---
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
--- OUTSIDE RECORDS SUMMARY | 2025-07-17 11:22 | XMS_ITS | Encounter Summary ---
Author Organization [facility] Address [address] [place] [address] Care Team Providers Care Bell Valet Name Role Phone Pritesh Cintron MD Primary Care Provider [phone] Encounter Details Date Type Department Care Team (Late st Contact Info) Description 05/14/2023 Lab Requisition [facility] [address] [facility] [place] [address] Lee Kovacs MD [address] [address] Social History Tobacco Use Types Packs/Day Years [...] on file Legal Sex Male 4:28 AM SINGER SONGWRITER Gender Identity Not on file Sexual Orientation Not on file documented as of this encounter Functional Status * Is person deaf or have serious hearing difficulty? Answer Date of Assessment Author No 2021 12:57 PM SINGER SONGWRITER Ann Yang RN * Is person blind [...] st Contact Info) Description 01/12/2026 9:30 AM SINGER SONGWRITER Office Visit [facility] - General Surgery [address] [place] [phone] Jose Car MD [address] [facility] [address] [place] [id number] documented as of this encounter Procedures Procedure Name Priority Date/Time Associated Diagnosis Comments DERMATOPATHOLOGY Routine 05/14/2023 12:0 0 AM CDT documented in this encounter Results * DERMATOPATHOLOGY (05/14/2023 12:00 AM CDT) Case Report Dermatopathology Report Case: [id number] Authorizing Provider: Lee Kovacs MD Collected: 05/14/2023 12:00 AM Ordering Location: [facility] Received: 05/14/2023 03:43 PM Pathologist: Jaqueline Hinds MD Specimen: Skin, right mid castrejon 3 1:00 PM CDT DERMATOPATHOLOGY LABORATORY Final Diagnosis Specimen A. SKIN, right mid castrejon: DERMATOFIBROMA (D23.9) 3 1:00 PM CDT DERMATOPATHOLOGY LABORATORY at 1300 CDT Clinical History [facility] Path#[id number] 3 1:00 PM CDT DERMATOPATHOLOGY LABORATORY Gross [...] characteristic determined by the Dermatopathology Laboratory at [facility], directed by Dr. Yandel Soriano. These tests need not be, and therefore are not, approved by the [place] Food and Drug Administration. The tests are used for clinical purposes. Billing Codes Specimen Charges Stain Charges 62843 1 3 1:00 PM CDT DERMATOPATHOLOGY LABORATORY Embedded Images 3 1:00 PM CDT DERMATOPATHOLOGY LABORATORY Pathology/Cytolog y TISSUE SPECIMEN FROM SKIN / Unknown 05/14/2023 05/14/2023 3:43 PM CDT us Lee Kovacs MD LAB - PATHOLOGY/CYTOLOGY ORDER JUSTO Final Result DERMATOPATHOLOGY LABORATORY [facility] - Department of Dermatology [facility] Medicine [address] [place] [address], [address] Floor [address] [phone] documented in this encounter Visit Diagnoses Not on filedocumented in this encounter Care Teams Bell Valet Relationship Specialty Start Date End Date Pritesh Cintron MD [address] [place] [address] PCP - General 06/16/19 documented as of this encounter
[2025-07-17] MEDS: ACETAMINOPHEN 325 MG TABLET 650 MG PO (12:15)
[2025-07-17] MEDS: IPRATROPIUM 0.5 MG/ALBUTEROL SULFATE 2.5 MG AMPUL.NEB 3 ML INHALATION ×2 (13:17→20:10)
[2025-07-17 13:20] LABS: Hemoglobin A1C 5.8 % (<5.7)
[2025-07-17] MEDS: GABAPENTIN 100 MG CAPSULE 200 MG PO ×2 (15:15→21:58)
[2025-07-17] MEDS: guaiFENesin 12 HR 600 MG TABCR PO ×2 (15:15→21:58)
[2025-07-17] MEDS: PANTOPRAZOLE SODIUM IV 40 MG VIAL IV PUSH (15:16)
[2025-07-17] MEDS: ATORVASTATIN 10 MG TABLET PO (21:58)
[2025-07-17] MEDS: DOXYCYCLINE HYCLATE 100 MG TABLET PO (21:58)
[2025-07-18] VITALS (15 sets, daily range): BP systolic 100–114; BP diastolic 59–73; PULSE 58–85; RESP 16–18; TEMP 36.7–37.2; O2SAT 93–95
[2025-07-18] MEDS: cefTRIAXone 1 GM in SODIUM CHLORIDE 0.9% IV 50 ML 100 ML IVPB (05:58)
[2025-07-18] MEDS: GABAPENTIN 100 MG CAPSULE 200 MG PO ×3 (05:58→21:45)
[2025-07-18 06:08] LABS: Hematocrit 34.9 % (42.0-52.0); Hemoglobin 11.6 g/dL (14.0-18.0); Mean Corpuscular HGB Conc 33.2 g/dl (32-36); Mean Corpuscular Hemoglobin 30.6 pg (26-34); Mean Corpuscular Volume 92.1 fl (80-100); Platelet Count Result 185 k/mm3 (150-375); Red Blood Count 3.79 M/mm3 (4.6-6.20); White Blood Count 10.0 K/mm3 (4.5-10.0)
[2025-07-18 06:45] LABS: Alanine Aminotransferase 18 U/L (6-50); Albumin Level 3.0 g/dL (3.5-5.1); Alkaline Phosphatase 57 U/L (38-126); Anion Gap 6 mmol/L (4-12); Aspartate Amino Transferase 20 U/L (17-59); Bilirubin,Total 0.6 mg/dL (0.2-1.3); Blood Urea Nitrogen 11 mg/dL (9-20); Calcium 8.4 mg/dL (8.4-10.2); Carbon Dioxide 21 mmol/L (22-30); Chloride 112 mmol/L (98-107); Estimated CRCL calculation 56 ml/min; Estimated Glomerular Filt Rate > 60; Glucose 93 mg/dL (65-110); Potassium 3.8 mmol/L (3.4-5.0); Sodium 139 mmol/L (137-145); Total Protein 5.4 g/dL (6.3-8.2)
[2025-07-18] MEDS: DOXYCYCLINE HYCLATE 100 MG TABLET PO ×2 (09:10→21:45)
[2025-07-18] MEDS: PANTOPRAZOLE SODIUM IV 40 MG VIAL IV PUSH (09:10)
[2025-07-18] MEDS: guaiFENesin 12 HR 600 MG TABCR PO (09:10)
[2025-07-18] MEDS: IPRATROPIUM 0.5 MG/ALBUTEROL SULFATE 2.5 MG AMPUL.NEB 3 ML INHALATION ×3 (09:21→20:42)
--- NOTE | 2025-07-18 16:34 | PM.IMPN ---
Progress Note: A&P Assessment and Plan (1) Pneumonia: Qualifiers: Laterality: right Lung location: upper lobe of lung Pneumonia type: due to unspecified organism Qualified Code(s): J18.9 - Pneumonia, unspecified organism Code(s): J18.9 - Pneumonia, unspecified organism Status: Acute Assessment and Plan: Vital signs improved and stable CXR reviewed RSV COVID flu pending Started on Cefriaxone and azithromycin monitor cultures MRSA pending Chlamydia and Mycoplasma PCR pending Continue bronchodilators History of steroid-induced psychosis-avoid steroids encourage oral intake Increased guaifenesin from 600 to 1200mg PO BID (2) Hypertension: Code(s): I10 - Essential (primary) hypertension Status: Acute Assessment and Plan: Hold Amlodipine,Lisinopril and Metoprolol Succinate (3) AAA (abdominal aortic aneurysm): Code(s): I71.40 - Abdominal aortic aneurysm, without rupture, unspecified Status: Acute Assessment and Plan: Slight increase in size from prior year. Control BP. Cont statin. Pt no longer smoking. Recheck w/ imaging 01/2026 (4) HLD (hyperlipidemia): Code(s): E78.5 - Hyperlipidemia, unspecified Status: Acute Assessment and Plan: Cont Atorvastatin 10 mg PO HS (5) GERD (gastroesophageal reflux disease): Code(s): K21.9 - Gastro-esophageal reflux disease without esophagitis Status: Acute (6) Metastatic melanoma: Code(s): C79.9 - Secondary malignant neoplasm of unspecified site Status: Acute Assessment and Plan: Stable. Plan Code status: Full code DVT prophylaxis: SCD. PMHx Intracranial Hemorrhage Subjective Date/time seen: 07/18/25 16:34 Interval history: Patient still has come cough and increased the Review of Systems Review of Systems: As reviewed above in HPI Exam Narrative: GENERAL: [Well-appearing, well-nourished, and in no acute distress.] HEAD: [Normocephalic, atraumatic.] EYES: [PERRLA and EOMI.] ENT: Nares clear, no rhinorrhea or epistaxis. Mucous membranes dry. NECK: Supple. CHEST: Coarse asymmetric breath sounds right worse than left, no respiratory distress aside from mild tachypnea without any retractions. Mildly conversationally dyspneic but no wheezing appreciated. HEART: [Regular rate and rhythm]. No murmur heard. [Normal peripheral pulses.] ABDOMEN: [Soft, nondistended], [nontender], [No rigidity or guarding] EXTREMITIES: Normal range of motion. [No edema.] SKIN: Warm, dry, no rash. NEURO: [No focal deficits]. Alert and oriented [x3.] PSYCH: [Normal mood and affect.] Objective Data Vital Signs Vital Signs: Vital Signs - 24 hr 07/17/25 20:00 07/17/25 20:00 07/17/25 20:10 Temperature Pulse Rate 70 66 64 Respiratory Rate 20 18 Blood Pressure Pulse Oximetry 96 Oxygen Delivery Room Air Fraction of Inspired Oxygen 21 07/17/25 20:12 07/17/25 20:18 07/17/25 22:33 Temperature 97.8 F Pulse Rate 64 63 70 Respiratory Rate 18 20 Blood Pressure 97/60 L Pulse Oximetry 92 96 Oxygen Delivery Room Air Fraction of Inspired Oxygen 21 07/18/25 00:00 07/18/25 04:00 07/18/25 06:00 Temperature 98.0 F Pulse Rate 63 85 61 Respiratory Rate 18 Blood Pressure 114/73 Pulse Oximetry 95 Oxygen Delivery Fraction of Inspired Oxygen 07/18/25 09:16 07/18/25 09:16 07/18/25 09:24 Temperature Pulse Rate 61 62 Respiratory Rate 18 Blood Pressure Pulse Oximetry Oxygen Delivery Room Air Fraction of Inspired Oxygen 07/18/25 14:00 07/18/25 14:57 07/18/25 15:04 Temperature 98.2 F Pulse Rate 58 L 64 68 Respiratory Rate 18 17 18 Blood Pressure 100/68 Pulse Oximetry 94 Oxygen Delivery Fraction of Inspired Oxygen Intake/Output Intake/Output: Intake & Output 07/15/25 07/16/25 07/17/25 07/18/25 23:59 23:59 23:59 23:59 Intake Total 5280 1010 Balance 5280 1010 Meds/Results Medications: Active Medications Generic Name Dose Route Start Last Admin Trade Name Freq PRN Reason Stop Dose Admin Acetaminophen 650 mg 07/17/25 07:30 07/17/25 12:15 Acetaminophen 325 Mg Tablet PO 650 mg Q4H PRN Administration Mild Pain (1-3) or Fever Albuterol/Ipratropium 3 ml 07/17/25 14:00 07/18/25 14:57 Ipratropium 0.5 Mg/Albuterol Sulfate 2.5 Mg Ampul.Neb 3 Ml INHALATION 3 ml Q6HRT SIVA Administration Atorvastatin Calcium 10 mg 07/17/25 21:00 07/17/25 21:58 Atorvastatin 10 Mg Tablet PO 10 mg HS SIVA Administration Doxycycline Hyclate 100 mg 07/17/25 21:00 07/18/25 09:10 Doxycycline Hyclate 100 Mg Tablet PO 07/22/25 20:59 100 mg Q12HR SIVA Administration Gabapentin 200 mg 07/17/25 14:00 07/18/25 16:05 Gabapentin 100 Mg Capsule PO 200 mg 06,, SIVA Administration Guaifenesin 1,200 mg 07/18/25 21:00 Guaifenesin 12 Hr 600 Mg Tabcr PO Q12HR SIVA Ceftriaxone Sodium 1 gm/ 50 mls @ 100 mls/hr 07/18/25 06:00 07/18/25 06:28 Sodium Chloride IVPB Infused Q24H SIVA Infusion Pantoprazole Sodium 40 mg 07/17/25 12:55 07/18/25 09:10 Pantoprazole Sodium Iv 40 Mg Vial IV PUSH 40 mg QAM SIVA Administration Trazodone HCl 50 mg 07/17/25 21:00 07/17/25 21:58 Trazodone Hcl 50 Mg Tablet PO 50 mg HS SIVA Administration Radiology Results: ITS Impressions Chest X-Ray 07/17/25 07:38 IMPRESSION: 1. New right middle lobar opacities which could represent atelectasis or pneumonia. 2. Significant decrease in mild residual opacities in the right upper and right mid lung zones consistent with resolving sequela of chronic pneumonia. Labs Labs: Laboratory Results - last 24 hr 07/18/25 05:38 WBC 10.0 RBC 3.79 L Hgb 11.6 L Hct 34.9 L MCV 92.1 MCH 30.6 MCHC 33.2 RDW 13.8 Plt Count 185 MPV 9.7 Sodium 139 Potassium 3.8 Chloride 112 H Carbon Dioxide 21 L Anion Gap 6 BUN 11 D Creatinine 0.93 Estim Creat Clear Calc 56 Estimated GFR > 60 Glucose 93 Calcium 8.4 Total Bilirubin 0.6 AST 20 ALT 18 Alkaline Phosphatase 57 Total Protein 5.4 L Albumin 3.0 L Hospitalist MIPS Advance Care Plan I have confirmed that the patient's Advanced Care Plan is present, code status is documented, or surrogate decision maker is listed in patient medical record.: Yes Medication Reconciliation I have utilized all available resources to obtain, update and review the patients current medications (includes all prescriptions, OTC, herbals, cannabis, and nutritional supplements).: Yes
[2025-07-18] MEDS: ATORVASTATIN 10 MG TABLET PO (21:45)
[2025-07-18] MEDS: guaiFENesin 12 HR 600 MG TABCR 1200 MG PO (21:45)
--- NOTE | 2025-07-18 22:07 | PC.NURSE ---
Patient was given a norco 5 meant for 347. Patient, pharmacy, Nolberto, and hospitalist, Dr Lanier all aware. Placed patient on zone 2 for safety and to call when needing to get up.
[2025-07-19] VITALS (8 sets, daily range): BP systolic 117; BP diastolic 75; PULSE 63–94; RESP 18–20; TEMP 36.9; O2SAT 65–96
[2025-07-19] MEDS: IPRATROPIUM 0.5 MG/ALBUTEROL SULFATE 2.5 MG AMPUL.NEB 3 ML INHALATION ×2 (02:07→07:42)
[2025-07-19] MEDS: GABAPENTIN 100 MG CAPSULE 200 MG PO (05:19)
[2025-07-19] MEDS: cefTRIAXone 1 GM in SODIUM CHLORIDE 0.9% IV 50 ML 100 ML IVPB (05:19)
--- NOTE | 2025-07-19 09:35 | P.DS_ITS ---
DS: Admitting Diagnosis Discharge Date 07/19/2025 Admitting Diagnosis Cough DS: Discharge Diagnosis Discharge Diagnosis (1) Pneumonia: Qualifiers: Laterality: right Lung location: upper lobe of lung Pneumonia type: due to unspecified organism Qualified Code(s): J18.9 - Pneumonia, unspecified organism Code(s): J18.9 - Pneumonia, unspecified organism Status: Acute Assessment and Plan: Vital signs improved and stable CXR reviewed RSV COVID flu pending Started on Cefriaxone and azithromycin monitor cultures MRSA pending Chlamydia and Mycoplasma PCR pending Continue bronchodilators History of steroid-induced psychosis-avoid steroids encourage oral intake Increased guaifenesin from 600 to 1200mg PO BID (2) Hypertension: Code(s): I10 - Essential (primary) hypertension Status: Acute Assessment and Plan: Hold Amlodipine,Lisinopril and Metoprolol Succinate (3) AAA (abdominal aortic aneurysm): Code(s): I71.40 - Abdominal aortic aneurysm, without rupture, unspecified Status: Acute Assessment and Plan: Slight increase in size from prior year. Control BP. Cont statin. Pt no longer smoking. Recheck w/ imaging 01/2026 (4) HLD (hyperlipidemia): Code(s): E78.5 - Hyperlipidemia, unspecified Status: Acute Assessment and Plan: Cont Atorvastatin 10 mg PO HS (5) GERD (gastroesophageal reflux disease): Code(s): K21.9 - Gastro-esophageal reflux disease without esophagitis Status: Acute (6) Metastatic melanoma: Code(s): C79.9 - Secondary malignant neoplasm of unspecified site Status: Acute Assessment and Plan: Stable. Plan Code status: Full code DVT prophylaxis: SCD. PMHx Intracranial Hemorrhage DS: Summary Hospital Course Hospital Course: 69-year-old male with history of CVA, hypertension, GERD, previous cerebral aneurysm. Patient presents to the emergency department with fever, chills, coughing up phlegm and productive sputum as well as shortness of breath. Patient reports of cough but denies no wheezing,headache,or urinary symptoms. He is coughing infrequently and did cough up some mucus with red streaked phlegm here in the emergency department.In the ED 30cc/kg bolus.X-ray findings consistent with multifocal pneumonia with patchy opacities bilaterally.Pertinent ED labs: WBC 12.9,HgB 13.6,HCT 41.8,PLT 220,Na 143,K 4,Cl 109,AG 8, Glucose 120, Lactic acid 1.UA: LE neg,Nitrate -ve Patient is admitted in the setting of PNA. Patient will be started on Ceftriaxone and Doxycyline. Of note patient has AAA which is managed by PCP with serial imaging.Patient was examined along with his . Patient is independent and do not use oxygen at home. Patient has a history of CVA 2016. Patient was a previous smoker and reports a has a history of COPD and emphysema. Patient today woke up around 2:00 a.m. had cough and fever. 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 0 07/18 patient had persistent cough and increased the dosage of guaifenesin. 07/19: Patient reports doing well. Advised on blood pressure. On the day of discharge, the patient was seen and examined. Vital signs were stable. Physical exam were stable and labs were reviewed at length. Discharge instructions, medications, and follow-up appointments were discussed with the patient at length and all day questions were answered. ER warnings were given. Status at Discharge Cognitive/behavioral status at discharge: Stable Time Spent with Patient Time attestation: Total time spent providing and/or coordinating discharge services: 45 minute Exam Narrative: GENERAL: [Well-appearing, well-nourished, and in no acute distress.] HEAD: [Normocephalic, atraumatic.] EYES: [PERRLA and EOMI.] ENT: Nares clear, no rhinorrhea or epistaxis. Mucous membranes dry. NECK: Supple. CHEST: Coarse asymmetric breath sounds right worse than left, no respiratory distress aside from mild tachypnea without any retractions. Mildly conversationally dyspneic but no wheezing appreciated. HEART: [Regular rate and rhythm]. No murmur heard. [Normal peripheral pulses.] ABDOMEN: [Soft, nondistended], [nontender], [No rigidity or guarding] EXTREMITIES: Normal range of motion. [No edema.] SKIN: Warm, dry, no rash. NEURO: [No focal deficits]. Alert and oriented [x3.] PSYCH: [Normal mood and affect.] Discharge Plan Discharge Attending physician on discharge: Alejandro Grossman Discharging Clinician: Alejandro Grossman Anticipated Discharge Date/Time: 07/19/25 09:37 Patient Disposition: Home Activity: as tolerated Diet: as tolerated Discharge Instructions: Check blood pressure 1 to 2 times a day. Record and bring into your doctor for review. Call your doctor if your blood pressure is greater than 180/110 or less than 90/45. Walk with cane or other assist device. Take precautions to avoid falls. Rise slowly from a lying or sitting position. Pause before standing or walking. Contact your doctor or call 911 and come to the Emergency Room if you have any type of trauma, lightheadedness with standing or other worrisome symptoms. Avoid NSAIDs (ibuprofen, naproxen, Aleve). Tylenol is safe to take. Follow-up with your primary care provider in 1-2 weeks. Please call for appointment. Follow-up with Cardiology in 2-4 weeks. Please call for an appointment. Thank you for using [facility] for your health care needs. Patient Instructions: Antibiotic Form Patient Language: Hungarian Stand Alone Forms: General Discharge Information Follow-up/Referrals: Pritesh Cintron MD [Primary Care Provider] - Discharge Medications: New doxycycline hyclate 100 mg Tablet 100 mg PO Q12HR Qty: 8 0RF Rx Instructions: Please complete the course on 07/22 guaifenesin [Mucus Relief ER] 600 mg Tablet Extended Release 12hr 1,200 mg PO Q12HR Qty: 30 0RF amoxicillin-pot clavulanate 875-125 mg tablet 1 tablet PO Q12H Qty: 10 0RF Rx Instructions: Please complete the course on 07/23 Saccharomyces boulardii [Florastor] 250 mg capsule 250 mg PO BID Qty: 30 0RF Continued cimetidine 400 mg tablet 400 mg PO 06,18 gabapentin 100 mg capsule 200 mg PO 06,14,22 trazodone 50 mg tablet 50 mg PO HS atorvastatin 10 mg tablet 10 mg PO HS lisinopril 20 mg tablet 20 mg PO 1800 amlodipine 10 mg tablet 10 mg PO 0600 metoprolol succinate 25 mg tablet extended release 24 hr 12.5 mg PO 0600,1800 Trelegy Ellipta 100-62.5-25 mcg blister with device 1 inh inhalation ONCE Qty: 180 2RF Date of admission: 07/18/25 16:50 Primary Care Provider: Pritesh Cintron Admitting Provider: Delmy Mata Attending physician on admission: Delmy Mata Condition: Stable
[2025-07-19] MEDS: DOXYCYCLINE HYCLATE 100 MG TABLET PO (09:39)
[2025-07-19] MEDS: PANTOPRAZOLE SODIUM IV 40 MG VIAL IV PUSH (09:39)
[2025-07-19] MEDS: guaiFENesin 12 HR 600 MG TABCR 1200 MG PO (09:39)
[2025-07-21 09:09] LABS: Chlamydia pneumoniae, PCR Negative (Negative)
== END 2025-07-19 10:20 | disposition home or self-care (01) | DRG 195 ==
LOC: ANHED 06:36 → ANH3MED 11:20
PROVIDERS: Admitting Provider Family Medicine; Emergency Provider Student in an Organized Health Care Education/Training Program; PCP Family Medicine; Visit Provider General Practice
DX: J18.9 Pneumonia, unspecified organism (principal); I10 Essential (primary) hypertension; K21.9 Gastro-esophageal reflux disease without esophagitis; I71.40 Abdominal aortic aneurysm, without rupture, unspecified; E78.5 Hyperlipidemia, unspecified; Z20.822 Contact with and (suspected) exposure to COVID-19; Z85.820 Personal history of malignant melanoma of skin; Z86.73 Personal history of transient ischemic attack (TIA), and cerebral infarction without residual deficits; Z86.79 Personal history of other diseases of the circulatory system; Z87.891 Personal history of nicotine dependence
CPT/HCPCS: 36415; 71046; 80053; 81003; 83036; 83605; 85025; 85027; 85610; 85730; 86140; 87040; 87486; 87581; 87637; 87641; 94640; A9270; G0378; J0456; J0696; J1741; J2470; J7030; J7050; J7120

== ENCOUNTER 2025-07-25 03:53 | Emergency (ER) | payer OTHER, SELFPAY ==
--- OUTSIDE RECORDS SUMMARY | 2024-11-14 16:30 | XMS_ITS ---
Author Organization [facility] Address [address] [phone] Care Team Providers Care Nurse Private Duty Name Role Phone Angelo Montez Primary Care Provider Billy Farnsworth Unavailable [phone] Jose Arellano Unavailable Unavailable Migration, Provider Unavailable Unavailable Allergies Allergen (clinical drug ingredient) Drug/Non Drug Allergy documented on EMR Reaction Allergy Type Onset Date Status DARVOCET (uncoded) hives Allergy A ctive REASON FOR VISIT Multum To Medispan Conversion Encounter Encounters Encounter Location Date Provider Diagnosis [facility] [address] [phone] 2024 Provider Migration Plan Of Treatment No Information Progress Notes * Clifford JENKINS EDOB:[birth year] (69 yo M)Acc No.[id number] Patient: Clifford KAMARA Provider: Yonas pereira Migration :1955 A ge:69 Y S ex:Male Date:2024 Address:[address] [place], [place] [id number] Pcp:Angelo Montez Subjective: * Chief Complaints: * 1 . Multum To Medispan Conversion Encounter. * Medical History: * Allergies: D ARVOCET: hives. Objective: * Vitals: * Physical Examination: Assessment: Plan: * Treatment: * Images: * Electronic signature of Prov ider Migration on 07/25/2025 at 04:15 AM CDT Sign off status: Pending * Provider: P rovider Migration Date: 01/15/2024 Generated for Ghada frederick/Ashlyn/Cyndyitting on: 0 07/25/2025 04:15 AM CDT
--- NOTE | ~2025-07-25 | XR_ITS ---
XR chest 1V portable 07/25/2025 04:37 Indication: Fever with recurrent pneumonia Procedure: AP portable chest Comparison: 07/17/2025 Findings: Patchy right-sided airspace disease, most confluent in the right upper lobe, consistent with pneumonia. Chronic elevation of the left diaphragm. Heart size normal. There is atherosclerosis. No significant effusion. No pneumothorax. Impression: 1: Patchy right-sided airspace disease, consistent with pneumonia. Reviewed, dictated and finalized at location O. Impression: 1: Patchy right-sided airspace disease, consistent with pneumonia.
[2025-07-25 03:58] VITALS: BP 113/69; PULSE 88; RESP 15; TEMP 37.3; O2SAT 97
[2025-07-25 04:07] VITALS: RESP 15; O2SAT 98
--- OUTSIDE RECORDS SUMMARY | 2025-07-25 04:15 | XMS_ITS | Clinical Summary ---
Author Organization [facility] Address [address] [place] [address] Care Team Providers Care Search Consultant Name Role Phone Pritesh Cintron MD Primary Care Provider [phone] Source Comments [facility],non-owned Affiliates and Associated Physician Practices is amultiple site organization consisting of ambulatory clinics and hospital sitesin [place], [place], [place] and [place]. This disclosure is being madepursuant to the Care Everywhere program and may not contain all information available regarding this patient. Last updated 18.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 Gender Identity Not on file Sexual Orientation Not on file Last Filed Vital Signs Vital Sign Reading Time Taken Comments Blood Pressure 97/63 01/06/2025 9:58 AM MIXING MACHINE ATTENDANT Pulse 70 01/06/2025 9:58 AM MIXING MACHINE ATTENDANT Temperature 36.6 C (97.8 F) 01/06/2025 9:58 AM MIXING MACHINE ATTENDANT Respiratory Rate 18 01/06/2025 9:58 AM MIXING MACHINE ATTENDANT Oxygen Saturation 92% 01/06/2025 9:58 AM MIXING MACHINE ATTENDANT Inhaled Oxygen Concentration - - Weight 68 kg (150 lb) 01/06/2025 9:58 AM MIXING MACHINE ATTENDANT Height 165.1 cm (5' 5) 01/06/2025 9:58 AM MIXING MACHINE ATTENDANT Body Mass Index 24.96 01/06/2025 9:58 AM MIXING MACHINE ATTENDANT Plan of Treatment Upcoming Encounters Date Type Department Care Team (Late st Contact Info) Description 01/12/2026 9:30 AM MIXING MACHINE ATTENDANT Office Visit [facility] - General Surgery [address] [place] [phone] Jose Car MD [address] [facility] [address] [place] [id number] Health Maintenance Due Date Last Done [...] HEPATITIS SCREEN ACUTE Routine 10/26/2014 10:47 AM MIXING MACHINE ATTENDANT from Last 3 Months or Most Recently Relevant to Health Maintenance Results * HEPATITIS SCREEN ACUTE (10/26/2014 10:47 AM MIXING MACHINE ATTENDANT) Hepatitis A Virus Antibody IgM Non-react [facility] Hepatitis B Virus Surface Antigen Non-react [facility] Hepatitis B Core Virus Antibody IgM Non-react [facility] Hepatitis C Antibody Non-react [facility] Comment: Hepatitis C Antibody screen indicates no serologic evidence of past or current infection with Hepatitis C Virus. Patients with unexplained liver disease who are immunocompromised or suspected of having acute Hepatitis C infection may benefit from Nucleic Acid Test (TUTU) for Hepatitis C Viral RNA to confirm Hepatitis C status. Blood specimen (specimen) BLOOD SPECIMEN / Unknown 10/26/2014 10:47 AM MIXING MACHINE ATTENDANT 10/26/2014 11:50 AM MIXING MACHINE ATTENDANT Steven Cheek MD LAB - CHEMISTRY ORDERABLES F inal Result [address] [phone] from Last 3 Months or Most Recently Relevant to Health Maintenance Insurance [facility] MEDICARE * Guarantor: CLIFFORD JENKINS Account Type Relation to Patient Date of Phone Billing Address Personal/Family [address] [place] [phone] * Guarantor: CLIFFORD JENKINS Account Type Relation to Patient Date of Phone Billing Address Personal/Family [address] [place] [phone] Care Teams Search Consultant Relationship Specialty Start Date End Date Pritesh Cintron MD [address] [place] [address] PCP - General 06/16/19
--- OUTSIDE RECORDS SUMMARY | 2025-07-25 04:15 | XMS_ITS | Clinical Summary ---
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
--- OUTSIDE RECORDS SUMMARY | 2025-07-25 04:15 | XMS_ITS | Encounter Summary ---
Author Organization [facility] Address [address] [place] [address] Care Team Providers Care Woodworking Machine Offbearer Name Role Phone Pritesh Cintron MD Primary Care Provider [phone] Encounter Details Date Type Department Care Team (Late Contact Info) Description 10/11/2021 Lab Requisition [facility] Care DermPath Lab [address] [place] [phone] Lee Kovacs MD [address] [place] [address] Social History Tobacco Use Types Packs/Day Years Used Date Smoking Tobacco: Every Day Comments:smoke cigars Alcohol Use Standard Drinks/Week Comments No 0 (1 standard drink = 0.6 oz pur e alcohol) Sex and Gender Information Value Date Recorded Sex Assigned at Not on file Legal Sex Male 4:28 AM BELTING CUTTER Gender Identity Not on file Sexual Orientation Not on file documented as of this encounter Plan of Treatment Upcoming Encounters Date Type Department Care Team (Late Contact Info) Description 01/12/2026 9:30 AM BELTING CUTTER Office Visit [facility] - General Surgery [address] [place] [address] Jose Car MD [address] [facility] [address] [place] [address] documented as of this encounter Procedures Procedure Name Priority Date/Time Associated Diagnosis Comments DERMATOPATHOLOGY Routine 10/09/2021 3:33 AM BELTING CUTTER documented in this encounter Results * DERMATOPATHOLOGY (10/09/2021 3:33 AM BELTING CUTTER) Case Report Dermatopathology Report Case: [id number] Authorizing Provider: Lee Kovacs MD Collected: 10/09/2021 03:33 AM Ordering Location: [facility] DermPath Lab Received: 10/11/2021 06:42 AM Pathologist: Ben Soriano MD Specimen: Skin, right mid chest 4:27 PM [facility] DERMATOPATHOLOGY LABORATORY Final Diagnosis Specimen A. SKIN, right mid chest: MALIGNANT MELANOMA, METASTATIC (C80.0) (see microscopic description and comment) 4:27 PM [facility] DERMATOPATHOLOGY LABORATORY at 1627 BELTING CUTTER Clinical History Nevus vs BCCA. Path# [id number] 4:27 PM [facility] DERMATOPATHOLOGY LABORATORY Gross Description Specimen A: Received is one formalin filled container labeled with the patient's name and designated right mid chest. The specimen consists of a shave biopsy measuring [id number]. Jar 0. 4:27 PM [facility] [...] characteristic determined by the Dermatopathology Laboratory at [facility], directed by Dr. Yandel Soriano. These tests need not be, and therefore are not, approved by the [place] Food and Drug Administration. The tests are used for clinical purposes. Billing Codes Specimen Charges Stain Charges 70740 1 78632 43520 1 1 1 4:27 PM BELTING CUTTER DERMATOPATHOLOGY LABORATORY Embedded Images 4:27 PM BELTING CUTTER DERMATOPATHOLOGY LABORATORY Pathology/Cytolo gy TISSUE SPECIMEN FROM SKIN / Unknown 10/09/2021 3:33 AM BELTING CUTTER 10/11/2021 6:42 AM BELTING CUTTER us Lee Kovacs MD LAB - PATHOLOGY/CYTOLOGY ORDER JUSTO Final Result DERMATOPATHOLOGY LABORATORY [facility] - Department of Dermatology [facility] Medicine [address] [place] [address], [address] [phone] documented in this encounter Visit Diagnoses Not on filedocumented in this encounter Care Teams Woodworking Machine Offbearer Relationship Specialty Start Date End Date Pritesh Cintron MD [address] [place] [address] PCP - General 06/16/19 documented as of this encounter
--- OUTSIDE RECORDS SUMMARY | 2025-07-25 04:15 | XMS_ITS | Encounter Summary ---
Author Organization [facility] Address [address] [facility] [place] [address] Care Team Providers Care Resistor Testing Machine Operator Name Role Phone Pritesh Cintron MD Primary Care Provider [phone] Encounter Details Date Type Department Care Team (Late st Contact Info) Description 05/14/2023 Lab Requisition [facility] - DermPath Lab [address] [facility] [place] [address] Lee Kovacs MD [address] [place] [address] Social History Tobacco Use Types Packs/Day Years [...] on file Legal Sex Male 4:28 AM CLOTH PAINTER Gender Identity Not on file Sexual Orientation Not on file documented as of this encounter Functional Status * Is person deaf or have serious hearing difficulty? Answer Date of Assessment Author No 2021 12:57 PM CLOTH PAINTER Ann Yang RN * Is person blind [...] st Contact Info) Description 01/12/2026 9:30 AM CLOTH PAINTER Office Visit [facility] - General Surgery [address] [place] [phone] Jose Car MD [address] [facility] [address] [place] [address] documented as of this encounter Procedures Procedure Name Priority Date/Time Associated Diagnosis Comments DERMATOPATHOLOGY Routine 05/14/2023 12:0 0 AM CDT documented in this encounter Results * DERMATOPATHOLOGY (05/14/2023 12:00 AM CDT) Case Report Dermatopathology Report Case: [id number] Authorizing Provider: Lee Kovacs MD Collected: 05/14/2023 12:00 AM Ordering Location: [facility] DermPath Lab Received: 05/14/2023 03:43 PM Pathologist: Jaqueline Hinds MD Specimen: Skin, right mid castrejon 3 1:00 PM CDT DERMATOPATHOLOGY LABORATORY Final Diagnosis Specimen A. SKIN, right mid castrejon: DERMATOFIBROMA (D23.9) 3 1:00 PM CDT DERMATOPATHOLOGY LABORATORY at 1300 CDT Clinical History BCCA Path#[id number] 3 1:00 PM CDT DERMATOPATHOLOGY LABORATORY Gross [...] determined by the Dermatopathology Laboratory at [facility], directed by Dr. Yandel Soriano. These tests need not be, and therefore are not, approved by the [place] Food and Drug Administration. The tests are used for clinical purposes. Billing Codes Specimen Charges Stain Charges 93902 1 3 1:00 PM CDT DERMATOPATHOLOGY LABORATORY Embedded Images 3 1:00 PM CDT DERMATOPATHOLOGY LABORATORY Pathology/Cytolog y TISSUE SPECIMEN FROM SKIN / Unknown 05/14/2023 05/14/2023 3:43 PM CDT us Lee Kovacs MD LAB - PATHOLOGY/CYTOLOGY ORDER JUSTO Final Result DERMATOPATHOLOGY LABORATORY [facility] - Department of Dermatology [facility] Medicine [address] [place] [address], [address] [phone] documented in this encounter Visit Diagnoses Not on filedocumented in this encounter Care Teams Resistor Testing Machine Operator Relationship Specialty Start Date End Date Pritesh Cintron MD [address] [place] [address] PCP - General 06/16/19 documented as of this encounter
--- OUTSIDE RECORDS SUMMARY | 2025-07-25 04:15 | XMS_ITS | Patient Health Record ---
Author Organization [facility] Address [address] [facility] [address] [place], [place] [address] Care Team Providers Care Kiln Stacker Name Role Phone Angelo Montez Primary Care Provider Billy Farnsworth Unavailable [phone] Jose Arellano Unavailable Unavailable Migration, Provider Unavailable Unavailable Allergies Allergen (clinical drug ingredient) Drug/Non Drug Allergy documented on EMR Reaction Allergy Type Onset Date Status DARVOCET (uncoded) hives Allergy A ctive Reason For Referral No Information Problems Problem Type SNOMED Code ICD Code Onset Dates Problem Status W/U Status Risk Notes Problem Vasomotor rhinitis (6337556) 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 Problem Tobacco use (907437107) TOBACCO USE DISORDER (305.1) Active confirmed Problem Neoplasm of digestive system (758042056) 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 Encounters Encounter Location Date Provider Diagnosis [facility] [address] [facility] [address] [place], [place] [phone] 2024 Provider Migration Plan Of Treatment No Information Insurance Providers Payer Name Payer Address Payer Phone Subscriber Number Group Number Insured Name Patient Relationship to Insured Coverage Start Date Coverage End Date [facility] [address] [address] [place] [address] [phone] [id number] Clifford Velasquez Self - patient is the insured Medical (General) History Medical History History ICD Code Pertinent Medical History:: Vision changes, Nose problems, Migraine headaches, Surgical History Surgery Date(Month/Year) lasix surgery deviated septum excision lesion palate
--- OUTSIDE RECORDS SUMMARY | 2025-07-25 04:15 | XMS_ITS | Encounter Summary ---
Author Organization [facility] Address [address] [facility] [place] [address] Care Team Providers Care Medical Assistant Per Diem Name Role Phone Pritesh Cintron MD Primary Care Provider [phone] Encounter Details Date Type Department Care Team (Late st Contact Info) Description 2022 Lab Requisition [facility] Care DermPath Lab [address] [facility] [place] [address] Lee Kovacs MD [address] [place] [address] Social History Tobacco Use Types Packs/Day Years [...] on file Legal Sex Male 4:28 AM MEDICAL RECORDS ADMINISTRATOR Gender Identity Not on file Sexual Orientation Not on file documented as of this encounter Functional Status * Is person deaf or have serious hearing difficulty? Answer Date of Assessment Author No 2021 12:57 PM MEDICAL RECORDS ADMINISTRATOR Ann Yang RN * Is person blind [...] st Contact Info) Description 01/12/2026 9:30 AM MEDICAL RECORDS ADMINISTRATOR Office Visit [facility] - General Surgery [address] [place] [phone] Jose Car MD [address] [facility] [address] [place] [address] documented as of this encounter Procedures Procedure Name Priority Date/Time Associated Diagnosis Comments DERMATOPATHOLOGY Routine 11/13/2022 12:0 0 AM MEDICAL RECORDS ADMINISTRATOR documented in this encounter Results * DERMATOPATHOLOGY (11/13/2022 12:00 AM MEDICAL RECORDS ADMINISTRATOR) Case Report Dermatopathology Report Case: [id number] Authorizing Provider: Lee Kovacs MD Collected: 11/13/2022 12:00 AM Ordering Location: [facility] DermPath Lab Received: 2022 06:17 AM Pathologist: Jaqueline Hinds MD Specimen: Skin, right chest 2 3:14 PM MEDICAL RECORDS ADMINISTRATOR DERMATOPATHOLOGY LABORATORY Final Diagnosis Specimen A. SKIN, right chest: BENIGN VERRUCOUS KERATOSIS, INFLAMED (L82.1) POST-INFLAMMATORY PIGMENT ALTERATION (L81.9) 2 3:14 PM MEDICAL RECORDS ADMINISTRATOR DERMATOPATHOLOGY LABORATORY at [address] [facility] Clinical History SK vs. MM vs. Scar Path: [id number] 2 3:14 PM [facility] DERMATOPATHOLOGY LABORATORY Gross Description Specimen A: Received is one formalin filled container labeled with the patient's name and designated right chest. The specimen consists of a shave biopsy measuring 5x4x4 mm. Jar 0. 2 3:14 PM [facility] DERMATOPATHOLOGY LABORATORY Microscopic Description Specimen A. SKIN, right chest: Sections show hyperkeratosis, papillomatosis, hypergranulosis, and acanthosis. Inflammatory cells are present within the dermis. These histological findings can be seen in a verruca vulgaris or a seborrheic keratosis. Sections show abundant melanin within melanophages around the superficial vascular plexus. 2 3:14 PM [facility] DERMATOPATHOLOGY LABORATORY Disclaimer An external and internal positive and negative controls are appropriate for the histochemical, immunohistochemical and immunofluorescence stain(s) in this case (if any), except where stated explicitly. The performance characteristics of the stain(s) cited in this report were developed and its performance characteristic determined by the Dermatopathology Laboratory at [facility], directed by Dr. Yandel Soriano. These tests need not be, and therefore are not, approved by the [place] Food and Drug Administration. The tests are used for clinical purposes. Billing Codes Specimen Charges Stain Charges 42082 1 2 3:14 PM [facility] DERMATOPATHOLOGY LABORATORY Embedded Images 2 3:14 PM [facility] DERMATOPATHOLOGY LABORATORY Pathology/Cytolog y TISSUE SPECIMEN FROM SKIN / Unknown 11/13/2022 2022 6:17 AM [facility] us Lee Kovacs MD LAB - PATHOLOGY/CYTOLOGY ORDER JUSTO Final Result DERMATOPATHOLOGY LABORATORY [facility] - Department of Dermatology [address], [address] [place] [address], [facility] [phone] documented in this encounter Visit Diagnoses Not on filedocumented in this encounter Care Teams Medical Assistant Per Diem Relationship Specialty Start Date End Date Pritesh Cintron MD [address] [place] [address] PCP - General 06/16/19 documented as of this encounter
--- OUTSIDE RECORDS SUMMARY | 2025-07-25 04:15 | XMS_ITS ---
Author Organization [facility] Address [address] [facility] [place] [address] Care Team Providers Care Embroidery Assistant Name Role Phone Pritesh Cintron MD Primary Care Provider [phone] Active Problems Problem Noted Date Diagnosed Date [...]
--- NOTE | 2025-07-25 04:18 | ED.GENADULT ---
HPI - General Adult General Chief complaint: Fever Stated complaint: fever, chills, diagnosed with pneumonia Time Seen by Provider: 07/25/25 03:59 History of Present Illness HPI narrative: Patient is a 69-year-old male who presents to the emergency department this evening complaining of fevers and chills. Patient states that he was diagnosed with pneumonia approximately 1 week ago and was admitted for a few days for IV antibiotics and sent home on oral antibiotics which he finished. Patient states that he has been feeling well and doing well at home but this morning around 2:00 a.m. he started to feel feverish in have some chills so decided to come to the ED for further evaluation. He is denying any active shortness of breath but states that he has had some productive cough. Denies any nausea or vomiting. Patient states that he has had some mild diarrhea and has been taking a probiotic for this. Denies any new symptoms or concerns at this time. Related Data Home Medications ?Medication ?Instructions ?Recorded ?Confirmed ?Last Taken ?Type amlodipine 10 mg tablet 10 mg PO 0600 10/01/24 07/17/25 07/16/25 History atorvastatin 10 mg tablet 10 mg PO HS 10/01/24 07/17/25 07/16/25 History lisinopril 20 mg tablet 20 mg PO 1800 10/01/24 07/17/25 07/16/25 History metoprolol succinate 25 mg 12.5 mg PO 0600,1800 10/01/24 07/17/25 07/16/25 History tablet,extended release 24 hr trazodone 50 mg tablet 50 mg PO HS 10/01/24 07/17/25 07/16/25 History cimetidine 400 mg tablet 400 mg PO 06,18 07/17/25 07/17/25 07/16/25 History gabapentin 100 mg capsule 200 mg PO 06,14,22 07/17/25 07/17/25 07/16/25 History Allergies Allergy/AdvReac Type Severity Reaction Status Date / Time steroids AdvReac Intermediate Agitated Uncoded 07/17/25 09:42 Review of Systems Review of Systems: All systems are reviewed and are negative unless stated otherwise in the HPI. [facility] Past Medical History Medical History History of melanoma Emphysema/COPD History of skin cancer AAA (abdominal aortic aneurysm) Hx of adenomatous colonic polyps GERD (gastroesophageal reflux disease) Encounter for screening colonoscopy CVA (cerebral vascular accident) Hypertension Surgical History Surgical History No pertinent past surgical history Family History Family History Mother Aneurysm Social History Social History Smoking packs per day: 2 Smoking cigarettes per day: 40.0 Years smoked: 26 Smoking pack-years: 52.00 Smoking status: Former smoker Second hand tobacco smoke exposure: No Alcohol intake: never Substance use: never Substance use type: marijuana Do You Feel Safe in your Home?: Yes Lack of Transportation: No Lack of Food: Never True Current Housing: I Have Housing Concerned About Future Housing: Decline to Answer Difficulty Paying Gas/Electric Bills: Decline to Answer Difficulty Paying for Meds: Decline to Answer Currently Unemployed: Decline to Answer Education: High School Diploma/GED Difficulty w/ Childcare or Family Care: Decline to Answer Living arrangements: with family Occupation/Education: retired Gender identity (if verbalized by the patient): Male Sexual Orientation (if Verbalized by the Patient): Straight or Heterosexual Spiritual care concerns: No Agree to blood products: Yes Exam Narrative: General: Alert, awake, afebrile, in no acute distress. HEENT: PERRL, no rhinorrhea, no post nasal drip, oropharynx clear. Neck: Trachea midline, no JVD, no lymphadenopathy. Cardiovascular: Regular rate and rhythm, no murmurs, rubs or gallops, no peripheral edema. Respiratory: Clear to auscultation bilaterally, no tachypnea, no wheezing, no rhonchi, no rubs, no respiratory distress. Abdomen: Soft, nontender, nondistended, no rebound, no guarding, no peritoneal signs. Musculoskeletal: No joint swelling or deformity, normal muscle tone. Skin: No rashes or petechia, no signs of infection. Psychiatric: Alert and oriented, normal behavior and judgment for situation. Neurological: Alert and oriented to person, place, and time. Follows all commands. No focal deficits, speech is clear and fluent. Course Vital Signs Vital signs: Vital Signs Temperature 99.2 F 07/25/25 03:58 Pulse Rate 88 07/25/25 03:58 Respiratory Rate 15 07/25/25 03:58 Blood Pressure 113/69 07/25/25 03:58 Pulse Oximetry 97 07/25/25 03:58 Oxygen Delivery Room Air 07/25/25 03:58 Temperature 99.2 F 07/25/25 03:58 Pulse Rate 88 07/25/25 03:58 Respiratory Rate 15 07/25/25 04:07 Blood Pressure 113/69 07/25/25 03:58 Pulse Oximetry 98 07/25/25 04:07 Oxygen Delivery Room Air 07/25/25 03:58 Medical Decision Making MDM Narrative Medical decision making narrative: The patient was evaluated by myself in the emergency department. History is obtained from patient who is an independent historian and physical exam was performed. External medical records were reviewed at this time. IV was established and pertinent tests were ordered. Laboratory results obtained revealing a leukocytosis of 14.4 otherwise unremarkable. Viral swabs negative for COVID/influenza/RSV. Imaging studies obtained included CXR which was independently interpreted by me revealing some improvement from patient's chest x-ray from last week, however, patient still has some patchiness in the perihilar and right upper lobe. Patient was informed that he will be placed on a Z-Sang for the next 5 days and was administered his 1st dose of azithromycin 500 mg p.o. in the ED. Differential diagnosis considerations include infectious process such as pneumonia or urinary tract infection, acute viral syndrome. Comorbidities impacting this visit include history of COPD. I have evaluated and discussed social determinants of health with the patient that could potentially impact subsequent diagnosis and treatment plans. On repeat assessment of the patient, reevaluation revealed that the patient is doing well and is in no acute distress. Patient symptoms have improved since he arrived to our emergency department. Repeat vital signs were all reviewed and noted to be stable. Differential diagnosis and treatment plan were discussed with the patient at bedside. Patient agrees with discussion and after shared medical decision making agrees with discharge. All questions were answered to the patient's satisfaction. Patient will follow up with his PCP in 3-5 days. Patient was provided with strict return precautions and instructed to return to the emergency department if any new or worsening symptoms develop. The patient was discharged in stable condition. Vital Signs Vital Signs: Vital Signs Temperature 99.2 F 07/25/25 03:58 Pulse Rate 88 07/25/25 03:58 Respiratory Rate 15 07/25/25 03:58 Blood Pressure 113/69 07/25/25 03:58 Pulse Oximetry 97 07/25/25 03:58 Oxygen Delivery Room Air 07/25/25 03:58 Temperature 99.2 F 07/25/25 03:58 Pulse Rate 88 07/25/25 03:58 Respiratory Rate 15 07/25/25 04:07 Blood Pressure 113/69 07/25/25 03:58 Pulse Oximetry 98 07/25/25 04:07 Oxygen Delivery Room Air 07/25/25 03:58 Lab Data 07/25/25 04:32 07/25/25 04:32 Labs: Lab Results 07/25/25 07/25/25 Range/Units 04:32 04:33 WBC 14.4 H (4.5-10.0) K/mm3 RBC 4.30 L (4.6-6.20) M/mm3 Hgb 13.0 L (14.0-18.0) g/dL Hct 39.2 L (42.0-52.0) % MCV 91.2 (80-100) fl MCH 30.2 (26-34) pg MCHC 33.2 (32-36) g/dl RDW 13.4 (11.5-14.5) % Plt Count 263 (150-375) k/mm3 MPV 9.2 (7.4-10.4) fl Immature Gran % (Auto) 0.3 (0-0.5) % Neut % (Auto) 87.3 H (45.5-73.1) % Lymph % (Auto) 5.6 L (18.3-44.2) % [place] % (Auto) 5.3 (2.6-8.5) % Eos % (Auto) 1.1 (0-4.4) % Baso % (Auto) 0.4 (0.2-1.2) % Lymph # (Auto) 0.81 L (0.9-3.2) K/mm3 [place] # (Auto) 0.8 H (0.1-0.6) K/mm3 Eos # (Auto) 0.2 (0-0.3) K/mm3 Baso # (Auto) 0.1 (0.0-0.1) K/mm3 Abs Immat Gran (auto) 0.05 H (0.00-0.031) K/mm3 Absolute Neuts (auto) 12.6 H (1.3-6.7) K/mm3 Absolute Nucleated RBC 0.000 (0.0-0.012) K/mm3 Nucleated RBC % 0.0 (0.0-0.2) % Sodium 139 (137-145) mmol/L Potassium 3.7 (3.4-5.0) mmol/L Chloride 109 H (98-107) mmol/L Carbon Dioxide 24 (22-30) mmol/L Anion Gap 6 (4-12) mmol/L BUN 17 (9-20) mg/dL Creatinine 0.94 (0.7-1.3) mg/dL Estim Creat Clear Calc 55 ml/min Estimated GFR > 60 (59 - ) Glucose 104 (65-110) mg/dL Calcium 9.1 (8.4-10.2) mg/dL Magnesium 1.9 (1.6-2.3) mg/dL Total Bilirubin 0.7 (0.2-1.3) mg/dL AST 23 (17-59) U/L ALT 17 (6-50) U/L Alkaline Phosphatase 77 (38-126) U/L Total Protein 6.2 L (6.3-8.2) g/dL Albumin 3.8 (3.5-5.1) g/dL Urine Color Yellow (Yellow) Urine Appearance Cloudy H (Clear) Urine pH 5.5 (5.0-9.0) Ur Specific [place] 1.017 (1.001-1.035) Urine Protein Negative (Negative) mg/dL Urine Glucose (UA) Negative (Negative) mg/dL Urine Ketones Negative (Negative) mg/dL Ur Blood (Man) Negative (Negative) Urine Nitrate Negative (Negative) Urine Bilirubin Negative (Negative) Urine Urobilinogen 0.2 (<2.0) mg/dL Add Ur Microanalysis Reviewed Leukocyte Esterase Rfl Negative (Negative) REJI/UL Urine RBC 0-2 (0-2) /hpf Urine WBC 0-5 (0-3) /hpf Ur Squamous Epith Cells None seen (Few) /hpf Calcium Oxalate Crystal Present (None) /hpf Urine Bacteria None seen /hpf Urine Casts 0-2 Influenza A (RT-PCR) Negative (Negative) Influenza B (RT-PCR) Negative (Negative) SARS-CoV-2 RNA (RT-PCR) Negative (Negative) Discharge Plan Discharge Clinical Impression: Community acquired pneumonia Patient Disposition: Home Condition: Improved Instructions: Antibiotic Form, Bacterial Pneumonia (ED) Additional Instructions: Please follow-up with your family doctor within the next 3-5 days. Take the prescribed antibiotic as instructed. Return to the ED if any new or worsening symptoms develop. Patient Language: Citizen [place] Prescriptions: New azithromycin 250 mg tablet 250 mg PO DAILY 4 Days Qty: 4 0RF Rx Instructions: start on day 2 of therapy No Action cimetidine 400 mg tablet 400 mg PO 06,18 gabapentin 100 mg capsule 200 mg PO 06,14,22 doxycycline hyclate 100 mg Tablet 100 mg PO Q12HR Qty: 8 0RF Rx Instructions: Please complete the course on 07/22 guaifenesin [Mucus Relief ER] 600 mg Tablet Extended Release 12hr 1,200 mg PO Q12HR Qty: 30 0RF amoxicillin-pot clavulanate 875-125 mg tablet 1 tablet PO Q12H Qty: 10 0RF Rx Instructions: Please complete the course on 07/23 Saccharomyces boulardii [Florastor] 250 mg capsule 250 mg PO BID Qty: 30 0RF trazodone 50 mg tablet 50 mg PO HS atorvastatin 10 mg tablet 10 mg PO HS lisinopril 20 mg tablet 20 mg PO 1800 amlodipine 10 mg tablet 10 mg PO 0600 metoprolol succinate 25 mg tablet extended release 24 hr 12.5 mg PO 0600,1800 Trelegy Ellipta 100-62.5-25 mcg blister with device 1 inh inhalation ONCE Qty: 180 2RF Follow-up/Referrals: Pritesh Cintron MD [Primary Care Provider, Family Practice] - 3 Days Time of Disposition: 05:27
[2025-07-25 04:43] LABS: Hematocrit 39.2 % (42.0-52.0); Hemoglobin 13.0 g/dL (14.0-18.0); Immature Granulocyte Percent A 0.3 % (0-0.5); Lymphocytes Absolute Auto 0.81 K/mm3 (0.9-3.2); Mean Corpuscular HGB Conc 33.2 g/dl (32-36); Mean Corpuscular Hemoglobin 30.2 pg (26-34); Mean Corpuscular Volume 91.2 fl (80-100); Nucleated Red Blood Cells Absolute Auto 0.000 K/mm3 (0.0-0.012); Nucleated Red Blood Cells Perc 0.0 % (0.0-0.2); Platelet Count Result 263 k/mm3 (150-375); Red Blood Count 4.30 M/mm3 (4.6-6.20); White Blood Count 14.4 K/mm3 (4.5-10.0)
[2025-07-25 04:52] LABS: Add Urine Microscopic? YES; Appearance Urine Cloudy (Clear); Glucose Urine UA Negative (Negative); Leukocyte Esterase Ur Negative LEU/UL (Negative); Need Manual Microscopic Reviewed; Nitrate Urine Negative (Negative); Non Pathogenic Casts 0-2; Specific Grav Ur 1.017 (1.001-1.035)
[2025-07-25 05:04] LABS: Alanine Aminotransferase 17 U/L (6-50); Albumin Level 3.8 g/dL (3.5-5.1); Alkaline Phosphatase 77 U/L (38-126); Anion Gap 6 mmol/L (4-12); Aspartate Amino Transferase 23 U/L (17-59); Bilirubin,Total 0.7 mg/dL (0.2-1.3); Blood Urea Nitrogen 17 mg/dL (9-20); Calcium 9.1 mg/dL (8.4-10.2); Carbon Dioxide 24 mmol/L (22-30); Chloride 109 mmol/L (98-107); Estimated CRCL calculation 55 ml/min; Estimated Glomerular Filt Rate > 60; Glucose 104 mg/dL (65-110); Magnesium 1.9 mg/dL (1.6-2.3); Potassium 3.7 mmol/L (3.4-5.0); Sodium 139 mmol/L (137-145); Total Protein 6.2 g/dL (6.3-8.2)
[2025-07-25 05:14] LABS: Influenza A QL RT-PCR Negative (Negative); Influenza B QL RT-PCR Negative (Negative); SARS-CoV-2 RNA PCR Negative (Negative)
[2025-07-25] MEDS: AZITHROMYCIN 500 MG TABLET PO (05:37)
[2025-07-25 05:44] VITALS: BP 113/78; PULSE 86; RESP 17; O2SAT 99
[2025-07-25 05:46] VITALS: BP 113/78; PULSE 86; RESP 17; O2SAT 99
== END 2025-07-25 05:49 | disposition home or self-care (01) ==
PROVIDERS: Emergency Provider Emergency Medicine; PCP Family Medicine
DX: J18.9 Pneumonia, unspecified organism (principal); J43.9 Emphysema, unspecified; I10 Essential (primary) hypertension; Z86.73 Personal history of transient ischemic attack (TIA), and cerebral infarction without residual deficits; Z85.828 Personal history of other malignant neoplasm of skin; Z87.891 Personal history of nicotine dependence; Z20.822 Contact with and (suspected) exposure to COVID-19
CPT/HCPCS: 36415; 71045; 80053; 81001; 83735; 85025; 87636; 99283

== ENCOUNTER 2025-08-23 12:47 | Outpatient (CLI) | payer OTHER, SELFPAY ==
--- OUTSIDE RECORDS SUMMARY | 2024-11-14 16:30 | XMS_ITS ---
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 Name Role Phone Angelo Montez Primary Care Provider Billy Farnsworth Unavailable [phone] Jose Arellano Unavailable Unavailable Migration, Provider Unavailable Unavailable Allergies Allergen (clinical drug ingredient) Drug/Non Drug Allergy documented on EMR Reaction Allergy Type Onset Date Status DARVOCET (uncoded) hives Allergy A ctive REASON FOR VISIT Multum To Medispan Conversion Encounter Encounters Encounter Location Date Provider Diagnosis [facility] [address] [phone] 2024 Provider Migration Plan Of Treatment No Information Progress Notes * Clifford JENKINS EDOB:[birth year] (69 yo M)Acc No.[id number] Patient: Clifford Christine Provider: Yonas pereira Migration :1955 A ge:69 Y S ex:Male Date:2024 Address:[address] [place], [place] [phone] Pcp:Angelo Montez Subjective: * Chief Complaints: * M ultum To Medispan Conversion Encounter * Allergies: D ARVOCET: hives * Electronic signature of Prov ider Migration on 08/23/2025 at 01:15 PM CDT Sign off status: Pending * Provider: Yonas pereira Migration Date: 01/15/2024 Generated for Ghada frederick/Ashlyn/eTransmitting on: 0 08/23/2025 01:15 PM CDT
--- NOTE | ~2025-08-23 | XR_ITS ---
XR chest 2V 08/23/2025 13:15 Indication: Fever Procedure: 2 view chest Comparison: 07/17/2025 Findings: There is scarring in the right upper lobe. Heart size normal. Mildly elevated right diaphragm. No focal air space disease, pulmonary edema, pleural effusion or suspected pneumothorax. Impression: 1: No acute cardiopulmonary disease. Reviewed, dictated and finalized at location O. Impression: 1: No acute cardiopulmonary disease.
--- OUTSIDE RECORDS SUMMARY | 2025-08-23 13:15 | XMS_ITS | Encounter Summary ---
Author Organization [facility] Address [address] [facility] [place] [address] Care Team Providers Care Machine Engraver Name Role Phone Pritesh Cintron MD Primary Care Provider [phone] Encounter Details Date Type Department Care Team (Late Contact Info) Description 10/11/2021 Lab Requisition [facility] Care DermPath Lab [address] [place] [phone] Lee Kovacs MD [address] [place] [address] Social History Tobacco Use Types Packs/Day Years Used Date Smoking Tobacco: Every Day Comments:smoke cigars Alcohol Use Standard Drinks/Week Comments No 0 (1 standard drink = 0.6 oz pur e alcohol) Sex and Gender Information Value Date Recorded Sex Assigned at Not on file Legal Sex Male 4:28 AM HEMATOLOGY TECHNICIAN Gender Identity Not on file Sexual Orientation Not on file documented as of this encounter Plan of Treatment Upcoming Encounters Date Type Department Care Team (Late Contact Info) Description 01/12/2026 9:30 AM HEMATOLOGY TECHNICIAN Office Visit [facility] - General Surgery [address] [place] [phone] Jose Car MD [address] [facility] [address] [place] [address] documented as of this encounter Procedures Procedure Name Priority Date/Time Associated Diagnosis Comments DERMATOPATHOLOGY Routine 10/09/2021 3:33 AM HEMATOLOGY TECHNICIAN documented in this encounter Results * DERMATOPATHOLOGY (10/09/2021 3:33 AM HEMATOLOGY TECHNICIAN) Case Report Dermatopathology Report Case: [id number] Authorizing Provider: Lee Kovacs MD Collected: 10/09/2021 03:33 AM Ordering Location: [facility] DermPath Lab Received: 10/11/2021 06:42 AM Pathologist: Ben Soriano MD Specimen: Skin, right mid chest 4:27 PM [facility] DERMATOPATHOLOGY LABORATORY Final Diagnosis Specimen A. SKIN, right mid chest: MALIGNANT MELANOMA, METASTATIC (C80.0) (see microscopic description and comment) 4:27 PM [facility] DERMATOPATHOLOGY LABORATORY at 1627 HEMATOLOGY TECHNICIAN Clinical History Nevus vs BCCA. Path# [id number] 4:27 PM [facility] DERMATOPATHOLOGY LABORATORY Gross Description Specimen A: Received is one formalin filled container labeled with the patient's name and designated right mid chest. The specimen consists of a shave biopsy measuring [id number]. Jar 0. 4:27 PM [facility] DERMATOPATHOLOGY LABORATORY Microscopic Description Specimen [...] the base of the specimen. 4:27 PM [facility] DERMATOPATHOLOGY LABORATORY Disclaimer An external and internal positive and negative controls are appropriate for the histochemical, immunohistochemical and immunofluorescence stain(s) in this case (if any), except where stated explicitly. The performance characteristics of the stain(s) cited in this report were developed and its performance characteristic determined by the Dermatopathology Laboratory at [facility], directed by Dr. Yandel Soriano. These tests need not be, and therefore are not, approved by the [place] Food and Drug Administration. The tests are used for clinical purposes. Billing Codes Specimen Charges Stain Charges 84554 1 80498 61100 1 1 1 4:27 PM HEMATOLOGY TECHNICIAN DERMATOPATHOLOGY LABORATORY Embedded Images 4:27 PM HEMATOLOGY TECHNICIAN DERMATOPATHOLOGY LABORATORY Pathology/Cytolo gy TISSUE SPECIMEN FROM SKIN / Unknown 10/09/2021 3:33 AM HEMATOLOGY TECHNICIAN 10/11/2021 6:42 AM HEMATOLOGY TECHNICIAN Lee Kovacs MD LAB - PATHOLOGY/CYTOLOGY ORDER JUSTO Final Result DERMATOPATHOLOGY LABORATORY [facility] - Department of Dermatology [facility] Specialized Medicine [address] [place] [address], [address] [phone] documented in this encounter Visit Diagnoses Not on filedocumented in this encounter Care Teams Machine Engraver Relationship Specialty Start Date End Date Pritesh Cintron MD [address] [place] [address] PCP - General 06/16/19 documented as of this encounter
--- OUTSIDE RECORDS SUMMARY | 2025-08-23 13:15 | XMS_ITS | Encounter Summary ---
Author Organization [facility] Address [address] [facility] [place] [address] Care Team Providers Care Research Spec Name Role Phone Pritesh Cintron MD Primary Care Provider [phone] Encounter Details Date Type Department Care Team (Late st Contact Info) Description 2022 Lab Requisition [facility] Care DermPath Lab [address] [facility] [place] [phone] Lee Kovacs MD [address] [place] [address] Social History Tobacco Use Types Packs/Day Years [...] on file Legal Sex Male 4:28 AM AUTOMATIC QUILLING MACHINE OPERATOR Gender Identity Not on file Sexual Orientation Not on file documented as of this encounter Functional Status * Is person deaf or have serious hearing difficulty? Answer Date of Assessment Author No 2021 12:57 PM AUTOMATIC QUILLING MACHINE OPERATOR Yang, Ann, RN * Is person blind or have [...] st Contact Info) Description 01/12/2026 9:30 AM AUTOMATIC QUILLING MACHINE OPERATOR Office Visit [facility] - General Surgery [address] [place] [phone] Jose Car MD [address] [facility] [address] [place] [address] documented as of this encounter Procedures Procedure Name Priority Date/Time Associated Diagnosis Comments DERMATOPATHOLOGY Routine 11/13/2022 12:0 0 AM AUTOMATIC QUILLING MACHINE OPERATOR documented in this encounter Results * DERMATOPATHOLOGY (11/13/2022 12:00 AM AUTOMATIC QUILLING MACHINE OPERATOR) Case Report Dermatopathology Report Case: [id number] Authorizing Provider: Lee Kovacs MD Collected: 11/13/2022 12:00 AM Ordering Location: [facility] DermPath Lab Received: 2022 06:17 AM Pathologist: Jaqueline Hinds MD Specimen: Skin, right chest 2 3:14 PM AUTOMATIC QUILLING MACHINE OPERATOR DERMATOPATHOLOGY LABORATORY Final Diagnosis Specimen A. SKIN, right chest: BENIGN VERRUCOUS KERATOSIS, INFLAMED (L82.1) POST-INFLAMMATORY PIGMENT ALTERATION (L81.9) 2 3:14 PM AUTOMATIC QUILLING MACHINE OPERATOR DERMATOPATHOLOGY LABORATORY at 1514 AUTOMATIC QUILLING MACHINE OPERATOR Clinical History SK vs. MM vs. Scar Path: [id number] 2 3:14 PM [facility] [...] characteristic determined by the Dermatopathology Laboratory at [facility], directed by Dr. Yandel Soriano. These tests need not be, and therefore are not, approved by the [place] Food and Drug Administration. The tests are used for clinical purposes. Billing Codes Specimen Charges Stain Charges 92312 1 2 3:14 PM [facility] DERMATOPATHOLOGY LABORATORY Embedded Images 2 3:14 PM [facility] DERMATOPATHOLOGY LABORATORY Pathology/Cytolog y TISSUE SPECIMEN FROM SKIN / Unknown 11/13/2022 2022 6:17 AM AUTOMATIC QUILLING MACHINE OPERATOR us Lee Kovacs MD LAB - PATHOLOGY/CYTOLOGY ORDER JUSTO Final Result DERMATOPATHOLOGY LABORATORY [facility] - Department of Dermatology [address], [address]rd [place] [address], [facility] [phone] documented in this encounter Visit Diagnoses Not on filedocumented in this encounter Care Teams Research Spec Relationship Specialty Start Date End Date Pritesh Cintron MD [address] [place] [address] PCP - General 06/16/19 documented as of this encounter
--- OUTSIDE RECORDS SUMMARY | 2025-08-23 13:15 | XMS_ITS | Clinical Summary ---
Author Organization [facility] Address [address] [place] [address] Care Team Providers Care Support Teacher Name Role Phone Pritesh Cintron MD Primary Care Provider [phone] Source Comments [facility],non-owned Affiliates and Associated Physician Practices is amultiple site organization consisting of ambulatory clinics and hospital sitesin [place], [place], [place] and [place]. This disclosure is being madepursuant to the Care Everywhere program and may not contain all information available regarding this patient. Last updated 18.[facility] Allergies Active Allergy Reactions Criticality Noted Date [...] LURIA, FLUZONE TRIVALENT; 6MO+) (IIV3) 10/25/2009 Covid SocialThreader primary monoval ent 12+ yr 0.3mL Purple cap 11/06/2021,02/20/2021,01/30/2021 INFLUENZA A P6X6-61 VACCINE 10/25/2009 INFLUENZA VACCINE 09/01/2022,09/01/2021 Social History [...] on file Legal Sex Male 4:28 AM BARREL CUTTER Gender Identity Not on file Sexual Orientation Not on file Last Filed Vital Signs Vital Sign Reading Time Taken Comments Blood Pressure 97/63 01/06/2025 9:58 AM BARREL CUTTER Pulse 70 01/06/2025 9:58 AM BARREL CUTTER Temperature 36.6 C (97.8 F) 01/06/2025 9:58 AM BARREL CUTTER Respiratory Rate 18 01/06/2025 9:58 AM BARREL CUTTER Oxygen Saturation 92% 01/06/2025 9:58 AM BARREL CUTTER Inhaled Oxygen Concentration - - Weight 68 kg (150 lb) 01/06/2025 9:58 AM BARREL CUTTER Height 165.1 cm (5' 5) 01/06/2025 9:58 AM BARREL CUTTER Body Mass Index 24.96 01/06/2025 9:58 AM BARREL CUTTER Plan of Treatment Upcoming Encounters Date Type Department Care Team (Late st Contact Info) Description 01/12/2026 9:30 AM BARREL CUTTER Office Visit [facility] - General Surgery [address] [place] [phone] Jose Car MD [address] [facility] [address] [place] [address] Health Maintenance Due Date Last Done [...] (1 of 2) 2003 AAA SCREENING 2018 DEPRESSION SCREENING 12/02/2024 COVID-19 VACCINE ( - 2024- season) 2025 11/06/2021, 02/20/2021, 01/30/2021 INFLUENZA VACCINE (#1) 2025 2, 09/01/2021, 10/02/2016, [...] HEPATITIS SCREEN ACUTE Routine 10/26/2014 10:47 AM BARREL CUTTER from Last 3 Months or Most Recently Relevant to Health Maintenance Results * HEPATITIS SCREEN ACUTE (10/26/2014 10:47 AM BARREL CUTTER) Hepatitis A Virus Antibody IgM Non-react St. [...] BLOOD SPECIMEN / Unknown 10/26/2014 10:47 AM BARREL CUTTER 10/26/2014 11:50 AM BARREL CUTTER Steven Cheek MD LAB - CHEMISTRY ORDERABLES F inal Result [address] [phone] from Last 3 Months or Most Recently Relevant to Health Maintenance Insurance [employer] * Guarantor: CLIFFORD JENKINS Account Type Relation to Patient Date of Phone Billing Address Personal/Family [address] [place] [phone] * Guarantor: CLIFFORD JENKINS Account Type Relation to Patient Date of Phone Billing Address Personal/Family [address] [place] [phone] Care Teams Support Teacher Relationship Specialty Start Date End Date Pritesh Cintron MD [address] [place] [address] PCP - General 06/16/19
--- OUTSIDE RECORDS SUMMARY | 2025-08-23 13:15 | XMS_ITS | Patient Health Record ---
Author Organization [facility] Address [address] [facility] [address] [place], [place] [id number] Care Team Providers Care Mold Filler Name Role Phone Angelo Montez Primary Care Provider Billy Farnsworth Unavailable [phone] Jose Arellano Unavailable Unavailable Migration, Provider Unavailable Unavailable Allergies Allergen (clinical drug ingredient) Drug/Non Drug Allergy documented on EMR Reaction Allergy Type Onset Date Status DARVOCET (uncoded) hives Allergy A ctive Reason For Referral No Information Problems Problem Type SNOMED Code ICD Code Onset Dates Problem Status W/U Status Risk Notes Problem Vasomotor rhinitis (8164086) 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 Problem Tobacco use (767157755) TOBACCO USE DISORDER (305.1) Active confirmed Problem Neoplasm of digestive system (422765492) 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 Encounters Encounter Location Date Provider Diagnosis [facility] [address] [facility] [address] [place], [place] [phone] 2024 Provider Migration Plan Of Treatment No Information Insurance Providers Payer Name Payer Address Payer Phone Subscriber Number Group Number Insured Name Patient Relationship to Insured Coverage Start Date Coverage End Date [facility] [address] [address] [place] [address] [id number] Clifford Velasquez Self - patient is the insured Medical (General) History Medical History History ICD Code Pertinent Medical History:: Vision changes, Nose problems, Migraine headaches, Surgical History Surgery Date(Month/Year) lasix surgery deviated septum excision lesion palate
--- OUTSIDE RECORDS SUMMARY | 2025-08-23 13:15 | XMS_ITS | Clinical Summary ---
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
--- OUTSIDE RECORDS SUMMARY | 2025-08-23 13:15 | XMS_ITS | Encounter Summary ---
Author Organization 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 Office Visit [facility] - General Surgery [address] [place] [address] Jose Car MD [address] [facility] [address] [place] [address] documented as of this encounter Procedures Procedure Name Priority Date/Time Associated Diagnosis Comments DERMATOPATHOLOGY Routine 05/14/2023 12:0 0 AM CDT documented in this encounter Results * DERMATOPATHOLOGY (05/14/2023 12:00 AM CDT) Case Report Dermatopathology Report Case: [id number] Authorizing Provider: Lee Kovacs MD Collected: 05/14/2023 12:00 AM Ordering Location: [facility] DermPath Lab Received: 05/14/2023 03:43 PM Pathologist: Jaqueline Hinds MD Specimen: Skin, right mid castrejon 3 1:00 PM CDT DERMATOPATHOLOGY LABORATORY Final Diagnosis Specimen A. SKIN, right mid castrejon: DERMATOFIBROMA (D23.9) 3 1:00 PM CDT DERMATOPATHOLOGY LABORATORY at 1300 CDT Clinical History [facility] Path#[id number] 3 1:00 PM CDT DERMATOPATHOLOGY LABORATORY Gross [...] characteristic determined by the Dermatopathology Laboratory at [facility], directed by Dr. Yandel Soriano. These tests need not be, and therefore are not, approved by the [place] Food and Drug Administration. The tests are used for clinical purposes. Billing Codes Specimen Charges Stain Charges 07839 1 3 1:00 PM CDT DERMATOPATHOLOGY LABORATORY Embedded Images 3 1:00 PM CDT DERMATOPATHOLOGY LABORATORY Pathology/Cytolog y TISSUE SPECIMEN FROM SKIN / Unknown 05/14/2023 05/14/2023 3:43 PM CDT us Lee Kovacs MD LAB - PATHOLOGY/CYTOLOGY ORDER JUSTO Final Result DERMATOPATHOLOGY LABORATORY [facility] - Department of Dermatology [facility] Medicine [address] [place] [address], [address] [phone] documented in this encounter Visit Diagnoses Not on filedocumented in this encounter Care Teams Terrazzo Tile Setter Relationship Specialty Start Date End Date Pritesh Cintron MD [address] [place] [address] PCP - General 06/16/19 documented as of this encounter
--- OUTSIDE RECORDS SUMMARY | 2025-08-23 13:15 | XMS_ITS ---
Author Organization [facility] Address [address] [facility] [place] [address] Care Team Providers Care Water Sponger Name Role Phone Pritesh Cintron MD Primary Care Provider Active Problems Problem Noted Date Diagnosed Date [...]
== END 2025-08-23 12:48 | disposition home or self-care (01) ==
PROVIDERS: PCP Family Medicine; Visit Provider Physician Assistant Medical
DX: R50.9 Fever, unspecified (principal); R53.81 Other malaise
CPT/HCPCS: 71046

== ENCOUNTER 2025-09-08 09:47 | Outpatient (CLI) | payer OTHER, SELFPAY ==
--- NOTE | ~2025-09-08 | MR_ITS ---
EXAMINATION: MRA brain wo con DATE: 09/08/2025 10:57 INDICATION: Cerebral aneurysm, unruptured. TECHNIQUE: Magnetic resonance angiography (MRA) of the brain was performed without intravenous contrast with T1-weighted SPGR by the 3D [id number]-[id number] technique. Maximum intensity projection 3D-reconstructions were obtained. COMPARISON: None. FINDINGS: The vertebral arteries are codominant. There is no significant stenosis of basilar artery or the posterior cerebral arteries. There is no significant stenosis of the intracranial internal carotid arteries or anterior or middle cerebral arteries. Anterior communicating artery is normal. There is no sign ificant stenosis of the posterior communicating arteries. 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 There is chronic encephalomalacia in left frontoparietal region and left insula. IMPRESSION: 1. 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 2. 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 Reviewed, dictated and finalized at location E. IMPRESSION: 1. 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 2. Chronic encephalomalacia involving left frontoparietal region and left insul a.
== END 2025-09-08 09:48 | disposition home or self-care (01) ==
PROVIDERS: PCP Family Medicine; Visit Provider Family Medicine
DX: I67.1 Cerebral aneurysm, nonruptured (principal); G93.89 Other specified disorders of brain
CPT/HCPCS: 70544